=== PATIENT | male | born 1960 | race Caucasian/White ===

== ENCOUNTER → 2017-07-08 | Outpatient (CLI) | payer MEDICARE, OTHER ==
--- NOTE | 2017-07-08 14:50 | CT ---
EXAMINATION TYPE: CT chest wo con DATE OF EXAM: 07/08/2017 COMPARISON: NONE HISTORY: Shortness of breath CT DLP: 562.30 mGycm. Automated Exposure Control for Dose Reduction was Utilized. TECHNIQUE: CT scan of the thorax is performed without IV contrast. FINDINGS: LUNGS: There is a subpleural 5 mm nodule within the right lung apex on series 4 image 11. This appear s solid in nature. Minimal paraseptal emphysematous changes are seen at the lung apices. Linear lingu lar platelike atelectasis is identified. No additional pulmonary nodules or masses. No focal consolid ation, pleural effusion or pneumothorax. Tracheal bronchial tree is patent. MEDIASTINUM: Lack of IV contrast is noted to limit evaluation for mediastinal and especially hilar ad enopathy. Mild three-vessel coronary artery calcifications are noted. No cardiomegaly. There are no d efinitive greater than 1 cm hilar or mediastinal lymph nodes. No pericardial effusion is seen. Asce nding thoracic aorta is within normal limits of size measuring 3.3 cm. OTHER: The liver appears diffusely hypoattenuated, most commonly related to hepatic steatosis with ar eas of probable focal fatty sparing around the gallbladder fossa and within segment IVb of the liver. 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 Benign splenic parenchymal granulomas are noted throughout. Moderate bilateral retroareolar gynecomastia is seen. Mild multilevel degenerative changes of the thoracic sp ine are noted. IMPRESSION: 1. No focal consolidation, pleural effusion or pneumothorax to correspond to the patient's shortness of breath. 2. 5 mm solid right apical pulmonary nodule for which follow-up CT in 6-12 months is recommended to e valuate for progression/resolution. 3. Mild pulmonary emphysematous changes. 4. Findings most compatible with hepatic steatosis and areas of focal fatty sparing. 5. Incidentally identified and partially visualized portion kidney. 6. Bilateral moderate retroareolar gynecomastia.
== END | disposition home or self-care (01) ==
LOC: RADCTMAIN 13:30
PROVIDERS: ATTEND Internal Medicine Endocrinology, Diabetes & Metabolism
DX: J43.9 Emphysema, unspecified (principal); R91.1 Solitary pulmonary nodule
CPT/HCPCS: 71250

== ENCOUNTER → 2019-01-22 | Outpatient (CLI) | payer MEDICARE ==
[2019-01-22 06:46] LABS: African American GFR (CKD) >90 (>60 ml/min/1.73 sqM); Blood Urea Nitrogen 17 mg/dL (9-20); Non-African American GFR(CKD) >90 (>60 ml/min/1.73 sqM)
--- NOTE | 2019-01-22 08:21 | CT ---
EXAMINATION TYPE: CT chest w con DATE OF EXAM: 01/22/2019 COMPARISON: July 08, 2017 HISTORY: Dyspnea CT DLP: 470.3 mGycm Automated exposure control for dose reduction was used. CONTRAST: CT scan of the chest is performed with IV Contrast, patient injected with 100 mL of Isovue 300. FINDINGS: LUNGS: Previously noted right apical subpleural nodule is not reproduced. There are couple scattered subpleural 2 mm nodule seen which are too small to appropriately characterize. No concerning nodules or masses are seen. Scattered emphysematous change and hyperinflation compatible with COPD. Scattered linear atelectasis noted. MEDIASTINUM: There are no greater than 1 cm hilar or mediastinal lymph nodes. No pericardial effusi on is seen. Thoracic aorta is of normal caliber. The heart is not enlarged. UPPER ABDOMEN: Steatosis. Splenic granulomas. OTHER: No additional significant abnormality is seen. IMPRESSION: 1. A couple scattered subpleural nodules seen right upper lobe. Consider follow-up in one year. 2. COPD emphysematous change mild in degree.
== END | disposition home or self-care (01) ==
LOC: RADCTMAIN 05:52
PROVIDERS: ATTEND Family Medicine
DX: J43.9 Emphysema, unspecified (principal); R91.1 Solitary pulmonary nodule; R06.00 Dyspnea, unspecified
CPT/HCPCS: 82565; 84520; 71260; 36415; Q9967

== ENCOUNTER → 2019-08-12 | Outpatient (CLI) | payer MEDICARE ==
--- NOTE | 2019-08-12 15:36 | US ---
EXAMINATION TYPE: US thyroid st tissue head/neck DATE OF EXAM: 08/12/2019 COMPARISON: NONE CLINICAL HISTORY: R59.0 ENLARGED LYMPHNODES. Left neck palpable area TECHNIQUE/FINDINGS: Grayscale and color ultrasound was performed of the site of the palpable abnormal ity. Left neck inferior to ear: 3.7 x 1.9 x 1.8cm superficial complex vascular area seen at patient's area of concern Right neck inferior to ear: no abnormality seen at this time IMPRESSION: There is a 3.7 cm hypoechoic mass at the palpable abnormality of the left neck. This cou ld relate to an enlarged abnormal lymph node. CT neck with contrast could be performed prior to fine- needle aspiration for better anatomic delineation.
== END | disposition home or self-care (01) ==
LOC: RADUSWWP 14:49
PROVIDERS: ATTEND Family Medicine
DX: R22.1 Localized swelling, mass and lump, neck (principal)
CPT/HCPCS: 76536

== ENCOUNTER → 2019-10-11 | Outpatient (CLI) | payer MEDICARE ==
--- NOTE | 2019-10-11 11:00 | CT ---
EXAMINATION TYPE: CT soft tissue neck w con DATE OF EXAM: 10/11/2019 COMPARISON: None HISTORY: Nodule CONTRAST: CT scan of the neck is performed with IV Contrast , patient injected with 100 mL of Isovue 300. Contrast enhanced CT of the neck was performed from the skull base through the lung apices. AIRWAY: The supraglottic, glottic, and subglottic portions of the airway appear patent and free of mass. SALIVARY GLANDS: The submandibular glands are free of mass or inflammatory process. There is nonspec ific mass arising from the lower pole of the left parotid gland of uncertain etiology measuring 3.2 x 2.2 x 2.5 cm. Consider tissue diagnosis. THYROID GLAND: No nodules or masses seen. LYMPH NODES: No adenopathy seen greater than 1cm. LUNG APICES: No nodule or mass is seen. OTHER: Vascular structures are patent. No significant degenerative change of the cervical spine. N o abscess seen. IMPRESSION: 1. There is nonspecific mass arising from the lower pole of the left parotid gland of uncertain etiol ogy measuring 3.2 x 2.2 x 2.5 cm. Consider tissue diagnosis.
== END | disposition home or self-care (01) ==
LOC: RADCTMAIN 09:41
PROVIDERS: ATTEND Family Medicine
DX: K11.8 Other diseases of salivary glands (principal); R91.1 Solitary pulmonary nodule
CPT/HCPCS: 70491; Q9967

== ENCOUNTER → 2019-10-19 | Outpatient (CLI) | payer MEDICARE | END | disposition home or self-care (01) | LOC: LABWHC1 11:47 | PROVIDERS: ATTEND Family Medicine | DX: Z11.59 Encounter for screening for other viral diseases (principal) | CPT/HCPCS: 87635 ==

== ENCOUNTER 2019-10-21 10:53 | Day surgery (SDC) | payer MEDICARE ==
[2019-10-21 11:22] VITALS: RESP 18; TEMP 98.1
[2019-10-21 12:32] VITALS: BP 128/78; PULSE 76
--- NOTE | 2019-10-21 13:55 | US ---
EXAMINATION TYPE: US FNA first lesion DATE OF EXAM: 10/21/2019 COMPARISON: CT 10/11/2019 HISTORY: Parotid mass. Maximal barrier technique was utilized. After informed consent, skin overlying the left neck mass wa s localized with ultrasound and the overlying skin prepped and draped. Ultrasound was utilized using sterile technique. Lidocaine was used for local anesthesia. Single pass with a 21-gauge needle was ma de into the lesion and aspirated specimen was submitted to cytology, cloudy fluid obtained, partially 5 cc. Following the procedure hemostasis achieved. No immediate complication. The patient dischar ged in stable condition. IMPRESSION: STATUS POST ULTRASOUND GUIDED FINE NEEDLE ASPIRATION OF LEFT NECK MASS, PATHOLOGY IS PEND ING. THIS PROCEDURE WAS PERFORMED BY THE UNDERSIGNED.
== END 2019-10-21 12:35 | disposition home or self-care (01) ==
LOC: RADPROMAIN 10:53
PROVIDERS: ATTEND Family Medicine
DX: K11.8 Other diseases of salivary glands (principal)
CPT/HCPCS: 10005; 88173; 88305

== ENCOUNTER → 2020-12-01 | Outpatient (CLI) | payer MEDICARE | END | disposition home or self-care (01) | DX: I70.213 Atherosclerosis of native arteries of extremities with intermittent claudication, bilateral legs (principal) | CPT/HCPCS: 93923 ==

== ENCOUNTER 2022-03-21 05:50 | Day surgery (SDC) | payer MEDICARE ==
[2022-03-21] MEDS ORDERED: NITROGLYCERIN SL TABS 0.4 MG TAB SUBLINGUAL PRN (05:59)
[2022-03-21] MEDS ORDERED: ALPRAZolam 0.5 MG TAB PO PRN (05:59)
[2022-03-21] MEDS ORDERED: ALPRAZolam 0.25 MG TAB PO PRN ×2 (05:59)
[2022-03-21] MEDS ORDERED: ATORVASTATIN 80 MG TAB PO STA (05:59)
[2022-03-21] MEDS ORDERED: HEPARIN SODIUM,PORCINE 10,000 UNIT in SODIUM CHLORIDE 0.9% 1,000 ML IRRIGATION PRN (05:59)
[2022-03-21] MEDS ORDERED: HEPARIN SODIUM,PORCINE 2,500 UNIT in SODIUM CHLORIDE 0.9% 250 ML IRRIGATION PRN (05:59)
[2022-03-21] MEDS ORDERED: SODIUM CHLORIDE 0.9% 1,000 ML in EMPTY BAG 1 BAG IV ONE (05:59)
[2022-03-21] MEDS ORDERED: ASPIRIN 325 MG TAB PO STA (05:59)
[2022-03-21] MEDS ORDERED: ASPIRIN 325 MG TAB PO PRN (05:59)
[2022-03-21 06:27] LABS: Glucose,Whole Blood 165 mg/dL (70-110)
[2022-03-21 06:34] VITALS: RESP 18; TEMP 98.5
[2022-03-21 06:53] LABS: Basophils # (A) 0.1 k/uL (0-0.2); Basophils % (A) 1 %; Eosinophils % (A) 0 %; HGB 17.4 gm/dL (13.0-17.5); Lymphocytes # (A) 3.4 k/uL (1.0-4.8); Lymphocytes % (A) 36 %; MCH 28.9 pg (25.0-35.0); MCHC 32.9 g/dL (31.0-37.0); Mean Platelet Volume 7.2; Monocytes # (A) 0.7 k/uL (0-1.0); Monocytes % (A) 7 %; Neutrophils # (A) 5.1 k/uL (1.3-7.7); Neutrophils % (A) 54 %; Platelet Count 334 k/uL (150-450); RBC 6.03 m/uL (4.30-5.90); RDW 13.3 % (11.5-15.5); WBC 9.5 k/uL (3.8-10.6)
[2022-03-21 06:54] LABS: MCV 87.8 fL (80.0-100.0)
[2022-03-21] MEDS ORDERED: HEPARIN SODIUM 1,000 UN/ML (10ML VL) ONE (07:19)
[2022-03-21] MEDS ORDERED: MIDAZOLAM 2 MG/2 ML VIAL IV ONE (07:43)
[2022-03-21] MEDS ORDERED: LIDOCAINE 1% INJ 10MG/ML (30 ML VIAL-PF) SQ ONE (07:44)
[2022-03-21] MEDS ORDERED: VERAPAMIL SYRINGE (5 MG/10 ML) INTRAARTER ONE (07:50)
[2022-03-21] MEDS ORDERED: HEPARIN SODIUM 1,000 UN/ML (10ML VL) IV ONE (07:55)
[2022-03-21] MEDS ORDERED: niCARdipine 25 MG/10 ML VIAL ONE (07:58)
[2022-03-21] MEDS ORDERED: niCARdipine Syringe (1,000 mcg/10 mL) INTRAARTER ONE (07:59)
[2022-03-21] MEDS ORDERED: niCARdipine 25 MG/10 ML VIAL INTRAARTER ONE (07:59)
[2022-03-21] MEDS ORDERED: IOPAMIDOL-370 125ML BTL INJ ONE (08:14)
[2022-03-21] MEDS ORDERED: RX INFO: IV CONTRAST WAS GIVEN 1 EACH MISC MISCELLANE PRN (08:26)
[2022-03-21] MEDS ORDERED: SODIUM CHLORIDE 0.9% 1,000 ML IV SCH (08:30)
--- NOTE | 2022-03-21 08:32 | P.PCN ---
Date of Procedure: 03/21/22 Operative Findings: CARDIAC CATHETERIZATION PERFORMING PHYSICIAN: Juan Anne MD, RPVI PROCEDURE PERFORMED: 1. Selective right and left coronary angiogram 2. Left heart catheterization INDICATION: This is a 61-year-old gentleman with diabetes and hypertension and dyslipidemia and recent diagnosis of cardiomyopathy. He was experiencing shortness of breath with exertion. In the light of the cardiomyopathy and also in the light of abnormal stress test showing large inferior ischemia the heart catheterization was advised. COMPLICATION: None APPROACH: Right radial artery LEVEL OF SEDATION: Moderate with a sedation length of 15 minutes PROCEDURE DESCRIPTION: After obtaining an informed consent, the patient was brought to cardiac quality lab technician. Local anesthesia was performed using lidocaine subcutaneously. The right radial artery was cannulated using Seldinger technique, the guidewire passed easily, following that we advanced a 5-New Zealander sheath dilator assembly, the wire and dilator were removed and sheath was flushed. Following that, 2 mg of verapamil along with 5000 unit heparin were given. Selective right and left coronary angiogram using a 6-New Zealander JR4 and JL 3.5 catheters. Following that we did left heart catheterization using 6-New Zealander pigtail catheter. The procedure was completed there was no complication. SELECTIVE CORONARY ANGIOGRAM: The right coronary artery: Large caliber vessel and a dominant vessel. The RCA in the midportion is subtotally occluded up to about 99.9%. Distally the RCA becomes a small caliber vessel and bifurcates into PDA and PLV branches. Left main: Large caliber vessel was mild disease only. Bifurcates into an LCx and LAD The left circumflex: Large caliber vessel. The proximal LCx appeared to have mild disease only. Gives rise into an OM 1 which is a large caliber vessel works as ramus intermedius and has a lesion in the midportion appears to be in the range of 50- 60%. OM 2 is a small to medium caliber vessel was mild to moderate disease proximally. The circumflex continue in the AV groove as a moderate caliber vessel was no disease. The left anterior descending artery: The LAD proximally has mild disease only. The mid LAD appears to be subtotally occluded with a very sluggish flow in antegrade fashion. There is a lesion right after the bifurcation with the first diagonal branch appears to be a focal lesion. Lesion appears to be in the range of 70-80% HEMODYNAMICS: The LVEDP was 16 mmHg was no significant gradient across aortic valve CONCLUSION: 1. Critical lesion involving the mid RCA appears to be a tubular lesion 2. Critical lesion involving the proximal left anterior descending artery 3. Intermediate lesion involving OM one of the LCx POSTPROCEDURE MANAGEMENT: Giving the above anatomy I would take an opinion from cardiothoracic a surgeon
--- NOTE | 2022-03-21 08:35 | P.PCN ---
Date of Procedure: 03/21/22 Operative Findings: AN ABDOMINAL AORTOGRAM AND BILATERAL LOWER EXTREMITIES RUNOFF PERFORMING PHYSICIAN: Juan Anne MD PROCEDURE PERFORMED: 1. An abdominal aortogram 2. Bilateral lower extremities runoff INDICATION: Bilateral lower except his intermittent claudication with the patient unable to walk more than 200 feet before he stopped because of the pain. He underwent an arterial duplex study which showed occluded bilateral SFA COMPLICATION: None LEVEL OF SEDATION: Moderate was sedation length of moderate to sedation length of 15 minutes APPROACH: Right radial artery PROCEDURE DESCRIPTION: For access description please refer to a diagnostic heart catheterization was performed earlier today on the same patient. The procedure was performed from right radial approach We did an abdominal aortogram and bilateral lower extremities runoff using 5- Mexican pigtail catheter using a power injection. The catheter was initially placed at the level of the renal arteries, and it was pulled into above the bifurcation of the aorta into right and left common iliac arteries. The procedure was completed and there was no complications. SELECTIVE PERIPHERAL ANGIOGRAM: The abdominal aorta: Appears to have mild disease only The common iliac arteries: Both appear to have mild disease only The external iliac arteries: Both appear to have mild disease only The internal iliac arteries: Both are occluded The common femoral arteries: Both have mild disease only Superficial femoral arteries: Both are occluded in the proximal portion Popliteal arteries: Appears to be patent Below the knees: Poorly visualized arteries below the knee bilaterally CONCLUSION: Occluded bilaterally SFA POSTPROCEDURE MANAGEMENT: CAGE CLERK of the right and left SFA
[2022-03-21 12:32] VITALS: BP 122/74; PULSE 95
== END 2022-03-21 12:37 | disposition home or self-care (01) ==
LOC: CATHCVL 05:50
PROVIDERS: ATTEND Internal Medicine Interventional Cardiology
DX: I25.10 Atherosclerotic heart disease of native coronary artery without angina pectoris (principal); I70.92 Chronic total occlusion of artery of the extremities; E11.9 Type 2 diabetes mellitus without complications; I10 Essential (primary) hypertension; E78.5 Hyperlipidemia, unspecified; I42.9 Cardiomyopathy, unspecified
CPT/HCPCS: 93458; 75625; 75716; 85025; C1769; J2250; J2001; J1644; Q9967

== ENCOUNTER → 2022-04-16 | Outpatient (CLI) | payer MEDICARE ==
--- NOTE | 2022-04-16 11:23 | CT ---
EXAMINATION TYPE: CT chest wo con DATE OF EXAM: 04/16/2022 COMPARISON: Prior chest CT January 22, 2019 HISTORY: pre-op open heart CT DLP: 407.1 mGycm. Automated Exposure Control for Dose Reduction was Utilized. TECHNIQUE: CT scan of the thorax is performed without IV contrast. FINDINGS: LUNGS: [id number] underlying emphysematous change is redemonstrated. Mild central peribronchial wall thickening again seen. No new or enlarging greater than 5 mm pulmonary nodules or masses. No bautista spicious focal consolidation. There is no pleural effusion or pneumothorax seen. The tracheobronch ial tree is patent. MEDIASTINUM: Lack of IV contrast is noted to limit evaluation for mediastinal and especially hilar ad enopathy. There are no definitive new Greater than 1 cm mediastinal lymph nodes. Small to tiny pericardial effusion is now seen. No cardiom egaly. Three-vessel coronary artery calcification is present. Lipomatous hypertrophy of the intra-art erial septum redemonstrated. OTHER: A few calcifications throughout the spleen are redemonstrated consistent with product of old g ranulomatous disease.. Slightly low dense thickening to left adrenal gland favors benign lipid rich h yperplasia. Mild multilevel spurring in the thoracic spine. Bilateral flame-shaped subareolar gynecom astia is noted. IMPRESSION: Mild to moderate emphysematous change without acute pulmonary process.
--- NOTE | 2022-04-16 11:23 | XR ---
EXAMINATION TYPE: XR chest 2V DATE OF EXAM: 04/16/2022 COMPARISON: NONE TECHNIQUE: PA and lateral views submitted. HISTORY: Preop FINDINGS: The lungs are clear and there is no pneumothorax, pleural effusion, or focal pneumonia. Hyperinflat ion compatible with COPD. Heart size normal. No overt failure. IMPRESSION: 1. No acute process. Correlate for COPD.
--- NOTE | 2022-04-16 12:16 | US ---
EXAMINATION TYPE: US carotid duplex BILAT DATE OF EXAM: 04/16/2022 COMPARISON: NONE CLINICAL HISTORY: R55 SYNCOPE. Syncope, Pre-OP CABG TECHNIQUE: Carotid duplex ultrasound examination. Indirect Doppler criteria was utilized. FINDINGS: EXAM MEASUREMENTS: RIGHT: Peak Systolic Velocity (PSV) cm/sec ----- Right CCA: 79.9 ----- Right ICA: 79.8 ----- Right ECA: 114.7 ICA/CCA ratio: 1.0 RIGHT: End Diastole cm/sec ----- Right CCA: 24.1 ----- Right ICA: 27.0 ----- Right ECA: 20.2 LEFT: Peak Systolic Velocity (PSV) cm/sec ----- Left CCA: 101.7 ----- Left ICA: 96.3 ----- Left ECA: 100.4 ICA/CCA ratio: 0.9 LEFT: End Diastole cm/sec ----- Left CCA: 29.2 ----- Left ICA: 31.4 ----- Left ECA: 18.9 VERTEBRALS (direction of flow): Right Vertebral: Antegrade Left Vertebral: Antegrade Rhythm: Normal CERTIFIED HYPERBARIC TECHNOLOGIST NOTES: Heterogeneous plaque visualized bilaterally, however no significant stenosis vis ualized IMPRESSION: Bilateral heterogeneous plaque with no significant hemodynamic stenosis identified. Criteria for Assigning % of Stenosis / Diameter reduction (Estimation based on the indirect measurements of the internal carotid artery velocities (ICA PSV). 1. Normal (no stenosis)=ICA PSV < 125 cm/s: ratio < 2.0: ICA EDV<40 cm/s. 2. Less than 50% stenosis=ICA PSV < 125 cm/s: ratio < 2.0: ICA EDV<40 cm/s. 3. 50 to 69% stenosis=ICA PSV of 125 to 230 cm/s: ration 2.0 ? 4.0: ICA EDV 40-100 cm/s. 4. Greater than 70% stenosis to near occlusion= ICA PSV > 230 cm/s: ratio > 4.0: ICA EDV > 100 cm/s. 5. Near occlusion= ICA PSV velocities may be low or undetectable: variable ratio and ICA EDV. 6. Total occlusion=unable to detect flow.
--- NOTE | 2022-04-16 18:25 | CA ---
Transthoracic Echo Report Name: Humberto Taveras Age: 61 Gender: M : 1960 Exam Date: 04/16/2022 12:06 Exam Location: [facility] Ht (in): 68 Wt (lb): 202 Ordering Physician: Victor M Walters MD Attending/Referring Phys: Toll Lineman Lisa So RDCS Procedure CPT: Indications: I20.9 Cardiac Hx: Pre CABG Technical Quality: Very technically difficult study Contrast 1: Lumason Total Dose (mL): 4 Contrast 2: N/A Total Dose (mL): MEASUREMENTS (Male / Female) Normal Values 2D ECHO LV Diastolic Diameter PLAX 5.6 cm 4.2 - 5.9 / 3.9 - 5.3 cm LV Systolic Diameter PLAX 5.0 cm IVS Diastolic Thickness 1.1 cm 0.6 - 1.0 / 0.6 - 0.9 cm LVPW Diastolic Thickness 1.5 cm 0.6 - 1.0 / 0.6 - 0.9 cm LV Relative Wall Thickness 0.5 RV Internal Dim ED PLAX 3.8 cm LA Systolic Diameter LX 3.7 cm 3.0 - 4.0 / 2.7 - 3.8 cm LA Volume 55.9 cm??? 18 - 58 / 22 - 52 cm??? M-MODE Aortic Root Diameter MM 3.8 cm LA Systolic Diameter MM 3.9 cm LA Ao Ratio MM 1.0 MV E Point Septal Separation 0.4 cm AV Cusp Separation MM 1.5 cm DOPPLER MV Area PHT 4.4 cm??? Mitral E Point Velocity 40.4 cm/s Mitral A Point Velocity 64.0 cm/s Mitral E to A Ratio 0.6 MV Deceleration Time 170.8 ms MV E' Velocity 4.8 cm/s Mitral E to MV E' Ratio 8.4 TR Peak Velocity 144.8 cm/s TR Peak Gradient 8.4 mmHg Right Ventricular Systolic Press 13.4 mmHg FINDINGS Left Ventricle Severely reduced left ventricular systolic function. Left ventricular ejection fraction is estimated at 25-30 %. The anteroapical, apex and anteroseptal wall are akinetic. Evidence of apical thrombus noted. Right Ventricle Mild right ventricular dilatation. Right ventricular systolic pressure within normal limits. Right Atrium Normal right atrial size. Left Atrium Normal left atrial size. Mitral Valve Structurally normal mitral valve. Mild mitral regurgitation. Aortic Valve Trileaflet aortic valve. Aortic valve sclerosis. Tricuspid Valve Structurally normal tricuspid valve. Mild tricuspid regurgitation. Pulmonic Valve Pulmonic valve not well visualized. Pericardium Normal pericardium. Aorta Normal size aortic root and proximal ascending aorta. CONCLUSIONS 1. Severely impaired left ventricle systolic function with segmental wall motion abnormality and evidence consistent with apical thrombus 2. Mild mitral and tricuspid regurgitation. Previewed by: Dr. Asif White MD (Electronically Signed) Final Date: 16 April 2022 18:24
--- NOTE | 2022-04-17 10:10 | US ---
EXAMINATION TYPE: Pre-Operative Non-Invasive Evaluation of the hand for Potential Radial Artery Harve st, Measurements only DATE OF EXAM: 04/16/2022 12:08 PM CLINICAL HISTORY: I25.10 KNOWN CORONARY ARTERY DISEASE. Pre-OP CABG SIDE PERFORMED: Bilateral TECHNIQUE: Radial artery is measured utilizing real time linear array sonography. Dominant hand: Right Duplex Findings: Radial Artery: Color flow seen Measurements in mm, transverse view: Right Radial: Proximal: 3.3 x 3.2 mm Mid: 2.4 x 2.8 mm Distal: 2.6 x 3.0 mm Left Radial: Proximal: 3.8 x 3.7 mm Mid: 2.8 x 3.0 mm Distal: 2.9 x 2.9 mm IMPRESSION: 1. Bilateral radial artery measurements listed above. 2. Performing surgeon to determine viability as conduit.
--- NOTE | 2022-04-17 10:10 | US ---
EXAMINATION TYPE: US vein mapping BIL DATE OF EXAM: 04/16/2022 11:42 AM COMPARISON: NONE CLINICAL HISTORY: I25.10 KNOWN CORONARY ARTERY DISEASE. Pre-OP CABG SIDE PERFORMED: Bilateral TECHNIQUE: Lower extremity saphenous vein is examined and measured utilizing real time linear array sonography. Patient History: Smoker: Yes Heart Disease: Yes Previous DVT: No Vascular Surgery: NO Discoloration: No Hypertension: Yes Diabetes: No Paralysis: No Varicosities: NO Edema: No DUPLEX FINDINGS: Greater Saphenous: Color flow seen Measurements in mm: Right Greater Saphenous: Groin: 6.0 x 5.8 mm High Thigh: 3.2 x 3.5 mm Mid Thigh: 3.4 x 3.7 mm Above Knee: 2.8 x 2.9 mm Knee: 2.6 x 2.6 mm Below Knee: 2.6 x 2.3 mm Mid Calf: 2.5 x 2.6 mm At Ankle: 2.3 x 2.8 mm Left Greater Saphenous: Groin: 8.0 x 8.1 mm High Thigh: 5.0 x 5.3 mm Mid Thigh: 3.8 x 4.5 mm Above Knee: 3.7 x 4.5 mm Knee: 3.1 x 4.0 mm Below Knee: 3.1 x 3.4 mm Mid Calf: 3.2 x 3.8 mm At Ankle: 2.6 x 2.2 mm IMPRESSION: 1. Bilateral GSV measurements listed above. 2. Performing surgeon to determine viability as conduit.
== END | disposition home or self-care (01) ==
LOC: LABWHC1 10:53
PROVIDERS: ATTEND Thoracic Surgery (Cardiothoracic Vascular Surgery)
DX: I25.10 Atherosclerotic heart disease of native coronary artery without angina pectoris (principal); R06.02 Shortness of breath; R55 Syncope and collapse
CPT/HCPCS: 71046; 93930; 93970; 93880; 71250; C8929; Q9950; 93306

== ENCOUNTER 2022-05-01 05:53 | Day surgery (SDC) | payer MEDICARE ==
[2022-04-04 16:14] VITALS: BMI 30.4
[~2022-05-01 05:53] MED LIST: ASPIRIN 325 MG TAB PO PRN; SODIUM CHLORIDE 0.9% 1,000 ML in EMPTY BAG 1 BAG IV ONE
[2022-05-01 06:17] LABS: Glucose,Whole Blood 142 mg/dL (70-110)
[2022-05-01 06:24] LABS: Basophils # (A) 0.1 k/uL (0-0.2); Basophils % (A) 0 %; Eosinophils # (A) 0.1 k/uL (0-0.7); Eosinophils % (A) 1 %; HCT 50.5 % (39.0-53.0); Lymphocytes # (A) 1.7 k/uL (1.0-4.8); Lymphocytes % (A) 15 %; MCH 29.5 pg (25.0-35.0); MCHC 33.7 g/dL (31.0-37.0); MCV 87.5 fL (80.0-100.0); Mean Platelet Volume 7.1; Monocytes # (A) 0.6 k/uL (0-1.0); Monocytes % (A) 5 %; Neutrophils # (A) 8.9 k/uL (1.3-7.7); Neutrophils % (A) 78 %; Platelet Count 331 k/uL (150-450); RBC 5.77 m/uL (4.30-5.90); RDW 12.9 % (11.5-15.5); WBC 11.3 k/uL (3.8-10.6)
[2022-05-01] MEDS ORDERED: ALPRAZolam 0.5 MG TAB ONE (06:26)
[2022-05-01 06:34] LABS: African American GFR (CKD) >90 (>60 ml/min/1.73 sqM); Anion Gap 11 mmol/L; Blood Urea Nitrogen 12 mg/dL (9-20); Calcium 9.9 mg/dL (8.4-10.2); Carbon Dioxide 27 mmol/L (22-30); Chloride 100 mmol/L (98-107); Glucose 159 mg/dL (74-99); Non-African American GFR(CKD) 90 (>60 ml/min/1.73 sqM); Potassium 4.6 mmol/L (3.5-5.1); Sodium 138 mmol/L (137-145)
[2022-05-01] MEDS ORDERED: fentaNYL (PF) 50 MCG/ML 2 ML AMP ONE ×2 (07:47→09:25)
[2022-05-01] MEDS ORDERED: MIDAZOLAM 2 MG/2 ML VIAL IV ONE (07:49)
[2022-05-01] MEDS ORDERED: fentaNYL (PF) 50 MCG/ML 2 ML AMP IV ONE ×3 (07:50→09:27)
[2022-05-01] MEDS ORDERED: LIDOCAINE 1% INJ 10MG/ML (30 ML VIAL-PF) SQ ONE (07:55)
[2022-05-01] MEDS ORDERED: HYDROmorphone 0.5 MG/0.5 ML SYRINGE IVP ONE (07:59)
[2022-05-01] MEDS ORDERED: HEPARIN SODIUM 1,000 UN/ML (10ML VL) ONE (08:02)
[2022-05-01 08:03] LABS: Partial Thromboplastin Time 23.2 sec (22.0-30.0); Prothrombin Time 10.4 sec (9.0-12.0)
[2022-05-01] MEDS: HEPARIN SODIUM 1,000 UN/ML (10ML VL) IV ONE ×2 (08:05→09:52)
[2022-05-01] MEDS ORDERED: SODIUM CHLORIDE 0.9% 500 ML 500 ML with niCARdipine 6.25 MG, NITROGLYCERIN-D5W PMX 0.05... IV ONE ×4 (08:33)
[2022-05-01 09:36] LABS: ALT 18 U/L (4-49); AST 21 U/L (17-59); Albumin 4.3 g/dL (3.5-5.0); Alkaline Phosphatase 89 U/L (38-126); Total Bilirubin 0.7 mg/dL (0.2-1.3); Total Protein 7.1 g/dL (6.3-8.2)
[2022-05-01] MEDS ORDERED: niCARdipine 25 MG/10 ML VIAL ONE (09:55)
[2022-05-01] MEDS ORDERED: NITROGLYCERIN 1000MCG/10ML SYRINGE INTRAARTER ONE (09:57)
[2022-05-01] MEDS: niCARdipine Syringe (1,000 mcg/10 mL) INTRAARTER ONE ×2 (09:57→10:06)
[2022-05-01] MEDS ORDERED: IOPAMIDOL-250 100ML BTL INTRAARTER ONE (10:08)
[2022-05-01] MEDS ORDERED: predniSONE 5 MG TAB PO PRN (10:14)
[2022-05-01] MEDS ORDERED: CLOPIDOGREL 75 MG TAB ONE (10:15)
[2022-05-01] MEDS ORDERED: NALOXONE 0.4 MG/ML 1 ML VIAL IVP PRN (10:20)
[2022-05-01] MEDS ORDERED: SODIUM CHLORIDE 0.9% 1,000 ML in EMPTY BAG 1 BAG IV SCH (10:30)
--- NOTE | 2022-05-01 10:32 | P.PCN ---
Date of Procedure: 05/01/22 Operative Findings: PERCUTANEOUS PERIPHERAL INTERVENTION Performing physician Juan Anne M.D. Procedure performed #1 Successful stenting of the proximal and mid left SFA #2 An atherectomy of the left SFA #3 Intravascular ultrasound of the left SFA #4 Successful balloon angioplasty of the left popliteal #5 Left lower extremities angiogram #6 Right lower extremity angiogram Indication This is a 61-year-old gentleman was experiencing bilateral lower extremities discomfort concerning for intermittent claudication which has been interfering with his daily activity where he can't walk more than 200 feet before he stopped because of the pain. He underwent initially an arterial duplex study and subsequently an angiogram and that revealed occluded bilateral SFA. He also was experiencing shortness of breath with exertion. He underwent further investigation including an echo and a stress test and both came in to be abnormal. Subsequently heart catheterization was performed and showed severe triple-vessel CAD. He was seen by cardiothoracic surgeon and he underwent cardiac MRI which showed viable anterior wall. He is a scheduled to undergo off-pump OBREGON to LAD but the surgeon would like to open his SFA before. For that reason for the pain in the legs concerning for intermittent claudication he was brought today for intervention. Approach Right common femoral artery and left posterior tibial artery Complications None Level of sedation Moderate with a sedation time of 144 minutes Procedure description After obtaining informed consent the patient was brought to the cardiac laboratory cureman. The right common femoral artery was cannulated using micropuncture technique under ultrasound guidance, the micro-puncture wire passed easily then I placed a 6-New Zealander sheath of the right common femoral artery. The sheath was 70 cm sheath. Subsequently I did selective the left profunda using 035 stiff Glidewire with a backup support of 5-New Zealander rim catheter. After that I advanced the sheath over the wire and the catheter to the left common femoral artery under fluoroscopy guidance. Left lower 70 angiogram at that point was performed and showed occluded left SFA and severe disease involving the left popliteal with 3 vessels run off below the knee bilaterally. At that point and declination was initiated using heparin with continuous ACT monitoring. Subsequently I did attempt crossing the chronic total occlusion of the left SFA in antegrade technique but that was unsuccessful. After that I decided to cross the left chronic total occlusion of the SFA in retrograde technique. I accessed the left posterior tibial artery and I placed a 6-New Zealander sheath. At that point continuous infusion of heparin and her abnormal and nitroglycerin was initiated. Again continuous ACT monitoring was performed. After that I did a cross the chronic total occlusion of the left SFA in retrograde technique coming from the pedal axis. I did inject contrast in the left common femoral artery to prove that I was in the true lumen. Subsequently intravascular ultrasound was performed and showed that the proximal and mid left SFA was some intimal in the distal left SFA and popliteal was true lumen. I did atherectomy of the only distal portion of the left SFA. After that I did balloon angioplasty of the left SFA and left popliteal. The following angiogram showed adequate angiographic results in the distal left SFA but in adequate angiographic results in the proximal and mid left SFA. I decided to stent the proximal and mid left SFA. I deployed 2 stents. Both where 7.0 x 1 40 mm Zilver PTX a drug-coated stent. Both stents were positioned under fluoroscopy guidance and deployed under fluoroscopy guidance with the stents were postdilated using 6 mm balloon. For the left SFA distally and left popliteal I did balloon angioplasty using a drug-coated balloon and that was 6.0 x 80 mm balloon. Final angiogram showed good angiographic results and completion angiogram showed three-vessel run off below the knee on the left side. At that point I did exchange my long sheath into short sheath using 035 stiff Glidewire before I did selective right common femoral artery angiogram. The procedure was completed without any complication Postprocedure management #1 dual antiplatelet therapy #2 aggressive cholesterol control #3 risk factors modification #4 follow-up with the patient
[2022-05-01] MEDS ORDERED: CLOPIDOGREL 75 MG TAB PO ONE (10:48)
[2022-05-01] MEDS ORDERED: NICOTINE 14MG/24HR PATCH TRANSDERM STA (11:08)
--- NOTE | 2022-05-01 13:55 | IR ---
EXAMINATION TYPE: IR stent intravas non coronary DATE OF EXAM: 05/01/2022 CLINICAL HISTORY: Peripheral arterial disease. Bilateral leg pain. TECHNIQUE: Fluoroscopy. COMPARISON: None. FINDINGS: Fluoroscopic guidance was provided during lower extremity angiogram with stent insertion p rocedure performed by Dr. Anne. A total of 46 minutes 24 seconds of fluoroscopic time was utilized d uring the procedure and 311 spot images was acquired. Please refer to procedure note for further deta ils. IMPRESSION: As Above.
[2022-05-01] MEDS: ALBUTEROL NEBULIZED 2.5 MG/3 ML INHALATION SCH (15:22)
[2022-05-02] MEDS: ALBUTEROL NEBULIZED 2.5 MG/3 ML INHALATION SCH ×2 (00:04→07:53)
[2022-05-02] MEDS ORDERED: SYMBICORT 160-4.5 MCG INHALER INHALATION SCH (08:00)
[2022-05-02] MEDS ORDERED: IPRATROPIUM 0.5 MG/2.5 ML NEBU INHALATION SCH (08:00)
--- NOTE | 2022-05-02 08:47 | P.DS ---
Providers Attending physician: Juan Anne Primary care physician: [facility] Course: The patient is a pleasant 61-year-old gentleman who underwent yesterday successful STAFFING AND SCHEDULING COORDINATOR of the left SFA. He was seen this morning. The right groin is soft and nontender and with no bruises. The patient is going to discharge home. I'll follow-up with the patient into weeks in the office. Plan - Discharge Summary Discharge Rx Participant: No New Discharge Prescriptions: New Apixaban [Eliquis] 2.5 mg PO BID #180 tab Continue Montelukast [Singulair] 10 mg PO DAILY Albuterol Nebulized [Ventolin Nebulized] 2.5 mg INHALATION Q8H predniSONE 5 mg PO DIRECTED PRN PRN Reason: COPD flare Fluticasone/Umeclidin/Vilanter [Trelegy Ellipta 200-62.5-25] 1 puff INHALATION DAILY Atorvastatin Calcium [Lipitor] 80 mg PO DAILY sitaGLIPtin PHOS/metFORMIN HCL [Janumet 50-1,000 mg Tablet] 1 each PO DAILY lisinopriL [Zestril] 5 mg PO DAILY Metoprolol Succinate (ER) [Toprol XL] 25 mg PO DAILY Aspirin 81 mg PO DAILY Discharge Medication List Albuterol Nebulized [Ventolin Nebulized] 2.5 mg INHALATION Q8H 03/20/22 [History] Aspirin 81 mg PO DAILY 03/20/22 [History] Atorvastatin Calcium [Lipitor] 80 mg PO DAILY 03/20/22 [History] Fluticasone/Umeclidin/Vilanter [Trelegy Ellipta 200-62.5-25] 1 puff INHALATION DAILY 03/20/22 [History] Metoprolol Succinate (ER) [Toprol XL] 25 mg PO DAILY 03/20/22 [History] Montelukast [Singulair] 10 mg PO DAILY 03/20/22 [History] lisinopriL [Zestril] 5 mg PO DAILY 03/20/22 [History] predniSONE 5 mg PO DIRECTED PRN 03/20/22 [History] sitaGLIPtin PHOS/metFORMIN HCL [Janumet 50-1,000 mg Tablet] 1 each PO DAILY 03/20/22 [History] Apixaban [Eliquis] 2.5 mg PO BID #180 tab 05/02/22 [Rx] Follow up Appointment(s)/Referral(s): Juan Anne MD [STAFF PHYSICIAN] - 1 Week (APPOINTMENT MADE ON May @ 2:45PM ) Victor M Walters MD [STAFF PHYSICIAN] - 05/10/22 (Open heart surgery with Dr. Walters scheduled for 05/10/22. OR will call the day before to let you know what time to be here. Plese take your last dose of Eliquis/Xarelto on 05/07/22. NO Eliquis/Xarelto 05/08/22) Patient Instructions/Handouts: Peripheral Artery Disease (ED), Moderate Sedation (DC), Peripheral Vascular Angioplasty (DC) Activity/Diet/Wound Care/Special Instructions: *NO LIFTING, PUSHING, OR PULLING ANYTHING OVER 5 POUNDS FOR 5 DAYS *NO DRIVING FOR 3 DAYS *YOU CAN REMOVE YOUR DRESSING AND SHOWER TOMORROW BUT DO NOT SUBMERSE YOUR PUNCTURE SITE IN WATER FOR A FEW DAYS TO PREVENT INFECTION - SO NO TUB BATHS, POOLS, HOT TUBS, DISHES....ETC *ANY SIGNS OF BLEEDING (HARDNESS, SWELLING, OR EXCESSIVE BRUISING) HOLD DIRECT PRESSURE ON YOUR PUNCTURE SITE AND COME TO THE NEAREST EMERGENCY ROOM TO GET YOUR PUNCTURE SITE LOOKED AT - DO NOT DRIVE YOURSELF! EITHER CALL EMS OR HAVE SOMEONE DRIVE YOU!
[2022-05-02 08:57] VITALS: BP 97/58; PULSE 99; RESP 18; TEMP 98.2
[2022-05-02] MEDS ORDERED: MONTELUKAST 10 MG TAB PO SCH (09:00)
[2022-05-02] MEDS ORDERED: lisinopriL 5 MG TAB PO SCH (09:00)
[2022-05-02] MEDS ORDERED: ASPIRIN 81 MG PO SCH (09:00)
[2022-05-02] MEDS ORDERED: ATORVASTATIN 80 MG TAB PO SCH (09:00)
[2022-05-02] MEDS ORDERED: METOPROLOL SUCCINATE (ER) 25 MG TAB.ER.24H PO SCH (09:00)
[2022-05-02] MEDS ORDERED: LINAGLIPTIN 5 MG TABLET PO SCH (09:00)
[2022-05-02] MEDS ORDERED: NON FORMULARY DRUG (Sitagliptin Phos/Metformin Hcl [Janumet 50-1,000 Mg Tablet] 1 EACH Tab PO SCH (09:00)
[2022-05-02] MEDS ORDERED: NON FORMULARY DRUG (Fluticasone/Umeclidin/Vilanter [Trelegy Ellipta 200-62.5-25] 1 EACH Bl INHALATION SCH (09:00)
--- NOTE | 2022-05-02 09:24 | P.PN ---
Progress Note - Text Progress Note Date: 05/02/22 5 meter walk test completed without difficulty: #1 3.48 sec #2 4.10 sec #3 3.54 sec
[2022-05-03] MEDS ORDERED: metFORMIN 500 MG TAB PO SCH (21:00)
== END 2022-05-02 10:50 | disposition home or self-care (01) ==
LOC: CATHCVL 05:53 → 6NMEDSUR 10:49 → CATHCVL 05-02 10:50
PROVIDERS: ATTEND Internal Medicine Interventional Cardiology
DX: I70.213 Atherosclerosis of native arteries of extremities with intermittent claudication, bilateral legs (principal); I25.10 Atherosclerotic heart disease of native coronary artery without angina pectoris; I10 Essential (primary) hypertension; E78.5 Hyperlipidemia, unspecified; F17.210 Nicotine dependence, cigarettes, uncomplicated; Z79.899 Other long term (current) drug therapy; Z79.82 Long term (current) use of aspirin; E11.9 Type 2 diabetes mellitus without complications; Z79.84 Long term (current) use of oral hypoglycemic drugs
CPT/HCPCS: 94640 ×2; 37227; 37252; 80053; 85025; 85610; 85730; C1894 ×3; C1769 ×7; C1714; C1725 ×2; C1887; C1753; C1874; C1760; C2623; S4990; J2250; J2001; J3010; J1644; J1170; Q9966

== ENCOUNTER → 2022-06-19 | Outpatient (CLI) | payer MEDICARE ==
[2022-06-19 10:52] LABS: INR 0.9 (<1.2)
[2022-06-19 10:53] LABS: Partial Thromboplastin Time 22.7 sec (22.0-30.0)
--- NOTE | 2022-06-19 11:27 | XR ---
EXAMINATION TYPE: XR chest 2V DATE OF EXAM: 06/19/2022 COMPARISON: NONE TECHNIQUE: PA and lateral views submitted. HISTORY: Presurgical FINDINGS: The lungs are clear and there is no pneumothorax, pleural effusion, or focal pneumonia. Heart size normal and no overt failure. Osseous structures demonstrate hypertrophic and degenerative changes of the spine. Hyperinflation suggests COPD or asthma. Atherosclerotic change aorta. Vague nodular densit y right lower lobe along the right hemidiaphragm measuring 1.4 cm. IMPRESSION: 1. No acute process. Correlate for COPD. 2. There is a vague nodular density overlying the right lower lobe near the right hemidiaphragm. This could represent a nipple shadow rather than pulmonary nodule. Recommend repeat frontal view with nip ple markers.
[2022-06-19 16:40] LABS: HCT 50.2 % (39.6-50.0); HGB 15.9 g/dL (13.0-17.0); MCH 28.4 pg (27.0-32.0); MCHC 31.7 g/dL (32.0-37.0); MCV 89.6 fL (80.0-97.0); Mean Platelet Volume 9.5 fL (9.5-12.2); NRBC Per 100 WBC 0 /100 WBCS (0.0-0.0); Platelet Count 378 X 10*3/uL (140-440); RDW 14.1 % (11.5-14.5)
[2022-06-20 02:58] LABS: African American GFR (CKD) 95.1 (60.0-200.0); Albumin 4.2 g/dL (3.8-4.9); Albumin/Globulin Ratio 1.56 (1.60-3.17); Anion Gap 11.2 mmol/L (10.00-18.00); BUN/Creat Ratio 12.3 Ratio (12.00-20.00); Blood Urea Nitrogen 12.3 mg/dL (9.0-27.0); Calcium 10.1 mg/dL (8.7-10.3); Carbon Dioxide 27.8 mmol/L (20.0-27.5); Globulin 2.7 g/dL (1.6-3.3); Magnesium 1.7 mg/dL (1.5-2.4); Potassium 4.5 mmol/L (3.5-5.5); Total Bilirubin 0.3 mg/dL (0.30-1.20); Total Protein 6.9 g/dL (6.2-8.2)
[2022-06-21 00:26] LABS: Hepatitis A Antibody IgM Nonreactive (Nonreactive); Hepatitis B Core IgM Nonreactive (Nonreactive); Hepatitis B Surface Antigen Nonreactive (Nonreactive); Hepatitis C IgG Antibody Nonreactive (Nonreactive)
== END | disposition home or self-care (01) ==
LOC: LABWHC1 09:44
PROVIDERS: ATTEND Thoracic Surgery (Cardiothoracic Vascular Surgery)
DX: I25.10 Atherosclerotic heart disease of native coronary artery without angina pectoris (principal); J98.4 Other disorders of lung
CPT/HCPCS: 36415; 71046; 80053; 80074; 83735; 85027; 85610; 85730; 87070

== ENCOUNTER 2022-06-24 05:42 | Inpatient (IN) | payer MEDICARE ==
[~2022-06-24 05:42] MED LIST changes: +ALBUMIN HUMAN 25% 50 ML IV ONE; +ALBUMIN HUMAN 5% 500 ML IVPB ONE; +ASPIRIN 325 MG TAB PO ONE; -ASPIRIN 325 MG TAB PO PRN; +ATORVASTATIN 10 MG TAB PO ONE; +CALCIUM CHLORIDE 100 MG/ML 10 ML SYRINGE IV ONE; +CHLORHEXIDINE GLUCONATE 15 ML CUP MUCOUS MEM ONE; +CLEVIDIPINE BUTYRATE 25 MG in EMPTY BAG 1 BAG IV ONE; +DILTIAZEM 125 MG in SODIUM CHLORIDE 0.9% 100 ML IV ONE; +ELECTROLYTE-A SOLUTION 1,000 ML with POTASSIUM CHLORIDE 100 MEQ, MAGNESIUM SULFATE 16 M... IV ONE; +ELECTROLYTE-A SOLUTION 1,000 ML with POTASSIUM CHLORIDE 40 MEQ, MAGNESIUM SULFATE 16 ME... IV ONE; +HEPARIN SODIUM 1,000 UN/ML (10ML VL) IV ONE; +HEPARIN SODIUM,PORCINE 5,000 UNIT in SODIUM CHLORIDE 0.9% 500 ML 500 ML IV ONE; +INSULIN REGULAR 100 UNIT in SODIUM CHLORIDE 0.9% 100 ML IV ONE; +LACTATED RINGERS 1,000 ML IV ONE; +MAGNESIUM SULFATE 16.24 MEQ in EMPTY SYRINGE 1 SYR IV ONE; +MANNITOL 25% 12.5 GM/50 ML VIAL IV ONE; +METOPROLOL TARTRATE 12.5 MG TAB PO ONE; +MUPIROCIN 2% OINT 22 GM TUBE NASAL ONE; +NITROGLYCERIN SL TABS 0.4 MG TAB SUBLINGUAL ONE; +NITROGLYCERIN-D5W PMX 25 MG/250 ML BTL IV ONE; +NITROGLYCERIN-D5W PMX 50 MG in DEXTROSE/WATER 1 250ML.BAG IV ONE; +NOREPINEPHRINE 4 MG in SODIUM CHLORIDE 0.9% 250 ML IV ONE; +PAPAVERINE 360 MG in SODIUM CHLORIDE 0.9% 90 ML IV ONE; +PHENYLEPHRINE 10 MG/ML VIAL IV ONE; +PHENYLEPHRINE 40 MG in SODIUM CHLORIDE 0.9% 250 ML IV ONE; +PROTAMINE SULFATE 10 MG/ML 25 ML VIAL IV ONE; +PROTAMINE SULFATE 250 MG in EMPTY BAG 1 BAG IV ONE; +SODIUM BICARB 8.4% 50 ML SYR (1 MEQ/ML) IV ONE; +SODIUM CHLORIDE 0.9% 1,000 ML IV ONE; -SODIUM CHLORIDE 0.9% 1,000 ML in EMPTY BAG 1 BAG IV ONE; +TRANEXAMIC ACID 2,000 MG in SODIUM CHLORIDE 0.9% 80 ML IV ONE; +ceFAZolin 1,000 MG in SODIUM CHLORIDE 0.9% IRRIGATIO 1,000 ML IRRIGATION ONE; +propofoL 1,000 MG/100 ML VIAL IV ONE
[2022-06-24 06:30] LABS: Glucose,Whole Blood 155 mg/dL (70-110)
[2022-06-24] MEDS ORDERED: LACTATED RINGERS 1,000 ML IV ONE (06:40)
[2022-06-24] MEDS ORDERED: ONDANSETRON 4 MG/2 ML VIAL ONE (06:44)
[2022-06-24] MEDS ORDERED: DEXAMETHASONE SOD PHOSPHATE 4 MG/ML 1 ML VIAL IVP ONE (06:51)
[2022-06-24] MEDS ORDERED: VECURONIUM 10 MG VIAL IV ONE (07:50)
[2022-06-24] MEDS ORDERED: ALBUMIN HUMAN 5% (25gm) 500 ML VIAL IVPB ONE (07:50)
[2022-06-24] MEDS ORDERED: ePHEDrine 50 MG/ML 1 ML VIAL ONE (07:50)
[2022-06-24] MEDS ORDERED: NITROGLYCERIN-D5W PMX 50 MG/250 ML BOTTLE IV ONE (07:50)
[2022-06-24] MEDS ORDERED: PROTAMINE SULFATE 10 MG/ML 5 ML VIAL IV ONE (07:50)
[2022-06-24] MEDS ORDERED: ETOMIDATE 2 MG/ML 10 ML VIAL ONE (07:50)
[2022-06-24] MEDS ORDERED: MIDAZOLAM HCL 10 MG/10 ML VIAL ONE (07:50)
[2022-06-24] MEDS ORDERED: EPINEPHrine 10 ML SYRINGE (0.1 MG/ML) ONE (07:50)
[2022-06-24] MEDS ORDERED: HEPARIN SODIUM,PORCINE 10,000 UNIT/ML 1 ML VIAL ONE (07:50)
[2022-06-24] MEDS ORDERED: LIDOCAINE 2% INJ 20 MG/ML (2 ML VIAL) ONE (07:50)
[2022-06-24] MEDS ORDERED: SODIUM CHLORIDE 0.9% IRRIG 1,000 ML BTL IRRIGATION ONE (07:50)
[2022-06-24] MEDS ORDERED: SUCCINYLCHOLINE CHLORIDE 200 MG/10 ML VIAL IV ONE (07:50)
[2022-06-24] MEDS ORDERED: fentaNYL (PF) 50 MCG/ML 50 ML VIAL ONE (07:50)
[2022-06-24] MEDS ORDERED: ceFAZolin 1,000 MG VIAL ONE (07:50)
[2022-06-24] MEDS ORDERED: PHENYLEPHRINE-0.9% NACL SYG 1,000 MCG/10 ML SYRINGE ONE (07:50)
[2022-06-24] MEDS ORDERED: PROPOFOL 10 MG/ML 20 ML VIAL IV ONE (07:50)
[2022-06-24] MEDS ORDERED: ROCURONIUM 10 MG/ML (5 ML VIAL) IV ONE (07:50)
[2022-06-24] MEDS ORDERED: INSULIN REGULAR 100 UNIT/ML VIAL (IV) ONE (07:50)
[2022-06-24] MEDS ORDERED: SODIUM CHLORIDE 0.9% 100 ML BAG ONE (07:50)
[2022-06-24] MEDS ORDERED: LIDOCAINE 1% (10MG/ML) FOR IV START INTRADERMA PRN (07:58)
[2022-06-24] MEDS ORDERED: LACTATED RINGERS 1,000 ML IV SCH (07:58)
[2022-06-24] MEDS ORDERED: HYDROmorphone 0.5 MG/0.5 ML SYRINGE IVP PRN (07:58)
[2022-06-24] MEDS ORDERED: ONDANSETRON 4 MG/2 ML VIAL IVP ONE (07:58)
[2022-06-24] MEDS ORDERED: DEXAMETHASONE SOD PHOSPHATE 4 MG/ML 1 ML VIAL IV ONE (07:58)
[2022-06-24 08:32] LABS: ABG Base Excess 2.2 mmol/L; ABG Glucose Whole Blood 186 mg/dL (75-99); ABG HCO3 29 mmol/L (21-25); ABG Hematocrit 44 % (34.0-46.0); ABG Ionized Calcium 5.1 mg/dL (4.5-5.3); ABG Lactic Acid Whole Blood 1.1 mmol/L (0.5-1.6); ABG Oxygen Saturation 99.7 % (94-97); ABG PCO2 52 mmHg (35-45); ABG PH 7.35 (7.35-7.45); ABG PO2 352 mmHg (83-108); ABG Potassium Whole Blood 4.6 mmol/L (3.4-4.5); ABG Sodium Whole Blood 139 mmol/L (135-146); ABG TCO2 31 mmol/L (19-24)
[2022-06-24 09:43] LABS: ABG Base Excess 0.5 mmol/L; ABG Glucose Whole Blood 159 mg/dL (75-99); ABG HCO3 28 mmol/L (21-25); ABG Hematocrit 43 % (34.0-46.0); ABG Ionized Calcium 5.2 mg/dL (4.5-5.3); ABG Lactic Acid Whole Blood 1.7 mmol/L (0.5-1.6); ABG Oxygen Saturation 99.6 % (94-97); ABG PCO2 58 mmHg (35-45); ABG PO2 348 mmHg (83-108); ABG Potassium Whole Blood 4.4 mmol/L (3.4-4.5); ABG Sodium Whole Blood 140 mmol/L (135-146); ABG TCO2 30 mmol/L (19-24)
[2022-06-24] MEDS ORDERED: SODIUM CHLORIDE 0.9% 500 ML 500 ML with HEPARIN SODIUM,PORCINE 5,000 UNIT IV ONE ×2 (10:10)
[2022-06-24] MEDS ORDERED: PAPAVERINE 360 MG in SODIUM CHLORIDE 0.9% 90 ML IV ONE (10:10)
[2022-06-24] MEDS ORDERED: ceFAZolin 1,000 MG in SODIUM CHLORIDE 0.9% 1,000 ML IRRIGATION ONE (10:11)
[2022-06-24 10:14] LABS: ABG Base Excess 1.3 mmol/L; ABG Glucose Whole Blood 150 mg/dL (75-99); ABG HCO3 26 mmol/L (21-25); ABG Hematocrit 44 % (34.0-46.0); ABG Ionized Calcium 5.1 mg/dL (4.5-5.3); ABG Lactic Acid Whole Blood 1.7 mmol/L (0.5-1.6); ABG Oxygen Saturation 99.7 % (94-97); ABG PCO2 42 mmHg (35-45); ABG PO2 266 mmHg (83-108); ABG Potassium Whole Blood 4.2 mmol/L (3.4-4.5); ABG Sodium Whole Blood 138 mmol/L (135-146); ABG TCO2 28 mmol/L (19-24)
[2022-06-24 11:09] LABS: ABG Base Excess 1.1 mmol/L; ABG Glucose Whole Blood 138 mg/dL (75-99); ABG HCO3 25 mmol/L (21-25); ABG Hematocrit 41 % (34.0-46.0); ABG Ionized Calcium 4.8 mg/dL (4.5-5.3); ABG Oxygen Saturation 99.7 % (94-97); ABG PCO2 38 mmHg (35-45); ABG PH 7.43 (7.35-7.45); ABG PO2 266 mmHg (83-108); ABG Potassium Whole Blood 4.2 mmol/L (3.4-4.5); ABG Sodium Whole Blood 138 mmol/L (135-146); ABG TCO2 27 mmol/L (19-24)
--- NOTE | 2022-06-24 11:51 | P.ANPRN ---
Procedure Note - Anesthesia - Invasive Line Right Central Line Date of Procedure: 06/24/22 Time of Procedure: 07:30 Location of Patient: PreOp Preparation: Sterile Prep Arterial Line Location: Radial Central Line Location: Internal Jugular [place] Mo Line Location: Internal Jugular Ultrasound Used: Yes Purpose - Visualization and Identification of Vasculature: Yes Image Stored and Saved: Yes Narrative: Central line placement per sterile protocol utilized. PA line placed, secured @ 48cm - TENISHA Intraop Pre Bypass TENISHA Intraop - Anesthesia Indication: Assessment heart function pre-bypass Date of Procedure: 06/24/22 Pre-operative Diagnosis: CAD Post-operative Diagnosis: CAD Left Ventricle: Pre bypass EF 30%, Hypokinetic douglas, Thrombus on LV apex discussed with surgeon prior to incision Ejection Fraction: Other (30%) Regional Wall Motion Abnormalities: Other (global hypokinesis) Left Ventricle Hypertrophy: No R. Ventricle Function: Hypokinesis Mild Anatomy: Trileaflet Aortic Stenosis: None Aortic Regurgitation: None Mitral Stenosis: None Mitral Regurgitation: Trace Tricuspid Stenosis: None Tricuspid Regurgitation: Trace Pulmonic Stenosis: None Pulmonic Regurgitation: Trace R. Atrial Dilation: No R. Atrial PFO: No L. Atrial Dilation: No Aortic Dissection: No Aortic Calcification: Mobile (Mobile atheromas in aortic arch, discussed with surgeon prior to incision) Plural Effusion: None - TENISHA Intraop Post Bypass TENISHA Intraop Post Bypass Left Ventricle: improved anterior wall function. Thrombus still present in apex Ejection Fraction: Other (40%) Regional Wall Motion Abnormalities: Other R. Ventricle Function: Hypokinesis Mild Aortic Valve: Unchanged Mitral Valve: mild mitral regurg, discussed with surgeon Tricuspid: Unchanged Pulmonic: Unchanged Aortic Dissection: No
--- NOTE | 2022-06-24 12:01 | P.OP ---
Date of Procedure: 06/24/22 Preoperative Diagnosis: CAD Postoperative Diagnosis: Same Procedure(s) Performed: 1. Off pump coronary artery bypass grafting x 2. Left internal thoracic artery to left anterior descending artery. Left radial artery from aorta to ramus intermedius. 2. Left atrial appendage ligation with #35mm AtriClip 3. Endoscopic left radial artery harvest 4. Epi-aortic and trans-esophageal echo 5. Graft flow measurements using the Medi-Stim flow meter. 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 Work-up revealed bilaterally occluded SFA and cardiac angio revealed 3v CAD with low EF of 30- 35%. He underwent left SFA angioplasty and cardiac MRI which revealed viability in the anterior wall. Pre-op echo also revealed LV thrombus. All risks, benefits and alternatives to surgical revascularization were discussed with the patient including his STS risk. He was in agreement to proceed. Operative Findings: EF improved after 2 vessel bypass to 40-45% Description of Procedure: The patient underwent central line, swan dana catheter, and arterial line placement by the anesthesia team. The patient was brought back to the operating room and placed on the table supine. General endotracheal anesthesia was induced and the patient was prepped and draped in the usual sterile fashion from the chin to the ankles. A time-out was performed and antibiotics were given. A midline incision was made on the chest. This was carried down to bone and a median sternotomy was performed. Hemostasis on the bone was achieved electrocautery. The left pleura was entered and the left internal thoracic artery was harvested in a skeletonized fashion. Simultaneously another assistants harvested the left radial artery endoscopically. The patient was systemically heparinized and the LUIS was transected and placed in a papaverine jacuzzi. A left side chest tube was placed. The pericardium was opened in a T-fashion and a pericardial cradle was created. Stay sutures were placed. The right pleura was opened widely. A 35mm AtriClip was placed on the left atrial appendage effectively ligating it. The LAD was brought into the field and the octopus stabilizer was used to stabilize the midportion of the vessel. A arteriotomy was made and a 1.5mm flow through was inserted. I then performed an end to side anastomosis with between the LUIS and the LAD using a 7-0 prolene. The flow through was removed prior to tieing down the anastomosis. The LAD was diseased but a decent target measuring 1.5mm. Next the ramus was brought into the field and the octopus sabilizer was placed on the vessel. The ramus was a heavily calcified vessel but a decent target proximally. An end to side anastomosis was created between the radial artery and the ramus intermedius using a running 7-0 prolene. The shunt was removed prior to tieing down the anastomosis. Lastly, the radial artery was fastened to the ascending aorta using another heartstring device and running 5-0 prolene. Epi-aortic ultrasound was performed prior to aortotomy to confirm no soft atheroma in the ascending aorta. Graft flows were checked using the medi-stim flow meter system and they were excellent in the OB[place]ON-LAD. Protamine was given and hemostasis was secured. A 19F brooke and 32F chest tube was placed in the right pleura and mediastinum respectively. The sternum was closed with cables. The fascia was closed with ethibond. The subcutaneous tissues and skin of the sternum, arm and leg were closed with vicryl in layers. All counts were correct and the patient was transported to the CVICU.
[2022-06-24] MEDS: INSULIN REGULAR 100 UNIT in SODIUM CHLORIDE 0.9% 100 ML IV SCH (12:18)
[2022-06-24] MEDS ORDERED: Magnesium Replacement Protocol 1 EACH MISC MISCELLANE PRN (12:27)
[2022-06-24] MEDS ORDERED: BENZOCAINE/MENTHOL LOZENG 1 EACH LOZENGE MUCOUS MEM PRN (12:27)
[2022-06-24] MEDS ORDERED: ONDANSETRON 4 MG/2 ML VIAL IVP PRN (12:27)
[2022-06-24] MEDS ORDERED: NITROGLYCERIN-D5W PMX 50 MG in DEXTROSE/WATER 1 250ML.BAG IV SCH (12:27)
[2022-06-24] MEDS ORDERED: hydrALAZINE HCL 20 MG/ML 1 ML VIAL IVP PRN (12:27)
[2022-06-24] MEDS ORDERED: Potassium Replacement Protocol 1 EACH MISC MISCELLANE PRN (12:27)
[2022-06-24] MEDS ORDERED: DEXTROSE 50% SYRINGE 50 ML IVP PRN ×2 (12:27)
[2022-06-24] MEDS ORDERED: CLEVIDIPINE BUTYRATE 25 MG in EMPTY BAG 1 BAG IV SCH (12:27)
[2022-06-24] MEDS ORDERED: METOCLOPRAMIDE 5 MG/ML 2 ML VIAL IVP PRN (12:27)
[2022-06-24] MEDS ORDERED: DEXMEDETOMIDINE/0.9% NACL(PMX) 400 MCG in EMPTY BAG 1 BAG IV SCH (12:27)
[2022-06-24] MEDS ORDERED: DEXTROSE 5% IN WATER 100 ML with AMIODARONE 150 MG IV PRN (12:27)
[2022-06-24] MEDS ORDERED: IPRATROPIUM-ALBUTEROL 3 ML NEB INHALATION PRN (12:27)
[2022-06-24 12:44] LABS: Glucose,Whole Blood 162 mg/dL (70-110)
[2022-06-24] MEDS: ALBUMIN HUMAN 5% 250 ML in EMPTY BAG 1 BAG IVPB PRN ×2 (12:46→17:14)
--- NOTE | 2022-06-24 12:49 | P.CNPUL ---
History of Present Illness Consult date: 06/24/22 Chief complaint: Thoracotomy and bypass surgery History of present illness: This is a 61-year-old male patient underwent an off pump coronary artery bypass surgery 2 with OB[place]ON to LAD and left radial to ramus intermedius. The patient also had a left atrial appendage ligation. Patient is currently postop day #0. The patient is currently in the intensive care unit, sedated on propofol running at 20 mg/kg/m. He is on a mechanical ventilator on assist control mode at the rate of 12, tidal volume of 450, FiO2 of 100% with a PEEP of 8. The patient has a mediastinal chest tube, left lower chest tube and a tiny right pleural chest tube also. Output ithe chest tubes have been minimal since arrival from the operating room. The patient is hemodynamically stable currently on nitroglycerin drip. Cardiac rhythm is sinus. Cardiac output has been 5.1 and index is 4.4. Pulmonary artery pressures of 27/9 and his CVP is at 9. Blood gas showed a pH of 7.4 with a pCO2 of 38 and pO2 of 260. This was on FiO2 of 100%. Chest x-ray pending The patient is currently on insulin drip running at 4 units an hour. Note that the patient is known to have coronary artery disease with three-vessel involvement with CHF and impaired ejection fraction of 30-35%. He also is known to have an LV thrombus for which she was receiving anticoagulation outpatient basis. Is known to have COPD with an FEV1 of 35% of predicted. He is known PAD, hypertension and hyperlipidemia and diabetes mellitus as well. Is a chronic smoker. Review of Systems ROS unobtainable: due to endotracheal tube Past Medical History Past Medical History: Coronary Artery Disease (CAD), COPD, Diabetes Mellitus, Hyperlipidemia, Hypertension, Rheumatoid Arthritis (RA), Vascular Disorder Additional Past Medical History / Comment(s): NIDDM, SOB w/exertion, right leg pain w/walking History of Any Multi-Drug Resistant Organisms: None Reported Past Surgical History: Heart Catheterization Additional Past Surgical History / Comment(s): abd aortogram with runoff & stenting left SFA & left PTBA Past Anesthesia/Blood Transfusion Reactions: No Reported Reaction Additional Past Anesthesia/Blood Transfusion Reaction / Comment(s): NO ANESTHESIA HX. Smoking Status: Current every day smoker - Past Family History Father Family Medical History: CVA/TIA Medications and Allergies Home Medications Medication Instructions Recorded Confirmed Type Albuterol Nebulized [Ventolin 2.5 mg INHALATION Q8H PRN 03/20/22 06/19/22 His tory Nebulized] Aspirin 81 mg PO DAILY 03/20/22 06/19/22 History Atorvastatin Calcium [Lipitor] 80 mg PO DAILY 03/20/22 06/19/22 History Metoprolol Succinate (ER) [Toprol 25 mg PO DAILY 03/20/22 06/19/22 History XL] Montelukast [Singulair] 10 mg PO DAILY 03/20/22 06/19/22 History lisinopriL [Zestril] 5 mg PO DAILY 03/20/22 06/19/22 History predniSONE 5 mg PO DIRECTED PRN 03/20/22 06/19/22 History sitaGLIPtin PHOS/metFORMIN HCL 1 each PO DAILY 03/20/22 06/19/22 History [Janumet 50-1,000 mg Tablet] Apixaban [Eliquis] 2.5 mg PO BID #180 tab 05/02/22 06/19/22 Rx Enoxaparin [Lovenox] 80 mg SQ Q12H #4 each 05/02/22 06/19/22 Rx Allergies Allergy/AdvReac Type Severity Reaction Status Date / Time No Known Allergies Allergy Verified 06/24/22 06:12 Physical Exam Vitals: Vital Signs Temp Pulse Resp BP BP Pulse Ox FiO2 06/24/22 12:43 100 06/24/22 06:28 97.2 F L 92 15 138/83 137/84 96 Intake and Output 06/23/22 06/24/22 06/24/22 22:59 06:59 14:59 Intake Total 4 Output Total 250 Balance -246 Intake: IV 4 Output: Urine 50 Estimated Blood Loss 200 Other: Weight 91.8 kg Gen. appearance, comfortable, not in acute distress Head exam was generally normal. There was no scleral icterus or corneal arcus. Mucous membranes were moist. Neck was supple and without jugular venous distension, thyromegaly, or carotid bruits. Carotids were easily palpable bilaterally. There was no adenopathy. The patient has a orogastric tube in place and the patient has a right IJ [place]-Mo catheter in place. Lungs were clear to auscultation and percussion, and with normal diaphragmatic excursion. No wheezes or rales were noted. The patient has a right-sided chest tube, left-sided chest tube and mediastinal chest tube. positive evidence of any air leak. Output is minimal at this point in time. Cardiac exam revealed the PMI to be normally situated and sized. The rhythm was regular and no extrasystoles were noted during several minutes of auscultation. The first and second heart sounds were normal and physiologic splitting of the second heart sound was noted. There were no murmurs, rubs, clicks, or gallops. Abdominal exam revealed normal bowel sounds. The abdomen was soft, non-tender, and without masses, organomegaly, or appreciable enlargement of the abdominal aorta. Examination of the extremities revealed easily palpable radial, femoral and pedal pulses. There was no cyanosis, clubbing or edema. Examination of the skin revealed no evidence of significant rashes, suspicious appearing nevi or other concerning lesions. Neurologically, the patient is sedated with Results - Laboratory Findings ABG ABG pH 7.43 (7.35-7.45) 06/24/22 11:10 ABG pCO2 38 mmHg (35-45) 06/24/22 11:10 ABG pO2 266 mmHg (83-108) H 06/24/22 11:10 ABG O2 Saturation 99.7 % (94-97) H 06/24/22 11:10 Abnormal lab findings: Abnormal Labs 06/19/22 06/24/22 06/24/22 10:03 06:27 08:33 ABG pH ABG pCO2 52 H ABG pO2 352 H ABG HCO3 29 H ABG Total CO2 31 H ABG O2 Saturation 99.7 H ABG Potassium 4.6 H ABG Glucose 186 H ABG Lactic Acid POC Glucose (mg/dL) 155 H Arterial Blood Potassium 4.6 H Arterial Blood Glucose 186 H Crossmatch See Detail 06/24/22 06/24/22 06/24/22 09:43 10:15 11:10 ABG pH 7.30 L ABG pCO2 58 H ABG pO2 348 H 266 H 266 H ABG HCO3 28 H 26 H ABG Total CO2 30 H 28 H 27 H ABG O2 Saturation 99.6 H 99.7 H 99.7 H ABG Potassium ABG Glucose 159 H 150 H 138 H ABG Lactic Acid 1.7 H 1.7 H 2.0 H POC Glucose (mg/dL) Arterial Blood Potassium Arterial Blood Glucose 159 H 150 H 138 H Crossmatch - Diagnostic Findings Chest x-ray: image reviewed Assessment and Plan Plan: Symptomatic multivessel coronary artery disease, post 2 vessel bypass surgery including OB[place]ON to LAD and radial to ramus intermedius. The patient is currently postop day #0. Hemodynamically stable. Adequate cardiac output and index 2 [address] in place. Chest x-ray still pending for now. No pressors. The patient is on nitroglycerin drip Cardiomyopathy with an ejection fraction of around 30-35%, preoperatively History of cardiac thrombus material anticoagulants on outpatient basis Peripheral vascular disease COPD with an FEV1 of 35% of predicted Hypertension Hyperlipidemia Diabetes mellitus currently on insulin drip at 4 units an hour History of rheumatoid arthritis Plan Continue Support and dropped FiO2 down to 50% Gradually wean down the PEEP to maintain a saturation above 90% Monitor the output from the chest tubes Awaiting chest x-ray postop Keep sedation for now Continue bronchodilators Cardiac rhythm is sinus Monitor hemodynamic parameters Suspect extubation within the next 2-6 hours.
[2022-06-24 12:58] LABS: ABG HCO3 28 mmol/L (21-25); ABG Oxygen Saturation 99.7 % (94-97); ABG PCO2 59 mmHg (35-45); ABG PH 7.28 (7.35-7.45); ABG PO2 335 mmHg (83-108); ABG TCO2 30 mmol/L (19-24)
[2022-06-24 13:00] LABS: Basophils % (A) 0 %; Eosinophils % (A) 0 %; HCT 40.4 % (39.0-53.0); Lymphocytes # (A) 1.5 k/uL (1.0-4.8); Lymphocytes % (A) 9 %; MCH 28.5 pg (25.0-35.0); MCV 86.4 fL (80.0-100.0); Mean Platelet Volume 6.9; Monocytes # (A) 0.5 k/uL (0-1.0); Monocytes % (A) 3 %; Neutrophils # (A) 14.3 k/uL (1.3-7.7); Neutrophils % (A) 87 %; Platelet Count 256 k/uL (150-450); RBC 4.67 m/uL (4.30-5.90); WBC 16.5 k/uL (3.8-10.6)
[2022-06-24] MEDS ORDERED: AMIODARONE 360 MG in DEXTROSE 5% IN WATER 200 ML IV ONE ×2 (13:00)
[2022-06-24] MEDS: IPRATROPIUM-ALBUTEROL 3 ML NEB INHALATION SCH ×3 (13:02→20:14)
[2022-06-24] MEDS: LACTATED RINGERS 1,000 ML IV SCH (13:04)
[2022-06-24 13:07] LABS: Partial Thromboplastin Time 22.6 sec (22.0-30.0); Prothrombin Time 10.6 sec (9.0-12.0)
[2022-06-24 13:11] LABS: HGB 13.3 gm/dL (13.0-17.5)
[2022-06-24 13:18] LABS: Ionized Calcium 5.5 mg/dL (4.5-5.3)
[2022-06-24 13:26] LABS: ALT 18 U/L (4-49); AST 18 U/L (17-59); African American GFR (CKD) >90 (>60 ml/min/1.73 sqM); Albumin 3.4 g/dL (3.5-5.0); Alkaline Phosphatase 56 U/L (38-126); Anion Gap 4 mmol/L; Blood Urea Nitrogen 11 mg/dL (9-20); Calcium 8.6 mg/dL (8.4-10.2); Carbon Dioxide 27 mmol/L (22-30); Chloride 105 mmol/L (98-107); Glucose 129 mg/dL (74-99); Magnesium 2.1 mg/dL (1.6-2.3); Non-African American GFR(CKD) >90 (>60 ml/min/1.73 sqM); Potassium 4.2 mmol/L (3.5-5.1); Sodium 136 mmol/L (137-145); Total Bilirubin 0.5 mg/dL (0.2-1.3); Total Protein 5.7 g/dL (6.3-8.2)
--- NOTE | 2022-06-24 13:30 | XR ---
EXAMINATION TYPE: XR chest 1V portable DATE OF EXAM: 06/24/2022 COMPARISON: 06/19/2022 HISTORY: Postop cardiac surgery TECHNIQUE: Single frontal view of the chest is obtained. FINDINGS: Compared to previous, there is been interval median sternotomy with median sternotomy wire s, mediastinal clips, Atriclip, mediastinal and bilateral pleural chest tubes. Endotracheal tube is w ell-positioned above the konrad. There is a right internal jugular [place]-Mo catheter with tip at the junction of right ventricle and pulmonary outflow tract. The heart is not enlarged. There is expecte d widening of the mediastinum. There is no pulmonary vascular congestion. There are patchy airspace o pacities in the left midlung and left base. There is no pneumothorax. IMPRESSION: Expected postsurgical changes as above. No pneumothorax. No pulmonary vascular congestio n.
[2022-06-24] MEDS: ACETAMINOPHEN IV (For NPO) 1,000 MG in EMPTY BAG 1 BAG IVPB SCH ×2 (13:49→18:22)
[2022-06-24 14:06] LABS: Glucose,Whole Blood 100 mg/dL (70-110)
--- NOTE | 2022-06-24 14:25 | P.CRDCN ---
History of Present Illness Consult date: 06/24/22 History of present illness: History of Present Illness: The patient is a 61-year-old male who underwent CABG today. He has a known history of CAD, followed by Dr. Anne, history of PAD status post percutaneous revascularization and a history of cardiomyopathy. He underwent off-pump OBREGON to the LAD and left radial to the ramus intermedius with closure of the left atrial appendage. He is intubated and sedated. Hemodynamically he is in sinus mechanism. He has a known history of severe cardiomyopathy with viability of the anterior by cardiac MRI. He has a history of diabetes, hypertension, hyperlipidemia and a history of chronic tobacco use. Medications: Janumet 810804 daily, lisinopril 5 mg daily, Lipitor 80 mg daily, aspirin once a day, Toprol 25 mg daily, Ventolin and Eliquis was initiated because of apical thrombus Review of system: Could not be obtained Physical Examination: 61-year-old male, intubated and sedated ,Blood pressure 137/80, Heart rate 80 Head: Normocephalic. Eyes: Sclerae nonicteric. Neck: Good carotid upstroke, no bruit, no jugular venous distention. Lungs: Clear to auscultation anteriorly. Heart: Regular rate and rhythm, S1-S2, no S3, plus rub. No murmur. Abdomen: Soft , positive bowel sounds no organomegaly. Extremities: No edema, intact distal pulses, Bony wrap in place. Labs: Hemoglobin 13.3, white blood cell 16.5. BUN 11, creatinine 0.78 Impression: 1. Status post CABG with arterial conduit 2. Severe ischemic cardiomyopathy 3. PAD 4. History of hypertension 5. History of diabetes 6. History of hyperlipidemia Plan: 1. Routine postoperative care, hopefully wean and extubate today 2. Once extubated to resume beta miller and BONY inhibitor 3. If renal functions are stable add spironolactone 4. Depending on his progress further recommendations will be made 5. Thank you for this consult we will follow with you. Past Medical History Past Medical History: Coronary Artery Disease (CAD), COPD, Diabetes Mellitus, Hyperlipidemia, Hypertension, Rheumatoid Arthritis (RA), Vascular Disorder Additional Past Medical History / Comment(s): NIDDM, SOB w/exertion, right leg pain w/walking History of Any Multi-Drug Resistant Organisms: None Reported Past Surgical History: Heart Catheterization Additional Past Surgical History / Comment(s): abd aortogram with runoff & stenting left SFA & left PTBA Past Anesthesia/Blood Transfusion Reactions: No Reported Reaction Additional Past Anesthesia/Blood Transfusion Reaction / Comment(s): NO ANESTHESIA HX. Smoking Status: Current every day smoker - Past Family History Father Family Medical History: CVA/TIA Medications and Allergies Home Medications Medication Instructions Recorded Confirmed Type Albuterol Nebulized [Ventolin 2.5 mg INHALATION Q8H PRN 03/20/22 06/19/22 History Nebulized] Aspirin 81 mg PO DAILY 03/20/22 06/19/22 History Atorvastatin Calcium [Lipitor] 80 mg PO DAILY 03/20/22 06/19/22 History Metoprolol Succinate (ER) [Toprol 25 mg PO DAILY 03/20/22 06/19/22 History XL] Montelukast [Singulair] 10 mg PO DAILY 03/20/22 06/19/22 History lisinopriL [Zestril] 5 mg PO DAILY 03/20/22 06/19/22 History predniSONE 5 mg PO DIRECTED PRN 03/20/22 06/19/22 History sitaGLIPtin PHOS/metFORMIN HCL 1 each PO DAILY 03/20/22 06/19/22 History [Janumet 50-1,000 mg Tablet] Apixaban [Eliquis] 2.5 mg PO BID #180 tab 05/02/22 06/19/22 Rx Enoxaparin [Lovenox] 80 mg SQ Q12H #4 each 05/02/22 06/19/22 Rx Allergies Allergy/AdvReac Type Severity Reaction Status Date / Time No Known Allergies Allergy Verified 06/24/22 06:12 Physical Exam Vitals: Vital Signs Temp Pulse Pulse Resp BP BP Pulse Ox 06/24/22 13:12 80 12 06/24/22 13:02 76 12 06/24/22 12:59 06/24/22 12:45 06/24/22 12:43 06/24/22 12:25 06/24/22 06:28 97.2 F L 92 15 138/83 137/84 96 FiO2 06/24/22 13:12 06/24/22 13:02 06/24/22 12:59 50 06/24/22 12:45 70 06/24/22 12:43 100 06/24/22 12:25 100 06/24/22 06:28 Intake and Output 06/23/22 06/24/22 06/24/22 22:59 06:59 14:59 Intake Total 13.975 Output Total 250 Balance -236.025 Intake: IV 4 Intake, IV Titration 9.975 Amount Insulin Regular 100 unit 9.975 In Sodium Chloride 0.9% 100 ml @ Per Protocol IV .Q0M [facility] Rx#:[id number] Output: Urine 50 Estimated Blood Loss 200 Other: Weight 91.8 kg Results 06/24/22 12:38 06/24/22 12:38 Cardiac Enzymes 06/24/22 Range/Units 12:38 AST 18 (17-59) U/L Coagulation 06/24/22 Range/Units 12:38 PT 10.6 (9.0-12.0) sec APTT 22.6 (22.0-30.0) sec CBC 06/24/22 Range/Units 12:38 WBC 16.5 H (3.8-10.6) k/uL RBC 4.67 (4.30-5.90) m/uL Hgb 13.3 D (13.0-17.5) gm/dL Hct 40.4 (39.0-53.0) % Plt Count 256 (150-450) k/uL Comprehensive Metabolic Panel 06/24/22 Range/Units 12:38 Sodium 136 L (137-145) mmol/L Potassium 4.2 (3.5-5.1) mmol/L Chloride 105 (98-107) mmol/L Carbon Dioxide 27 (22-30) mmol/L BUN 11 (9-20) mg/dL Creatinine 0.78 (0.66-1.25) mg/dL Glucose 129 H (74-99) mg/dL Calcium 8.6 (8.4-10.2) mg/dL AST 18 (17-59) U/L ALT 18 (4-49) U/L Alkaline Phosphatase 56 (38-126) U/L Total Protein 5.7 L (6.3-8.2) g/dL Albumin 3.4 L (3.5-5.0) g/dL Current Medications Generic Name Dose Route Start Last Admin Trade Name Freq PRN Reason Stop Dose Admin Hydrocodone Bitart/Acetaminophen 2 each 06/25/22 01:00 Hydrocodone/Apap 5-325mg 1 Each Tab PO Q4HR PRN Severe Pain (Scale 7 to 10) Hydrocodone Bitart/Acetaminophen 1 each 06/25/22 01:00 Hydrocodone/Apap 5-325mg 1 Each Tab PO Q4HR PRN Moderate Pain (Scale 4 to 6) Albuterol/Ipratropium 3 ml 06/24/22 12:27 Ipratropium-Albuterol 3 Ml Neb INHALATION RT-Q2H PRN Shortness Of Breath Or Wheezing Albuterol/Ipratropium 3 ml 06/24/22 12:27 06/24/22 13:02 Ipratropium-Albuterol 3 Ml Neb INHALATION 06/24/22 18:27 3 ml RT-Q4H [facility] Administration Albuterol/Ipratropium 3 ml 06/24/22 20:00 Ipratropium-Albuterol 3 Ml Neb INHALATION RT-QID [facility] Aspirin 325 mg 06/25/22 09:00 Aspirin 325 Mg Tab PO DAILY [facility] Atorvastatin Calcium 80 mg 06/25/22 09:00 Atorvastatin 80 Mg Tab PO DAILY [facility] Benzocaine/Menthol 1 each 06/24/22 12:27 Benzocaine/Menthol Lozeng 1 Each Lozenge MUCOUS MEM Q2H PRN Sore Throat Bisacodyl 10 mg 06/25/22 09:00 Bisacodyl 10 Mg Supp RECTAL DAILY PRN Constipation Clopidogrel Bisulfate 75 mg 06/25/22 09:00 Clopidogrel 75 Mg Tab PO DAILY [facility] Dextrose/Water 25 ml 06/24/22 12:27 Dextrose 50% Syringe 50 Ml IVP PER PROTOCOL PRN Hypoglycemia Protocol Dextrose/Water 50 ml 06/24/22 12:27 Dextrose 50% Syringe 50 Ml IVP PER PROTOCOL PRN Hypoglycemia Protocol Heparin Sodium (Porcine) 5,000 unit 06/24/22 16:00 Heparin Sodium,Porcine/Pf 5,000 Unit/0.5 Ml Syringe SQ Q8HR [facility] Hydralazine HCl 10 mg 06/24/22 12:27 Hydralazine Hcl 20 Mg/Ml 1 Ml Vial IVP Q1H PRN Blood Pressure - High Clevidipine 25 mg/ IV Solution 50 mls @ 2 mls/hr 06/24/22 12:27 IV .Q24H [facility] Protocol 1 MG/HR Amiodarone HCl 360 mg/ 200 mls @ 33.333 mls/hr 06/24/22 13:00 06/24/22 13:26 Dextrose/Water IV 06/24/22 18:59 1 mg/min .Q6H [facility] 33.333 mls/hr Administration Protocol 1 MG/MIN Amiodarone HCl 450 mg/ 250 mls @ 16.667 mls/hr 06/24/22 19:00 Dextrose/Water IV 06/25/22 12:59 .Q15H [facility] Protocol 0.5 MG/MIN Amiodarone HCl 150 mg/ 103 mls @ 618 mls/hr 06/24/22 12:27 Dextrose/Water IV .Q10M PRN A.FIB/FLUTTER Albumin Human 250 ml/ IV 250 mls @ 250 mls/hr 06/24/22 12:27 06/24/22 12:46 Solution IVPB 06/26/22 12:28 250 mls/hr Q1HR PRN Administration For Volume Protocol Dexmedetomidine HCl 400 mcg/ 100 mls @ 0 mls/hr 06/24/22 12:27 IV Solution IV 06/25/22 12:27 .Q0M [facility] Protocol Titrate Acetaminophen 1,000 mg/ IV 100 mls @ 400 mls/hr 06/24/22 13:00 06/24/22 13:49 Solution IVPB 06/24/22 19:14 400 mls/hr Q6H [facility] Administration Cefazolin Sodium 2 gm/ Sodium 50 mls @ 100 mls/hr 06/24/22 16:00 Chloride IVPB 06/25/22 08:29 Q8HR [facility] Protocol Insulin Human Regular 100 unit 101 mls @ 0 mls/hr 06/24/22 12:27 06/24/22 14:18 / Sodium Chloride IV 0 ml/hr .Q0M [facility] 0 mls/hr Titration Protocol Per Protocol Nitroglycerin/Dextrose 50 mg/ 250 mls @ 1.5 mls/hr 06/24/22 12:27 06/24/22 13:02 IV Solution IV 5 mcg/min .Q24H [facility] 1.5 mls/hr Administration 5 MCG/MIN Lactated Ringer's 1,000 mls @ 50 mls/hr 06/24/22 12:27 06/24/22 13:04 Lactated Ringers IV 50 mls/hr .Q20H [facility] Administration Propofol 1,000 mg/ IV Solution 100 mls @ 0 mls/hr 06/24/22 12:27 06/24/22 13:03 IV 20 mcg/kg/min .Q0M [facility] 11.016 mls/hr Administration Protocol Titrate Ketorolac Tromethamine 15 mg 06/24/22 18:00 Ketorolac 15 Mg/Ml 1 Ml Vial IVP 06/29/22 18:01 Q6HR [facility] Magnesium Hydroxide 2,400 mg 06/25/22 09:00 Magnesium Hydroxide 2,400 Mg/10 Ml Cup PO BID PRN Constipation Metoclopramide HCl 10 mg 06/24/22 12:27 Metoclopramide 5 Mg/Ml 2 Ml Vial IVP Q4H PRN Nausea And Vomiting Metoprolol Tartrate 12.5 mg 06/25/22 09:00 Metoprolol Tartrate 12.5 Mg Tab PO BID [facility] Miscellaneous Information 1 each 06/24/22 12:27 Potassium Replacement Protocol 1 Each Misc MISCELLANE DAILY PRN Per Protocol Protocol Miscellaneous Information 1 each 06/24/22 12:27 Magnesium Replacement Protocol 1 Each Misc MISCELLANE DAILY PRN Per Protocol Protocol Montelukast Sodium 10 mg 06/25/22 09:00 Montelukast 10 Mg Tab PO DAILY [facility] Ondansetron HCl 4 mg 06/24/22 12:27 Ondansetron 4 Mg/2 Ml Vial IVP Q6HR PRN Nausea And Vomiting Oxycodone HCl 10 mg 06/24/22 12:27 Oxycodone Hcl 5 Mg Tab PO 06/25/22 00:59 Q4H PRN Severe Pain (Scale 7 to 10) Oxycodone HCl 5 mg 06/24/22 12:27 Oxycodone Hcl 5 Mg Tab PO 06/25/22 00:59 Q4H PRN Moderate Pain (Scale 4 to 6) Pantoprazole Sodium 40 mg 06/25/22 09:00 Pantoprazole 40 Mg/10 Ml Vial IVP DAILY [facility] Senna/Docusate Sodium 2 each 06/25/22 21:00 Sennosides-Docusate Sodium 1 Each Tab PO HS [facility] Sodium Chloride 10 ml 06/24/22 21:00 Sodium Chloride 0.9% Flush 10 Ml Syringe IV BID [facility] Intake and Output 01/06/24/22 06/24/22 22:59 06:59 14:59 Intake Total 13.975 Output Total 250 Balance -236.025 Intake: IV 4 Intake, IV Titration 9.975 Amount Insulin Regular 100 unit 9.975 In Sodium Chloride 0.9% 100 ml @ Per Protocol IV .Q0M [facility] Rx#:[id number] Output: Urine 50 Estimated Blood Loss 200 Other: Weight 91.8 kg 06/24/22 12:38 06/24/22 12:38
[2022-06-24 15:08] LABS: Glucose,Whole Blood 123 mg/dL (70-110)
[2022-06-24 15:22] LABS: Basophils # (A) 0.1 k/uL (0-0.2); Basophils % (A) 0 %; Eosinophils % (A) 0 %; HCT 41.7 % (39.0-53.0); HGB 13.5 gm/dL (13.0-17.5); Lymphocytes # (A) 1.5 k/uL (1.0-4.8); Lymphocytes % (A) 7 %; MCH 28.1 pg (25.0-35.0); MCHC 32.3 g/dL (31.0-37.0); Mean Platelet Volume 6.8; Monocytes # (A) 1.3 k/uL (0-1.0); Monocytes % (A) 6 %; Neutrophils # (A) 16.8 k/uL (1.3-7.7); Neutrophils % (A) 85 %; Platelet Count 278 k/uL (150-450); RBC 4.79 m/uL (4.30-5.90); RDW 13.7 % (11.5-15.5); WBC 19.8 k/uL (3.8-10.6)
[2022-06-24 15:52] LABS: ABG Base Excess -0.2 mmol/L; ABG HCO3 27 mmol/L (21-25); ABG Oxygen Saturation 94.9 % (94-97); ABG PCO2 62 mmHg (35-45); ABG PH 7.25 (7.35-7.45); ABG PO2 90 mmHg (83-108); ABG TCO2 29 mmol/L (19-24)
[2022-06-24] MEDS: KETOROLAC 15 MG/ML 1 ML VIAL IVP SCH (16:03)
[2022-06-24 16:12] LABS: Glucose,Whole Blood 163 mg/dL (70-110)
[2022-06-24] MEDS: HEPARIN SODIUM,PORCINE/PF 5,000 UNIT/0.5 ML SYRINGE SQ SCH ×2 (16:17→23:58)
[2022-06-24 17:23] LABS: Glucose,Whole Blood 140 mg/dL (70-110)
[2022-06-24 17:51] LABS: Glucose,Whole Blood 147 mg/dL (70-110)
[2022-06-24 17:59] LABS: Basophils % (A) 0 %; Eosinophils # (A) 0.1 k/uL (0-0.7); Eosinophils % (A) 1 %; HCT 37.9 % (39.0-53.0); HGB 12.5 gm/dL (13.0-17.5); Lymphocytes # (A) 0.8 k/uL (1.0-4.8); Lymphocytes % (A) 5 %; MCH 28.4 pg (25.0-35.0); MCV 86.1 fL (80.0-100.0); Mean Platelet Volume 6.7; Monocytes # (A) 0.9 k/uL (0-1.0); Monocytes % (A) 5 %; Neutrophils # (A) 15.2 k/uL (1.3-7.7); Neutrophils % (A) 89 %; Platelet Count 252 k/uL (150-450); RDW 13.7 % (11.5-15.5); WBC 17.1 k/uL (3.8-10.6)
[2022-06-24 18:55] LABS: Glucose,Whole Blood 117 mg/dL (70-110)
[2022-06-24] MEDS: AMIODARONE 450 MG in DEXTROSE 5% IN WATER 250 ML IV SCH ×2 (19:26)
[2022-06-24 20:08] LABS: Glucose,Whole Blood 97 mg/dL (70-110)
[2022-06-24 20:55] LABS: Glucose,Whole Blood 111 mg/dL (70-110)
[2022-06-24 21:55] LABS: Glucose,Whole Blood 127 mg/dL (70-110)
[2022-06-24 23:02] LABS: Glucose,Whole Blood 130 mg/dL (70-110)
[2022-06-24 23:54] LABS: Glucose,Whole Blood 121 mg/dL (70-110)
[2022-06-24] MEDS: HYDROcodone/APAP 5-325MG 1 EACH TAB PO PRN (23:55)
[2022-06-25] MEDS: KETOROLAC 15 MG/ML 1 ML VIAL IVP SCH ×4 (00:01→17:43)
[2022-06-25 01:57] LABS: Glucose,Whole Blood 103 mg/dL (70-110)
[2022-06-25 02:56] LABS: Glucose,Whole Blood 122 mg/dL (70-110)
[2022-06-25 04:06] LABS: Glucose,Whole Blood 121 mg/dL (70-110)
[2022-06-25] MEDS: HYDROcodone/APAP 5-325MG 1 EACH TAB PO PRN ×5 (04:15→20:23)
[2022-06-25 04:28] LABS: Basophils % (A) 0 %; Eosinophils % (A) 0 %; HCT 40.8 % (39.0-53.0); HGB 13.2 gm/dL (13.0-17.5); Lymphocytes # (A) 2.2 k/uL (1.0-4.8); Lymphocytes % (A) 15 %; MCHC 32.3 g/dL (31.0-37.0); MCV 86.7 fL (80.0-100.0); Mean Platelet Volume 6.8; Monocytes # (A) 0.8 k/uL (0-1.0); Monocytes % (A) 6 %; Neutrophils # (A) 11.2 k/uL (1.3-7.7); Neutrophils % (A) 78 %; Platelet Count 240 k/uL (150-450); RDW 14.1 % (11.5-15.5); WBC 14.5 k/uL (3.8-10.6)
[2022-06-25 04:39] LABS: Ionized Calcium 5.2 mg/dL (4.5-5.3)
[2022-06-25 04:49] LABS: ALT 16 U/L (4-49); AST 27 U/L (17-59); African American GFR (CKD) >90 (>60 ml/min/1.73 sqM); Albumin 3.4 g/dL (3.5-5.0); Alkaline Phosphatase 53 U/L (38-126); Anion Gap 4 mmol/L; Blood Urea Nitrogen 9 mg/dL (9-20); Calcium 8.9 mg/dL (8.4-10.2); Carbon Dioxide 28 mmol/L (22-30); Chloride 103 mmol/L (98-107); Glucose 119 mg/dL (74-99); Magnesium 1.9 mg/dL (1.6-2.3); Non-African American GFR(CKD) >90 (>60 ml/min/1.73 sqM); Potassium 4.1 mmol/L (3.5-5.1); Sodium 135 mmol/L (137-145); Total Bilirubin 0.7 mg/dL (0.2-1.3); Total Protein 5.7 g/dL (6.3-8.2)
[2022-06-25 05:09] LABS: Glucose,Whole Blood 123 mg/dL (70-110)
[2022-06-25] MEDS: ALBUMIN HUMAN 5% 250 ML in EMPTY BAG 1 BAG IVPB PRN ×2 (05:50→07:01)
[2022-06-25 06:06] LABS: Glucose,Whole Blood 119 mg/dL (70-110)
[2022-06-25] MEDS: AMIODARONE 450 MG in DEXTROSE 5% IN WATER 250 ML IV SCH ×2 (06:06)
[2022-06-25] MEDS: MAGNESIUM SULFATE-D5W PMX 1 GM in DEXTROSE/WATER 1 100ML.BAG IVPB SCH ×2 (06:20→10:14)
[2022-06-25 06:53] LABS: Glucose,Whole Blood 115 mg/dL (70-110)
[2022-06-25] MEDS ORDERED: ACETAMINOPHEN TAB 325 MG TAB PO PRN (06:54)
--- NOTE | 2022-06-25 07:10 | P.PN ---
Subjective Progress Note Date: 06/25/22 PROGRESS NOTE The patient is a 61-year-old male who underwent CABG today. He has a known history of CAD, followed by Dr. Anne, history of PAD status post percutaneous revascularization and a history of cardiomyopathy. He underwent off-pump OBREGON to the LAD and left radial to the ramus intermedius with closure of the left atrial appendage. He is intubated and sedated. Hemodynamically he is in sinus mechanism. He has a known history of severe cardiomyopathy with viability of the anterior wall by cardiac MRI. He has a history of diabetes, hypertension, hyperlipidemia and a history of chronic tobacco use. May 25: The patient is extubated sitting up in the chair, complaining of soreness in the chest, and sinus mechanism. His urine output is stable. He had no atrial fibrillation or significant arrhythmia. He continues to be on IV amiodarone. He is on no vasopressors. He is using his incentive spirometry. He denies any dizziness or palpitations. Medications: IV amiodarone, aspirin, Lipitor 80 mg daily, Plavix 75 mg daily, insulin, metoprolol 12-1/2 mg twice a day PHYSICAL EXAMINATION: Blood pressure 108/70 heart rate 90 LUNGS: Decreased breath sounds at the base HEART: Regular rate and rhythm, S1, S2. No S3. systolic ejection murmur, rub ABDOMEN: Soft, nontender, no organomegaly EXTREMETIES: No edema LAB: Potassium 4.1, BUN 9, creatinine 0.67 IMPRESSION: 1. Status post CABG, extubated, stable 2. Severe ischemic cardiomyopathy 3. History of PAD 4. History of hypertension 5. History of diabetes 6. History of hyperlipidemia PLAN: 1. Continue present therapy 2. Incentive spirometry 3. Follow blood pressure and if stable resume FANTASMA inhibitor 4. Adjust beta blockers as tolerated Objective - Vital Signs Vital signs: Vital Signs Temp 98.6 F 06/25/22 04:00 Pulse 96 06/25/22 06:00 Resp 16 06/25/22 06:00 BP 131/75 06/25/22 06:00 Pulse Ox 93 L 06/25/22 06:00 FiO2 40 06/24/22 16:42 Intake & Output 06/24/22 06/25/22 06/25/22 18:59 06:59 18:59 Intake Total 145.445 5100.981 Output Total 1226 1980 Balance -684.870 -961.019 Weight 92.4 kg Intake: IV 497.5 826.0 Cardiac Output 0.9 NS 68 50 Lactated Ringers 1,000 ml 350 600 @ 20 mls/hr IV .Q24H [facility] Rx#:[id number] Nitroglycerin-D5w Pmx 50 10.5 18.0 mg In Dextrose/Water 1 250ml.bag @ 5 MCG/MIN 1.5 mls/hr IV .Q24H [facility] Rx#: [id number] Pressure bags 65 108 ceFAZolin 2 gm In Sodium 50 Chloride 0.9% 50 ml @ 100 mls/hr IVPB Q8HR [facility] Rx# :[id number] Intake, IV Titration 43.630 192.981 Amount Amiodarone 450 mg In 177.781 Dextrose 5% in Water 250 ml @ 0.5 MG/MIN 16.667 mls/hr IV .Q15H [facility] Rx#: [id number] Insulin Regular 100 unit 25.225 15.20 In Sodium Chloride 0.9% 100 ml @ Per Protocol IV .Q0M [facility] Rx#:[id number] propofoL 1,000 mg In 18.405 Empty Bag 1 bag @ Titrate IV .Q0M [facility] Rx#: [id number] Output: Chest Tube Drainage 236 690 Chest Tube Bilateral 95 110 Lateral Chest Chest Tube Mediastinal 141 580 Drainage 30 Left Wrist 30 Urine 790 1260 Estimated Blood Loss 200 Other: Voiding Method Indwelling Catheter Indwelling Catheter ABP, PAP, CO, CI - Last Documented Arterial Blood Pressure 109/49 Pulmonary Artery Pressure 21/6 Cardiac Output 4.7 Cardiac Index 2.4 - Labs CBC & Chem 7: 06/25/22 04:08 06/25/22 04:08 Labs: Abnormal Lab Results - Last 24 Hours (Table) 06/19/22 06/24/22 06/24/22 Range/Units 10:03 08:33 09:43 WBC (3.8-10.6) k/uL Hgb (13.0-17.5) gm/dL Hct (39.0-53.0) % Neutrophils # (1.3-7.7) k/uL Lymphocytes # (1.0-4.8) k/uL Monocytes # (0-1.0) k/uL ABG pH 7.30 L (7.35-7.45) ABG pCO2 52 H 58 H (35-45) mmHg ABG pO2 352 H 348 H (83-108) mmHg ABG HCO3 29 H 28 H (21-25) mmol/L ABG Total CO2 31 H 30 H (19-24) mmol/L ABG O2 Saturation 99.7 H 99.6 H (94-97) % ABG Potassium 4.6 H (3.4-4.5) mmol/L ABG Glucose 186 H 159 H (75-99) mg/dL ABG Lactic Acid 1.7 H (0.5-1.6) mmol/L Sodium (137-145) mmol/L Glucose (74-99) mg/dL POC Glucose (mg/dL) (70-110) mg/dL Ionized Calcium Clarence (4.5-5.3) mg/dL Total Protein (6.3-8.2) g/dL Albumin (3.5-5.0) g/dL Arterial Blood Potassium 4.6 H (3.4-4.5) mmol/L Arterial Blood Glucose 186 H 159 H (75-99) mg/dL Crossmatch See Detail 06/24/22 06/24/22 06/24/22 Range/Units 10:15 11:10 12:38 WBC 16.5 H (3.8-10.6) k/uL Hgb (13.0-17.5) gm/dL Hct (39.0-53.0) % Neutrophils # 14.3 H (1.3-7.7) k/uL Lymphocytes # (1.0-4.8) k/uL Monocytes # (0-1.0) k/uL ABG pH (7.35-7.45) ABG pCO2 (35-45) mmHg ABG pO2 266 H 266 H (83-108) mmHg ABG HCO3 26 H (21-25) mmol/L ABG Total CO2 28 H 27 H (19-24) mmol/L ABG O2 Saturation 99.7 H 99.7 H (94-97) % ABG Potassium (3.4-4.5) mmol/L ABG Glucose 150 H 138 H (75-99) mg/dL ABG Lactic Acid 1.7 H 2.0 H (0.5-1.6) mmol/L Sodium (137-145) mmol/L Glucose (74-99) mg/dL POC Glucose (mg/dL) (70-110) mg/dL Ionized Calcium Clarence (4.5-5.3) mg/dL Total Protein (6.3-8.2) g/dL Albumin (3.5-5.0) g/dL Arterial Blood Potassium (3.4-4.5) mmol/L Arterial Blood Glucose 150 H 138 H (75-99) mg/dL Crossmatch 06/24/22 06/24/22 06/24/22 Range/Units 12:38 12:43 12:55 WBC (3.8-10.6) k/uL Hgb (13.0-17.5) gm/dL Hct (39.0-53.0) % Neutrophils # (1.3-7.7) k/uL Lymphocytes # (1.0-4.8) k/uL Monocytes # (0-1.0) k/uL ABG pH 7.28 L (7.35-7.45) ABG pCO2 59 H (35-45) mmHg ABG pO2 335 H (83-108) mmHg ABG HCO3 28 H (21-25) mmol/L ABG Total CO2 30 H (19-24) mmol/L ABG O2 Saturation 99.7 H (94-97) % ABG Potassium (3.4-4.5) mmol/L ABG Glucose (75-99) mg/dL ABG Lactic Acid (0.5-1.6) mmol/L Sodium 136 L (137-145) mmol/L Glucose 129 H (74-99) mg/dL POC Glucose (mg/dL) 162 H (70-110) mg/dL Ionized Calcium Clarence 5.5 H (4.5-5.3) mg/dL Total Protein 5.7 L (6.3-8.2) g/dL Albumin 3.4 L (3.5-5.0) g/dL Arterial Blood Potassium (3.4-4.5) mmol/L Arterial Blood Glucose (75-99) mg/dL Crossmatch 06/24/22 06/24/22 06/24/22 Range/Units 15:06 15:10 15:49 WBC 19.8 H (3.8-10.6) k/uL Hgb (13.0-17.5) gm/dL Hct (39.0-53.0) % Neutrophils # 16.8 H (1.3-7.7) k/uL Lymphocytes # (1.0-4.8) k/uL Monocytes # 1.3 H (0-1.0) k/uL ABG pH 7.25 L (7.35-7.45) ABG pCO2 62 H (35-45) mmHg ABG pO2 (83-108) mmHg ABG HCO3 27 H (21-25) mmol/L ABG Total CO2 29 H (19-24) mmol/L ABG O2 Saturation (94-97) % ABG Potassium (3.4-4.5) mmol/L ABG Glucose (75-99) mg/dL ABG Lactic Acid (0.5-1.6) mmol/L Sodium (137-145) mmol/L Glucose (74-99) mg/dL POC Glucose (mg/dL) 123 H (70-110) mg/dL Ionized Calcium Clarence (4.5-5.3) mg/dL Total Protein (6.3-8.2) g/dL Albumin (3.5-5.0) g/dL Arterial Blood Potassium (3.4-4.5) mmol/L Arterial Blood Glucose (75-99) mg/dL Crossmatch 06/24/22 06/24/22 06/24/22 Range/Units 16:11 17:21 17:50 WBC (3.8-10.6) k/uL Hgb (13.0-17.5) gm/dL Hct (39.0-53.0) % Neutrophils # (1.3-7.7) k/uL Lymphocytes # (1.0-4.8) k/uL Monocytes # (0-1.0) k/uL ABG pH (7.35-7.45) ABG pCO2 (35-45) mmHg ABG pO2 (83-108) mmHg ABG HCO3 (21-25) mmol/L ABG Total CO2 (19-24) mmol/L ABG O2 Saturation (94-97) % ABG Potassium (3.4-4.5) mmol/L ABG Glucose (75-99) mg/dL ABG Lactic Acid (0.5-1.6) mmol/L Sodium (137-145) mmol/L Glucose (74-99) mg/dL POC Glucose (mg/dL) 163 H 140 H 147 H (70-110) mg/dL Ionized Calcium Clarence (4.5-5.3) mg/dL Total Protein (6.3-8.2) g/dL Albumin (3.5-5.0) g/dL Arterial Blood Potassium (3.4-4.5) mmol/L Arterial Blood Glucose (75-99) mg/dL Crossmatch 06/24/22 06/24/22 06/24/22 Range/Units 17:50 18:53 20:53 WBC 17.1 H (3.8-10.6) k/uL Hgb 12.5 L (13.0-17.5) gm/dL Hct 37.9 L (39.0-53.0) % Neutrophils # 15.2 H (1.3-7.7) k/uL Lymphocytes # 0.8 L (1.0-4.8) k/uL Monocytes # (0-1.0) k/uL ABG pH (7.35-7.45) ABG pCO2 (35-45) mmHg ABG pO2 (83-108) mmHg ABG HCO3 (21-25) mmol/L ABG Total CO2 (19-24) mmol/L ABG O2 Saturation (94-97) % ABG Potassium (3.4-4.5) mmol/L ABG Glucose (75-99) mg/dL ABG Lactic Acid (0.5-1.6) mmol/L Sodium (137-145) mmol/L Glucose (74-99) mg/dL POC Glucose (mg/dL) 117 H 111 H (70-110) mg/dL Ionized Calcium Clarence (4.5-5.3) mg/dL Total Protein (6.3-8.2) g/dL Albumin (3.5-5.0) g/dL Arterial Blood Potassium (3.4-4.5) mmol/L Arterial Blood Glucose (75-99) mg/dL Crossmatch 06/24/22 06/24/22 06/24/22 Range/Units 21:54 23:00 23:53 WBC (3.8-10.6) k/uL Hgb (13.0-17.5) gm/dL Hct (39.0-53.0) % Neutrophils # (1.3-7.7) k/uL Lymphocytes # (1.0-4.8) k/uL Monocytes # (0-1.0) k/uL ABG pH (7.35-7.45) ABG pCO2 (35-45) mmHg ABG pO2 (83-108) mmHg ABG HCO3 (21-25) mmol/L ABG Total CO2 (19-24) mmol/L ABG O2 Saturation (94-97) % ABG Potassium (3.4-4.5) mmol/L ABG Glucose (75-99) mg/dL ABG Lactic Acid (0.5-1.6) mmol/L Sodium (137-145) mmol/L Glucose (74-99) mg/dL POC Glucose (mg/dL) 127 H 130 H 121 H (70-110) mg/dL Ionized Calcium Clarence (4.5-5.3) mg/dL Total Protein (6.3-8.2) g/dL Albumin (3.5-5.0) g/dL Arterial Blood Potassium (3.4-4.5) mmol/L Arterial Blood Glucose (75-99) mg/dL Crossmatch 06/25/22 06/25/22 06/25/22 Range/Units 02:54 04:05 04:08 WBC 14.5 H (3.8-10.6) k/uL Hgb (13.0-17.5) gm/dL Hct (39.0-53.0) % Neutrophils # 11.2 H (1.3-7.7) k/uL Lymphocytes # (1.0-4.8) k/uL Monocytes # (0-1.0) k/uL ABG pH (7.35-7.45) ABG pCO2 (35-45) mmHg ABG pO2 (83-108) mmHg ABG HCO3 (21-25) mmol/L ABG Total CO2 (19-24) mmol/L ABG O2 Saturation (94-97) % ABG Potassium (3.4-4.5) mmol/L ABG Glucose (75-99) mg/dL ABG Lactic Acid (0.5-1.6) mmol/L Sodium (137-145) mmol/L Glucose (74-99) mg/dL POC Glucose (mg/dL) 122 H 121 H (70-110) mg/dL Ionized Calcium Clarence (4.5-5.3) mg/dL Total Protein (6.3-8.2) g/dL Albumin (3.5-5.0) g/dL Arterial Blood Potassium (3.4-4.5) mmol/L Arterial Blood Glucose (75-99) mg/dL Crossmatch 06/25/22 06/25/22 06/25/22 Range/Units 04:08 05:07 06:04 WBC (3.8-10.6) k/uL Hgb (13.0-17.5) gm/dL Hct (39.0-53.0) % Neutrophils # (1.3-7.7) k/uL Lymphocytes # (1.0-4.8) k/uL Monocytes # (0-1.0) k/uL ABG pH (7.35-7.45) ABG pCO2 (35-45) mmHg ABG pO2 (83-108) mmHg ABG HCO3 (21-25) mmol/L ABG Total CO2 (19-24) mmol/L ABG O2 Saturation (94-97) % ABG Potassium (3.4-4.5) mmol/L ABG Glucose (75-99) mg/dL ABG Lactic Acid (0.5-1.6) mmol/L Sodium 135 L (137-145) mmol/L Glucose 119 H (74-99) mg/dL POC Glucose (mg/dL) 123 H 119 H (70-110) mg/dL Ionized Calcium Clarence (4.5-5.3) mg/dL Total Protein 5.7 L (6.3-8.2) g/dL Albumin 3.4 L (3.5-5.0) g/dL Arterial Blood Potassium (3.4-4.5) mmol/L Arterial Blood Glucose (75-99) mg/dL Crossmatch 06/25/22 Range/Units 06:52 WBC (3.8-10.6) k/uL Hgb (13.0-17.5) gm/dL Hct (39.0-53.0) % Neutrophils # (1.3-7.7) k/uL Lymphocytes # (1.0-4.8) k/uL Monocytes # (0-1.0) k/uL ABG pH (7.35-7.45) ABG pCO2 (35-45) mmHg ABG pO2 (83-108) mmHg ABG HCO3 (21-25) mmol/L ABG Total CO2 (19-24) mmol/L ABG O2 Saturation (94-97) % ABG Potassium (3.4-4.5) mmol/L ABG Glucose (75-99) mg/dL ABG Lactic Acid (0.5-1.6) mmol/L Sodium (137-145) mmol/L Glucose (74-99) mg/dL POC Glucose (mg/dL) 115 H (70-110) mg/dL Ionized Calcium Clarence (4.5-5.3) mg/dL Total Protein (6.3-8.2) g/dL Albumin (3.5-5.0) g/dL Arterial Blood Potassium (3.4-4.5) mmol/L Arterial Blood Glucose (75-99) mg/dL Crossmatch
[2022-06-25] MEDS: IPRATROPIUM-ALBUTEROL 3 ML NEB INHALATION SCH ×4 (07:20→20:13)
--- NOTE | 2022-06-25 08:06 | P.PN ---
Subjective Progress Note Date: 06/25/22 On 06/25/2022, the patient is postop day #1. The patient underwent two-vessel bypass surgery with OBREGON to LAD and radial artery to ramus intermedius. The patient was weaned off the mechanical ventilator and the patient was extubated initially to a BiPAP at a pressure of 10/5 cm of water and FiO2 of 40%. Subsequently, he was transitioned to nasal cannula which is running at 2 L/m and the pulse ox is currently 94%. Chest x-ray shows increased interstitial markings bilaterally, small effusion/atelectasis in the left lung base. [place] catheter is in a good location. There is no evidence of air leak. The patient has a right pleural left pleural chest tube and CHEST tubes is in order of 210 mL over the past 18 hours and the mediastinal chest tube is still present and operas in the order of 750 mL. Noted there is positive air leak within the mediastinal chest tube. Nevertheless, there is no evidence of any pneumomediastinum. There is no evidence of any pneumothorax. Hemodynamically, the patient is in normal sinus rhythm. He is on amiodarone drip at 0.5 mg/m. He was taken off the nitroglycerin drip. His cardiac output is at 4.7 with an index of 2.4. P artery pressures are 30/11. Urine output is in order of 50-100 mL an hour. WBC count is at 14.7 with a hemoglobin of 16.2. Renal function stable with a creatinine of 0.67 and a BUN of 9. Sodium is at 135. LFTs are normal. Blood sugars at 115 and the patient is currently on 2 units of insulin for blood sugar control. No other significant events otherwise for now. No focal neurological deficit. Pain is under adequate control. He is using the incentive spirometer falling approximately 750. Objective - Vital Signs Vital signs: Vital Signs Temp 98.6 F 06/25/22 04:00 Pulse 89 06/25/22 07:32 Resp 17 06/25/22 07:00 BP 108/77 06/25/22 07:00 Pulse Ox 95 06/25/22 07:23 FiO2 40 06/24/22 16:42 Intake & Output 06/24/22 06/25/22 06/25/22 18:59 06:59 18:59 Intake Total 992.704 0185.981 Output Total 1226 1980 Balance -684.870 -961.019 Weight 92.4 kg Intake: IV 497.5 826.0 Cardiac Output 0.9 NS 68 50 Lactated Ringers 1,000 ml 350 600 @ 20 mls/hr IV .Q24H [facility] Rx#:[id number] Nitroglycerin-D5w Pmx 50 10.5 18.0 mg In Dextrose/Water 1 250ml.bag @ 5 MCG/MIN 1.5 mls/hr IV .Q24H [facility] Rx#: [id number] Pressure bags 65 108 ceFAZolin 2 gm In Sodium 50 Chloride 0.9% 50 ml @ 100 mls/hr IVPB Q8HR [facility] Rx# :[id number] Intake, IV Titration 43.630 192.981 Amount Amiodarone 450 mg In 177.781 Dextrose 5% in Water 250 ml @ 0.5 MG/MIN 16.667 mls/hr IV .Q15H [facility] Rx#: [id number] Insulin Regular 100 unit 25.225 15.20 In Sodium Chloride 0.9% 100 ml @ Per Protocol IV .Q0M [facility] Rx#:[id number] propofoL 1,000 mg In 18.405 Empty Bag 1 bag @ Titrate IV .Q0M [facility] Rx#: [id number] Output: Chest Tube Drainage 236 690 Chest Tube Bilateral 95 110 Lateral Chest Chest Tube Mediastinal 141 580 Drainage 30 Left Wrist 30 Urine 790 1260 Estimated Blood Loss 200 Other: Voiding Method Indwelling Catheter Indwelling Catheter ABP, PAP, CO, CI - Last Documented Arterial Blood Pressure 109/49 Pulmonary Artery Pressure 29/12 Cardiac Output 4.7 Cardiac Index 2.4 - Exam Gen. appearance, comfortable, not in acute distress extubated currently on 2 L of O2 nasal cannula Head exam was generally normal. There was no scleral icterus or corneal arcus. Mucous membranes were moist. Neck was supple and without jugular venous distension, thyromegaly, or carotid bruits. Carotids were easily palpable bilaterally. There was no adenopathy. The patient has a orogastric tube in place and the patient has a right IJ [place] catheter in place. Lungs were clear to auscultation and percussion, and with normal diaphragmatic excursion. No wheezes or rales were noted. The patient has a right-sided chest tube, left-sided chest tube and mediastinal chest tube. positive evidence of any air leak. Output is minimal at this point in time. Cardiac exam revealed the PMI to be normally situated and sized. The rhythm was regular and no extrasystoles were noted during several minutes of auscultation. The first and second heart sounds were normal and physiologic splitting of the second heart sound was noted. There were no murmurs, rubs, clicks, or gallops. Abdominal exam revealed normal bowel sounds. The abdomen was soft, non-tender, and without masses, organomegaly, or appreciable enlargement of the abdominal aorta. Examination of the extremities revealed easily palpable radial, femoral and pedal pulses. There was no cyanosis, clubbing or edema. Examination of the skin revealed no evidence of significant rashes, suspicious appearing nevi or other concerning lesions. Neurologically, Neurologically, the patient is awake and alert and the patient does not have any focal neurological deficit. Cranial nerves are essentially intact. - Labs CBC & Chem 7: 06/25/22 04:08 06/25/22 04:08 Labs: Abnormal Lab Results - Last 24 Hours (Table) 06/19/22 06/24/22 06/24/22 Range/Units 10:03 08:33 09:43 WBC (3.8-10.6) k/uL Hgb (13.0-17.5) gm/dL Hct (39.0-53.0) % Neutrophils # (1.3-7.7) k/uL Lymphocytes # (1.0-4.8) k/uL Monocytes # (0-1.0) k/uL ABG pH 7.30 L (7.35-7.45) ABG pCO2 52 H 58 H (35-45) mmHg ABG pO2 352 H 348 H (83-108) mmHg ABG HCO3 29 H 28 H (21-25) mmol/L ABG Total CO2 31 H 30 H (19-24) mmol/L ABG O2 Saturation 99.7 H 99.6 H (94-97) % ABG Potassium 4.6 H (3.4-4.5) mmol/L ABG Glucose 186 H 159 H (75-99) mg/dL ABG Lactic Acid 1.7 H (0.5-1.6) mmol/L Sodium (137-145) mmol/L Glucose (74-99) mg/dL POC Glucose (mg/dL) (70-110) mg/dL Ionized Calcium Clarence (4.5-5.3) mg/dL Total Protein (6.3-8.2) g/dL Albumin (3.5-5.0) g/dL Arterial Blood Potassium 4.6 H (3.4-4.5) mmol/L Arterial Blood Glucose 186 H 159 H (75-99) mg/dL Crossmatch See Detail 06/24/22 06/24/22 06/24/22 Range/Units 10:15 11:10 12:38 WBC 16.5 H (3.8-10.6) k/uL Hgb (13.0-17.5) gm/dL Hct (39.0-53.0) % Neutrophils # 14.3 H (1.3-7.7) k/uL Lymphocytes # (1.0-4.8) k/uL Monocytes # (0-1.0) k/uL ABG pH (7.35-7.45) ABG pCO2 (35-45) mmHg ABG pO2 266 H 266 H (83-108) mmHg ABG HCO3 26 H (21-25) mmol/L ABG Total CO2 28 H 27 H (19-24) mmol/L ABG O2 Saturation 99.7 H 99.7 H (94-97) % ABG Potassium (3.4-4.5) mmol/L ABG Glucose 150 H 138 H (75-99) mg/dL ABG Lactic Acid 1.7 H 2.0 H (0.5-1.6) mmol/L Sodium (137-145) mmol/L Glucose (74-99) mg/dL POC Glucose (mg/dL) (70-110) mg/dL Ionized Calcium [place] (4.5-5.3) mg/dL Total Protein (6.3-8.2) g/dL Albumin (3.5-5.0) g/dL Arterial Blood Potassium (3.4-4.5) mmol/L Arterial Blood Glucose 150 H 138 H (75-99) mg/dL Crossmatch 06/24/22 06/24/22 06/24/22 Range/Units 12:38 12:43 12:55 WBC (3.8-10.6) k/uL Hgb (13.0-17.5) gm/dL Hct (39.0-53.0) % Neutrophils # (1.3-7.7) k/uL Lymphocytes # (1.0-4.8) k/uL Monocytes # (0-1.0) k/uL ABG pH 7.28 L (7.35-7.45) ABG pCO2 59 H (35-45) mmHg ABG pO2 335 H (83-108) mmHg ABG HCO3 28 H (21-25) mmol/L ABG Total CO2 30 H (19-24) mmol/L ABG O2 Saturation 99.7 H (94-97) % ABG Potassium (3.4-4.5) mmol/L ABG Glucose (75-99) mg/dL ABG Lactic Acid (0.5-1.6) mmol/L Sodium 136 L (137-145) mmol/L Glucose 129 H (74-99) mg/dL POC Glucose (mg/dL) 162 H (70-110) mg/dL Ionized Calcium [place]rence 5.5 H (4.5-5.3) mg/dL Total Protein 5.7 L (6.3-8.2) g/dL Albumin 3.4 L (3.5-5.0) g/dL Arterial Blood Potassium (3.4-4.5) mmol/L Arterial Blood Glucose (75-99) mg/dL Crossmatch 06/24/22 06/24/22 06/24/22 Range/Units 15:06 15:10 15:49 WBC 19.8 H (3.8-10.6) k/uL Hgb (13.0-17.5) gm/dL Hct (39.0-53.0) % Neutrophils # 16.8 H (1.3-7.7) k/uL Lymphocytes # (1.0-4.8) k/uL Monocytes # 1.3 H (0-1.0) k/uL ABG pH 7.25 L (7.35-7.45) ABG pCO2 62 H (35-45) mmHg ABG pO2 (83-108) mmHg ABG HCO3 27 H (21-25) mmol/L ABG Total CO2 29 H (19-24) mmol/L ABG O2 Saturation (94-97) % ABG Potassium (3.4-4.5) mmol/L ABG Glucose (75-99) mg/dL ABG Lactic Acid (0.5-1.6) mmol/L Sodium (137-145) mmol/L Glucose (74-99) mg/dL POC Glucose (mg/dL) 123 H (70-110) mg/dL Ionized Calcium [place] (4.5-5.3) mg/dL Total Protein (6.3-8.2) g/dL Albumin (3.5-5.0) g/dL Arterial Blood Potassium (3.4-4.5) mmol/L Arterial Blood Glucose (75-99) mg/dL Crossmatch 06/24/22 06/24/22 06/24/22 Range/Units 16:11 17:21 17:50 WBC (3.8-10.6) k/uL Hgb (13.0-17.5) gm/dL Hct (39.0-53.0) % Neutrophils # (1.3-7.7) k/uL Lymphocytes # (1.0-4.8) k/uL Monocytes # (0-1.0) k/uL ABG pH (7.35-7.45) ABG pCO2 (35-45) mmHg ABG pO2 (83-108) mmHg ABG HCO3 (21-25) mmol/L ABG Total CO2 (19-24) mmol/L ABG O2 Saturation (94-97) % ABG Potassium (3.4-4.5) mmol/L ABG Glucose (75-99) mg/dL ABG Lactic Acid (0.5-1.6) mmol/L Sodium (137-145) mmol/L Glucose (74-99) mg/dL POC Glucose (mg/dL) 163 H 140 H 147 H (70-110) mg/dL Ionized Calcium [place] (4.5-5.3) mg/dL Total Protein (6.3-8.2) g/dL Albumin (3.5-5.0) g/dL Arterial Blood Potassium (3.4-4.5) mmol/L Arterial Blood Glucose (75-99) mg/dL Crossmatch 06/24/22 06/24/22 06/24/22 Range/Units 17:50 18:53 20:53 WBC 17.1 H (3.8-10.6) k/uL Hgb 12.5 L (13.0-17.5) gm/dL Hct 37.9 L (39.0-53.0) % Neutrophils # 15.2 H (1.3-7.7) k/uL Lymphocytes # 0.8 L (1.0-4.8) k/uL Monocytes # (0-1.0) k/uL ABG pH (7.35-7.45) ABG pCO2 (35-45) mmHg ABG pO2 (83-108) mmHg ABG HCO3 (21-25) mmol/L ABG Total CO2 (19-24) mmol/L ABG O2 Saturation (94-97) % ABG Potassium (3.4-4.5) mmol/L ABG Glucose (75-99) mg/dL ABG Lactic Acid (0.5-1.6) mmol/L Sodium (137-145) mmol/L Glucose (74-99) mg/dL POC Glucose (mg/dL) 117 H 111 H (70-110) mg/dL Ionized Calcium [place] (4.5-5.3) mg/dL Total Protein (6.3-8.2) g/dL Albumin (3.5-5.0) g/dL Arterial Blood Potassium (3.4-4.5) mmol/L Arterial Blood Glucose (75-99) mg/dL Crossmatch 06/24/22 06/24/22 06/24/22 Range/Units 21:54 23:00 23:53 WBC (3.8-10.6) k/uL Hgb (13.0-17.5) gm/dL Hct (39.0-53.0) % Neutrophils # (1.3-7.7) k/uL Lymphocytes # (1.0-4.8) k/uL Monocytes # (0-1.0) k/uL ABG pH (7.35-7.45) ABG pCO2 (35-45) mmHg ABG pO2 (83-108) mmHg ABG HCO3 (21-25) mmol/L ABG Total CO2 (19-24) mmol/L ABG O2 Saturation (94-97) % ABG Potassium (3.4-4.5) mmol/L ABG Glucose (75-99) mg/dL ABG Lactic Acid (0.5-1.6) mmol/L Sodium (137-145) mmol/L Glucose (74-99) mg/dL POC Glucose (mg/dL) 127 H 130 H 121 H (70-110) mg/dL Ionized Calcium [place] (4.5-5.3) mg/dL Total Protein (6.3-8.2) g/dL Albumin (3.5-5.0) g/dL Arterial Blood Potassium (3.4-4.5) mmol/L Arterial Blood Glucose (75-99) mg/dL Crossmatch 06/25/22 06/25/22 06/25/22 Range/Units 02:54 04:05 04:08 WBC 14.5 H (3.8-10.6) k/uL Hgb (13.0-17.5) gm/dL Hct (39.0-53.0) % Neutrophils # 11.2 H (1.3-7.7) k/uL Lymphocytes # (1.0-4.8) k/uL Monocytes # (0-1.0) k/uL ABG pH (7.35-7.45) ABG pCO2 (35-45) mmHg ABG pO2 (83-108) mmHg ABG HCO3 (21-25) mmol/L ABG Total CO2 (19-24) mmol/L ABG O2 Saturation (94-97) % ABG Potassium (3.4-4.5) mmol/L ABG Glucose (75-99) mg/dL ABG Lactic Acid (0.5-1.6) mmol/L Sodium (137-145) mmol/L Glucose (74-99) mg/dL POC Glucose (mg/dL) 122 H 121 H (70-110) mg/dL Ionized Calcium [place] (4.5-5.3) mg/dL Total Protein (6.3-8.2) g/dL Albumin (3.5-5.0) g/dL Arterial Blood Potassium (3.4-4.5) mmol/L Arterial Blood Glucose (75-99) mg/dL Crossmatch 06/25/22 06/25/22 06/25/22 Range/Units 04:08 05:07 06:04 WBC (3.8-10.6) k/uL Hgb (13.0-17.5) gm/dL Hct (39.0-53.0) % Neutrophils # (1.3-7.7) k/uL Lymphocytes # (1.0-4.8) k/uL Monocytes # (0-1.0) k/uL ABG pH (7.35-7.45) ABG pCO2 (35-45) mmHg ABG pO2 (83-108) mmHg ABG HCO3 (21-25) mmol/L ABG Total CO2 (19-24) mmol/L ABG O2 Saturation (94-97) % ABG Potassium (3.4-4.5) mmol/L ABG Glucose (75-99) mg/dL ABG Lactic Acid (0.5-1.6) mmol/L Sodium 135 L (137-145) mmol/L Glucose 119 H (74-99) mg/dL POC Glucose (mg/dL) 123 H 119 H (70-110) mg/dL Ionized Calcium [place] (4.5-5.3) mg/dL Total Protein 5.7 L (6.3-8.2) g/dL Albumin 3.4 L (3.5-5.0) g/dL Arterial Blood Potassium (3.4-4.5) mmol/L Arterial Blood Glucose (75-99) mg/dL Crossmatch 06/25/22 Range/Units 06:52 WBC (3.8-10.6) k/uL Hgb (13.0-17.5) gm/dL Hct (39.0-53.0) % Neutrophils # (1.3-7.7) k/uL Lymphocytes # (1.0-4.8) k/uL Monocytes # (0-1.0) k/uL ABG pH (7.35-7.45) ABG pCO2 (35-45) mmHg ABG pO2 (83-108) mmHg ABG HCO3 (21-25) mmol/L ABG Total CO2 (19-24) mmol/L ABG O2 Saturation (94-97) % ABG Potassium (3.4-4.5) mmol/L ABG Glucose (75-99) mg/dL ABG Lactic Acid (0.5-1.6) mmol/L Sodium (137-145) mmol/L Glucose (74-99) mg/dL POC Glucose (mg/dL) 115 H (70-110) mg/dL Ionized Calcium [place] (4.5-5.3) mg/dL Total Protein (6.3-8.2) g/dL Albumin (3.5-5.0) g/dL Arterial Blood Potassium (3.4-4.5) mmol/L Arterial Blood Glucose (75-99) mg/dL Crossmatch Assessment and Plan Plan: Symptomatic multivessel coronary artery disease, post 2 vessel bypass surgery including [place] to LAD and radial to ramus intermedius. The patient is currently postop day #1. Hemodynamically stable. Adequate cardiac output and index a month and the patient is hemodynamically stable. Today he is on a chair and he did have some soft of blood pressure. He was given IV albumin 12.5 mg 2. Otherwise he is hemodynamically stable and the patient is not requiring any pressors. The patient remains on amiodarone drip Postthoracotomy, extubated to BiPAP initially and currently on 2 L of oxygen by nasal cannula. Chest tubes are still in place and is positive air leak within the mediastinal chest tube and there is some atelectatic changes in the left Lung base. Cardiomyopathy with an ejection fraction of around 30-35%, preoperatively History of cardiac thrombus material anticoagulants on outpatient basis Peripheral vascular disease COPD with an FEV1 of 35% of predicted Hypertension Hyperlipidemia Diabetes mellitus currently on insulin drip at 2 units an hour History of rheumatoid arthritis Plan Patient is extubated successful and the patient is currently hemodynamic stable on 2 L of oxygen by nasal cannula. Start the patient on aspirin and metoprolol Continue Amiodarone and switch her to oral Anticoagulants per cardiology Extubated to nasal cannula Monitor the output from the chest tubes Continue bronchodilators Cardiac rhythm is sinus Monitor hemodynamic parameters Continue insulin drip at 2 units an hour Advance diet and will continue to follow.
--- NOTE | 2022-06-25 08:07 | P.PN ---
Subjective Progress Note Date: 06/25/22 Principal diagnosis: Coronary artery disease. Previous medical history of hypertension, hyperlipidemia, chronic systolic heart failure/ischemic cardiomyopathy, type 2 diabetes, rheumatoid arthritis, current tobacco dependence, severe COPD, marijuana use, peripheral arterial disease, recent Covid infection in May 2022 POD #1 off-pump coronary artery bypass grafting 2, left internal thoracic artery to the left anterior descending artery, left radial artery from the aorta to the ramus intermedius, left atrial appendage ligation with a 35 mm AtriClip, endoscopic left radial artery harvest, epi-aortic ultrasound and intraoperative transesophageal echocardiogram, graft flow measurements using the Postifystim system The patient was seen and examined this morning sitting up in a recliner on the intensive care unit in no acute distress. He was successfully extubated yes terday at 16:28. States pain is controlled with current medication regimen, denies shortness of breath. Currently in sinus rhythm, hemodynamically stable. Right internal jugular Magna/Cordis, right radial arterial line, mediastinal/right/left pleural chest tubes all remaining present. Currently on IV amiodarone for A. fib prophylaxis, IV nitro IV vessel spasm prophylaxis. No other new concerns. Objective - Vital Signs Vital signs: Vital Signs Temp 98.6 F 06/25/22 04:00 Pulse 89 06/25/22 07:32 Resp 17 06/25/22 07:00 BP 108/77 06/25/22 07:00 Pulse Ox 95 06/25/22 07:23 FiO2 40 06/24/22 16:42 Intake & Output 06/24/22 06/25/22 06/25/22 18:59 06:59 18:59 Intake Total 538.596 1776.981 Output Total 1226 1980 Balance -684.870 -961.019 Weight 92.4 kg Intake: IV 497.5 826.0 Cardiac Output 0.9 NS 68 50 Lactated Ringers 1,000 ml 350 600 @ 20 mls/hr IV .Q24H [facility] Rx#:[id number] Nitroglycerin-D5w Pmx 50 10.5 18.0 mg In Dextrose/Water 1 250ml.bag @ 5 MCG/MIN 1.5 mls/hr IV .Q24H [facility] Rx#: [id number] Pressure bags 65 108 ceFAZolin 2 gm In Sodium 50 Chloride 0.9% 50 ml @ 100 mls/hr IVPB Q8HR [facility] Rx# :[id number] Intake, IV Titration 43.630 192.981 Amount Amiodarone 450 mg In 177.781 Dextrose 5% in Water 250 ml @ 0.5 MG/MIN 16.667 mls/hr IV .Q15H [facility] Rx#: [id number] Insulin Regular 100 unit 25.225 15.20 In Sodium Chloride 0.9% 100 ml @ Per Protocol IV .Q0M [facility] Rx#:[id number] propofoL 1,000 mg In 18.405 Empty Bag 1 bag @ Titrate IV .Q0M [facility] Rx#: [id number] Output: Chest Tube Drainage 236 690 Chest Tube Bilateral 95 110 Lateral Chest Chest Tube Mediastinal 141 580 Drainage 30 Left Wrist 30 Urine 790 1260 Estimated Blood Loss 200 Other: Voiding Method Indwelling Catheter Indwelling Catheter ABP, PAP, CO, CI - Last Documented Arterial Blood Pressure 109/49 Pulmonary Artery Pressure 29/12 Cardiac Output 4.7 Cardiac Index 2.4 - Exam CONSTITUTIONAL: Appears comfortable, cooperative, no acute distress RESPIRATORY: Lungs sounds diminished bilaterally. Respirations even, nonlabored. Currently on 2 L nasal cannula with oxygen saturation 93%. Able to achieve 750 mL on incentive spirometry. Strong cough. CARDIOVASCULAR: S1, S2 present. Regular rate and rhythm, sinus rhythm on telemetry. Sternum stable. Palpable peripheral pulses bilaterally. No edema present. No calf pain or tenderness noted. Heart hugger in place with patient demonstrating appropriate use. Antiembolism stockings, SCDs present. GASTROINTESTINAL: Abdomen soft, nontender, nondistended. Hypoactive bowel sounds present 4 quadrants. Tolerating clear liquid diet. Denies flatus GENITOURINARY: Evans present draining clear, yellow urine. Output overnight 45-175 mL per hour INTEGUMENTARY: Skin is warm and dry with evidence of good perfusion. Anterior chest incision well approximated and covered with dry intact dressing. Left radial site well approximated without redness, minimal ANGEL drainage. NEUROLOGIC: Cranial nerves II through XII intact MUSKULOSKELETAL: Able to move all extremities, strength equal bilaterally, gait normal PSYCHIATRIC: Alert and oriented to person place and time, appropriate affect, intact judgment and insight INVASIVE LINES AND TUBES: Mediastinal/left/right pleural chest tubes present and connected to wall suction, air leak present in mediastinal tube. Mediastinal tube with 440 mL serosanguineous drainage overnight, 750 mL since surgery. Left/right pleural chest tubes with 55 mL serosanguineous drainage overnight, 190 mL since surgery. Right internal jugular Magna/Cordis, right radial arterial line present. Last CO/CI 4.7/2.4, PA 21/6, CVP 2. - Allied health notes Allied health notes reviewed: nursing - Labs CBC & Chem 7: 06/25/22 04:08 06/25/22 04:08 Labs: Abnormal Lab Results - Last 24 Hours (Table) 06/19/22 06/24/22 06/24/22 Range/Units 10:03 08:33 09:43 WBC (3.8-10.6) k/uL Hgb (13.0-17.5) gm/dL Hct (39.0-53.0) % Neutrophils # (1.3-7.7) k/uL Lymphocytes # (1.0-4.8) k/uL Monocytes # (0-1.0) k/uL ABG pH 7.30 L (7.35-7.45) ABG pCO2 52 H 58 H (35-45) mmHg ABG pO2 352 H 348 H (83-108) mmHg ABG HCO3 29 H 28 H (21-25) mmol/L ABG Total CO2 31 H 30 H (19-24) mmol/L ABG O2 Saturation 99.7 H 99.6 H (94-97) % ABG Potassium 4.6 H (3.4-4.5) mmol/L ABG Glucose 186 H 159 H (75-99) mg/dL ABG Lactic Acid 1.7 H (0.5-1.6) mmol/L Sodium (137-145) mmol/L Glucose (74-99) mg/dL POC Glucose (mg/dL) (70-110) mg/dL Ionized Calcium Clarence (4.5-5.3) mg/dL Total Protein (6.3-8.2) g/dL Albumin (3.5-5.0) g/dL Arterial Blood Potassium 4.6 H (3.4-4.5) mmol/L Arterial Blood Glucose 186 H 159 H (75-99) mg/dL Crossmatch See Detail 06/24/22 06/24/22 06/24/22 Range/Units 10:15 11:10 12:38 WBC 16.5 H (3.8-10.6) k/uL Hgb (13.0-17.5) gm/dL Hct (39.0-53.0) % Neutrophils # 14.3 H (1.3-7.7) k/uL Lymphocytes # (1.0-4.8) k/uL Monocytes # (0-1.0) k/uL ABG pH (7.35-7.45) ABG pCO2 (35-45) mmHg ABG pO2 266 H 266 H (83-108) mmHg ABG HCO3 26 H (21-25) mmol/L ABG Total CO2 28 H 27 H (19-24) mmol/L ABG O2 Saturation 99.7 H 99.7 H (94-97) % ABG Potassium (3.4-4.5) mmol/L ABG Glucose 150 H 138 H (75-99) mg/dL ABG Lactic Acid 1.7 H 2.0 H (0.5-1.6) mmol/L Sodium (137-145) mmol/L Glucose (74-99) mg/dL POC Glucose (mg/dL) (70-110) mg/dL Ionized Calcium Clarence (4.5-5.3) mg/dL Total Protein (6.3-8.2) g/dL Albumin (3.5-5.0) g/dL Arterial Blood Potassium (3.4-4.5) mmol/L Arterial Blood Glucose 150 H 138 H (75-99) mg/dL Crossmatch 06/24/22 06/24/22 06/24/22 Range/Units 12:38 12:43 12:55 WBC (3.8-10.6) k/uL Hgb (13.0-17.5) gm/dL Hct (39.0-53.0) % Neutrophils # (1.3-7.7) k/uL Lymphocytes # (1.0-4.8) k/uL Monocytes # (0-1.0) k/uL ABG pH 7.28 L (7.35-7.45) ABG pCO2 59 H (35-45) mmHg ABG pO2 335 H (83-108) mmHg ABG HCO3 28 H (21-25) mmol/L ABG Total CO2 30 H (19-24) mmol/L ABG O2 Saturation 99.7 H (94-97) % ABG Potassium (3.4-4.5) mmol/L ABG Glucose (75-99) mg/dL ABG Lactic Acid (0.5-1.6) mmol/L Sodium 136 L (137-145) mmol/L Glucose 129 H (74-99) mg/dL POC Glucose (mg/dL) 162 H (70-110) mg/dL Ionized Calcium Clarence 5.5 H (4.5-5.3) mg/dL Total Protein 5.7 L (6.3-8.2) g/dL Albumin 3.4 L (3.5-5.0) g/dL Arterial Blood Potassium (3.4-4.5) mmol/L Arterial Blood Glucose (75-99) mg/dL Crossmatch 06/24/22 06/24/22 06/24/22 Range/Units 15:06 15:10 15:49 WBC 19.8 H (3.8-10.6) k/uL Hgb (13.0-17.5) gm/dL Hct (39.0-53.0) % Neutrophils # 16.8 H (1.3-7.7) k/uL Lymphocytes # (1.0-4.8) k/uL Monocytes # 1.3 H (0-1.0) k/uL ABG pH 7.25 L (7.35-7.45) ABG pCO2 62 H (35-45) mmHg ABG pO2 (83-108) mmHg ABG HCO3 27 H (21-25) mmol/L ABG Total CO2 29 H (19-24) mmol/L ABG O2 Saturation (94-97) % ABG Potassium (3.4-4.5) mmol/L ABG Glucose (75-99) mg/dL ABG Lactic Acid (0.5-1.6) mmol/L Sodium (137-145) mmol/L Glucose (74-99) mg/dL POC Glucose (mg/dL) 123 H (70-110) mg/dL Ionized Calcium Clarence (4.5-5.3) mg/dL Total Protein (6.3-8.2) g/dL Albumin (3.5-5.0) g/dL Arterial Blood Potassium (3.4-4.5) mmol/L Arterial Blood Glucose (75-99) mg/dL Crossmatch 06/24/22 06/24/22 06/24/22 Range/Units 16:11 17:21 17:50 WBC (3.8-10.6) k/uL Hgb (13.0-17.5) gm/dL Hct (39.0-53.0) % Neutrophils # (1.3-7.7) k/uL Lymphocytes # (1.0-4.8) k/uL Monocytes # (0-1.0) k/uL ABG pH (7.35-7.45) ABG pCO2 (35-45) mmHg ABG pO2 (83-108) mmHg ABG HCO3 (21-25) mmol/L ABG Total CO2 (19-24) mmol/L ABG O2 Saturation (94-97) % ABG Potassium (3.4-4.5) mmol/L ABG Glucose (75-99) mg/dL ABG Lactic Acid (0.5-1.6) mmol/L Sodium (137-145) mmol/L Glucose (74-99) mg/dL POC Glucose (mg/dL) 163 H 140 H 147 H (70-110) mg/dL Ionized Calcium Clarence (4.5-5.3) mg/dL Total Protein (6.3-8.2) g/dL Albumin (3.5-5.0) g/dL Arterial Blood Potassium (3.4-4.5) mmol/L Arterial Blood Glucose (75-99) mg/dL Crossmatch 06/24/22 06/24/22 06/24/22 Range/Units 17:50 18:53 20:53 WBC 17.1 H (3.8-10.6) k/uL Hgb 12.5 L (13.0-17.5) gm/dL Hct 37.9 L (39.0-53.0) % Neutrophils # 15.2 H (1.3-7.7) k/uL Lymphocytes # 0.8 L (1.0-4.8) k/uL Monocytes # (0-1.0) k/uL ABG pH (7.35-7.45) ABG pCO2 (35-45) mmHg ABG pO2 (83-108) mmHg ABG HCO3 (21-25) mmol/L ABG Total CO2 (19-24) mmol/L ABG O2 Saturation (94-97) % ABG Potassium (3.4-4.5) mmol/L ABG Glucose (75-99) mg/dL ABG Lactic Acid (0.5-1.6) mmol/L Sodium (137-145) mmol/L Glucose (74-99) mg/dL POC Glucose (mg/dL) 117 H 111 H (70-110) mg/dL Ionized Calcium Clarence (4.5-5.3) mg/dL Total Protein (6.3-8.2) g/dL Albumin (3.5-5.0) g/dL Arterial Blood Potassium (3.4-4.5) mmol/L Arterial Blood Glucose (75-99) mg/dL Crossmatch 06/24/22 06/24/22 06/24/22 Range/Units 21:54 23:00 23:53 WBC (3.8-10.6) k/uL Hgb (13.0-17.5) gm/dL Hct (39.0-53.0) % Neutrophils # (1.3-7.7) k/uL Lymphocytes # (1.0-4.8) k/uL Monocytes # (0-1.0) k/uL ABG pH (7.35-7.45) ABG pCO2 (35-45) mmHg ABG pO2 (83-108) mmHg ABG HCO3 (21-25) mmol/L ABG Total CO2 (19-24) mmol/L ABG O2 Saturation (94-97) % ABG Potassium (3.4-4.5) mmol/L ABG Glucose (75-99) mg/dL ABG Lactic Acid (0.5-1.6) mmol/L Sodium (137-145) mmol/L Glucose (74-99) mg/dL POC Glucose (mg/dL) 127 H 130 H 121 H (70-110) mg/dL Ionized Calcium Clarence (4.5-5.3) mg/dL Total Protein (6.3-8.2) g/dL Albumin (3.5-5.0) g/dL Arterial Blood Potassium (3.4-4.5) mmol/L Arterial Blood Glucose (75-99) mg/dL Crossmatch 01/06/25/22 06/25/22 Range/Units 02:54 04:05 04:08 WBC 14.5 H (3.8-10.6) k/uL Hgb (13.0-17.5) gm/dL Hct (39.0-53.0) % Neutrophils # 11.2 H (1.3-7.7) k/uL Lymphocytes # (1.0-4.8) k/uL Monocytes # (0-1.0) k/uL ABG pH (7.35-7.45) ABG pCO2 (35-45) mmHg ABG pO2 (83-108) mmHg ABG HCO3 (21-25) mmol/L ABG Total CO2 (19-24) mmol/L ABG O2 Saturation (94-97) % ABG Potassium (3.4-4.5) mmol/L ABG Glucose (75-99) mg/dL ABG Lactic Acid (0.5-1.6) mmol/L Sodium (137-145) mmol/L Glucose (74-99) mg/dL POC Glucose (mg/dL) 122 H 121 H (70-110) mg/dL Ionized Calcium Clarence (4.5-5.3) mg/dL Total Protein (6.3-8.2) g/dL Albumin (3.5-5.0) g/dL Arterial Blood Potassium (3.4-4.5) mmol/L Arterial Blood Glucose (75-99) mg/dL Crossmatch 06/25/22 06/25/22 06/25/22 Range/Units 04:08 05:07 06:04 WBC (3.8-10.6) k/uL Hgb (13.0-17.5) gm/dL Hct (39.0-53.0) % Neutrophils # (1.3-7.7) k/uL Lymphocytes # (1.0-4.8) k/uL Monocytes # (0-1.0) k/uL ABG pH (7.35-7.45) ABG pCO2 (35-45) mmHg ABG pO2 (83-108) mmHg ABG HCO3 (21-25) mmol/L ABG Total CO2 (19-24) mmol/L ABG O2 Saturation (94-97) % ABG Potassium (3.4-4.5) mmol/L ABG Glucose (75-99) mg/dL ABG Lactic Acid (0.5-1.6) mmol/L Sodium 135 L (137-145) mmol/L Glucose 119 H (74-99) mg/dL POC Glucose (mg/dL) 123 H 119 H (70-110) mg/dL Ionized Calcium Clarence (4.5-5.3) mg/dL Total Protein 5.7 L (6.3-8.2) g/dL Albumin 3.4 L (3.5-5.0) g/dL Arterial Blood Potassium (3.4-4.5) mmol/L Arterial Blood Glucose (75-99) mg/dL Crossmatch 06/25/22 Range/Units 06:52 WBC (3.8-10.6) k/uL Hgb (13.0-17.5) gm/dL Hct (39.0-53.0) % Neutrophils # (1.3-7.7) k/uL Lymphocytes # (1.0-4.8) k/uL Monocytes # (0-1.0) k/uL ABG pH (7.35-7.45) ABG pCO2 (35-45) mmHg ABG pO2 (83-108) mmHg ABG HCO3 (21-25) mmol/L ABG Total CO2 (19-24) mmol/L ABG O2 Saturation (94-97) % ABG Potassium (3.4-4.5) mmol/L ABG Glucose (75-99) mg/dL ABG Lactic Acid (0.5-1.6) mmol/L Sodium (137-145) mmol/L Glucose (74-99) mg/dL POC Glucose (mg/dL) 115 H (70-110) mg/dL Ionized Calcium Clarence (4.5-5.3) mg/dL Total Protein (6.3-8.2) g/dL Albumin (3.5-5.0) g/dL Arterial Blood Potassium (3.4-4.5) mmol/L Arterial Blood Glucose (75-99) mg/dL Crossmatch - Imaging and Cardiology Chest x-ray: image reviewed Assessment and Plan Assessment: 1. Coronary artery disease, status post 2 vessel off pump CABG 2. History of hypertension 3. Hyperlipidemia, treated, cholesterol 194, LDL 113, triglycerides 159 4. Chronic systolic heart failure/ischemic cardiomyopathy, EF 25-30%, improved postoperative 40-45% 5. Chronic LV thrombus, on [facility] outpatient for anticoagulation 6. Type 2 diabetes, preoperative hemoglobin A1c 7.8% 7. Rheumatoid arthritis, recent flareup 8. Current tobacco dependence 9. Severe COPD, preoperative FEV1 35% of predicted 10. Marijuana use 11. Peripheral arterial disease, status post stenting of the proximal and mid left SFA, atherectomy of the left SFA, IVUS of the left SFA, balloon angioplasty of the left popliteal completed by Dr. Anne 05/01/2022 12. Recent Covid infection in May 2022, vaccinated not boosted Plan: 1. Continue aspirin, statin, Plavix, beta miller therapy. Will increase beta miller therapy as tolerated. Will add Bony when blood pressure tolerates 2. Continue amiodarone for A. fib prophylaxis, will transition to oral 3. Wean O2 as tolerated. Encourage incentive spirometry use 10 times every h our while awake. Bronchodilators per pulmonology 4. Increase activity, ambulate as tolerated. PT/OT/cardiac rehab consulted 5. GI/DVT prophylaxis 6. Pain control per current medication regimen 7. Insulin management per internal medicine. Patient is diabetic with elevated hemoglobin A1c, needs tight blood sugar control to promote healing and prevent infection 8. Will discontinue right pleural chest tube. Continue mediastinal/left pleural chest tubes for another 24 hours 9. Discontinue Magna. Connect Cordis to continuous CVP monitoring 10. Continue Evans catheter for another 24 hours for strict accurate intake and output 11. Smoking cessation counseling and education provided, patient is urged to quit smoking completely 12. More recommendations to follow based on patient's progress
[2022-06-25] MEDS: AMIODARONE 200 MG TAB PO SCH ×2 (08:23→20:23)
[2022-06-25] MEDS: HEPARIN SODIUM,PORCINE/PF 5,000 UNIT/0.5 ML SYRINGE SQ SCH ×2 (08:23→17:03)
[2022-06-25] MEDS: ATORVASTATIN 80 MG TAB PO SCH (08:24)
[2022-06-25] MEDS: ASPIRIN 325 MG TAB PO SCH (08:24)
[2022-06-25] MEDS: CLOPIDOGREL 75 MG TAB PO SCH (08:24)
[2022-06-25] MEDS: MONTELUKAST 10 MG TAB PO SCH (08:24)
[2022-06-25 08:35] LABS: Glucose,Whole Blood 167 mg/dL (70-110)
--- NOTE | 2022-06-25 08:59 | XR ---
EXAMINATION TYPE: XR chest 1V portable DATE OF EXAM: 06/25/2022 COMPARISON: 06/24/2022 HISTORY: Postop cardiac surgery TECHNIQUE: Single frontal view of the chest is obtained. FINDINGS: Again seen are median sternotomy postsurgical changes including median sternotomy wires, m ediastinal clips and AtriClip. Perry-Mo catheter is likely at the origin of the pulmonary outflow tr act. Endotracheal tube has been removed. There remains a right sided chest tube and mediastinal drain , unchanged. The left sided chest tube has slightly been withdrawn but is still in adequate position. The lungs are underinflated. There are increased patchy opacities compared to previous day which may relate to atelectatic changes. There is no pneumothorax. IMPRESSION: 1. Interval extubation. Otherwise, no significant interval change from previous day. Slight increase in patchy opacities may relate to atelectatic changes and underinflated lungs. 2. Left-sided chest tube has been slightly withdrawn, but is still in adequate position.
[2022-06-25] MEDS ORDERED: METOPROLOL TARTRATE 12.5 MG TAB PO SCH (09:00)
[2022-06-25] MEDS ORDERED: bisacodyL 10 MG SUPP RECTAL PRN (09:00)
[2022-06-25] MEDS ORDERED: MAGNESIUM HYDROXIDE 2,400 MG/10 ML CUP PO PRN (09:00)
[2022-06-25] MEDS ORDERED: PANTOPRAZOLE 40 MG/10 ML VIAL IVP SCH (09:00)
[2022-06-25 10:19] LABS: Glucose,Whole Blood 94 mg/dL (70-110)
[2022-06-25 10:35] VITALS: BMI 30.9
[2022-06-25 11:44] LABS: Glucose,Whole Blood 130 mg/dL (70-110)
[2022-06-25 14:11] LABS: Glucose,Whole Blood 168 mg/dL (70-110)
[2022-06-25] MEDS: LACTATED RINGERS 1,000 ML IV SCH (14:16)
[2022-06-25] MEDS ORDERED: amLODIPine 2.5 MG TAB PO SCH (15:15)
[2022-06-25 16:33] LABS: Glucose,Whole Blood 152 mg/dL (70-110)
--- NOTE | 2022-06-25 17:59 | P.CONS ---
History of Present Illness - Reason for Consult Consult date: 06/25/22 - History of Present Illness Humberto Taveras, is a 61-year-old male patient of Dr. Engel who was admitted to [facility] by Dr. Victor M Walters, and underwent two-vessel coronary artery bypass graft surgery on 06/24/2022, patient was admitted to intensive care unit post surgery, consultation was requested for medical management while hospitalized. Past medical history is significant for history of hypertension, history of hyperlipidemia, history of diabetes mellitus, history of chronic obstructive pulmonary disease, history of peripheral arterial disease , history of rheumatoid arthritis history of congestive heart failure and history of coronary artery disease. On review of systems patient is alert and oriented 3 in no apparent distress he is sitting up in a chair he is complaining of chest wall pain at the surgical site and stating he cannot get comfortable otherwise he denies any complaints t here is no fever or chills no headache or dizziness no shortness of breath no cough no nausea or vomiting no abdominal pain no diarrhea no blood in the stools no burning with urination no frequency or urgency no hematuria. There is no weakness or numbness in any of the extremities there is no change in vision speech or gait Past Medical History Past Medical History: Coronary Artery Disease (CAD), COPD, Diabetes Mellitus, Hyperlipidemia, Hypertension, Rheumatoid Arthritis (RA), Vascular Disorder Additional Past Medical History / Comment(s): NIDDM, SOB w/exertion, right leg pain w/walking History of Any Multi-Drug Resistant Organisms: None Reported Past Surgical History: Heart Catheterization Additional Past Surgical History / Comment(s): abd aortogram with runoff & stenting left SFA & left PTBA Past Anesthesia/Blood Transfusion Reactions: No Reported Reaction Additional Past Anesthesia/Blood Transfusion Reaction / Comm: NO ANESTHESIA HX. Smoking Status: Current every day smoker - Past Family History Father Family Medical History: CVA/TIA Medications and Allergies Home Medications Medication Instructions Recorded Confirmed Type Albuterol Nebulized [Ventolin 2.5 mg INHALATION Q8H PRN 03/20/22 06/19/22 History Nebulized] Aspirin 81 mg PO DAILY 03/20/22 06/19/22 History Atorvastatin Calcium [Lipitor] 80 mg PO DAILY 03/20/22 06/19/22 History Metoprolol Succinate (ER) [Toprol 25 mg PO DAILY 03/20/22 06/19/22 History XL] Montelukast [Singulair] 10 mg PO DAILY 03/20/22 06/19/22 History lisinopriL [Zestril] 5 mg PO DAILY 03/20/22 06/19/22 History predniSONE 5 mg PO DIRECTED PRN 03/20/22 06/19/22 History sitaGLIPtin PHOS/metFORMIN HCL 1 each PO DAILY 03/20/22 06/19/22 History [Janumet 50-1,000 mg Tablet] Apixaban [Eliquis] 2.5 mg PO BID #180 tab 05/02/22 06/19/22 Rx Enoxaparin [Lovenox] 80 mg SQ Q12H #4 each 05/02/22 06/19/22 Rx Allergies Allergy/AdvReac Type Severity Reaction Status Date / Time No Known Allergies Allergy Verified 06/24/22 06:12 Physical Exam Vitals: Vital Signs Temp Pulse Resp BP Pulse Ox FiO2 06/25/22 07:32 89 06/25/22 07:23 95 06/25/22 07:21 89 06/25/22 07:00 91 17 108/77 95 06/25/22 06:00 96 16 131/75 93 L 06/25/22 05:00 90 24 116/69 93 L 06/25/22 04:00 98.6 F 93 17 108/66 94 L 06/25/22 03:00 91 14 102/68 94 L 06/25/22 02:00 93 17 100/67 94 L 06/25/22 01:00 93 16 103/63 94 L 06/25/22 00:00 98.1 F 99 20 106/68 93 L 06/24/22 23:00 83 19 92 L 06/24/22 22:00 92 20 93 L 06/24/22 21:00 82 11 L 91/57 97 06/24/22 20:25 90 06/24/22 20:17 93 L 06/24/22 20:16 89 06/24/22 20:00 97.5 F L 85 14 91/57 96 06/24/22 19:00 101 H 12 93 L 06/24/22 18:00 86 13 98 06/24/22 17:00 100 25 H 97 06/24/22 16:42 40 06/24/22 16:00 97.9 F 105 H 26 H 98 50 06/24/22 15:48 100 50 06/24/22 15:24 100 24 06/24/22 15:14 101 H 24 06/24/22 15:01 50 06/24/22 15:00 87 24 91/57 94 L 06/24/22 14:45 85 32 H 91/57 98 06/24/22 14:30 77 22 98 06/24/22 14:15 79 22 97 06/24/22 14:00 82 12 96 50 06/24/22 13:45 80 12 97 06/24/22 13:30 78 12 96 06/24/22 13:15 75 12 97 06/24/22 13:12 80 12 06/24/22 13:02 76 12 06/24/22 13:00 77 12 98 06/24/22 12:59 50 06/24/22 12:45 74 16 91/57 97 50 06/24/22 12:43 100 06/24/22 12:25 100 Intake and Output 06/24/22 06/25/22 06/25/22 22:59 06:59 14:59 Intake Total 602.900 783.831 11.2 Output Total 1183 1566 Balance -580.100 -782.169 11.2 Intake: IV 584.0 594.5 Cardiac Output 0.9 NS 100 Lactated Ringers 1,000 ml 400 450 @ 20 mls/hr IV .Q24H [facility] Rx#:[id number] Nitroglycerin-D5w Pmx 50 12.0 13.5 mg In Dextrose/Water 1 250ml.bag @ 5 MCG/MIN 1.5 mls/hr IV .Q24H [facility] Rx#: [id number] Pressure bags 72 81 ceFAZolin 2 gm In Sodium 50 Chloride 0.9% 50 ml @ 100 mls/hr IVPB Q8HR [facility] Rx# :[id number] Intake, IV Titration 18.900 189.331 11.2 Amount Amiodarone 450 mg In 177.781 Dextrose 5% in Water 250 ml @ 0.5 MG/MIN 16.667 mls/hr IV .Q15H [facility] Rx#: [id number] Insulin Regular 100 unit 18.900 11.55 11.2 In Sodium Chloride 0.9% 100 ml @ Per Protocol IV .Q0M [facility] Rx#:[id number] Output: Chest Tube Drainage 323 556 Chest Tube Bilateral 117 86 Lateral Chest Chest Tube Mediastinal 206 470 Drainage 20 10 Left Wrist 20 10 Urine 840 1000 Other: Voiding Method Indwelling Catheter Indwelling Catheter Weight 92.4 kg ABP, PAP, CO, CI - Last 8 Hours Pulmonary Artery Pressure 29/12 Pulmonary Artery Pressure 21/6 Pulmonary Artery Pressure 34/12 Pulmonary Artery Pressure 38/13 Pulmonary Artery Pressure 34/13 Pulmonary Artery Pressure 28/11 Cardiac Output 4.7 Cardiac Output 8.4 Cardiac Output 7.2 Cardiac Index 2.4 Cardiac Index 4.3 Cardiac Index 3.7 In general patient is alert and oriented x 3 in no distress HEENT head normocephalic and atraumatic Neck is supple no JVD no goiter no lymphadenopathy no carotid bruit Chest examination reveals a scattered coarse crackles bilaterally patient has chest tubes in Cardiac exam reveals regular heart sounds S1 and S2 no gallops no murmurs Abdomen is soft nontender no organomegaly with normal bowel sounds Extremity exam reveals no edema no cyanosis or clubbing Neurological examination reveals no gross focal deficits Results CBC & Chem 7: 06/25/22 04:08 06/25/22 04:08 Labs: Abnormal Lab Results - Last 24 Hours (Table) 06/19/22 06/24/22 06/24/22 Range/Units 10:03 08:33 09:43 WBC (3.8-10.6) k/uL Hgb (13.0-17.5) gm/dL Hct (39.0-53.0) % Neutrophils # (1.3-7.7) k/uL Lymphocytes # (1.0-4.8) k/uL Monocytes # (0-1.0) k/uL ABG pH 7.30 L (7.35-7.45) ABG pCO2 52 H 58 H (35-45) mmHg ABG pO2 352 H 348 H (83-108) mmHg ABG HCO3 29 H 28 H (21-25) mmol/L ABG Total CO2 31 H 30 H (19-24) mmol/L ABG O2 Saturation 99.7 H 99.6 H (94-97) % ABG Potassium 4.6 H (3.4-4.5) mmol/L ABG Glucose 186 H 159 H (75-99) mg/dL ABG Lactic Acid 1.7 H (0.5-1.6) mmol/L Sodium (137-145) mmol/L Glucose (74-99) mg/dL POC Glucose (mg/dL) (70-110) mg/dL Ionized Calcium Clarence (4.5-5.3) mg/dL Total Protein (6.3-8.2) g/dL Albumin (3.5-5.0) g/dL Arterial Blood Potassium 4.6 H (3.4-4.5) mmol/L Arterial Blood Glucose 186 H 159 H (75-99) mg/dL Crossmatch See Detail 06/24/22 06/24/22 06/24/22 Range/Units 10:15 11:10 12:38 WBC 16.5 H (3.8-10.6) k/uL Hgb (13.0-17.5) gm/dL Hct (39.0-53.0) % Neutrophils # 14.3 H (1.3-7.7) k/uL Lymphocytes # (1.0-4.8) k/uL Monocytes # (0-1.0) k/uL ABG pH (7.35-7.45) ABG pCO2 (35-45) mmHg ABG pO2 266 H 266 H (83-108) mmHg ABG HCO3 26 H (21-25) mmol/L ABG Total CO2 28 H 27 H (19-24) mmol/L ABG O2 Saturation 99.7 H 99.7 H (94-97) % ABG Potassium (3.4-4.5) mmol/L ABG Glucose 150 H 138 H (75-99) mg/dL ABG Lactic Acid 1.7 H 2.0 H (0.5-1.6) mmol/L Sodium (137-145) mmol/L Glucose (74-99) mg/dL POC Glucose (mg/dL) (70-110) mg/dL Ionized Calcium Clarence (4.5-5.3) mg/dL Total Protein (6.3-8.2) g/dL Albumin (3.5-5.0) g/dL Arterial Blood Potassium (3.4-4.5) mmol/L Arterial Blood Glucose 150 H 138 H (75-99) mg/dL Crossmatch 01/23/23 01/23/23 01/23/23 Range/Units 12:38 12:43 12:55 WBC (3.8-10.6) k/uL Hgb (13.0-17.5) gm/dL Hct (39.0-53.0) % Neutrophils # (1.3-7.7) k/uL Lymphocytes # (1.0-4.8) k/uL Monocytes # (0-1.0) k/uL ABG pH 7.28 L (7.35-7.45) ABG pCO2 59 H (35-45) mmHg ABG pO2 335 H (83-108) mmHg ABG HCO3 28 H (21-25) mmol/L ABG Total CO2 30 H (19-24) mmol/L ABG O2 Saturation 99.7 H (94-97) % ABG Potassium (3.4-4.5) mmol/L ABG Glucose (75-99) mg/dL ABG Lactic Acid (0.5-1.6) mmol/L Sodium 136 L (137-145) mmol/L Glucose 129 H (74-99) mg/dL POC Glucose (mg/dL) 162 H (70-110) mg/dL Ionized Calcium Clarence 5.5 H (4.5-5.3) mg/dL Total Protein 5.7 L (6.3-8.2) g/dL Albumin 3.4 L (3.5-5.0) g/dL Arterial Blood Potassium (3.4-4.5) mmol/L Arterial Blood Glucose (75-99) mg/dL Crossmatch 06/24/22 06/24/22 06/24/22 Range/Units 15:06 15:10 15:49 WBC 19.8 H (3.8-10.6) k/uL Hgb (13.0-17.5) gm/dL Hct (39.0-53.0) % Neutrophils # 16.8 H (1.3-7.7) k/uL Lymphocytes # (1.0-4.8) k/uL Monocytes # 1.3 H (0-1.0) k/uL ABG pH 7.25 L (7.35-7.45) ABG pCO2 62 H (35-45) mmHg ABG pO2 (83-108) mmHg ABG HCO3 27 H (21-25) mmol/L ABG Total CO2 29 H (19-24) mmol/L ABG O2 Saturation (94-97) % ABG Potassium (3.4-4.5) mmol/L ABG Glucose (75-99) mg/dL ABG Lactic Acid (0.5-1.6) mmol/L Sodium (137-145) mmol/L Glucose (74-99) mg/dL POC Glucose (mg/dL) 123 H (70-110) mg/dL Ionized Calcium Clarence (4.5-5.3) mg/dL Total Protein (6.3-8.2) g/dL Albumin (3.5-5.0) g/dL Arterial Blood Potassium (3.4-4.5) mmol/L Arterial Blood Glucose (75-99) mg/dL Crossmatch 06/24/22 06/24/22 06/24/22 Range/Units 16:11 17:21 17:50 WBC (3.8-10.6) k/uL Hgb (13.0-17.5) gm/dL Hct (39.0-53.0) % Neutrophils # (1.3-7.7) k/uL Lymphocytes # (1.0-4.8) k/uL Monocytes # (0-1.0) k/uL ABG pH (7.35-7.45) ABG pCO2 (35-45) mmHg ABG pO2 (83-108) mmHg ABG HCO3 (21-25) mmol/L ABG Total CO2 (19-24) mmol/L ABG O2 Saturation (94-97) % ABG Potassium (3.4-4.5) mmol/L ABG Glucose (75-99) mg/dL ABG Lactic Acid (0.5-1.6) mmol/L Sodium (137-145) mmol/L Glucose (74-99) mg/dL POC Glucose (mg/dL) 163 H 140 H 147 H (70-110) mg/dL Ionized Calcium Clarence (4.5-5.3) mg/dL Total Protein (6.3-8.2) g/dL Albumin (3.5-5.0) g/dL Arterial Blood Potassium (3.4-4.5) mmol/L Arterial Blood Glucose (75-99) mg/dL Crossmatch 06/24/22 06/24/22 06/24/22 Range/Units 17:50 18:53 20:53 WBC 17.1 H (3.8-10.6) k/uL Hgb 12.5 L (13.0-17.5) gm/dL Hct 37.9 L (39.0-53.0) % Neutrophils # 15.2 H (1.3-7.7) k/uL Lymphocytes # 0.8 L (1.0-4.8) k/uL Monocytes # (0-1.0) k/uL ABG pH (7.35-7.45) ABG pCO2 (35-45) mmHg ABG pO2 (83-108) mmHg ABG HCO3 (21-25) mmol/L ABG Total CO2 (19-24) mmol/L ABG O2 Saturation (94-97) % ABG Potassium (3.4-4.5) mmol/L ABG Glucose (75-99) mg/dL ABG Lactic Acid (0.5-1.6) mmol/L Sodium (137-145) mmol/L Glucose (74-99) mg/dL POC Glucose (mg/dL) 117 H 111 H (70-110) mg/dL Ionized Calcium Clarence (4.5-5.3) mg/dL Total Protein (6.3-8.2) g/dL Albumin (3.5-5.0) g/dL Arterial Blood Potassium (3.4-4.5) mmol/L Arterial Blood Glucose (75-99) mg/dL Crossmatch 06/24/22 06/24/22 06/24/22 Range/Units 21:54 23:00 23:53 WBC (3.8-10.6) k/uL Hgb (13.0-17.5) gm/dL Hct (39.0-53.0) % Neutrophils # (1.3-7.7) k/uL Lymphocytes # (1.0-4.8) k/uL Monocytes # (0-1.0) k/uL ABG pH (7.35-7.45) ABG pCO2 (35-45) mmHg ABG pO2 (83-108) mmHg ABG HCO3 (21-25) mmol/L ABG Total CO2 (19-24) mmol/L ABG O2 Saturation (94-97) % ABG Potassium (3.4-4.5) mmol/L ABG Glucose (75-99) mg/dL ABG Lactic Acid (0.5-1.6) mmol/L Sodium (137-145) mmol/L Glucose (74-99) mg/dL POC Glucose (mg/dL) 127 H 130 H 121 H (70-110) mg/dL Ionized Calcium Clarence (4.5-5.3) mg/dL Total Protein (6.3-8.2) g/dL Albumin (3.5-5.0) g/dL Arterial Blood Potassium (3.4-4.5) mmol/L Arterial Blood Glucose (75-99) mg/dL Crossmatch 06/25/22 06/25/22 06/25/22 Range/Units 02:54 04:05 04:08 WBC 14.5 H (3.8-10.6) k/uL Hgb (13.0-17.5) gm/dL Hct (39.0-53.0) % Neutrophils # 11.2 H (1.3-7.7) k/uL Lymphocytes # (1.0-4.8) k/uL Monocytes # (0-1.0) k/uL ABG pH (7.35-7.45) ABG pCO2 (35-45) mmHg ABG pO2 (83-108) mmHg ABG HCO3 (21-25) mmol/L ABG Total CO2 (19-24) mmol/L ABG O2 Saturation (94-97) % ABG Potassium (3.4-4.5) mmol/L ABG Glucose (75-99) mg/dL ABG Lactic Acid (0.5-1.6) mmol/L Sodium (137-145) mmol/L Glucose (74-99) mg/dL POC Glucose (mg/dL) 122 H 121 H (70-110) mg/dL Ionized Calcium Clarence (4.5-5.3) mg/dL Total Protein (6.3-8.2) g/dL Albumin (3.5-5.0) g/dL Arterial Blood Potassium (3.4-4.5) mmol/L Arterial Blood Glucose (75-99) mg/dL Crossmatch 06/25/22 06/25/22 06/25/22 Range/Units 04:08 05:07 06:04 WBC (3.8-10.6) k/uL Hgb (13.0-17.5) gm/dL Hct (39.0-53.0) % Neutrophils # (1.3-7.7) k/uL Lymphocytes # (1.0-4.8) k/uL Monocytes # (0-1.0) k/uL ABG pH (7.35-7.45) ABG pCO2 (35-45) mmHg ABG pO2 (83-108) mmHg ABG HCO3 (21-25) mmol/L ABG Total CO2 (19-24) mmol/L ABG O2 Saturation (94-97) % ABG Potassium (3.4-4.5) mmol/L ABG Glucose (75-99) mg/dL ABG Lactic Acid (0.5-1.6) mmol/L Sodium 135 L (137-145) mmol/L Glucose 119 H (74-99) mg/dL POC Glucose (mg/dL) 123 H 119 H (70-110) mg/dL Ionized Calcium Clarence (4.5-5.3) mg/dL Total Protein 5.7 L (6.3-8.2) g/dL Albumin 3.4 L (3.5-5.0) g/dL Arterial Blood Potassium (3.4-4.5) mmol/L Arterial Blood Glucose (75-99) mg/dL Crossmatch 06/25/22 06/25/22 Range/Units 06:52 08:34 WBC (3.8-10.6) k/uL Hgb (13.0-17.5) gm/dL Hct (39.0-53.0) % Neutrophils # (1.3-7.7) k/uL Lymphocytes # (1.0-4.8) k/uL Monocytes # (0-1.0) k/uL ABG pH (7.35-7.45) ABG pCO2 (35-45) mmHg ABG pO2 (83-108) mmHg ABG HCO3 (21-25) mmol/L ABG Total CO2 (19-24) mmol/L ABG O2 Saturation (94-97) % ABG Potassium (3.4-4.5) mmol/L ABG Glucose (75-99) mg/dL ABG Lactic Acid (0.5-1.6) mmol/L Sodium (137-145) mmol/L Glucose (74-99) mg/dL POC Glucose (mg/dL) 115 H 167 H (70-110) mg/dL Ionized Calcium Clarence (4.5-5.3) mg/dL Total Protein (6.3-8.2) g/dL Albumin (3.5-5.0) g/dL Arterial Blood Potassium (3.4-4.5) mmol/L Arterial Blood Glucose (75-99) mg/dL Crossmatch Assessment and Plan Plan: Coronary artery disease status post 2 vessel coronary artery bypass graft surgery Underlying history of congestive heart failure with cardiomyopathy with decreased ejection fraction to 3035 percent History of hypertension History of hyperlipidemia History of peripheral arterial disease History of COPD History of diabetes mellitus currently maintained on insulin drip History of rheumatoid arthritis History of cardiac thrombus maintained on Eliquis as outpatient prior to admission. At this time patient was seen and examined Medications and labs reviewed Will continue to follow closely
[2022-06-25 18:03] LABS: Glucose,Whole Blood 112 mg/dL (70-110)
[2022-06-25 20:13] LABS: Glucose,Whole Blood 174 mg/dL (70-110)
[2022-06-25] MEDS: SENNOSIDES-DOCUSATE SODIUM 1 EACH TAB PO SCH (20:23)
[2022-06-25] MEDS: INSULIN REGULAR 100 UNIT in SODIUM CHLORIDE 0.9% 100 ML IV SCH (20:24)
[2022-06-25 22:01] LABS: Glucose,Whole Blood 159 mg/dL (70-110)
[2022-06-25] MEDS: METOPROLOL TARTRATE 25 MG TAB PO SCH (22:04)
[2022-06-26] MEDS: KETOROLAC 15 MG/ML 1 ML VIAL IVP SCH ×5 (00:07→23:06)
[2022-06-26] MEDS: HYDROcodone/APAP 5-325MG 1 EACH TAB PO PRN ×5 (00:07→21:42)
[2022-06-26] MEDS: HEPARIN SODIUM,PORCINE/PF 5,000 UNIT/0.5 ML SYRINGE SQ SCH ×4 (00:07→23:06)
[2022-06-26 00:16] LABS: Glucose,Whole Blood 133 mg/dL (70-110)
[2022-06-26 02:04] LABS: Glucose,Whole Blood 132 mg/dL (70-110)
[2022-06-26 04:27] LABS: Glucose,Whole Blood 147 mg/dL (70-110)
[2022-06-26 05:54] LABS: Basophils # (A) 0.1 k/uL (0-0.2); Basophils % (A) 0 %; Eosinophils % (A) 0 %; HCT 39.4 % (39.0-53.0); HGB 12.6 gm/dL (13.0-17.5); Lymphocytes # (A) 1.4 k/uL (1.0-4.8); Lymphocytes % (A) 10 %; MCHC 32.1 g/dL (31.0-37.0); MCV 87.2 fL (80.0-100.0); Mean Platelet Volume 6.8; Monocytes # (A) 0.9 k/uL (0-1.0); Monocytes % (A) 7 %; Neutrophils # (A) 11.1 k/uL (1.3-7.7); Neutrophils % (A) 81 %; Platelet Count 213 k/uL (150-450); RBC 4.51 m/uL (4.30-5.90); RDW 13.9 % (11.5-15.5); WBC 13.7 k/uL (3.8-10.6)
[2022-06-26 06:07] LABS: Glucose,Whole Blood 132 mg/dL (70-110)
[2022-06-26 06:12] LABS: ALT 15 U/L (4-49); AST 30 U/L (17-59); African American GFR (CKD) >90 (>60 ml/min/1.73 sqM); Albumin 3.2 g/dL (3.5-5.0); Alkaline Phosphatase 55 U/L (38-126); Anion Gap 2 mmol/L; Blood Urea Nitrogen 9 mg/dL (9-20); Calcium 8.8 mg/dL (8.4-10.2); Carbon Dioxide 31 mmol/L (22-30); Chloride 101 mmol/L (98-107); Glucose 119 mg/dL (74-99); Magnesium 1.9 mg/dL (1.6-2.3); Non-African American GFR(CKD) >90 (>60 ml/min/1.73 sqM); Potassium 4.4 mmol/L (3.5-5.1); Sodium 134 mmol/L (137-145); Total Bilirubin 0.7 mg/dL (0.2-1.3); Total Protein 5.5 g/dL (6.3-8.2)
[2022-06-26] MEDS: PANTOPRAZOLE 40 MG TABLET PO SCH (06:19)
--- NOTE | 2022-06-26 06:22 | XR ---
EXAMINATION TYPE: XR chest 1V portable DATE OF EXAM: 06/26/2022 CLINICAL HISTORY: Difficulty breathing progress study. Post open cardiac surgery. TECHNIQUE: Single AP portable semiupright view of the chest is obtained. COMPARISON: Chest x-ray from one day earlier and older studies. FINDINGS: Interval removal of right internal jugular Munday-Mo catheter. Persistent left-sided chest tube and mediastinal drainage catheter. Overlying Sternal wires and mediastinal clips along with lef t atrial appendage clip are all redemonstrated. Left greater than right bibasilar opacities remain present. Mild cardiomegaly again seen. No pneumoth orax is evident. Osseous structures are intact. IMPRESSION: Cardiomegaly with left greater than right bibasilar acute atelectasis and/or infiltrate a nd possible small left pleural effusion are redemonstrated. No pneumothorax seen with left-sided ches t tube in place. No significant change from one day earlier.
[2022-06-26 06:23] LABS: Ionized Calcium 5.2 mg/dL (4.5-5.3)
[2022-06-26] MEDS: METOPROLOL TARTRATE 25 MG TAB PO SCH ×4 (06:32→21:42)
[2022-06-26] MEDS: MAGNESIUM SULFATE-D5W PMX 1 GM in DEXTROSE/WATER 1 100ML.BAG IVPB SCH ×2 (06:32→08:42)
--- NOTE | 2022-06-26 07:33 | P.PN ---
Subjective Progress Note Date: 06/26/22 Principal diagnosis: Coronary artery disease. Previous medical history of hypertension, hyperlipidemia, chronic systolic heart failure/ischemic cardiomyopathy, type 2 diabetes, rheumatoid arthritis, current tobacco dependence, severe COPD, marijuana use, peripheral arterial disease, recent Covid infection in May 2022 POD #2 off-pump coronary artery bypass grafting 2, left internal thoracic artery to the left anterior descending artery, left radial artery from the aorta to the ramus intermedius, left atrial appendage ligation with a 35 mm AtriClip, endoscopic left radial artery harvest, epi-aortic ultrasound and intraoperative transesophageal echocardiogram, graft flow measurements using the LeadiDstim system The patient was seen and examined this morning sitting up in a recliner on the intensive care unit in no acute distress. States pain is controlled with cu rrent medication regimen, does complain of shortness of breath this morning. Currently in sinus tach, hemodynamically stable. Right internal jugular Cordis, mediastinal/left pleural chest tubes all remain present. Has been able to ambulate in room without assistance but does feel more short of breath this morning. Remains on 2 LPM NC with oxygen saturation in the low to mid 90s, only able to achieve 750 mL on incentive spirometry. Does endorse productive cough with yellowish white sputum. No other new concerns. Objective - Vital Signs Vital signs: Vital Signs Temp 98.1 F 06/26/22 00:00 Pulse 101 H 06/26/22 07:00 Resp 24 06/26/22 07:00 BP 144/77 06/26/22 07:00 Pulse Ox 94 L 06/26/22 07:00 FiO2 40 06/24/22 16:42 Intake & Output 06/25/22 06/26/22 06/26/22 18:59 06:59 18:59 Intake Total 1174.483 389.166 30 Output Total 875 1500 40 Balance 299.483 -1110.834 -10 Weight 92.4 kg 93.2 kg Intake: IV 384 360 30 Cardiac Output 0.9 NS 20 Lactated Ringers 1,000 ml 290 360 30 @ 20 mls/hr IV .Q24H [facility] Rx#:[id number] Pressure bags 24 ceFAZolin 2 gm In Sodium 50 Chloride 0.9% 50 ml @ 100 mls/hr IVPB Q8HR [facility] Rx# :[id number] Intake, IV Titration 40.483 29.166 Amount Insulin Regular 100 unit 40.483 29.166 In Sodium Chloride 0.9% 100 ml @ Per Protocol IV .Q0M [facility] Rx#:[id number] Oral 750 Output: Chest Tube Drainage 370 330 Chest Tube Bilateral 20 Lateral Chest Chest Tube Mediastinal 210 130 Pleural Catheter Left 140 200 Urine 505 1170 40 Other: Voiding Method Indwelling Catheter Indwelling Catheter ABP, PAP, CO, CI - Last Documented Arterial Blood Pressure 109/49 Pulmonary Artery Pressure 37/15 Cardiac Output 8 Cardiac Index 4.1 - Exam CONSTITUTIONAL: Appears comfortable, cooperative, no acute distress RESPIRATORY: Lungs sounds diminished bilaterally. Respirations even, nonlabored. Currently on 2 L nasal cannula with oxygen saturation 93%. Able to achieve 750 mL on incentive spirometry. Strong productive cough. CARDIOVASCULAR: S1, S2 present. Tachy but regular rate and rhythm, sinus tach on telemetry. Sternum stable. Palpable peripheral pulses bilaterally. Trace bilateral lower extremity edema present. No calf pain or tenderness noted. Heart hugger in place with patient demonstrating appropriate use. Antiembolism stockings, SCDs present. GASTROINTESTINAL: Abdomen soft, nontender, nondistended. Active bowel sounds present 4 quadrants. Tolerating clear liquid diet. Positive flatus GENITOURINARY: Evans present draining clear, yellow urine. Output overnight 50-150 mL per hour, 1675 mL in the last 24 hours INTEGUMENTARY: Skin is warm and dry with evidence of good perfusion. Anterior chest incision well approximated and covered with dry intact dressing. Left radial site well approximated without redness or drainage. NEUROLOGIC: Cranial nerves II through XII intact MUSKULOSKELETAL: Able to move all extremities, strength equal bilaterally, gait normal PSYCHIATRIC: Alert and oriented to person place and time, appropriate affect, intact judgment and insight INVASIVE LINES AND TUBES: Mediastinal/left pleural chest tubes present and connected to wall suction, air leak present in mediastinal tube. Mediastinal tube with 60 mL serosanguineous drainage overnight, 350 mL in the last 24 hours. Left pleural chest tubes with 140 mL serosanguineous drainage overnight, 300 mL in the last 24 hours. Right internal jugular Cordis present. Last CVP 12. - Allied health notes Allied health notes reviewed: nursing - Labs CBC & Chem 7: 06/26/22 05:01 06/26/22 05:01 Labs: Abnormal Lab Results - Last 24 Hours (Table) 06/25/22 06/25/22 06/25/22 Range/Units 08:34 11:43 14:10 WBC (3.8-10.6) k/uL Hgb (13.0-17.5) gm/dL Neutrophils # (1.3-7.7) k/uL Sodium (137-145) mmol/L Carbon Dioxide (22-30) mmol/L Glucose (74-99) mg/dL POC Glucose (mg/dL) 167 H 130 H 168 H (70-110) mg/dL Total Protein (6.3-8.2) g/dL Albumin (3.5-5.0) g/dL 06/25/22 06/25/22 06/25/22 Range/Units 16:32 18:02 20:11 WBC (3.8-10.6) k/uL Hgb (13.0-17.5) gm/dL Neutrophils # (1.3-7.7) k/uL Sodium (137-145) mmol/L Carbon Dioxide (22-30) mmol/L Glucose (74-99) mg/dL POC Glucose (mg/dL) 152 H 112 H 174 H (70-110) mg/dL Total Protein (6.3-8.2) g/dL Albumin (3.5-5.0) g/dL 06/25/22 06/26/22 06/26/22 Range/Units 22:00 00:14 02:00 WBC (3.8-10.6) k/uL Hgb (13.0-17.5) gm/dL Neutrophils # (1.3-7.7) k/uL Sodium (137-145) mmol/L Carbon Dioxide (22-30) mmol/L Glucose (74-99) mg/dL POC Glucose (mg/dL) 159 H 133 H 132 H (70-110) mg/dL Total Protein (6.3-8.2) g/dL Albumin (3.5-5.0) g/dL 06/26/22 06/26/22 06/26/22 Range/Units 04:26 05:01 05:01 WBC 13.7 H (3.8-10.6) k/uL Hgb 12.6 L (13.0-17.5) gm/dL Neutrophils # 11.1 H (1.3-7.7) k/uL Sodium 134 L (137-145) mmol/L Carbon Dioxide 31 H (22-30) mmol/L Glucose 119 H (74-99) mg/dL POC Glucose (mg/dL) 147 H (70-110) mg/dL Total Protein 5.5 L (6.3-8.2) g/dL Albumin 3.2 L (3.5-5.0) g/dL 06/26/22 Range/Units 06:06 WBC (3.8-10.6) k/uL Hgb (13.0-17.5) gm/dL Neutrophils # (1.3-7.7) k/uL Sodium (137-145) mmol/L Carbon Dioxide (22-30) mmol/L Glucose (74-99) mg/dL POC Glucose (mg/dL) 132 H (70-110) mg/dL Total Protein (6.3-8.2) g/dL Albumin (3.5-5.0) g/dL - Imaging and Cardiology Chest x-ray: report reviewed, image reviewed Assessment and Plan Assessment: 1. Coronary artery disease, status post 2 vessel off pump CABG 2. History of hypertension 3. Hyperlipidemia, treated, cholesterol 194, LDL 113, triglycerides 159 4. Chronic systolic heart failure/ischemic cardiomyopathy, EF 25-30%, improved postoperative 40-45% 5. Chronic LV thrombus, on [facility] outpatient for anticoagulation 6. Type 2 diabetes, preoperative hemoglobin A1c 7.8% 7. Rheumatoid arthritis, recent flareup 8. Current tobacco dependence 9. Severe COPD, preoperative FEV1 35% of predicted 10. Marijuana use 11. Peripheral arterial disease, status post stenting of the proximal and mid left SFA, atherectomy of the left SFA, IVUS of the left SFA, balloon angioplasty of the left popliteal completed by Dr. Anne 05/01/2022 12. Recent Covid infection in May 2022, vaccinated not boosted Plan: 1. Continue aspirin, statin, Plavix, beta miller therapy. Will increase beta miller therapy as tolerated, increased to 25 mg TID today. Will add Bony when blood pressure tolerates 2. Continue amiodarone for A. fib prophylaxis 3. Low dose calcium channel miller added yesterday for radial artery 4. Wean O2 as tolerated. Encourage incentive spirometry use 10 times every hour while awake. Bronchodilators per pulmonology 5. Will monitor daily labs and x-rays. Electrolyte replacement per protocol. Will send sputum culture 6. Increase activity, ambulate as tolerated. PT/OT/cardiac rehab following 7. GI/DVT prophylaxis 8. Pain control per current medication regimen 9. Insulin management per internal medicine. Patient is diabetic with elevated hemoglobin A1c, needs tight blood sugar control to promote healing and prevent infection 10. Continue mediastinal/left pleural chest tubes for another 24 hours 11. Discontinue Evans catheter. May bladder scan and straight cath for >300 mL residual 12. Strict accurate intake and output 13. Smoking cessation counseling and education provided, patient is urged to quit smoking completely 14. More recommendations to follow based on patient's progress
--- NOTE | 2022-06-26 07:52 | P.PN ---
Subjective Progress Note Date: 06/26/22 PROGRESS NOTE The patient is a 61-year-old male who underwent CABG today. He has a known history of CAD, followed by Dr. Anne, history of PAD status post percutaneous revascularization and a history of cardiomyopathy. He underwent off-pump OBREGON to the LAD and left radial to the ramus intermedius with closure of the left atrial appendage. He is intubated and sedated. Hemodynamically he is in sinus mechanism. He has a known history of severe cardiomyopathy with viability of the anterior wall by cardiac MRI. He has a history of diabetes, hypertension, hyperlipidemia and a history of chronic tobacco use. June 25: The patient is extubated sitting up in the chair, complaining of soreness in the chest, and sinus mechanism. His urine output is stable. He had no atrial fibrillation or significant arrhythmia. He continues to be on IV amiodarone. He is on no vasopressors. He is using his incentive spirometry. He denies any dizziness or palpitations. June 26: The patient is doing well this morning, he has some dyspnea was cough in the morning but otherwise has no dizziness or palpitations. He is in sinus mechanism. He has some soreness in the chest. He did walk yesterday. He co ntinues to use the incentive spirometry. His urinary output is good. He has a cough was productive of yellow sputum at times. Medications: Amiodarone 400 mg twice a day, aspirin, Lipitor 80 mg daily, Plavix 75 mg daily, insulin, metoprolol 25 mg 3 times a day, Norvasc 2.5 mg daily, Singulair 10 mg daily PHYSICAL EXAMINATION: Blood pressure 144/70 heart rate 90 LUNGS: Decreased breath sounds at the base HEART: Regular rate and rhythm, S1, S2. No S3. systolic ejection murmur, rub ABDOMEN: Soft, nontender, no organomegaly EXTREMETIES: No edema LAB: Potassium 4.4, BUN 9, creatinine 0.76 IMPRESSION: 1. Status post CABG, extubated, stable 2. Severe ischemic cardiomyopathy 3. History of PAD 4. History of hypertension 5. History of diabetes 6. History of hyperlipidemia PLAN: 1. Continue present therapy 2. Incentive spirometry 3. Add FANTASMA inhibitor 4. Increase physical activity 5. Depending on her progress further recommendations will be made. Objective - Vital Signs Vital signs: Vital Signs Temp 98.1 F 06/26/22 00:00 Pulse 101 H 06/26/22 07:00 Resp 24 06/26/22 07:00 BP 144/77 06/26/22 07:00 Pulse Ox 94 L 06/26/22 07:00 FiO2 40 06/24/22 16:42 Intake & Output 06/25/22 06/26/22 06/26/22 18:59 06:59 18:59 Intake Total 1174.483 389.166 30 Output Total 875 1500 40 Balance 299.483 -1110.834 -10 Weight 92.4 kg 93.2 kg Intake: IV 384 360 30 Cardiac Output 0.9 NS 20 Lactated Ringers 1,000 ml 290 360 30 @ 20 mls/hr IV .Q24H [facility] Rx#:[id number] Pressure bags 24 ceFAZolin 2 gm In Sodium 50 Chloride 0.9% 50 ml @ 100 mls/hr IVPB Q8HR [facility] Rx# :[id number] Intake, IV Titration 40.483 29.166 Amount Insulin Regular 100 unit 40.483 29.166 In Sodium Chloride 0.9% 100 ml @ Per Protocol IV .Q0M [facility] Rx#:[id number] Oral 750 Output: Chest Tube Drainage 370 330 Chest Tube Bilateral 20 Lateral Chest Chest Tube Mediastinal 210 130 Pleural Catheter Left 140 200 Urine 505 1170 40 Other: Voiding Method Indwelling Catheter Indwelling Catheter ABP, PAP, CO, CI - Last Documented Arterial Blood Pressure 109/49 Pulmonary Artery Pressure 37/15 Cardiac Output 8 Cardiac Index 4.1 - Labs CBC & Chem 7: 06/26/22 05:01 06/26/22 05:01 Labs: Abnormal Lab Results - Last 24 Hours (Table) 06/25/22 06/25/22 06/25/22 Range/Units 08:34 11:43 14:10 WBC (3.8-10.6) k/uL Hgb (13.0-17.5) gm/dL Neutrophils # (1.3-7.7) k/uL Sodium (137-145) mmol/L Carbon Dioxide (22-30) mmol/L Glucose (74-99) mg/dL POC Glucose (mg/dL) 167 H 130 H 168 H (70-110) mg/dL Total Protein (6.3-8.2) g/dL Albumin (3.5-5.0) g/dL 06/25/22 06/25/22 06/25/22 Range/Units 16:32 18:02 20:11 WBC (3.8-10.6) k/uL Hgb (13.0-17.5) gm/dL Neutrophils # (1.3-7.7) k/uL Sodium (137-145) mmol/L Carbon Dioxide (22-30) mmol/L Glucose (74-99) mg/dL POC Glucose (mg/dL) 152 H 112 H 174 H (70-110) mg/dL Total Protein (6.3-8.2) g/dL Albumin (3.5-5.0) g/dL 06/25/22 06/26/22 06/26/22 Range/Units 22:00 00:14 02:00 WBC (3.8-10.6) k/uL Hgb (13.0-17.5) gm/dL Neutrophils # (1.3-7.7) k/uL Sodium (137-145) mmol/L Carbon Dioxide (22-30) mmol/L Glucose (74-99) mg/dL POC Glucose (mg/dL) 159 H 133 H 132 H (70-110) mg/dL Total Protein (6.3-8.2) g/dL Albumin (3.5-5.0) g/dL 06/26/22 06/26/22 06/26/22 Range/Units 04:26 05:01 05:01 WBC 13.7 H (3.8-10.6) k/uL Hgb 12.6 L (13.0-17.5) gm/dL Neutrophils # 11.1 H (1.3-7.7) k/uL Sodium 134 L (137-145) mmol/L Carbon Dioxide 31 H (22-30) mmol/L Glucose 119 H (74-99) mg/dL POC Glucose (mg/dL) 147 H (70-110) mg/dL Total Protein 5.5 L (6.3-8.2) g/dL Albumin 3.2 L (3.5-5.0) g/dL 06/26/22 Range/Units 06:06 WBC (3.8-10.6) k/uL Hgb (13.0-17.5) gm/dL Neutrophils # (1.3-7.7) k/uL Sodium (137-145) mmol/L Carbon Dioxide (22-30) mmol/L Glucose (74-99) mg/dL POC Glucose (mg/dL) 132 H (70-110) mg/dL Total Protein (6.3-8.2) g/dL Albumin (3.5-5.0) g/dL
[2022-06-26] MEDS: IPRATROPIUM-ALBUTEROL 3 ML NEB INHALATION SCH ×4 (08:00→19:25)
[2022-06-26 08:25] LABS: Glucose,Whole Blood 125 mg/dL (70-110)
[2022-06-26] MEDS: AMIODARONE 200 MG TAB PO SCH ×2 (08:40→20:31)
[2022-06-26] MEDS: ATORVASTATIN 80 MG TAB PO SCH (08:41)
[2022-06-26] MEDS: CLOPIDOGREL 75 MG TAB PO SCH (08:41)
[2022-06-26] MEDS: MONTELUKAST 10 MG TAB PO SCH (08:41)
[2022-06-26] MEDS: ASPIRIN 325 MG TAB PO SCH (08:41)
[2022-06-26] MEDS ORDERED: DEXTROSE 50% SYRINGE 50 ML IVP PRN ×2 (08:43)
--- NOTE | 2022-06-26 08:45 | P.PN ---
Subjective Progress Note Date: 06/26/22 On 06/25/2022, the patient is postop day #1. The patient underwent two-vessel bypass surgery with BOREGON to LAD and radial artery to ramus intermedius. The patient was weaned off the mechanical ventilator and the patient was extubated initially to a BiPAP at a pressure of 10/5 cm of water and FiO2 of 40%. Subsequently, he was transitioned to nasal cannula which is running at 2 L/m and the pulse ox is currently 94%. Chest x-ray shows increased interstitial markings bilaterally, small effusion/atelectasis in the left lung base. [place]- Mo catheter is in a good location. There is no evidence of air leak. The patient has a right pleural left pleural chest tube and CHEST tubes is in order of 210 mL over the past 18 hours and the mediastinal chest tube is still present and operas in the order of 750 mL. Noted there is positive air leak within the mediastinal chest tube. Nevertheless, there is no evidence of any pneumomediastinum. There is no evidence of any pneumothorax. Hemodynamically, the patient is in normal sinus rhythm. He is on amiodarone drip at 0.5 mg/m. He was taken off the nitroglycerin drip. His cardiac output is at 4.7 with an index of 2.4. P artery pressures are 30/11. Urine output is in order of 50-100 mL an hour. WBC count is at 14.7 with a hemoglobin of 16.2. Renal function stable with a creatinine of 0.67 and a BUN of 9. Sodium is at 135. LFTs are normal. Blood sugars at 115 and the patient is currently on 2 units of insulin for blood sugar control. No other significant events otherwise for now. No focal neurological deficit. Pain is under adequate control. He is using the incentive spirometer falling approximately 750. On 06/26/2022, the patient is postoperative day #2. The patient remains on oxygen and he is currently on 2 L nasal cannula. He is using the incentive spirometer, falling to thousand. The mediastinal chest tube is in place and is showing air leak and output has been in the order of 340 mL over the past 24 hours. The pleural chest tubes are connected, no evidence of any active air leak and output has been 700 mL over the past 24 hours. Chest x-ray from today shows no evidence of any pneumothorax. Chest tubes are in good location. There is some mild interstitial edema. Hemodynamically, he is stable. His cardiac rhythm is sinus. He is off the amiodarone drip. He has been switched to oral amiodarone 400 mg by mouth twice a day.. He is also on aspirin, Plavix, and he was started also on metoprolol 25 mg by mouth 3 times a day. He is also on lisinopril 0.5 mg twice a day for blood pressure control. Adequate pain control for now. Blood work shows a WBC count 13.7, hemoglobin 12.6 and a platelet count of 213. BUN is at 9 with a creatinine of 0.7 and sodium levels of 134. No nausea. No emesis. No diarrhea. No other significant events overnight. Neurologically intact. Objective - Vital Signs Vital signs: Vital Signs Temp 98.2 F 06/26/22 08:00 Pulse 83 06/26/22 08:11 Resp 23 06/26/22 08:00 BP 103/61 06/26/22 08:00 Pulse Ox 96 06/26/22 08:04 FiO2 40 06/24/22 16:42 Intake & Output 06/25/22 06/26/22 06/26/22 18:59 06:59 18:59 Intake Total 1174.483 389.166 70 Output Total 875 1500 142 Balance 299.483 -1110.834 -72 Weight 92.4 kg 93.2 kg Intake: IV 384 360 70 Cardiac Output 0.9 NS 20 Lactated Ringers 1,000 ml 290 360 70 @ 20 mls/hr IV .Q24H [facility] Rx#:[id number] Pressure bags 24 ceFAZolin 2 gm In Sodium 50 Chloride 0.9% 50 ml @ 100 mls/hr IVPB Q8HR [facility] Rx# :[id number] Intake, IV Titration 40.483 29.166 Amount Insulin Regular 100 unit 40.483 29.166 In Sodium Chloride 0.9% 100 ml @ Per Protocol IV .Q0M [facility] Rx#:[id number] Oral 750 Output: Chest Tube Drainage 370 330 90 Chest Tube Bilateral 20 Lateral Chest Chest Tube Mediastinal 210 130 50 Pleural Catheter Left 140 200 40 Urine 505 1170 52 Other: Voiding Method Indwelling Catheter Indwelling Catheter ABP, PAP, CO, CI - Last Documented Arterial Blood Pressure 109/49 Pulmonary Artery Pressure 37/15 Cardiac Output 8 Cardiac Index 4.1 - Exam Gen. appearance, comfortable, not in acute distress extubated currently on 2 L of O2 nasal cannula Head exam was generally normal. There was no scleral icterus or corneal arcus. Mucous membranes were moist. Neck was supple and without jugular venous distension, thyromegaly, or carotid bruits. Carotids were easily palpable bilaterally. There was no adenopathy. The patient has a orogastric tube in place and the patient has a right IJ [place] catheter in place. Lungs were clear to auscultation and percussion, and with normal diaphragmatic excursion. No wheezes or rales were noted. The patient has a right-sided chest tube, left-sided chest tube and mediastinal chest tube. positive evidence of any air leak. Output is minimal at this point in time. Cardiac exam revealed the PMI to be normally situated and sized. The rhythm was regular and no extrasystoles were noted during several minutes of auscultation. The first and second heart sounds were normal and physiologic splitting of the second heart sound was noted. There were no murmurs, rubs, clicks, or gallops. Abdominal exam revealed normal bowel sounds. The abdomen was soft, non-tender, and without masses, organomegaly, or appreciable enlargement of the abdominal aorta. Examination of the extremities revealed easily palpable radial, femoral and pedal pulses. There was no cyanosis, clubbing or edema. Examination of the skin revealed no evidence of significant rashes, suspicious appearing nevi or other concerning lesions. Neurologically, Neurologically, the patient is awake and alert and the patient does not have any focal neurological deficit. Cranial nerves are essentially intact. - Labs CBC & Chem 7: 06/26/22 05:01 06/26/22 05:01 Labs: Abnormal Lab Results - Last 24 Hours (Table) 06/25/22 06/25/22 06/25/22 Range/Units 11:43 14:10 16:32 WBC (3.8-10.6) k/uL Hgb (13.0-17.5) gm/dL Neutrophils # (1.3-7.7) k/uL Sodium (137-145) mmol/L Carbon Dioxide (22-30) mmol/L Glucose (74-99) mg/dL POC Glucose (mg/dL) 130 H 168 H 152 H (70-110) mg/dL Total Protein (6.3-8.2) g/dL Albumin (3.5-5.0) g/dL 06/25/22 06/25/22 06/25/22 Range/Units 18:02 20:11 22:00 WBC (3.8-10.6) k/uL Hgb (13.0-17.5) gm/dL Neutrophils # (1.3-7.7) k/uL Sodium (137-145) mmol/L Carbon Dioxide (22-30) mmol/L Glucose (74-99) mg/dL POC Glucose (mg/dL) 112 H 174 H 159 H (70-110) mg/dL Total Protein (6.3-8.2) g/dL Albumin (3.5-5.0) g/dL 06/26/22 06/26/22 06/26/22 Range/Units 00:14 02:00 04:26 WBC (3.8-10.6) k/uL Hgb (13.0-17.5) gm/dL Neutrophils # (1.3-7.7) k/uL Sodium (137-145) mmol/L Carbon Dioxide (22-30) mmol/L Glucose (74-99) mg/dL POC Glucose (mg/dL) 133 H 132 H 147 H (70-110) mg/dL Total Protein (6.3-8.2) g/dL Albumin (3.5-5.0) g/dL 06/26/22 06/26/22 06/26/22 Range/Units 05:01 05:01 06:06 WBC 13.7 H (3.8-10.6) k/uL Hgb 12.6 L (13.0-17.5) gm/dL Neutrophils # 11.1 H (1.3-7.7) k/uL Sodium 134 L (137-145) mmol/L Carbon Dioxide 31 H (22-30) mmol/L Glucose 119 H (74-99) mg/dL POC Glucose (mg/dL) 132 H (70-110) mg/dL Total Protein 5.5 L (6.3-8.2) g/dL Albumin 3.2 L (3.5-5.0) g/dL 06/26/22 Range/Units 08:24 WBC (3.8-10.6) k/uL Hgb (13.0-17.5) gm/dL Neutrophils # (1.3-7.7) k/uL Sodium (137-145) mmol/L Carbon Dioxide (22-30) mmol/L Glucose (74-99) mg/dL POC Glucose (mg/dL) 125 H (70-110) mg/dL Total Protein (6.3-8.2) g/dL Albumin (3.5-5.0) g/dL Assessment and Plan Plan: Symptomatic multivessel coronary artery disease, post 2 vessel bypass surgery including OB[place]ON to LAD and radial to ramus intermedius. The patient is currently postop day #2. Hemodynamically stable. Adequate cardiac output and index a month and the patient is hemodynamically stable. Postthoracotomy, extubated to BiPAP initially and currently on 2 L of oxygen by nasal cannula. Chest tubes are still in place and is positive air leak within the mediastinal chest tube and there is some atelectatic changes in the left , up from the chest tube remains considerably high of the chest tube will be kept in place. Cardiomyopathy with an ejection fraction of around 30-35%, preoperatively History of cardiac thrombus material anticoagulants on outpatient basis Peripheral vascular disease COPD with an FEV1 of 35% of predicted Hypertension Hyperlipidemia Diabetes mellitus currently on insulin drip at 2 units an hour History of rheumatoid arthritis Plan Discontinue the insulin drip and switch this patient has slight scale insulin coverage Adjusted dose of Lasix 20 mg IV 1 Patient is extubated successful and the patient is currently hemodynamic stable on 2 L of oxygen by nasal cannula. aspirin and metoprolol Continue po Amiodarone Anticoagulants per cardiology Monitor the output from the chest tubes Continue bronchodilators Cardiac rhythm is sinus Monitor hemodynamic parameters Advance diet and will continue to follow. HEENT the patient in the intensive care unit for another 24 hours
[2022-06-26] MEDS ORDERED: FUROSEMIDE 10 MG/ML 2 ML VIAL IV ONE (09:00)
[2022-06-26] MEDS ORDERED: ALBUMIN HUMAN 25% 50 ML in EMPTY BAG 1 BAG IVPB ONE (09:30)
[2022-06-26] MEDS: LACTATED RINGERS 1,000 ML IV SCH (11:02)
--- NOTE | 2022-06-26 11:12 | P.PN ---
Subjective Progress Note Date: 06/26/22 Humberto Taveras, is a 61-year-old male patient of Dr. Engel who was admitted to [facility] by Dr. Victor M Walters, and underwent two-vessel coronary artery bypass graft surgery on 06/24/2022, patient was admitted to intensive care unit post surgery, consultation was requested for medical man agement while hospitalized. Past medical history is significant for history of hypertension, history of hyperlipidemia, history of diabetes mellitus, history of chronic obstructive pulmonary disease, history of peripheral arterial disease , history of rheumatoid arthritis history of congestive heart failure and history of coronary artery disease. On review of systems patient is alert and oriented 3 in no apparent distress he is sitting up in a chair he is complaining of chest wall pain at the surgical site and stating he cannot get comfortable otherwise he denies any complaints there is no fever or chills no headache or dizziness no shortness of breath no cough no nausea or vomiting no abdominal pain no diarrhea no blood in the stools no burning with urination no frequency or urgency no hematuria. There is no weakness or numbness in any of the extremities there is no change in vision s peech or gait on 06/26/2022 patient is alert and oriented 3 currently sitting up in chair postop day 2. Chest tubes remain in place. Vital signs temp 98.2, heart rate 95, respiratory rate 17, blood pressure 109/66 with a pulse ox of 94% on 2 L. At this time patient denies chest pain or shortness breath. Denies nausea vomiting or diarrhea. Denies any urinary burning or frequency Objective - Vital Signs Vital signs: Vital Signs Temp 98.2 F 06/26/22 08:00 Pulse 95 06/26/22 10:00 Resp 17 06/26/22 10:00 BP 109/66 06/26/22 10:00 Pulse Ox 93 L 06/26/22 10:00 FiO2 40 06/24/22 16:42 Intake & Output 06/25/22 06/26/22 06/26/22 18:59 06:59 18:59 Intake Total 1174.483 389.166 209 Output Total 875 1500 190 Balance 299.483 -1110.834 19 Weight 92.4 kg 93.2 kg Intake: IV 384 360 209 Cardiac Output 0.9 NS 20 Lactated Ringers 1,000 ml 290 360 100 @ 20 mls/hr IV .Q24H [facility] Rx#:[id number] Magnesium Sulfate-D5w Pmx 100 1 gm In Dextrose/Water 1 100ml.bag @ 100 mls/hr IVPB Q1H [facility] Rx#: [id number] Pressure bags 24 9 ceFAZolin 2 gm In Sodium 50 Chloride 0.9% 50 ml @ 100 mls/hr IVPB Q8HR [facility] Rx# :[id number] Intake, IV Titration 40.483 29.166 Amount Insulin Regular 100 unit 40.483 29.166 In Sodium Chloride 0.9% 100 ml @ Per Protocol IV .Q0M [facility] Rx#:[id number] Oral 750 Output: Chest Tube Drainage 370 330 100 Chest Tube Bilateral 20 Lateral Chest Chest Tube Mediastinal 210 130 50 Pleural Catheter Left 140 200 50 Urine 505 1170 90 Other: Voiding Method Indwelling Catheter Indwelling Catheter Indwelling Catheter ABP, PAP, CO, CI - Last Documented Arterial Blood Pressure 109/49 Pulmonary Artery Pressure 37/15 Cardiac Output 8 Cardiac Index 4.1 - Exam In general patient is alert and oriented x 3 in no distress HEENT head normocephalic and atraumatic Neck is supple no JVD no goiter no lymphadenopathy no carotid bruit Chest examination reveals a scattered coarse crackles bilaterally patient has chest tubes in Cardiac exam reveals regular heart sounds S1 and S2 no gallops no murmurs Abdomen is soft nontender no organomegaly with normal bowel sounds Extremity exam reveals no edema no cyanosis or clubbing Neurological examination reveals no gross focal deficits - Labs CBC & Chem 7: 06/26/22 05:01 06/26/22 05:01 Labs: Abnormal Lab Results - Last 24 Hours (Table) 06/25/22 06/25/22 06/25/22 Range/Units 11:43 14:10 16:32 WBC (3.8-10.6) k/uL Hgb (13.0-17.5) gm/dL Neutrophils # (1.3-7.7) k/uL Sodium (137-145) mmol/L Carbon Dioxide (22-30) mmol/L Glucose (74-99) mg/dL POC Glucose (mg/dL) 130 H 168 H 152 H (70-110) mg/dL Total Protein (6.3-8.2) g/dL Albumin (3.5-5.0) g/dL 01/06/25/22 06/25/22 Range/Units 18:02 20:11 22:00 WBC (3.8-10.6) k/uL Hgb (13.0-17.5) gm/dL Neutrophils # (1.3-7.7) k/uL Sodium (137-145) mmol/L Carbon Dioxide (22-30) mmol/L Glucose (74-99) mg/dL POC Glucose (mg/dL) 112 H 174 H 159 H (70-110) mg/dL Total Protein (6.3-8.2) g/dL Albumin (3.5-5.0) g/dL 06/26/22 06/26/22 06/26/22 Range/Units 00:14 02:00 04:26 WBC (3.8-10.6) k/uL Hgb (13.0-17.5) gm/dL Neutrophils # (1.3-7.7) k/uL Sodium (137-145) mmol/L Carbon Dioxide (22-30) mmol/L Glucose (74-99) mg/dL POC Glucose (mg/dL) 133 H 132 H 147 H (70-110) mg/dL Total Protein (6.3-8.2) g/dL Albumin (3.5-5.0) g/dL 06/26/22 06/26/22 06/26/22 Range/Units 05:01 05:01 06:06 WBC 13.7 H (3.8-10.6) k/uL Hgb 12.6 L (13.0-17.5) gm/dL Neutrophils # 11.1 H (1.3-7.7) k/uL Sodium 134 L (137-145) mmol/L Carbon Dioxide 31 H (22-30) mmol/L Glucose 119 H (74-99) mg/dL POC Glucose (mg/dL) 132 H (70-110) mg/dL Total Protein 5.5 L (6.3-8.2) g/dL Albumin 3.2 L (3.5-5.0) g/dL 06/26/22 Range/Units 08:24 WBC (3.8-10.6) k/uL Hgb (13.0-17.5) gm/dL Neutrophils # (1.3-7.7) k/uL Sodium (137-145) mmol/L Carbon Dioxide (22-30) mmol/L Glucose (74-99) mg/dL POC Glucose (mg/dL) 125 H (70-110) mg/dL Total Protein (6.3-8.2) g/dL Albumin (3.5-5.0) g/dL Assessment and Plan Plan: Coronary artery disease status post 2 vessel coronary artery bypass graft surgery Underlying history of congestive heart failure with cardiomyopathy with decreased ejection fraction to 3035 percent History of hypertension History of hyperlipidemia History of peripheral arterial disease History of COPD History of diabetes mellitus currently maintained on insulin drip History of rheumatoid arthritis History of cardiac thrombus maintained on Eliquis as outpatient prior to adm ission. At this time patient was seen and examined Medications and labs reviewed Will continue to follow closely
[2022-06-26 11:27] LABS: Glucose,Whole Blood 140 mg/dL (70-110)
[2022-06-26] MEDS: INSULIN ASPART (NovoLOG) 100 UNIT/ML VIAL SQ SCH ×3 (11:57→20:31)
[2022-06-26] MEDS: amLODIPine 2.5 MG TAB PO SCH (13:36)
[2022-06-26 16:35] LABS: Glucose,Whole Blood 142 mg/dL (70-110)
[2022-06-26 19:51] LABS: Glucose,Whole Blood 186 mg/dL (70-110)
[2022-06-26] MEDS: SENNOSIDES-DOCUSATE SODIUM 1 EACH TAB PO SCH (20:31)
[2022-06-27] MEDS: HYDROcodone/APAP 5-325MG 1 EACH TAB PO PRN ×3 (04:47→21:07)
[2022-06-27 05:20] LABS: Basophils % (A) 0 %; Eosinophils % (A) 0 %; HCT 37.3 % (39.0-53.0); HGB 12.3 gm/dL (13.0-17.5); Lymphocytes # (A) 2.3 k/uL (1.0-4.8); Lymphocytes % (A) 23 %; MCH 28.5 pg (25.0-35.0); MCHC 32.9 g/dL (31.0-37.0); MCV 86.6 fL (80.0-100.0); Mean Platelet Volume 6.9; Monocytes # (A) 0.7 k/uL (0-1.0); Monocytes % (A) 6 %; Neutrophils % (A) 68 %; Platelet Count 209 k/uL (150-450); RDW 13.6 % (11.5-15.5); WBC 10.3 k/uL (3.8-10.6)
[2022-06-27 05:38] LABS: ALT 15 U/L (4-49); AST 30 U/L (17-59); African American GFR (CKD) >90 (>60 ml/min/1.73 sqM); Albumin 3.1 g/dL (3.5-5.0); Alkaline Phosphatase 49 U/L (38-126); Anion Gap 2 mmol/L; Blood Urea Nitrogen 13 mg/dL (9-20); Calcium 8.6 mg/dL (8.4-10.2); Carbon Dioxide 34 mmol/L (22-30); Chloride 99 mmol/L (98-107); Glucose 141 mg/dL (74-99); Non-African American GFR(CKD) >90 (>60 ml/min/1.73 sqM); Potassium 4.2 mmol/L (3.5-5.1); Sodium 135 mmol/L (137-145); Total Bilirubin 0.8 mg/dL (0.2-1.3); Total Protein 5.3 g/dL (6.3-8.2)
[2022-06-27] MEDS: KETOROLAC 15 MG/ML 1 ML VIAL IVP SCH ×3 (06:23→16:49)
[2022-06-27] MEDS: PANTOPRAZOLE 40 MG TABLET PO SCH (06:23)
[2022-06-27 06:29] LABS: Glucose,Whole Blood 165 mg/dL (70-110)
[2022-06-27] MEDS: INSULIN ASPART (NovoLOG) 100 UNIT/ML VIAL SQ SCH ×4 (06:30→21:34)
--- NOTE | 2022-06-27 07:01 | P.PN ---
Subjective Progress Note Date: 06/27/22 PROGRESS NOTE The patient is a 61-year-old male who underwent CABG today. He has a known history of CAD, followed by Dr. Anne, history of PAD status post percutaneous revascularization and a history of cardiomyopathy. He underwent off-pump OBREGON to the LAD and left radial to the ramus intermedius with closure of the left atrial appendage. He is intubated and sedated. Hemodynamically he is in sinus mechanism. He has a known history of severe cardiomyopathy with viability of the anterior wall by cardiac MRI. He has a history of diabetes, hypertension, hyperlipidemia and a history of chronic tobacco use. June 25: The patient is extubated sitting up in the chair, complaining of soreness in the chest, and sinus mechanism. His urine output is stable. He had no atrial fibrillation or significant arrhythmia. He continues to be on IV amiodarone. He is on no vasopressors. He is using his incentive spirometry. He denies any dizziness or palpitations. June 26: The patient is doing well this morning, he has some dyspnea was cough in the morning but otherwise has no dizziness or palpitations. He is in sinus mechanism. He has some soreness in the chest. He did walk yesterday. He co ntinues to use the incentive spirometry. His urinary output is good. He has a cough was productive of yellow sputum at times. June 27: The patient is sitting up in the chair, feels better, continues to have some dyspnea but improving. He continues to be in sinus mechanism. He denies any chest discomfort, dizziness or palpitations. He is in sinus mechanism with no episodes of atrial fibrillation. He denies any nausea. He is using his incentive spirometry and has been walking. He continues to have the chest tube. His urinary output has been good. Medications: Amiodarone 400 mg twice a day, aspirin, Lipitor 80 mg daily, Plavix 75 mg daily, insulin, metoprolol 25 mg 3 times a day, Norvasc 2.5 mg daily, Singulair 10 mg daily, lisinopril 2.5 mg twice a day PHYSICAL EXAMINATION: Blood pressure 107/50 heart rate 90 LUNGS: Clear to auscultation HEART: Regular rate and rhythm, S1, S2. No S3. systolic ejection murmur, rub ABDOMEN: Soft, nontender, no organomegaly EXTREMETIES: No edema LAB: Potassium 4.2, BUN 13, creatinine 0.76, hemoglobin 12.3 IMPRESSION: 1. Status post CABG, extubated, stable 2. Severe ischemic cardiomyopathy, no evidence of heart failure. 3. History of PAD 4. History of hypertension 5. History of diabetes 6. History of hyperlipidemia PLAN: 1. Continue present therapy 2. Incentive spirometry 3. Increase physical activity 4. Remove chest tube when stable 5. If blood pressure and heart rate are stable change metoprolol to 50 mg twice a day and subsequently adjust the dose of lisinopril. Objective - Vital Signs Vital signs: Vital Signs Temp 98.1 F 06/27/22 00:00 Pulse 91 06/27/22 06:00 Resp 18 06/27/22 06:00 BP 107/52 06/27/22 06:00 Pulse Ox 96 06/27/22 06:00 FiO2 40 06/24/22 16:42 Intake & Output 06/26/22 06/26/22 06/27/22 06:59 18:59 06:59 Intake Total 389.166 633 279 Output Total 1500 1230 955 Balance -1110.834 -597 -676 Weight 93.2 kg 92.5 kg Intake: IV 360 393 279 Lactated Ringers 1,000 ml 360 260 240 @ 20 mls/hr IV .Q24H [facility] Rx#:[id number] Magnesium Sulfate-D5w Pmx 100 1 gm In Dextrose/Water 1 100ml.bag @ 100 mls/hr IVPB Q1H [facility] Rx#: [id number] Pressure bags 33 39 Intake, IV Titration 29.166 Amount Insulin Regular 100 unit 29.166 In Sodium Chloride 0.9% 100 ml @ Per Protocol IV .Q0M [facility] Rx#:[id number] Oral 240 Output: Chest Tube Drainage 330 220 130 Chest Tube Mediastinal 130 120 50 Pleural Catheter Left 200 100 80 Urine 1170 1010 825 Other: Voiding Method Indwelling Catheter Urinal Urinal # Voids 1 1 ABP, PAP, CO, CI - Last Documented Arterial Blood Pressure 109/49 Pulmonary Artery Pressure 37/15 Cardiac Output 8 Cardiac Index 4.1 - Labs CBC & Chem 7: 06/27/22 04:45 06/27/22 04:45 Labs: Abnormal Lab Results - Last 24 Hours (Table) 06/26/22 06/26/22 06/26/22 Range/Units 08:24 11:25 16:33 Hgb (13.0-17.5) gm/dL Hct (39.0-53.0) % Sodium (137-145) mmol/L Carbon Dioxide (22-30) mmol/L Glucose (74-99) mg/dL POC Glucose (mg/dL) 125 H 140 H 142 H (70-110) mg/dL Total Protein (6.3-8.2) g/dL Albumin (3.5-5.0) g/dL 06/26/22 06/27/22 06/27/22 Range/Units 19:49 04:45 04:45 Hgb 12.3 L (13.0-17.5) gm/dL Hct 37.3 L (39.0-53.0) % Sodium 135 L (137-145) mmol/L Carbon Dioxide 34 H (22-30) mmol/L Glucose 141 H (74-99) mg/dL POC Glucose (mg/dL) 186 H (70-110) mg/dL Total Protein 5.3 L (6.3-8.2) g/dL Albumin 3.1 L (3.5-5.0) g/dL 06/27/22 Range/Units 06:27 Hgb (13.0-17.5) gm/dL Hct (39.0-53.0) % Sodium (137-145) mmol/L Carbon Dioxide (22-30) mmol/L Glucose (74-99) mg/dL POC Glucose (mg/dL) 165 H (70-110) mg/dL Total Protein (6.3-8.2) g/dL Albumin (3.5-5.0) g/dL Microbiology - Last 24 Hours (Table) 06/26/22 11:45 Sputum Culture - Preliminary Sputum
[2022-06-27] MEDS: IPRATROPIUM-ALBUTEROL 3 ML NEB INHALATION SCH ×4 (07:42→20:03)
--- NOTE | 2022-06-27 08:51 | P.PN ---
Subjective Progress Note Date: 06/27/22 On 06/25/2022, the patient is postop day #1. The patient underwent two-vessel bypass surgery with OBREGON to LAD and radial artery to ramus intermedius. The patient was weaned off the mechanical ventilator and the patient was extubated initially to a BiPAP at a pressure of 10/5 cm of water and FiO2 of 40%. Subsequently, he was transitioned to nasal cannula which is running at 2 L/m and the pulse ox is currently 94%. Chest x-ray shows increased interstitial markings bilaterally, small effusion/atelectasis in the left lung base. Hymera- Mo catheter is in a good location. There is no evidence of air leak. The patient has a right pleural left pleural chest tube and CHEST tubes is in order of 210 mL over the past 18 hours and the mediastinal chest tube is still present and operas in the order of 750 mL. Noted there is positive air leak within the mediastinal chest tube. Nevertheless, there is no evidence of any pneumomediastinum. There is no evidence of any pneumothorax. Hemodynamically, the patient is in normal sinus rhythm. He is on amiodarone drip at 0.5 mg/m. He was taken off the nitroglycerin drip. His cardiac output is at 4.7 with an index of 2.4. P artery pressures are 30/11. Urine output is in order of 50-100 mL an hour. WBC count is at 14.7 with a hemoglobin of 16.2. Renal function stable with a creatinine of 0.67 and a BUN of 9. Sodium is at 135. LFTs are normal. Blood sugars at 115 and the patient is currently on 2 units of insulin for blood sugar control. No other significant events otherwise for now. No focal neurological deficit. Pain is under adequate control. He is using the incentive spirometer falling approximately 750. On 06/26/2022, the patient is postoperative day #2. The patient remains on oxygen and he is currently on 2 L nasal cannula. He is using the incentive spirometer, falling to thousand. The mediastinal chest tube is in place and is showing air leak and output has been in the order of 340 mL over the past 24 hours. The pleural chest tubes are connected, no evidence of any active air leak and output has been 700 mL over the past 24 hours. Chest x-ray from today shows no evidence of any pneumothorax. Chest tubes are in good location. There is some mild interstitial edema. Hemodynamically, he is stable. His cardiac rhythm is sinus. He is off the amiodarone drip. He has been switched to oral amiodarone 400 mg by mouth twice a day.. He is also on aspirin, Plavix, and he was started also on metoprolol 25 mg by mouth 3 times a day. He is also on lisinopril 0.5 mg twice a day for blood pressure control. Adequate pain control for now. Blood work shows a WBC count 13.7, hemoglobin 12.6 and a platelet count of 213. BUN is at 9 with a creatinine of 0.7 and sodium levels of 134. No nausea. No emesis. No diarrhea. No other significant events overnight. Neurologically intact. 06/27/2022, the patient is postop day #3. Is currently on room air oxygen. His falling approximately 1500 on the incentive spirometer. He does have the pleural chest tubes and mediastinal chest tube. Ultrasound of the chest tube has been 80 mL over the past 24 hours and output from the mediastinal chest tube is in the order of 50 mL over the past 24 hours. There is air leak only in the mediastinal chest tube. Meanwhile, the chest x-ray from today shows some atelectatic changes and small effusion in the lung bases. Chest tubes are still in good location. No evidence of any pneumothorax. He was given a dose of Lasix yesterday. He is hemodynamically stable. His cardiac rhythm is sinus. His labs from today show a WBC count of 10.3 hemoglobin is 12.3 sodium is at 135, BUN is at 30 with a creatinine of 0.7. He is on aspirin. He is on Plavix. He is on metoprolol started at a dose of 25 mg 3 times a day. He is also on lisinopril 2.5 mg by mouth twice a day. He is on high-dose statins and he is taking Lipitor 80 mg by mouth daily. He is sitting up on a chair. Didn't limited amount of ambulation. No other complaints otherwise for now. We'll discuss with the surgical team the possibility of removing the pleural chest tubes. Objective - Vital Signs Vital signs: Vital Signs Temp 98.1 F 06/27/22 00:00 Pulse 94 06/27/22 07:52 Resp 18 06/27/22 07:00 BP 106/82 06/27/22 07:00 Pulse Ox 91 L 06/27/22 07:00 FiO2 40 06/24/22 16:42 Intake & Output 06/26/22 06/27/22 06/27/22 18:59 06:59 18:59 Intake Total 633 279 26 Output Total 1230 955 Balance -597 -676 26 Weight 92.5 kg Intake: IV 393 279 26 Lactated Ringers 1,000 ml 260 240 20 @ 20 mls/hr IV .Q24H [facility] Rx#:[id number] Magnesium Sulfate-D5w Pmx 100 1 gm In Dextrose/Water 1 100ml.bag @ 100 mls/hr IVPB Q1H [facility] Rx#: [id number] Pressure bags 33 39 6 Oral 240 Output: Chest Tube Drainage 220 130 Chest Tube Mediastinal 120 50 Pleural Catheter Left 100 80 Urine 1010 825 Other: Voiding Method Urinal Urinal # Voids 1 1 ABP, PAP, CO, CI - Last Documented Arterial Blood Pressure 109/49 Pulmonary Artery Pressure 37/15 Cardiac Output 8 Cardiac Index 4.1 - Exam Gen. appearance, comfortable, not in acute distress extubated currently on RA Head exam was generally normal. There was no scleral icterus or corneal arcus. Mucous membranes were moist. Neck was supple and without jugular venous distension, thyromegaly, or carotid bruits. Carotids were easily palpable bilaterally. There was no adenopathy. The patient has a orogastric tube in place and the patient has a right IJ Hymera-Mo catheter in place. Lungs were clear to auscultation and percussion, and with normal diaphragmatic excursion. No wheezes or rales were noted. The patient has a right-sided chest tube, left-sided chest tube and mediastinal chest tube. positive evidence of any air leak. Output is minimal at this point in time. Cardiac exam revealed the PMI to be normally situated and sized. The rhythm was regular and no extrasystoles were noted during several minutes of auscultation. The first and second heart sounds were normal and physiologic splitting of the second heart sound was noted. There were no murmurs, rubs, clicks, or gallops. Abdominal exam revealed normal bowel sounds. The abdomen was soft, non-tender, and without masses, organomegaly, or appreciable enlargement of the abdominal aorta. Examination of the extremities revealed easily palpable radial, femoral and pedal pulses. There was no cyanosis, clubbing or edema. Examination of the skin revealed no evidence of significant rashes, suspicious appearing nevi or other concerning lesions. Neurologically, Neurologically, the patient is awake and alert and the patient does not have any focal neurological deficit. Cranial nerves are essentially intact. - Labs CBC & Chem 7: 06/27/22 04:45 06/27/22 04:45 Labs: Abnormal Lab Results - Last 24 Hours (Table) 06/26/22 06/26/22 06/26/22 Range/Units 11:25 16:33 19:49 Hgb (13.0-17.5) gm/dL Hct (39.0-53.0) % Sodium (137-145) mmol/L Carbon Dioxide (22-30) mmol/L Glucose (74-99) mg/dL POC Glucose (mg/dL) 140 H 142 H 186 H (70-110) mg/dL Total Protein (6.3-8.2) g/dL Albumin (3.5-5.0) g/dL 06/27/22 06/27/22 06/27/22 Range/Units 04:45 04:45 06:27 Hgb 12.3 L (13.0-17.5) gm/dL Hct 37.3 L (39.0-53.0) % Sodium 135 L (137-145) mmol/L Carbon Dioxide 34 H (22-30) mmol/L Glucose 141 H (74-99) mg/dL POC Glucose (mg/dL) 165 H (70-110) mg/dL Total Protein 5.3 L (6.3-8.2) g/dL Albumin 3.1 L (3.5-5.0) g/dL Microbiology - Last 24 Hours (Table) 06/26/22 11:45 Gram Stain - Preliminary Sputum Sputum Culture - Preliminary Assessment and Plan Plan: Symptomatic multivessel coronary artery disease, post 2 vessel bypass surgery including OBREGON to LAD and radial to ramus intermedius. The patient is currently postop day #3. Hemodynamically stable. Adequate cardiac output and index a month and the patient is hemodynamically stable. Postthoracotomy, extubated , currently on room air oxygen. Chest tube output is improved since yesterday, possible removal of the pleural chest tubes today. There is persistent air leak and the mediastinal chest tube. No evidence of any pneumothorax.. Cardiomyopathy with an ejection fraction of around 30-35%, preoperatively History of cardiac thrombus material anticoagulants on outpatient basis Peripheral vascular disease COPD with an FEV1 of 35% of predicted Hypertension Hyperlipidemia Diabetes mellitus currently on insulin SS History of rheumatoid arthritis Plan Patient is extubated successful and the patient is currently hemodynamic stable on RA aspirin, Plavix and metoprolol Continue po Amiodarone Anticoagulants per cardiology Monitor the output from the chest tubes, possible removal of the pleural chest tube today depending on the output. There is still mediastinal air leak Continue bronchodilators Cardiac rhythm is sinus Monitor hemodynamic parameters Advance diet and will continue to follow. intensive care unit for another 24 hours
[2022-06-27] MEDS: MONTELUKAST 10 MG TAB PO SCH (08:58)
[2022-06-27] MEDS: AMIODARONE 200 MG TAB PO SCH ×2 (08:58→21:07)
[2022-06-27] MEDS: ATORVASTATIN 80 MG TAB PO SCH (08:58)
[2022-06-27] MEDS: ASPIRIN 325 MG TAB PO SCH (08:58)
[2022-06-27] MEDS: CLOPIDOGREL 75 MG TAB PO SCH (08:59)
[2022-06-27] MEDS: METOPROLOL TARTRATE 25 MG TAB PO SCH ×3 (09:01→21:08)
[2022-06-27] MEDS: HEPARIN SODIUM,PORCINE/PF 5,000 UNIT/0.5 ML SYRINGE SQ SCH ×2 (09:04→16:50)
--- NOTE | 2022-06-27 09:06 | P.PN ---
Subjective Progress Note Date: 06/27/22 Principal diagnosis: Coronary artery disease. Past medical history significant for hypertension, hyperlipidemia, chronic systolic heart failure/ischemic cardiomyopathy, type 2 diabetes, rheumatoid arthritis, current tobacco dependence, severe COPD, marijuana use, peripheral arterial disease, recent Covid infection in May 2022 POD #3 off-pump coronary artery bypass grafting 2, left internal thoracic artery to the left anterior descending artery, left radial artery from the aorta to the ramus intermedius, left atrial appendage ligation with a 35 mm AtriClip, endoscopic left radial artery harvest, epi-aortic ultrasound and intraoperative transesophageal echocardiogram, graft flow measurements using the [employer] system. The patient was seen and examined in follow-up today 06/27/2022 at his bedside in the intensive care unit. He reports he just ambulated in the intensive care unit hallway with standby assistance from nursing staff. The patient remains complaining of some shortness of breath with exertion, and denies any pain at this time. He remains hemodynamically stable and is currently on no inotropic pressure support. Oxygen saturations are 96% on room air and he is achieving 1000 mL on his incentive spirometry. Right IJ cordis remains in place to continuous CVP monitoring, current CVP pressure 8 mmHg. Bedside telemetry is showing normal sinus rhythm heart rate 94 BPM. Mediastinal and left pleural chest tubes remain in place to low continuous wall suction -20 cm H2O. Air leak present to the mediastinal chest tube. Chest tubes are draining thin serosanguineous drainage with his mediastinal chest tube draining 50 mL output in the last 8 hours and 150 mL output in 24 hours and his left pleural chest tube draining 80 mL in the last 8 hours and 350 mL output in the last 24 hours. Laboratory results this morning show a WBC count of 10.3, hemoglobin 12.3, hematocrit 37.3, platelets 209, sodium 135, potassium 4.2, BUN 13, creatinine 0. 76, calcium 8.6 and magnesium 2.0. Chest x-ray this morning was reviewed. Objective - Vital Signs Vital signs: Vital Signs Temp 98.1 F 06/27/22 00:00 Pulse 94 06/27/22 07:52 Resp 18 06/27/22 07:00 BP 106/82 06/27/22 07:00 Pulse Ox 91 L 06/27/22 07:00 FiO2 40 06/24/22 16:42 Intake & Output 06/26/22 06/27/22 06/27/22 18:59 06:59 18:59 Intake Total 633 279 26 Output Total 1230 955 Balance -597 -676 26 Weight 92.5 kg Intake: IV 393 279 26 Lactated Ringers 1,000 ml 260 240 20 @ 20 mls/hr IV .Q24H [facility] Rx#:[id number] Magnesium Sulfate-D5w Pmx 100 1 gm In Dextrose/Water 1 100ml.bag @ 100 mls/hr IVPB Q1H [facility] Rx#: [id number] Pressure bags 33 39 6 Oral 240 Output: Chest Tube Drainage 220 130 Chest Tube Mediastinal 120 50 Pleural Catheter Left 100 80 Urine 1010 825 Other: Voiding Method Urinal Urinal # Voids 1 1 ABP, PAP, CO, CI - Last Documented Arterial Blood Pressure 109/49 Pulmonary Artery Pressure 37/15 Cardiac Output 8 Cardiac Index 4.1 - Exam CONSTITUTIONAL: Appears comfortable, cooperative, no acute distress RESPIRATORY: Lungs sounds diminished bilaterally with some expiratory wheezes. Respirations are symmetrical, nonlabored. Currently on room air with oxygen saturation 96%. Able to achieve 1000 mL on incentive spirometry. Strong productive cough. CARDIOVASCULAR: S1, S2 present. Bedside telemetry showing normal sinus rhythm heart rate 94 BPM. Sternum stable. Palpable peripheral pulses bilaterally. Trace bilateral lower extremity edema present. No calf pain or tenderness noted. Heart hugger in place with patient demonstrating appropriate use. Antiembolism stockings, SCDs present. GASTROINTESTINAL: Abdomen soft, nontender, nondistended. Active bowel sounds present 4 quadrants. Tolerating clear liquid diet. Passing flatus GENITOURINARY: Continues to void. 825 mL of urine output in the last 8 hours. INTEGUMENTARY: Skin is warm and dry with no evidence of clubbing or cyanosis. Midline sternal incision well approximated and covered with dry intact dressing. Left radial site well approximated without redness or drainage. NEUROLOGIC: Cranial nerves II through XII intact MUSKULOSKELETAL: Able to move all extremities, strength equal bilaterally, gait normal PSYCHIATRIC: Alert and oriented to person place and time, appropriate affect, intact judgment and insight INVASIVE LINES AND TUBES: Mediastinal/left pleural chest tubes present and connected to wall suction, air leak present in mediastinal tube. Mediastinal tube with 50 mL serosanguineous drainage overnight, 150 mL in the last 24 hours. Left pleural chest tubes with 80 mL serosanguineous drainage overnight, 350 mL in the last 24 hours. Right internal jugular Cordis present. Current CVP 8 mmHg. - Allied health notes Allied health notes reviewed: nursing - Labs CBC & Chem 7: 06/27/22 04:45 06/27/22 04:45 Labs: Abnormal Lab Results - Last 24 Hours (Table) 06/26/22 06/26/22 06/26/22 Range/Units 11:25 16:33 19:49 Hgb (13.0-17.5) gm/dL Hct (39.0-53.0) % Sodium (137-145) mmol/L Carbon Dioxide (22-30) mmol/L Glucose (74-99) mg/dL POC Glucose (mg/dL) 140 H 142 H 186 H (70-110) mg/dL Total Protein (6.3-8.2) g/dL Albumin (3.5-5.0) g/dL 06/27/22 06/27/22 06/27/22 Range/Units 04:45 04:45 06:27 Hgb 12.3 L (13.0-17.5) gm/dL Hct 37.3 L (39.0-53.0) % Sodium 135 L (137-145) mmol/L Carbon Dioxide 34 H (22-30) mmol/L Glucose 141 H (74-99) mg/dL POC Glucose (mg/dL) 165 H (70-110) mg/dL Total Protein 5.3 L (6.3-8.2) g/dL Albumin 3.1 L (3.5-5.0) g/dL Microbiology - Last 24 Hours (Table) 06/26/22 11:45 Gram Stain - Preliminary Sputum Sputum Culture - Preliminary - Imaging and Cardiology Chest x-ray: report reviewed, image reviewed Assessment and Plan Assessment: 1. Coronary artery disease, status post 2 vessel off pump CABG 2. History of hypertension 3. Hyperlipidemia, treated, cholesterol 194, LDL 113, triglycerides 159 4. Chronic systolic heart failure/ischemic cardiomyopathy, EF 25-30%, improved postoperative 40-45% 5. Chronic LV thrombus, on Eliquis outpatient for anticoagulation 6. Type 2 diabetes, preoperative hemoglobin A1c 7.8% 7. Rheumatoid arthritis, recent flareup 8. Current tobacco dependence 9. Severe COPD, preoperative FEV1 35% of predicted 10. Marijuana use 11. Peripheral arterial disease, status post stenting of the proximal and mid left SFA, atherectomy of the left SFA, IVUS of the left SFA, balloon angioplasty of the left popliteal completed by Dr. Anne 05/01/2022 12. Recent Covid infection in May 2022, vaccinated not boosted Plan: 1. Continue aspirin, statin, Plavix, beta miller therapy. Will increase beta miller therapy as tolerated. Lisinopril 2.5 mg by mouth twice a day was added yesterday by cardiology. 2. Continue amiodarone for atrial fibrillation prophylaxis. 3. Amlodipine 2.5 mg by mouth daily for radial artery spasm prophylaxis. 4. Encourage incentive spirometry use 10 times every hour while awake. Bronchodilators per pulmonology. Symbicort 1604.5 g inhaler 2 puffs twice a day initiated. 5. Will monitor daily labs and chest x-rays. Electrolyte replacement per protocol. 6. Increase activity, ambulate as tolerated. PT/OT/cardiac rehab following. 7. GI/DVT prophylaxis 8. Pain control per current medication regimen. 9. Insulin management per internal medicine. Patient is diabetic with elevated hemoglobin A1c of 7.1% preoperatively, needs tight blood sugar control to promote healing and prevent infection. 10. Continue mediastinal/left pleural chest tubes for another 24 hours. 11. May bladder scan and straight cath for >300 mL residual, continue to record strict and accurate intake and output. 12. Sputum Gram stain showing moderate probably more for nuclear leukocyte, rar e epithelial cells, few gram-positive cocci, rare gram positive bacilli, rare gram-negative bacilli. 13. Smoking cessation counseling and education provided, patient is urged to quit smoking completely. 14. Remove right IJ Cordis. 15. More recommendations to follow based on patient's clinical course. Time with Patient: Greater than 30
[2022-06-27] MEDS: SYMBICORT 160-4.5 MCG INHALER INHALATION SCH ×2 (09:48→20:43)
--- NOTE | 2022-06-27 10:23 | XR ---
EXAMINATION TYPE: XR chest 1V portable DATE OF EXAM: 06/27/2022 COMPARISON: 06/26/2022 HISTORY: Postop cardiac surgery TECHNIQUE: Single frontal view of the chest is obtained. FINDINGS: The heart is not enlarged. Increased patchy right basilar airspace opacities with partial obscuration of the right hemidiaphragm. Improved appearance of left basilar airspace opacities. Media stinal drain and left chest tube well-positioned. Tiny biapical pneumothoraces. Again presents are me sussy sternotomy wires and mediastinal clips, and AtriClip. IMPRESSION: Worsened right and improved left basilar airspace opacities likely on the basis of atele ctasis and/or pleural effusion. Tiny biapical pneumothoraces.
[2022-06-27 11:28] LABS: Glucose,Whole Blood 135 mg/dL (70-110)
[2022-06-27] MEDS: amLODIPine 2.5 MG TAB PO SCH (13:21)
[2022-06-27 17:38] LABS: Glucose,Whole Blood 181 mg/dL (70-110)
--- NOTE | 2022-06-27 18:37 | P.PN ---
Subjective Progress Note Date: 06/27/22 Humberto Taveras, is a 61-year-old male patient of Dr. Engel who was admitted to [facility] by Dr. Victor M Walters, and underwent two-vessel coronary artery bypass graft surgery on 06/24/2022, patient was admitted to intensive care unit post surgery, consultation was requested for medical man agement while hospitalized. Past medical history is significant for history of hypertension, history of hyperlipidemia, history of diabetes mellitus, history of chronic obstructive pulmonary disease, history of peripheral arterial disease , history of rheumatoid arthritis history of congestive heart failure and history of coronary artery disease. On review of systems patient is alert and oriented 3 in no apparent distress he is sitting up in a chair he is complaining of chest wall pain at the surgical site and stating he cannot get comfortable otherwise he denies any complaints there is no fever or chills no headache or dizziness no shortness of breath no cough no nausea or vomiting no abdominal pain no diarrhea no blood in the stools no burning with urination no frequency or urgency no hematuria. There is no weakness or numbness in any of the extremities there is no change in vision s peech or gait on 06/26/2022 patient is alert and oriented 3 currently sitting up in chair postop day 2. Chest tubes remain in place. Vital signs temp 98.2, heart rate 95, respiratory rate 17, blood pressure 109/66 with a pulse ox of 94% on 2 L. At this time patient denies chest pain or shortness breath. Denies nausea vomiting or diarrhea. Denies any urinary burning or frequency. On 06/27/2022 patient was seen and examined in the ICU he is alert and oriented 3 in no apparent distress, today is postoperative day #3 there is no fever or chills no headache or dizziness no chest pain no shortness of breath no cough no nausea or vomiting no abdominal pain no diarrhea and no urinary symptoms vital exam reveals a temperature of 98.1 pulse 94 respiration 18 and blood pressure 106/82 pulse ox 91% on room air patient is sitting up in a chair and is able to ambulate a few steps around the bed. Medication and labs were reviewed. Objective - Vital Signs Vital signs: Vital Signs Temp 98.2 F 06/27/22 16:00 Pulse 80 06/27/22 17:00 Resp 18 06/27/22 17:00 BP 115/76 06/27/22 17:00 Pulse Ox 94 L 06/27/22 17:00 FiO2 40 06/24/22 16:42 Intake & Output 06/26/22 06/27/22 06/27/22 18:59 06:59 18:59 Intake Total 633 279 116 Output Total 1230 955 870 Balance -597 -676 -754 Weight 92.5 kg Intake: IV 393 279 116 Lactated Ringers 1,000 ml 260 240 80 @ 20 mls/hr IV .Q24H [facility] Rx#:[id number] Magnesium Sulfate-D5w Pmx 100 1 gm In Dextrose/Water 1 100ml.bag @ 100 mls/hr IVPB Q1H [facility] Rx#: [id number] Pressure bags 33 39 36 Oral 240 Output: Chest Tube Drainage 220 130 220 Chest Tube Mediastinal 120 50 70 Pleural Catheter Left 100 80 150 Urine 1010 825 650 Other: Voiding Method Urinal Urinal Urinal # Voids 1 1 1 # Bowel Movements 1 ABP, PAP, CO, CI - Last Documented Arterial Blood Pressure 109/49 Pulmonary Artery Pressure 37/15 Cardiac Output 8 Cardiac Index 4.1 - Exam In general patient is alert and oriented x 3 in no distress HEENT head normocephalic and atraumatic Neck is supple no JVD no goiter no lymphadenopathy no carotid bruit Chest examination reveals a scattered coarse crackles bilaterally patient has chest tubes in Cardiac exam reveals regular heart sounds S1 and S2 no gallops no murmurs Abdomen is soft nontender no organomegaly with normal bowel sounds Extremity exam reveals no edema no cyanosis or clubbing Neurological examination reveals no gross focal deficits - Labs CBC & Chem 7: 06/27/22 04:45 06/27/22 04:45 Labs: Abnormal Lab Results - Last 24 Hours (Table) 06/26/22 06/27/22 06/27/22 Range/Units 19:49 04:45 04:45 Hgb 12.3 L (13.0-17.5) gm/dL Hct 37.3 L (39.0-53.0) % Sodium 135 L (137-145) mmol/L Carbon Dioxide 34 H (22-30) mmol/L Glucose 141 H (74-99) mg/dL POC Glucose (mg/dL) 186 H (70-110) mg/dL Total Protein 5.3 L (6.3-8.2) g/dL Albumin 3.1 L (3.5-5.0) g/dL 06/27/22 06/27/22 06/27/22 Range/Units 06:27 11:26 17:36 Hgb (13.0-17.5) gm/dL Hct (39.0-53.0) % Sodium (137-145) mmol/L Carbon Dioxide (22-30) mmol/L Glucose (74-99) mg/dL POC Glucose (mg/dL) 165 H 135 H 181 H (70-110) mg/dL Total Protein (6.3-8.2) g/dL Albumin (3.5-5.0) g/dL Microbiology - Last 24 Hours (Table) 06/26/22 11:45 Gram Stain - Preliminary Sputum Sputum Culture - Preliminary Assessment and Plan Plan: Coronary artery disease status post 2 vessel coronary artery bypass graft s [facility] Underlying history of congestive heart failure with cardiomyopathy with decreased ejection fraction to 3035 percent History of hypertension History of hyperlipidemia History of peripheral arterial disease History of COPD History of diabetes mellitus currently maintained on insulin drip History of rheumatoid arthritis History of cardiac thrombus maintained on Eliquis as outpatient prior to admission. At this time patient was seen and examined Medications and labs reviewed Will continue to follow closely
[2022-06-27] MEDS ORDERED: SYMBICORT 160-4.5 MCG INHALER INHALATION SCH (20:00)
[2022-06-27] MEDS: SENNOSIDES-DOCUSATE SODIUM 1 EACH TAB PO SCH (21:06)
[2022-06-27 21:15] LABS: Glucose,Whole Blood 182 mg/dL (70-110)
[2022-06-28] MEDS: KETOROLAC 15 MG/ML 1 ML VIAL IVP SCH ×5 (00:31→23:44)
[2022-06-28] MEDS: HEPARIN SODIUM,PORCINE/PF 5,000 UNIT/0.5 ML SYRINGE SQ SCH ×4 (00:32→23:46)
[2022-06-28 04:46] LABS: ALT 15 U/L (4-49); AST 26 U/L (17-59); African American GFR (CKD) >90 (>60 ml/min/1.73 sqM); Albumin 3.1 g/dL (3.5-5.0); Alkaline Phosphatase 53 U/L (38-126); Anion Gap 4 mmol/L; Blood Urea Nitrogen 14 mg/dL (9-20); Calcium 8.9 mg/dL (8.4-10.2); Carbon Dioxide 32 mmol/L (22-30); Chloride 101 mmol/L (98-107); Glucose 133 mg/dL (74-99); Non-African American GFR(CKD) >90 (>60 ml/min/1.73 sqM); Potassium 4.2 mmol/L (3.5-5.1); Sodium 137 mmol/L (137-145); Total Bilirubin 0.8 mg/dL (0.2-1.3); Total Protein 5.4 g/dL (6.3-8.2)
[2022-06-28 05:00] LABS: Basophils % (A) 0 %; Eosinophils % (A) 0 %; HCT 38.6 % (39.0-53.0); HGB 12.6 gm/dL (13.0-17.5); Lymphocytes # (A) 2.5 k/uL (1.0-4.8); Lymphocytes % (A) 25 %; MCH 28.3 pg (25.0-35.0); MCHC 32.7 g/dL (31.0-37.0); MCV 86.7 fL (80.0-100.0); Monocytes # (A) 0.7 k/uL (0-1.0); Monocytes % (A) 7 %; Neutrophils # (A) 6.3 k/uL (1.3-7.7); Neutrophils % (A) 65 %; Platelet Count 260 k/uL (150-450); RBC 4.46 m/uL (4.30-5.90); RDW 14.2 % (11.5-15.5); WBC 9.8 k/uL (3.8-10.6)
[2022-06-28 06:19] LABS: Glucose,Whole Blood 133 mg/dL (70-110)
[2022-06-28] MEDS: INSULIN ASPART (NovoLOG) 100 UNIT/ML VIAL SQ SCH ×4 (06:27→20:18)
--- NOTE | 2022-06-28 07:07 | P.PN ---
Subjective Progress Note Date: 06/28/22 PROGRESS NOTE The patient is a 61-year-old male who underwent CABG today. He has a known history of CAD, followed by Dr. Anne, history of PAD status post percutaneous revascularization and a history of cardiomyopathy. He underwent off-pump OBREGON to the LAD and left radial to the ramus intermedius with closure of the left atrial appendage. He is intubated and sedated. Hemodynamically he is in sinus mechanism. He has a known history of severe cardiomyopathy with viability of the anterior wall by cardiac MRI. He has a history of diabetes, hypertension, hyperlipidemia and a history of chronic tobacco use. June 25: The patient is extubated sitting up in the chair, complaining of soreness in the chest, and sinus mechanism. His urine output is stable. He had no atrial fibrillation or significant arrhythmia. He continues to be on IV amiodarone. He is on no vasopressors. He is using his incentive spirometry. He denies any dizziness or palpitations. June 26: The patient is doing well this morning, he has some dyspnea was cough in the morning but otherwise has no dizziness or palpitations. He is in sinus mechanism. He has some soreness in the chest. He did walk yesterday. He co ntinues to use the incentive spirometry. His urinary output is good. He has a cough was productive of yellow sputum at times. June 27: The patient is sitting up in the chair, feels better, continues to have some dyspnea but improving. He continues to be in sinus mechanism. He denies any chest discomfort, dizziness or palpitations. He is in sinus mechanism with no episodes of atrial fibrillation. He denies any nausea. He is using his incentive spirometry and has been walking. He continues to have the chest tube. His urinary output has been good. June 28: The patient is feeling relatively well this morning. He ambulated yesterday and had no significant dyspnea. He continues to be in sinus mechanism. One of the chest you has been removed. He has no nausea or vomiting his appetite stable. He denies any fever. He has a cough but nonproductive. Medications: Amiodarone 400 mg twice a day, aspirin, Lipitor 80 mg daily, Plavix 75 mg daily, insulin, metoprolol 25 mg 3 times a day, Norvasc 2.5 mg daily, Singulair 10 mg daily, lisinopril 2.5 mg twice a day PHYSICAL EXAMINATION: Blood pressure 114/69 heart rate 80 LUNGS: Clear to auscultation except few crackles at the base HEART: Regular rate and rhythm, S1, S2. No S3. systolic ejection murmur, no rub ABDOMEN: Soft, nontender, no organomegaly EXTREMETIES: No edema LAB: Potassium 4.2, BUN 14, creatinine 0.84, hemoglobin 12.6 IMPRESSION: 1. Status post CABG, extubated, stable 2. Severe ischemic cardiomyopathy, no evidence of heart failure. 3. History of PAD 4. History of hypertension 5. History of diabetes 6. History of hyperlipidemia PLAN: 1. Continue present therapy 2. Incentive spirometry 3. Increase physical activity 4. Remove remaining chest tube when stable 5. Monitor blood pressure and adjust the dose of beta miller. Objective - Vital Signs Vital signs: Vital Signs Temp 97.4 F L 06/27/22 20:00 Pulse 92 06/28/22 06:00 Resp 12 06/28/22 06:00 BP 114/69 06/28/22 06:00 Pulse Ox 92 L 06/28/22 06:00 FiO2 40 06/24/22 16:42 Intake & Output 06/27/22 06/28/22 06/28/22 18:59 06:59 18:59 Intake Total 110 750 Output Total 1120 1395 Balance -1010 -645 Weight 91.5 kg Intake: IV 110 Lactated Ringers 1,000 ml 80 @ 20 mls/hr IV .Q24H [facility] Rx#:[id number] Pressure bags 30 Tube Feeding 750 Output: Chest Tube Drainage 220 120 Chest Tube Mediastinal 70 120 Pleural Catheter Left 150 Urine 900 1275 Other: Voiding Method Urinal Urinal # Voids 1 # Bowel Movements 1 ABP, PAP, CO, CI - Last Documented Arterial Blood Pressure 109/49 Pulmonary Artery Pressure 37/15 Cardiac Output 8 Cardiac Index 4.1 - Labs CBC & Chem 7: 06/28/22 04:06 06/28/22 04:06 Labs: Abnormal Lab Results - Last 24 Hours (Table) 06/27/22 06/27/22 06/27/22 Range/Units 11:26 17:36 21:13 Hgb (13.0-17.5) gm/dL Hct (39.0-53.0) % Carbon Dioxide (22-30) mmol/L Glucose (74-99) mg/dL POC Glucose (mg/dL) 135 H 181 H 182 H (70-110) mg/dL Total Protein (6.3-8.2) g/dL Albumin (3.5-5.0) g/dL 06/28/22 06/28/22 06/28/22 Range/Units 04:06 04:06 06:18 Hgb 12.6 L (13.0-17.5) gm/dL Hct 38.6 L (39.0-53.0) % Carbon Dioxide 32 H (22-30) mmol/L Glucose 133 H (74-99) mg/dL POC Glucose (mg/dL) 133 H (70-110) mg/dL Total Protein 5.4 L (6.3-8.2) g/dL Albumin 3.1 L (3.5-5.0) g/dL Microbiology - Last 24 Hours (Table) 06/26/22 11:45 Gram Stain - Preliminary Sputum Sputum Culture - Preliminary
[2022-06-28] MEDS: SYMBICORT 160-4.5 MCG INHALER INHALATION SCH ×2 (07:33→19:26)
[2022-06-28] MEDS: IPRATROPIUM-ALBUTEROL 3 ML NEB INHALATION SCH ×4 (07:33→19:26)
[2022-06-28] MEDS: PANTOPRAZOLE 40 MG TABLET PO SCH (07:36)
[2022-06-28] MEDS: AMIODARONE 200 MG TAB PO SCH ×2 (08:19→21:16)
[2022-06-28] MEDS: CLOPIDOGREL 75 MG TAB PO SCH (08:20)
[2022-06-28] MEDS: METOPROLOL TARTRATE 25 MG TAB PO SCH (08:20)
[2022-06-28] MEDS: ASPIRIN 325 MG TAB PO SCH (08:20)
[2022-06-28] MEDS: ATORVASTATIN 80 MG TAB PO SCH (08:20)
[2022-06-28] MEDS: MONTELUKAST 10 MG TAB PO SCH (08:20)
[2022-06-28] MEDS: HYDROcodone/APAP 5-325MG 1 EACH TAB PO PRN ×3 (08:22→21:14)
--- NOTE | 2022-06-28 09:15 | XR ---
EXAMINATION TYPE: XR chest 1V portable DATE OF EXAM: 06/28/2022 COMPARISON: 06/26/2022 HISTORY: Postop cardiac surgery TECHNIQUE: Single frontal view of the chest is obtained. FINDINGS: Cardiomediastinal silhouette is unchanged with median sternotomy postsurgical changes incl uding surgical clips, sternotomy wires, mediastinal drain, and AtriClip. Compared to prior day, there has been removal of a left sided chest tube. There remains underlying basilar atelectasis and/or ple ural effusion. There is improvement in patchy opacities at the right lung base. No pulmonary vascular congestion. Stable small right and tiny left pneumothoraces. Stable left-sided subcutaneous emphysem a. IMPRESSION: 1. Interval removal of a left chest tube. Underlying basilar atelectasis and/or pleural effusion. 2. Stable small right and tiny left pneumothoraces. 3. Interval improvement of right basilar atelectasis.
--- NOTE | 2022-06-28 09:44 | P.PN ---
Subjective Progress Note Date: 06/28/22 Humberto Taveras, is a 61-year-old male patient of Dr. Engel who was admitted to [facility] by Dr. Victor M Walters, and underwent two-vessel coronary artery bypass graft surgery on 06/24/2022, patient was admitted to intensive care unit post surgery, consultation was requested for medical man agement while hospitalized. Past medical history is significant for history of hypertension, history of hyperlipidemia, history of diabetes mellitus, history of chronic obstructive pulmonary disease, history of peripheral arterial disease , history of rheumatoid arthritis history of congestive heart failure and history of coronary artery disease. On review of systems patient is alert and oriented 3 in no apparent distress he is sitting up in a chair he is complaining of chest wall pain at the surgical site and stating he cannot get comfortable otherwise he denies any complaints there is no fever or chills no headache or dizziness no shortness of breath no cough no nausea or vomiting no abdominal pain no diarrhea no blood in the stools no burning with urination no frequency or urgency no hematuria. There is no weakness or numbness in any of the extremities there is no change in vision s peech or gait on 06/26/2022 patient is alert and oriented 3 currently sitting up in chair postop day 2. Chest tubes remain in place. Vital signs temp 98.2, heart rate 95, respiratory rate 17, blood pressure 109/66 with a pulse ox of 94% on 2 L. At this time patient denies chest pain or shortness breath. Denies nausea vomiting or diarrhea. Denies any urinary burning or frequency. On 06/27/2022 patient was seen and examined in the ICU he is alert and oriented 3 in no apparent distress, today is postoperative day #3 there is no fever or chills no headache or dizziness no chest pain no shortness of breath no cough no nausea or vomiting no abdominal pain no diarrhea and no urinary symptoms vital exam reveals a temperature of 98.1 pulse 94 respiration 18 and blood pressure 106/82 pulse ox 91% on room air patient is sitting up in a chair and is able to ambulate a few steps around the bed. Medication and labs were reviewed. 20 12/19/2022 patient's alert and oriented 3. Patient remains in the intensive care. Patient is currently postop day 4. Patient currently using incentive sp irometer. Patient reports he has been up ambulating. Her vital signs temp 97.7, heart rate 89, respiratory rate 23, blood pressure 109/66 with a pulse ox of 91% on room air. This time patient denies chest pain or shortness of breath. Patient denies nausea vomiting or diarrhea. Patient denies any urinary burning or frequency Objective - Vital Signs Vital signs: Vital Signs Temp 97.7 F 06/28/22 08:00 Pulse 89 06/28/22 08:00 Resp 23 06/28/22 08:00 BP 109/66 06/28/22 08:00 Pulse Ox 91 L 06/28/22 08:00 FiO2 40 06/24/22 16:42 Intake & Output 06/27/22 06/28/22 06/28/22 18:59 06:59 18:59 Intake Total 110 750 420 Output Total 1120 1395 230 Balance -1010 -645 190 Weight 91.5 kg Intake: IV 110 Lactated Ringers 1,000 ml 80 @ 20 mls/hr IV .Q24H [facility] Rx#:[id number] Pressure bags 30 Tube Feeding 750 420 Output: Chest Tube Drainage 220 120 30 Chest Tube Mediastinal 70 120 30 Pleural Catheter Left 150 Urine 900 1275 200 Other: Voiding Method Urinal Urinal # Voids 1 # Bowel Movements 1 ABP, PAP, CO, CI - Last Documented Arterial Blood Pressure 109/49 Pulmonary Artery Pressure 37/15 Cardiac Output 8 Cardiac Index 4.1 - Exam In general patient is alert and oriented x 3 in no distress HEENT head normocephalic and atraumatic Neck is supple no JVD no goiter no lymphadenopathy no carotid bruit Chest examination reveals a scattered coarse crackles bilaterally patient has chest tubes in Cardiac exam reveals regular heart sounds S1 and S2 no gallops no murmurs Abdomen is soft nontender no organomegaly with normal bowel sounds Extremity exam reveals no edema no cyanosis or clubbing Neurological examination reveals no gross focal deficits - Labs CBC & Chem 7: 06/28/22 04:06 06/28/22 04:06 Labs: Abnormal Lab Results - Last 24 Hours (Table) 06/27/22 06/27/22 06/27/22 Range/Units 11:26 17:36 21:13 Hgb (13.0-17.5) gm/dL Hct (39.0-53.0) % Carbon Dioxide (22-30) mmol/L Glucose (74-99) mg/dL POC Glucose (mg/dL) 135 H 181 H 182 H (70-110) mg/dL Total Protein (6.3-8.2) g/dL Albumin (3.5-5.0) g/dL 06/28/22 06/28/22 06/28/22 Range/Units 04:06 04:06 06:18 Hgb 12.6 L (13.0-17.5) gm/dL Hct 38.6 L (39.0-53.0) % Carbon Dioxide 32 H (22-30) mmol/L Glucose 133 H (74-99) mg/dL POC Glucose (mg/dL) 133 H (70-110) mg/dL Total Protein 5.4 L (6.3-8.2) g/dL Albumin 3.1 L (3.5-5.0) g/dL Microbiology - Last 24 Hours (Table) 06/26/22 11:45 Gram Stain - Preliminary Sputum Sputum Culture - Preliminary Assessment and Plan Plan: Coronary artery disease status post 2 vessel coronary artery bypass graft surgery Underlying history of congestive heart failure with cardiomyopathy with decreased ejection fraction to 3035 percent History of hypertension History of hyperlipidemia History of peripheral arterial disease History of COPD History of diabetes mellitus currently maintained on insulin drip History of rheumatoid arthritis History of cardiac thrombus maintained on Eliquis as outpatient prior to admission. At this time patient was seen and examined Medications and labs reviewed Will continue to follow closely
[2022-06-28 11:28] LABS: Glucose,Whole Blood 143 mg/dL (70-110)
[2022-06-28] MEDS ORDERED: METOPROLOL TARTRATE 25 MG TAB PO STA (11:39)
--- NOTE | 2022-06-28 12:47 | P.PN ---
Subjective Progress Note Date: 06/28/22 Principal diagnosis: status post CABG and postoperative day #4 On 06/25/2022, the patient is postop day #1. The patient underwent two-vessel bypass surgery with OBREGON to LAD and radial artery to ramus intermedius. The patient was weaned off the mechanical ventilator and the patient was extubated initially to a BiPAP at a pressure of 10/5 cm of water and FiO2 of 40%. Subsequ ently, he was transitioned to nasal cannula which is running at 2 L/m and the pulse ox is currently 94%. Chest x-ray shows increased interstitial markings bilaterally, small effusion/atelectasis in the left lung base. Bedford-Mo catheter is in a good location. There is no evidence of air leak. The patient has a right pleural left pleural chest tube and CHEST tubes is in order of 210 mL over the past 18 hours and the mediastinal chest tube is still present and operas in the order of 750 mL. Noted there is positive air leak within the mediastinal chest tube. Nevertheless, there is no evidence of any pneumomediastinum. There is no evidence of any pneumothorax. Hemodynamically, the patient is in normal sinus rhythm. He is on amiodarone drip at 0.5 mg/m. He was taken off the nitroglycerin drip. His cardiac output is at 4.7 with an index of 2.4. P artery pressures are 30/11. Urine output is in order of 50-100 mL an hour. WBC count is at 14.7 with a hemoglobin of 16.2. Renal function stable with a creatinine of 0.67 and a BUN of 9. Sodium is at 135. LFTs are normal. Blood sugars at 115 and the patient is currently on 2 units of insulin for blood sugar control. No other significant events otherwise for now. No focal neurological deficit. Pain is under adequate control. He is using the incentive spirometer falling approximately 750. On 06/26/2022, the patient is postoperative day #2. The patient remains on oxygen and he is currently on 2 L nasal cannula. He is using the incentive spirometer, falling to thousand. The mediastinal chest tube is in place and is showing air leak and output has been in the order of 340 mL over the past 24 hours. The pleural chest tubes are connected, no evidence of any active air leak and output has been 700 mL over the past 24 hours. Chest x-ray from today shows no evidence of any pneumothorax. Chest tubes are in good location. There is some mild interstitial edema. Hemodynamically, he is stable. His cardiac rhythm is sinus. He is off the amiodarone drip. He has been switched to oral amiodarone 400 mg by mouth twice a day.. He is also on aspirin, Plavix, and he was started also on metoprolol 25 mg by mouth 3 times a day. He is also on lisinopril 0.5 mg twice a day for blood pressure control. Adequate pain control for now. Blood work shows a WBC count 13.7, hemoglobin 12.6 and a platelet count of 213. BUN is at 9 with a creatinine of 0.7 and sodium levels of 134. No nausea. No emesis. No diarrhea. No other significant events overnight. Neurologically intact. 06/27/2022, the patient is postop day #3. Is currently on room air oxygen. His falling approximately 1500 on the incentive spirometer. He does have the pleural chest tubes and mediastinal chest tube. Ultrasound of the chest tube has been 80 mL over the past 24 hours and output from the mediastinal chest tube is in the order of 50 mL over the past 24 hours. There is air leak only in the mediastinal chest tube. Meanwhile, the chest x-ray from today shows some atelectatic changes and small effusion in the lung bases. Chest tubes are still in good location. No evidence of any pneumothorax. He was given a dose of Lasix yesterday. He is hemodynamically stable. His cardiac rhythm is sinus. His labs from today show a WBC count of 10.3 hemoglobin is 12.3 sodium is at 135, BUN is at 30 with a creatinine of 0.7. He is on aspirin. He is on Plavix. He is on metoprolol started at a dose of 25 mg 3 times a day. He is also on lisinopril 2.5 mg by mouth twice a day. He is on high-dose statins and he is taking Lipitor 80 mg by mouth daily. He is sitting up on a chair. Didn't limited amount of ambulation. No other complaints otherwise for now. We'll discuss with the surgical team the possibility of removing the pleural chest tubes. reevaluated today on 06/28/2002, patient is now postoperative day #4. Patient had a two-vessel bypass, OBREGON to LAD and radial artery to ramus intermedius. Patient is doing well, relatively asymptomatic, he is on room air, not receiving any infusions, doing well with incentive spirometry, his chest tube continues to have some air leak, he had 60 mL of output over the last 24 hours. Achieving about 1500 mL with incentive spirometer. CBC is relatively normal basic metab olic profile is normal blood sugar is 133 but chest x-ray showed minimal basilar atelectasis, Objective - Vital Signs Vital signs: Vital Signs Temp 97.6 F 06/28/22 12:00 Pulse 89 06/28/22 12:00 Resp 27 H 06/28/22 12:00 BP 102/61 06/28/22 12:00 Pulse Ox 93 L 06/28/22 12:00 FiO2 40 06/24/22 16:42 Intake & Output 06/27/22 06/28/22 06/28/22 18:59 06:59 18:59 Intake Total 110 750 620 Output Total 1120 1395 450 Balance -1010 -645 170 Weight 91.5 kg Intake: IV 110 Lactated Ringers 1,000 ml 80 @ 20 mls/hr IV .Q24H [facility] Rx#:[id number] Pressure bags 30 Oral 200 Tube Feeding 750 420 Output: Chest Tube Drainage 220 120 50 Chest Tube Mediastinal 70 120 50 Pleural Catheter Left 150 Urine 900 1275 400 Other: Voiding Method Urinal Urinal Urinal # Voids 1 # Bowel Movements 1 ABP, PAP, CO, CI - Last Documented Arterial Blood Pressure 109/49 Pulmonary Artery Pressure 37/15 Cardiac Output 8 Cardiac Index 4.1 - Exam Physical Exam: Revealed 61-year-old white male in no distress. Head: Atraumatic, normocephalic. HEENT:[Neck is supple.] [No neck masses.] [No thyromegaly.] [No JVD.] Chest: [Clear throughout, no crackles, no rhonchi, no wheezes.] Cardiac Exam: [Normal S1 and S2, no S3 gallop, no murmur.] Abdomen: [Soft, nontender, no megaly, no rebound, no guarding, normal bowel sounds.] Extremities: [No clubbing, no edema, no cyanosis.] Neurological Exam: [No focal neurologic deficit.] Alert and oriented 3. Psychiatric: Normal mood affect and normal status examination - Labs CBC & Chem 7: 06/28/22 04:06 06/28/22 04:06 Labs: Abnormal Lab Results - Last 24 Hours (Table) 06/27/22 06/27/22 06/28/22 Range/Units 17:36 21:13 04:06 Hgb 12.6 L (13.0-17.5) gm/dL Hct 38.6 L (39.0-53.0) % Carbon Dioxide (22-30) mmol/L Glucose (74-99) mg/dL POC Glucose (mg/dL) 181 H 182 H (70-110) mg/dL Total Protein (6.3-8.2) g/dL Albumin (3.5-5.0) g/dL 06/28/22 06/28/22 06/28/22 Range/Units 04:06 06:18 11:26 Hgb (13.0-17.5) gm/dL Hct (39.0-53.0) % Carbon Dioxide 32 H (22-30) mmol/L Glucose 133 H (74-99) mg/dL POC Glucose (mg/dL) 133 H 143 H (70-110) mg/dL Total Protein 5.4 L (6.3-8.2) g/dL Albumin 3.1 L (3.5-5.0) g/dL Microbiology - Last 24 Hours (Table) 06/26/22 11:45 Gram Stain - Final Sputum Sputum Culture - Final Assessment and Plan Assessment: impression: Status post two-vessel CABG with OBREGON to LAD and radial to ramus intermedius. Postoperative day #4 history of cardiomyopathy and LV dysfunction and ejection fraction is 30-35%. History of cardiac thrombus. Peripheral vessel occlusive disease severe COPD and FEV1 of 35% benign essential hypertension dyslipidemia type 2 diabetes rheumatoid arthritis recommendation: Continue incentive spirometry and continue aspirin statins and Plavix and beta blockers continue oral amiodarone continue bronchodilators continue to ambulate advanced diet as tolerated and will continue to follow Time with Patient: Less than 30
[2022-06-28] MEDS: amLODIPine 2.5 MG TAB PO SCH (13:02)
--- NOTE | 2022-06-28 13:47 | P.PN ---
Subjective Progress Note Date: 06/28/22 Principal diagnosis: Coronary artery disease. Past medical history significant for hypertension, hyperlipidemia, chronic systolic heart failure/ischemic cardiomyopathy, type 2 diabetes, rheumatoid arthritis, current tobacco dependence, severe COPD, marijuana use, peripheral arterial disease, recent Covid infection in May 2022 POD #4 off-pump coronary artery bypass grafting 2, left internal thoracic artery to the left anterior descending artery, left radial artery from the aorta to the ramus intermedius, left atrial appendage ligation with a 35 mm AtriClip, endoscopic left radial artery harvest, epi-aortic ultrasound and intraoperative transesophageal echocardiogram, graft flow measurements using the Symetisstim system. The patient was seen and examined at his bedside in the intensive care unit. He is sitting up to bedside chair, is awake, alert, oriented 3 and is in no acute apparent distress. Denies any complaints of shortness of breath at this time, states his pain is controlled on his current pain medication regimen. His left pleural chest tube was removed yesterday without incident, and he reports that since the left pleural chest tube was removed this pain is much better controlled. Oxygen saturations are 96% on room air and he is achieving 1000- 1500 mL on his incentive spirometry with encouragement. Bedside telemetry showing normal sinus rhythm heart rate 92 BPM. Mediastinal chest tube remains in place to low continuous wall suction -20 cm H2O. Intermittent air leak is present with expiration. Draining thin serosanguineous drainage with 25 mL output last 8 hours and 250 mL output in the last 24 hours. Laboratory results today show a WBC count of 9.8, hemoglobin 12.6, hematocrit 38.6, platelets 260, sodium 137, potassium 4.2, BUN 14, creatinine 0.84, glucose 133, calcium 8.9, AST 26, and ALT 15. Chest x-ray was reviewed and his reports as underlying left basilar atelectasis and/or pleural effusion, stable small right tiny p neumothorax and interval improvement of the right basilar atelectasis. Objective - Vital Signs Vital signs: Vital Signs Temp 97.6 F 06/28/22 12:00 Pulse 85 06/28/22 13:00 Resp 13 06/28/22 13:00 BP 133/69 06/28/22 13:00 Pulse Ox 94 L 06/28/22 13:00 FiO2 40 06/24/22 16:42 Intake & Output 06/27/22 06/28/22 06/28/22 18:59 06:59 18:59 Intake Total 110 750 620 Output Total 1120 1395 600 Balance -1010 -645 20 Weight 91.5 kg Intake: IV 110 Lactated Ringers 1,000 ml 80 @ 20 mls/hr IV .Q24H [facility] Rx#:[id number] Pressure bags 30 Oral 200 Tube Feeding 750 420 Output: Chest Tube Drainage 220 120 50 Chest Tube Mediastinal 70 120 50 Pleural Catheter Left 150 Urine 900 1275 550 Other: Voiding Method Urinal Urinal Urinal # Voids 1 # Bowel Movements 1 ABP, PAP, CO, CI - Last Documented Arterial Blood Pressure 109/49 Pulmonary Artery Pressure 37/15 Cardiac Output 8 Cardiac Index 4.1 - Exam CONSTITUTIONAL: Appears comfortable, cooperative, no acute distress RESPIRATORY: Lungs sounds diminished bilaterally. No wheezes, rhonchi or crackles. Respirations are symmetrical, nonlabored. Currently on room air with oxygen saturation 96%. Able to achieve 3100-0765 mL on his incentive spirometry. Strong productive cough. 2CARDIOVASCULAR: S1, S2 present. Bedside telemetry showing normal sinus rhythm heart rate 92 BPM. Sternum stable. Palpable peripheral pulses bilaterally. Trace bilateral lower extremity edema present. No calf pain or tenderness noted. Heart hugger in place with patient demonstrating appropriate use. Antiembolism stockings, SCDs present. GASTROINTESTINAL: Abdomen soft, nontender, nondistended. Active bowel sounds present 4 quadrants. Tolerating clear liquid diet. Passing flatus. Bowel movement yesterday 06/27/2022. GENITOURINARY: Continues to void. 655 mL of urine output in the last 8 hours. INTEGUMENTARY: Skin is warm and dry with no evidence of clubbing or cyanosis. Midline sternal incision well approximated and covered with dry intact dressing. Left radial site well approximated without redness or drainage. NEUROLOGIC: Cranial nerves II through XII intact MUSKULOSKELETAL: Able to move all extremities, strength equal bilaterally, gait normal PSYCHIATRIC: Alert and oriented to person place and time, appropriate affect, intact judgment and insight INVASIVE LINES AND TUBES: Mediastinal chest tube present and connected to low continuous wall suction -20 cm H2O, air leak present with exploration and talking. Mediastinal tube with 25 mL serosanguineous drainage overnight, 250 mL in the last 24 hours. - Allied health notes Allied health notes reviewed: nursing - Labs CBC & Chem 7: 01/27/23 04:06 06/28/22 04:06 Labs: Abnormal Lab Results - Last 24 Hours (Table) 06/27/22 06/27/22 06/28/22 Range/Units 17:36 21:13 04:06 Hgb 12.6 L (13.0-17.5) gm/dL Hct 38.6 L (39.0-53.0) % Carbon Dioxide (22-30) mmol/L Glucose (74-99) mg/dL POC Glucose (mg/dL) 181 H 182 H (70-110) mg/dL Total Protein (6.3-8.2) g/dL Albumin (3.5-5.0) g/dL 06/28/22 06/28/22 06/28/22 Range/Units 04:06 06:18 11:26 Hgb (13.0-17.5) gm/dL Hct (39.0-53.0) % Carbon Dioxide 32 H (22-30) mmol/L Glucose 133 H (74-99) mg/dL POC Glucose (mg/dL) 133 H 143 H (70-110) mg/dL Total Protein 5.4 L (6.3-8.2) g/dL Albumin 3.1 L (3.5-5.0) g/dL Microbiology - Last 24 Hours (Table) 06/26/22 11:45 Gram Stain - Final Sputum Sputum Culture - Final - Imaging and Cardiology Chest x-ray: report reviewed, image reviewed Assessment and Plan Assessment: 1. Coronary artery disease, status post 2 vessel off pump CABG 2. History of hypertension 3. Hyperlipidemia, treated, cholesterol 194, LDL 113, triglycerides 159 4. Chronic systolic heart failure/ischemic cardiomyopathy, EF 25-30%, improved postoperative 40-45% 5. Chronic LV thrombus, on Eliquis outpatient for anticoagulation 6. Type 2 diabetes, preoperative hemoglobin A1c 7.8% 7. Rheumatoid arthritis, recent flareup 8. Current tobacco dependence 9. Severe COPD, preoperative FEV1 35% of predicted 10. Marijuana use 11. Peripheral arterial disease, status post stenting of the proximal and mid left SFA, atherectomy of the left SFA, IVUS of the left SFA, balloon angioplasty of the left popliteal completed by Dr. Anne 05/01/2022 12. Recent Covid infection in May 2022, vaccinated not boosted Plan: 1. Continue aspirin, statin, Plavix, beta miller therapy. Will increase metoprolol tartrate 50 mg by mouth twice a day with hold parameters. Continue Lisinopril 2.5 mg by mouth twice a day with hold parameters. 2. Continue amiodarone for atrial fibrillation prophylaxis. 3. Amlodipine 2.5 mg by mouth daily for radial artery spasm prophylaxis. 4. Encourage incentive spirometry use 10 times every hour while awake. Bronchodilators per pulmonology. Symbicort 1604.5 g inhaler 2 puffs twice a day initiated yesterday by pulmonary medicine. 5. Will monitor daily labs and chest x-rays. Electrolyte replacement per protocol. 6. Increase activity, ambulate as tolerated. PT/OT/cardiac rehab following. 7. GI/DVT prophylaxis 8. Pain control per current medication regimen. 9. Insulin management per internal medicine. Patient is diabetic with elevated hemoglobin A1c of 7.1% preoperatively, needs tight blood sugar control to promote healing and prevent infection. 10. Continue mediastinal chest tube for another 24 hours. Continue to monitor for air leak resolution. 11. May bladder scan and straight cath for >300 mL residual, continue to record strict and accurate intake and output. 12. Sputum culture shows many normal respiratory munira. 13. Smoking cessation counseling and education provided, patient is urged to quit smoking completely. 14. More recommendations to follow based on patient's clinical course. Time with Patient: Greater than 30
[2022-06-28 16:09] LABS: Glucose,Whole Blood 150 mg/dL (70-110)
[2022-06-28 20:13] LABS: Glucose,Whole Blood 188 mg/dL (70-110)
[2022-06-28] MEDS: METOPROLOL TARTRATE 50 MG TAB PO SCH (21:15)
[2022-06-28] MEDS: SENNOSIDES-DOCUSATE SODIUM 1 EACH TAB PO SCH (21:16)
[2022-06-29] MEDS: HYDROcodone/APAP 5-325MG 1 EACH TAB PO PRN ×3 (02:40→20:37)
[2022-06-29 06:18] LABS: Glucose,Whole Blood 135 mg/dL (70-110)
[2022-06-29] MEDS: KETOROLAC 15 MG/ML 1 ML VIAL IVP SCH ×3 (06:29→19:10)
[2022-06-29] MEDS: PANTOPRAZOLE 40 MG TABLET PO SCH (06:30)
[2022-06-29] MEDS: INSULIN ASPART (NovoLOG) 100 UNIT/ML VIAL SQ SCH ×4 (06:33→20:27)
[2022-06-29] MEDS ORDERED: FUROSEMIDE 10 MG/ML 2 ML VIAL IV STA (06:47)
[2022-06-29] MEDS ORDERED: POTASSIUM CHLORIDE ER 10 MEQ TAB.ER.PRT PO STA (06:47)
--- NOTE | 2022-06-29 07:16 | XR ---
EXAMINATION TYPE: XR chest 1V portable DATE OF EXAM: 06/29/2022 5:59 AM COMPARISON: Chest radiograph from one day prior. TECHNIQUE: XR chest 1V portable Portable AP radiograph of the chest. CLINICAL INDICATION:Male, 61 years old with history of Postoperative cardiac surgery; FINDINGS: Lungs/Pleura: There is no evidence of focal consolidation, or pneumothorax. Blunting of the left cos tophrenic angle. Pulmonary vascularity: Unremarkable. Heart/mediastinum: Cardiomediastinal silhouette is unremarkable. Left atrial appendage occlusion alayna ce is present. Musculoskeletal: No acute osseous pathology. Midline sternotomy wires are noted. Other findings: Subcutaneous emphysema scattered throughout the visualized thorax. Lines/Tubes: Drainage tubes with tips projecting over the mediastinum. IMPRESSION: Postsurgical changes with significant change from
[2022-06-29 07:18] LABS: HCT 40.5 % (39.0-53.0); MCH 27.7 pg (25.0-35.0); MCHC 32.2 g/dL (31.0-37.0); MCV 86.1 fL (80.0-100.0); Mean Platelet Volume 6.8; Platelet Count 346 k/uL (150-450); RDW 13.9 % (11.5-15.5); WBC 9.8 k/uL (3.8-10.6)
[2022-06-29 07:27] LABS: African American GFR (CKD) >90 (>60 ml/min/1.73 sqM); Anion Gap 4 mmol/L; Blood Urea Nitrogen 13 mg/dL (9-20); Calcium 9.1 mg/dL (8.4-10.2); Carbon Dioxide 33 mmol/L (22-30); Chloride 101 mmol/L (98-107); Glucose 141 mg/dL (74-99); Magnesium 1.9 mg/dL (1.6-2.3); Non-African American GFR(CKD) >90 (>60 ml/min/1.73 sqM); Potassium 4.5 mmol/L (3.5-5.1); Sodium 138 mmol/L (137-145)
[2022-06-29] MEDS: IPRATROPIUM-ALBUTEROL 3 ML NEB INHALATION SCH ×4 (07:32→19:55)
[2022-06-29] MEDS: SYMBICORT 160-4.5 MCG INHALER INHALATION SCH ×2 (07:32→19:56)
--- NOTE | 2022-06-29 09:20 | P.PN ---
Subjective Progress Note Date: 06/29/22 PROGRESS NOTE The patient is a 61-year-old male who underwent CABG today. He has a known history of CAD, followed by Dr. Anne, history of PAD status post percutaneous revascularization and a history of cardiomyopathy. He underwent off-pump OBREGON to the LAD and left radial to the ramus intermedius with closure of the left atrial appendage. He is intubated and sedated. Hemodynamically he is in sinus mechanism. He has a known history of severe cardiomyopathy with viability of the anterior wall by cardiac MRI. He has a history of diabetes, hypertension, hyperlipidemia and a history of chronic tobacco use. June 25: The patient is extubated sitting up in the chair, complaining of soreness in the chest, and sinus mechanism. His urine output is stable. He had no atrial fibrillation or significant arrhythmia. He continues to be on IV amiodarone. He is on no vasopressors. He is using his incentive spirometry. He denies any dizziness or palpitations. June 26: The patient is doing well this morning, he has some dyspnea was cough in the morning but otherwise has no dizziness or palpitations. He is in sinus mechanism. He has some soreness in the chest. He did walk yesterday. He co ntinues to use the incentive spirometry. His urinary output is good. He has a cough was productive of yellow sputum at times. June 27: The patient is sitting up in the chair, feels better, continues to have some dyspnea but improving. He continues to be in sinus mechanism. He denies any chest discomfort, dizziness or palpitations. He is in sinus mechanism with no episodes of atrial fibrillation. He denies any nausea. He is using his incentive spirometry and has been walking. He continues to have the chest tube. His urinary output has been good. June 28: The patient is feeling relatively well this morning. He ambulated yesterday and had no significant dyspnea. He continues to be in sinus mechanism. One of the chest you has been removed. He has no nausea or vomiting his appetite stable. He denies any fever. He has a cough but nonproductive. June 29: The patient is feeling well this morning, feels tired and has no significant dyspnea or chest discomfort. He continues to be in sinus mechanism. He has ambulated yesterday without significant difficulties. He denies any dizziness or palpitations. He denies any nausea or vomiting. He is using his incentive spirometry. Medications: Amiodarone 400 mg twice a day, aspirin, Lipitor 80 mg daily, Plavix 75 mg daily, insulin, metoprolol 50 mg twice a day, Norvasc 2.5 mg daily, Singulair 10 mg daily, lisinopril 2.5 mg twice a day PHYSICAL EXAMINATION: Blood pressure 105/67 heart rate 72 LUNGS: Clear to auscultation HEART: Regular rate and rhythm, S1, S2. No S3. systolic ejection murmur, no rub ABDOMEN: Soft, nontender, no organomegaly EXTREMETIES: No edema LAB: Potassium 4.5, BUN 13, creatinine 0.85, hemoglobin 13 IMPRESSION: 1. Status post CABG, extubated, stable 2. Severe ischemic cardiomyopathy, no evidence of heart failure. 3. History of PAD 4. History of hypertension 5. History of diabetes 6. History of hyperlipidemia PLAN: 1. Continue present therapy 2. Incentive spirometry 3. Increase physical activity 4. Remove remaining chest tube when stable 5. If continues to improve probably discharged home in the next 24-48 hours after removing chest you in follow-up as an outpatient to adjust his cardiomyopathy treatment and reevaluate his systolic function. Objective - Vital Signs Vital signs: Vital Signs Temp 98.1 F 06/29/22 04:00 Pulse 86 06/29/22 07:32 Resp 18 06/29/22 07:32 BP 105/67 06/29/22 04:00 Pulse Ox 93 L 06/29/22 07:29 FiO2 40 06/24/22 16:42 Intake & Output 06/28/22 06/29/22 06/29/22 18:59 06:59 18:59 Intake Total 970 Output Total 770 920 Balance 200 -920 Weight 90.9 kg Intake: Oral 550 Tube Feeding 420 Output: Chest Tube Drainage 70 70 Chest Tube Mediastinal 70 70 Urine 700 850 Other: Voiding Method Urinal Urinal # Voids 1 # Bowel Movements 1 ABP, PAP, CO, CI - Last Documented Arterial Blood Pressure 109/49 Pulmonary Artery Pressure 37/15 Cardiac Output 8 Cardiac Index 4.1 - Labs CBC & Chem 7: 06/29/22 07:00 06/29/22 07:00 Labs: Abnormal Lab Results - Last 24 Hours (Table) 06/28/22 06/28/22 06/28/22 Range/Units 11:26 16:07 20:11 Carbon Dioxide (22-30) mmol/L Glucose (74-99) mg/dL POC Glucose (mg/dL) 143 H 150 H 188 H (70-110) mg/dL 06/29/22 06/29/22 Range/Units 06:17 07:00 Carbon Dioxide 33 H (22-30) mmol/L Glucose 141 H (74-99) mg/dL POC Glucose (mg/dL) 135 H (70-110) mg/dL Microbiology - Last 24 Hours (Table) 06/26/22 11:45 Gram Stain - Final Sputum Sputum Culture - Final
[2022-06-29] MEDS: MONTELUKAST 10 MG TAB PO SCH (10:18)
[2022-06-29] MEDS: ASPIRIN 325 MG TAB PO SCH (10:18)
[2022-06-29] MEDS: AMIODARONE 200 MG TAB PO SCH ×2 (10:18→20:38)
[2022-06-29] MEDS: METOPROLOL TARTRATE 50 MG TAB PO SCH ×2 (10:18→20:38)
[2022-06-29] MEDS: HEPARIN SODIUM,PORCINE/PF 5,000 UNIT/0.5 ML SYRINGE SQ SCH ×3 (10:18→23:26)
[2022-06-29] MEDS: ATORVASTATIN 80 MG TAB PO SCH (10:19)
[2022-06-29] MEDS: CLOPIDOGREL 75 MG TAB PO SCH (10:20)
--- NOTE | 2022-06-29 10:50 | P.PN ---
Subjective Progress Note Date: 06/29/22 Principal diagnosis: status post CABG and postoperative day #5 On 06/25/2022, the patient is postop day #1. The patient underwent two-vessel bypass surgery with OBREGON to LAD and radial artery to ramus intermedius. The patient was weaned off the mechanical ventilator and the patient was extubated initially to a BiPAP at a pressure of 10/5 cm of water and FiO2 of 40%. Subsequ ently, he was transitioned to nasal cannula which is running at 2 L/m and the pulse ox is currently 94%. Chest x-ray shows increased interstitial markings bilaterally, small effusion/atelectasis in the left lung base. Kirkwood-Mo catheter is in a good location. There is no evidence of air leak. The patient has a right pleural left pleural chest tube and CHEST tubes is in order of 210 mL over the past 18 hours and the mediastinal chest tube is still present and operas in the order of 750 mL. Noted there is positive air leak within the mediastinal chest tube. Nevertheless, there is no evidence of any pneumomediastinum. There is no evidence of any pneumothorax. Hemodynamically, the patient is in normal sinus rhythm. He is on amiodarone drip at 0.5 mg/m. He was taken off the nitroglycerin drip. His cardiac output is at 4.7 with an index of 2.4. P artery pressures are 30/11. Urine output is in order of 50-100 mL an hour. WBC count is at 14.7 with a hemoglobin of 16.2. Renal function stable with a creatinine of 0.67 and a BUN of 9. Sodium is at 135. LFTs are normal. Blood sugars at 115 and the patient is currently on 2 units of insulin for blood sugar control. No other significant events otherwise for now. No focal neurological deficit. Pain is under adequate control. He is using the incentive spirometer falling approximately 750. On 06/26/2022, the patient is postoperative day #2. The patient remains on oxygen and he is currently on 2 L nasal cannula. He is using the incentive spirometer, falling to thousand. The mediastinal chest tube is in place and is showing air leak and output has been in the order of 340 mL over the past 24 hours. The pleural chest tubes are connected, no evidence of any active air leak and output has been 700 mL over the past 24 hours. Chest x-ray from today shows no evidence of any pneumothorax. Chest tubes are in good location. There is some mild interstitial edema. Hemodynamically, he is stable. His cardiac rhythm is sinus. He is off the amiodarone drip. He has been switched to oral amiodarone 400 mg by mouth twice a day.. He is also on aspirin, Plavix, and he was started also on metoprolol 25 mg by mouth 3 times a day. He is also on lisinopril 0.5 mg twice a day for blood pressure control. Adequate pain control for now. Blood work shows a WBC count 13.7, hemoglobin 12.6 and a platelet count of 213. BUN is at 9 with a creatinine of 0.7 and sodium levels of 134. No nausea. No emesis. No diarrhea. No other significant events overnight. Neurologically intact. 06/27/2022, the patient is postop day #3. Is currently on room air oxygen. His falling approximately 1500 on the incentive spirometer. He does have the pleural chest tubes and mediastinal chest tube. Ultrasound of the chest tube has been 80 mL over the past 24 hours and output from the mediastinal chest tube is in the order of 50 mL over the past 24 hours. There is air leak only in the mediastinal chest tube. Meanwhile, the chest x-ray from today shows some atelectatic changes and small effusion in the lung bases. Chest tubes are still in good location. No evidence of any pneumothorax. He was given a dose of Lasix yesterday. He is hemodynamically stable. His cardiac rhythm is sinus. His labs from today show a WBC count of 10.3 hemoglobin is 12.3 sodium is at 135, BUN is at 30 with a creatinine of 0.7. He is on aspirin. He is on Plavix. He is on metoprolol started at a dose of 25 mg 3 times a day. He is also on lisinopril 2.5 mg by mouth twice a day. He is on high-dose statins and he is taking Lipitor 80 mg by mouth daily. He is sitting up on a chair. Didn't limited amount of ambulation. No other complaints otherwise for now. We'll discuss with the surgical team the possibility of removing the pleural chest tubes. reevaluated today on 06/28/2022, patient is now postoperative day #4. Patient had a two-vessel bypass, OBREGON to LAD and radial artery to ramus intermedius. Patient is doing well, relatively asymptomatic, he is on room air, not receiving any infusions, doing well with incentive spirometry, his chest tube continues to have some air leak, he had 60 mL of output over the last 24 hours. Achieving about 1500 mL with incentive spirometer. CBC is relatively normal basic metab olic profile is normal blood sugar is 133 but chest x-ray showed minimal basilar atelectasis, Patient was reevaluated today on 06/29/2022 patient is now postoperative day #5. Had two-vessel bypass, OBREGON to LAD and radial artery to ramus intermedius. Patient is doing great, he is on room air, not in any distress, continues to have air leak in the chest tube. Chest x-ray is basically unremarkable except for postoperative changes and atelectasis. CBC is normal basic metabolic profile is normal renal profile is normal Objective - Vital Signs Vital signs: Vital Signs Temp 97.6 F 06/29/22 08:00 Pulse 85 06/29/22 08:00 Resp 20 06/29/22 08:00 BP 120/69 06/29/22 08:00 Pulse Ox 95 06/29/22 08:00 FiO2 40 06/24/22 16:42 Intake & Output 06/28/22 06/29/22 06/29/22 18:59 06:59 18:59 Intake Total 970 Output Total 770 920 Balance 200 -920 Weight 90.9 kg Intake: Oral 550 Tube Feeding 420 Output: Chest Tube Drainage 70 70 Chest Tube Mediastinal 70 70 Urine 700 850 Other: Voiding Method Urinal Urinal Urinal # Voids 1 # Bowel Movements 1 ABP, PAP, CO, CI - Last Documented Arterial Blood Pressure 109/49 Pulmonary Artery Pressure 37/15 Cardiac Output 8 Cardiac Index 4.1 - Exam Physical Exam: Revealed 61-year-old white male in no distress. On room air Head: Atraumatic, normocephalic. HEENT:[Neck is supple.] [No neck masses.] [No thyromegaly.] [No JVD.] Chest: [Clear throughout, no crackles, no rhonchi, no wheezes.] Cardiac Exam: [Normal S1 and S2, no S3 gallop, no murmur.] Abdomen: [Soft, nontender, no megaly, no rebound, no guarding, normal bowel s ounds.] Extremities: [No clubbing, no edema, no cyanosis.] Neurological Exam: [No focal neurologic deficit.] Alert and oriented 3. Psychiatric: Normal mood affect and normal status examination - Labs CBC & Chem 7: 06/29/22 07:00 06/29/22 07:00 Labs: Abnormal Lab Results - Last 24 Hours (Table) 06/28/22 06/28/22 06/28/22 Range/Units 11:26 16:07 20:11 Carbon Dioxide (22-30) mmol/L Glucose (74-99) mg/dL POC Glucose (mg/dL) 143 H 150 H 188 H (70-110) mg/dL 06/29/22 06/29/22 Range/Units 06:17 07:00 Carbon Dioxide 33 H (22-30) mmol/L Glucose 141 H (74-99) mg/dL POC Glucose (mg/dL) 135 H (70-110) mg/dL Microbiology - Last 24 Hours (Table) 06/26/22 11:45 Gram Stain - Final Sputum Sputum Culture - Final Assessment and Plan Assessment: impression: Status post two-vessel CABG with OBREGON to LAD and radial to ramus intermedius. Postoperative day #5 history of cardiomyopathy and LV dysfunction and ejection fraction is 30-35%. History of cardiac thrombus. Peripheral vessel occlusive disease severe COPD and FEV1 of 35% benign essential hypertension dyslipidemia type 2 diabetes rheumatoid arthritis recommendation: Continue incentive spirometry aspirin statins and Plavix and beta blockers continue oral amiodarone continue bronchodilators continue to ambulate continue to follow Time with Patient: Less than 30
--- NOTE | 2022-06-29 10:54 | P.PN ---
Subjective Progress Note Date: 06/29/22 Principal diagnosis: Coronary artery disease. Past medical history significant for hypertension, hyperlipidemia, chronic systolic heart failure/ischemic cardiomyopathy, type 2 diabetes, rheumatoid arthritis, current tobacco dependence, severe COPD, marijuana use, peripheral arterial disease, recent Covid infection in May 2022 POD #5 off-pump coronary artery bypass grafting 2, left internal thoracic artery to the left anterior descending artery, left radial artery from the aorta to the ramus intermedius, left atrial appendage ligation with a 35 mm AtriClip, endoscopic left radial artery harvest, epi-aortic ultrasound and intraoperative transesophageal echocardiogram, graft flow measurements using the [employer] system. The patient was seen and examined at his bedside in the intensive care unit today 06/29/2022. He is sitting up to bedside chair, is awake, alert, oriented 3 and is no acute apparent distress. He remains hemodynamically stable and is currently on no inotropic or pressor support. Oxygen saturation are 95% on room air and he is achieving 1000 mL on his incentive spirometry with encouragement. Bedside telemetry is showing normal sinus rhythm heart rate 89 BPM. He has been afebrile the last 24 hours. He has been ambulating in the intensive care unit hallway with standby assistance from nursing and therapy staff. Mediastinal chest tube remains in place to water seal. Intermittent air leak is present with expiration, improved in the last 24 hours. Draining thin serosanguineous drainage was 70 mL output in the last 8 hours and 150 mL output in the last 24 hours. Laboratory results this morning show a WBC count of 9.8, hemoglobin 13.0, hematocrit 40.5, platelets 346, sodium 138, potassium 4.5, BUN 13, creatinine 0.85, glucose 141, calcium 9.1 and magnesium 1.9. Chest x-ray this morning was reviewed. Objective - Vital Signs Vital signs: Vital Signs Temp 98.1 F 06/29/22 04:00 Pulse 71 06/29/22 04:00 Resp 17 06/29/22 04:00 BP 105/67 06/29/22 04:00 Pulse Ox 95 06/29/22 04:00 FiO2 40 06/24/22 16:42 Intake & Output 06/28/22 06/28/22 06/29/22 06:59 18:59 06:59 Intake Total 750 970 Output Total 1395 770 920 Balance -645 200 -920 Weight 91.5 kg 90.9 kg Intake: Oral 550 Tube Feeding 750 420 Output: Chest Tube Drainage 120 70 70 Chest Tube Mediastinal 120 70 70 Urine 1275 700 850 Other: Voiding Method Urinal Urinal Urinal # Voids 1 # Bowel Movements 1 ABP, PAP, CO, CI - Last Documented Arterial Blood Pressure 109/49 Pulmonary Artery Pressure 37/15 Cardiac Output 8 Cardiac Index 4.1 - Exam CONSTITUTIONAL: Appears comfortable, cooperative, no acute distress. RESPIRATORY: Lungs sounds diminished bilaterally. No wheezes, rhonchi or crackles. Respirations are symmetrical, nonlabored. Currently on room air with oxygen saturation 95%. Able to achieve 0381-4316 mL on his incentive spirometry. Strong productive cough. 2CARDIOVASCULAR: S1, S2 present. Bedside telemetry showing normal sinus rhythm heart rate 89 BPM. Sternum stable. Palpable peripheral pulses bilaterally. Trace bilateral lower extremity edema present. No calf pain or tenderness noted. Heart hugger in place with patient demonstrating appropriate use. Antiembolism stockings, SCDs present. GASTROINTESTINAL: Abdomen soft, nontender, nondistended. Active bowel sounds present 4 quadrants. Tolerating clear liquid diet. Passing flatus. Bowel movement 06/27/2022. GENITOURINARY: Continues to void. 500 mL of urine output in the last 8 hours. INTEGUMENTARY: Skin is warm and dry with no evidence of clubbing or cyanosis. Midline sternal incision well approximated and covered with dry intact dressing. Left radial site well approximated without redness or drainage. NEUROLOGIC: Cranial nerves II through XII intact MUSKULOSKELETAL: Able to move all extremities, strength equal bilaterally, gait normal PSYCHIATRIC: Alert and oriented to person place and time, appropriate affect, intact judgment and insight INVASIVE LINES AND TUBES: Mediastinal chest tube present and to waterseal, air leak present with exploration and talking. Mediastinal tube with 70 mL serosanguineous drainage overnight, 150 mL in the last 24 hours. - Allied health notes Allied health notes reviewed: nursing - Labs CBC & Chem 7: 06/29/22 07:00 06/29/22 07:00 Labs: Abnormal Lab Results - Last 24 Hours (Table) 06/28/22 06/28/22 06/28/22 Range/Units 11:26 16:07 20:11 POC Glucose (mg/dL) 143 H 150 H 188 H (70-110) mg/dL 06/29/22 Range/Units 06:17 POC Glucose (mg/dL) 135 H (70-110) mg/dL Microbiology - Last 24 Hours (Table) 06/26/22 11:45 Gram Stain - Final Sputum Sputum Culture - Final - Imaging and Cardiology Chest x-ray: report reviewed, image reviewed Assessment and Plan Assessment: 1. Coronary artery disease, status post 2 vessel off pump CABG 2. History of hypertension 3. Hyperlipidemia, treated, cholesterol 194, LDL 113, triglycerides 159 4. Chronic systolic heart failure/ischemic cardiomyopathy, EF 25-30%, improved postoperative 40-45% 5. Chronic LV thrombus, on [facility] outpatient for anticoagulation 6. Type 2 diabetes, preoperative hemoglobin A1c 7.8% 7. Rheumatoid arthritis, recent flareup 8. Current tobacco dependence 9. Severe COPD, preoperative FEV1 35% of predicted 10. Marijuana use 11. Peripheral arterial disease, status post stenting of the proximal and mid left SFA, atherectomy of the left SFA, IVUS of the left SFA, balloon angioplasty of the left popliteal completed by Dr. Anne 05/01/2022 12. Recent Covid infection in May 2022, vaccinated not boosted Plan: 1. Continue aspirin, statin, Plavix, beta miller therapy. Will increase metoprolol tartrate as tolerated. Continue Lisinopril 2.5 mg by mouth twice a day for afterload reduction with hold parameters. 2. Continue amiodarone for atrial fibrillation prophylaxis. 3. Amlodipine 2.5 mg by mouth daily for radial artery spasm prophylaxis. 4. Encourage incentive spirometry use 10 times every hour while awake. Bronchodilators per pulmonology. 5. Will monitor daily labs and chest x-rays. Electrolyte replacement per protocol. 6. Increase activity, ambulate as tolerated. PT/OT/cardiac rehab following. 7. GI/DVT prophylaxis 8. Pain control per current medication regimen. 9. Insulin management per internal medicine. Patient is diabetic with elevated hemoglobin A1c of 7.1% preoperatively, needs tight blood sugar control to promote healing and prevent infection. 10. Continue mediastinal chest tube to waterseal for another 24 hours. Continue to monitor for air leak resolution. 11. May bladder scan and straight cath for >300 mL residual, continue to record strict and accurate intake and output. 12. Transfer to third floor cardiac stepdown unit when bed available. 13. Smoking cessation counseling and education provided, patient is urged to quit smoking completely. 14. More recommendations to follow based on patient's clinical course. Time with Patient: Greater than 30
[2022-06-29 11:54] LABS: Glucose,Whole Blood 133 mg/dL (70-110)
[2022-06-29] MEDS: amLODIPine 2.5 MG TAB PO SCH (13:08)
[2022-06-29 16:50] LABS: Glucose,Whole Blood 143 mg/dL (70-110)
[2022-06-29 20:08] LABS: Glucose,Whole Blood 175 mg/dL (70-110)
[2022-06-29] MEDS: SENNOSIDES-DOCUSATE SODIUM 1 EACH TAB PO SCH (20:38)
[2022-06-30] MEDS: HYDROcodone/APAP 5-325MG 1 EACH TAB PO PRN ×4 (00:42→20:43)
[2022-06-30 06:28] LABS: Basophils % (A) 0 %; Eosinophils # (A) 0.1 k/uL (0-0.7); Eosinophils % (A) 1 %; HCT 40.7 % (39.0-53.0); HGB 13.2 gm/dL (13.0-17.5); Lymphocytes # (A) 2.8 k/uL (1.0-4.8); Lymphocytes % (A) 28 %; MCH 27.8 pg (25.0-35.0); MCHC 32.3 g/dL (31.0-37.0); Mean Platelet Volume 7.5; Monocytes # (A) 0.8 k/uL (0-1.0); Monocytes % (A) 8 %; Neutrophils # (A) 5.9 k/uL (1.3-7.7); Neutrophils % (A) 60 %; Platelet Count 364 k/uL (150-450); RBC 4.73 m/uL (4.30-5.90); RDW 13.8 % (11.5-15.5); WBC 9.8 k/uL (3.8-10.6)
[2022-06-30 06:42] LABS: ALT 27 U/L (4-49); AST 34 U/L (17-59); African American GFR (CKD) >90 (>60 ml/min/1.73 sqM); Albumin 3.3 g/dL (3.5-5.0); Alkaline Phosphatase 74 U/L (38-126); Anion Gap 5 mmol/L; Blood Urea Nitrogen 13 mg/dL (9-20); Calcium 9.2 mg/dL (8.4-10.2); Carbon Dioxide 29 mmol/L (22-30); Chloride 103 mmol/L (98-107); Glucose 125 mg/dL (74-99); Non-African American GFR(CKD) >90 (>60 ml/min/1.73 sqM); Potassium 4.5 mmol/L (3.5-5.1); Sodium 137 mmol/L (137-145); Total Bilirubin 0.7 mg/dL (0.2-1.3); Total Protein 5.8 g/dL (6.3-8.2)
[2022-06-30 06:44] LABS: Glucose,Whole Blood 141 mg/dL (70-110)
[2022-06-30] MEDS: PANTOPRAZOLE 40 MG TABLET PO SCH (06:52)
[2022-06-30] MEDS: INSULIN ASPART (NovoLOG) 100 UNIT/ML VIAL SQ SCH ×4 (06:54→20:33)
--- NOTE | 2022-06-30 07:15 | XR ---
EXAMINATION TYPE: XR chest 1V portable DATE OF EXAM: 06/30/2022 6:01 AM COMPARISON: Chest radiograph from one day prior. TECHNIQUE: XR chest 1V portable Portable AP radiograph of the chest. CLINICAL INDICATION:Male, 61 years old with history of Postoperative cardiac surgery; FINDINGS: Lungs/Pleura: There is no evidence of focal consolidation. Blunting of the left costophrenic angle. There is new visceral pleural line in the right lower lung consistent with pneumothorax. Pulmonary vascularity: Unremarkable. Heart/mediastinum: Cardiomediastinal silhouette is unremarkable. Left atrial appendage occlusion alayna ce is present. Musculoskeletal: No acute osseous pathology. Midline sternotomy wires are noted. Other findings: Subcutaneous emphysema scattered throughout the visualized thorax. Lines/Tubes: Drainage tubes with tips projecting over the mediastinum. IMPRESSION: 1. Visceral pleural line in the right lung base more apparent phase exam suggestive of small right p neumothorax. 2. Postsurgical changes in the mediastinum. 3. Similar left pleural effusion there is epicardial fat suggested.
[2022-06-30] MEDS: ATORVASTATIN 80 MG TAB PO SCH (08:16)
[2022-06-30] MEDS: CLOPIDOGREL 75 MG TAB PO SCH (08:16)
[2022-06-30] MEDS: ASPIRIN 325 MG TAB PO SCH (08:16)
[2022-06-30] MEDS: AMIODARONE 200 MG TAB PO SCH ×2 (08:17→20:43)
[2022-06-30] MEDS: MONTELUKAST 10 MG TAB PO SCH (08:17)
[2022-06-30] MEDS: METOPROLOL TARTRATE 50 MG TAB PO SCH ×2 (08:17→20:42)
[2022-06-30] MEDS: HEPARIN SODIUM,PORCINE/PF 5,000 UNIT/0.5 ML SYRINGE SQ SCH ×3 (08:19→23:39)
[2022-06-30] MEDS: SYMBICORT 160-4.5 MCG INHALER INHALATION SCH ×2 (08:21→19:24)
[2022-06-30] MEDS: IPRATROPIUM-ALBUTEROL 3 ML NEB INHALATION SCH ×4 (08:21→19:24)
--- NOTE | 2022-06-30 08:42 | P.PN ---
Subjective Progress Note Date: 06/30/22 PROGRESS NOTE The patient is a 61-year-old male who underwent CABG today. He has a known history of CAD, followed by Dr. Anne, history of PAD status post percutaneous revascularization and a history of cardiomyopathy. He underwent off-pump OBREGON to the LAD and left radial to the ramus intermedius with closure of the left atrial appendage. He is intubated and sedated. Hemodynamically he is in sinus mechanism. He has a known history of severe cardiomyopathy with viability of the anterior wall by cardiac MRI. He has a history of diabetes, hypertension, hyperlipidemia and a history of chronic tobacco use. June 30: The patient complains of incisional chest discomfort and mild dyspnea. He denie s any dizziness or palpitations. He denies any nausea. He continues to be in sinus mechanism. He continues to have a chest you. He has no evidence of atrial fibrillation. His blood pressure has been stable. He has been ambulating without much difficulty. Medications: Amiodarone 400 mg twice a day, aspirin, Lipitor 80 mg daily, Plavix 75 mg daily, insulin, metoprolol 50 mg twice a day, Norvasc 2.5 mg daily, Singulair 10 mg daily, lisinopril 2.5 mg twice a day PHYSICAL EXAMINATION: Blood pressure 136/95 heart rate 85 LUNGS: Clear to auscultation with few crackles at base HEART: Regular rate and rhythm, S1, S2. No S3. systolic ejection murmur, no rub ABDOMEN: Soft, nontender, no organomegaly EXTREMETIES: No edema LAB: Potassium 4.5, BUN 13, creatinine 0.83, hemoglobin 13.2 IMPRESSION: 1. Status post CABG, extubated, stable 2. Severe ischemic cardiomyopathy, no evidence of heart failure. 3. History of PAD 4. History of hypertension 5. History of diabetes 6. History of hyperlipidemia PLAN: 1. Increase FANTASMA inhibitor 2. Incentive spirometry 3. Increase physical activity 4. Remove remaining chest tube when stable 5. Depending on his progress further recommendations will be made Objective - Vital Signs Vital signs: Vital Signs Temp 97.6 F 06/30/22 08:00 Pulse 80 06/30/22 08:33 Resp 18 06/30/22 08:33 BP 136/95 06/30/22 08:00 Pulse Ox 96 06/30/22 08:22 FiO2 40 06/24/22 16:42 Intake & Output 06/29/22 06/30/22 06/30/22 18:59 06:59 18:59 Intake Total 350 250 Output Total 400 1530 Balance -50 -1280 Weight 90.7 kg Intake: Oral 350 250 Output: Chest Tube Drainage 80 Chest Tube Mediastinal 80 Urine 400 1450 Other: Voiding Method Urinal Urinal # Voids 2 # Bowel Movements 1 1 ABP, PAP, CO, CI - Last Documented Arterial Blood Pressure 109/49 Pulmonary Artery Pressure 37/15 Cardiac Output 8 Cardiac Index 4.1 - Labs CBC & Chem 7: 06/30/22 05:49 06/30/22 05:49 Labs: Abnormal Lab Results - Last 24 Hours (Table) 06/29/22 06/29/22 06/29/22 Range/Units 11:53 16:49 20:06 Glucose (74-99) mg/dL POC Glucose (mg/dL) 133 H 143 H 175 H (70-110) mg/dL Total Protein (6.3-8.2) g/dL Albumin (3.5-5.0) g/dL 06/30/22 06/30/22 Range/Units 05:49 06:42 Glucose 125 H (74-99) mg/dL POC Glucose (mg/dL) 141 H (70-110) mg/dL Total Protein 5.8 L (6.3-8.2) g/dL Albumin 3.3 L (3.5-5.0) g/dL
--- NOTE | 2022-06-30 09:36 | P.PN ---
Subjective Progress Note Date: 06/30/22 Principal diagnosis: Coronary artery disease. Past medical history significant for hypertension, hyperlipidemia, chronic systolic heart failure/ischemic cardiomyopathy, type 2 diabetes, rheumatoid arthritis, current tobacco dependence, severe COPD, marijuana use, peripheral arterial disease, recent Covid infection in May 2022 POD #6 off-pump coronary artery bypass grafting 2, left internal thoracic artery to the left anterior descending artery, left radial artery from the aorta to the ramus intermedius, left atrial appendage ligation with a 35 mm AtriClip, endoscopic left radial artery harvest, epi-aortic ultrasound and intraoperative transesophageal echocardiogram, graft flow measurements using the [employer] system. The patient was seen and examined in follow-up today 06/30/2022 at his bedside in the intensive care unit. He is sitting up to the bedside chair, is awake, alert, oriented 3 and is in no acute apparent distress. He remains hemodynamically stable and is currently on no inotropic or pressor support. He denies any complaints of shortness of breath, although is complaining of some pain to his chest tube insertion site, currently rating his pain 7/10 on the pain scale. He reports he has been up ambulating in the intensive care unit hallway with standby assistance from nursing staff and tolerating well. Oxygen saturations are 94% on room air and he is achieving 1500 mL on his incentive spirometry. Mediastinal chest tube remains in place to water seal. Intermittent air leak is present. Draining thin serosanguineous drainage with 1 50 mL of output in the last 24 hours. Chest x-ray this morning shows a small right sided pneumothorax. Bedside telemetry showing normal sinus rhythm heart rate 83 BPM. He has been afebrile the last 24 hours. Objective - Vital Signs Vital signs: Vital Signs Temp 97.6 F 06/30/22 08:00 Pulse 80 06/30/22 08:33 Resp 18 06/30/22 08:33 BP 136/95 06/30/22 08:00 Pulse Ox 96 06/30/22 08:22 FiO2 40 06/24/22 16:42 Intake & Output 06/29/22 06/30/22 06/30/22 18:59 06:59 18:59 Intake Total 350 250 Output Total 400 1530 Balance -50 -1280 Weight 90.7 kg Intake: Oral 350 250 Output: Chest Tube Drainage 80 Chest Tube Mediastinal 80 Urine 400 1450 Other: Voiding Method Urinal Urinal # Voids 2 # Bowel Movements 1 1 ABP, PAP, CO, CI - Last Documented Arterial Blood Pressure 109/49 Pulmonary Artery Pressure 37/15 Cardiac Output 8 Cardiac Index 4.1 - Exam CONSTITUTIONAL: Appears comfortable, cooperative, no acute distress. RESPIRATORY: Lungs sounds diminished bilaterally. No wheezes, rhonchi or crackles. Respirations are symmetrical, nonlabored. Currently on room air with oxygen saturation 94%. Able to achieve 1500 mL on his incentive spirometry. Strong productive cough. 2CARDIOVASCULAR: S1, S2 present. Bedside telemetry showing normal sinus rhythm heart rate 83 BPM. Sternum stable. Palpable peripheral pulses bilaterally. No calf pain or tenderness noted. Heart hugger in place with patient demonstrating appropriate use. Antiembolism stockings, SCDs present. GASTROINTESTINAL: Abdomen soft, nontender, nondistended. Active bowel sounds present 4 quadrants. Tolerating clear liquid diet. Passing flatus. Bowel movement 06/29/2022. GENITOURINARY: Continues to void. 1050 mL of urine output in the last 8 hours. INTEGUMENTARY: Skin is warm and dry with no evidence of clubbing or cyanosis. Midline sternal incision well approximated and covered with dry intact dressing. Left radial site well approximated without redness or drainage. NEUROLOGIC: Cranial nerves II through XII intact MUSKULOSKELETAL: Able to move all extremities, strength equal bilaterally, gait normal PSYCHIATRIC: Alert and oriented to person place and time, appropriate affect, intact judgment and insight INVASIVE LINES AND TUBES: Mediastinal chest tube present and to waterseal, occasional air leak present with expiration. Mediastinal tube with 150 mL thin serosanguineous drainage in the last 24 hours. - Allied health notes Allied health notes reviewed: nursing - Labs CBC & Chem 7: 06/30/22 05:49 06/30/22 05:49 Labs: Abnormal Lab Results - Last 24 Hours (Table) 06/29/22 06/29/22 06/29/22 Range/Units 11:53 16:49 20:06 Glucose (74-99) mg/dL POC Glucose (mg/dL) 133 H 143 H 175 H (70-110) mg/dL Total Protein (6.3-8.2) g/dL Albumin (3.5-5.0) g/dL 06/30/22 06/30/22 Range/Units 05:49 06:42 Glucose 125 H (74-99) mg/dL POC Glucose (mg/dL) 141 H (70-110) mg/dL Total Protein 5.8 L (6.3-8.2) g/dL Albumin 3.3 L (3.5-5.0) g/dL - Imaging and Cardiology Chest x-ray: report reviewed, image reviewed Assessment and Plan Assessment: 1. Coronary artery disease, status post 2 vessel off pump CABG 2. History of hypertension 3. Hyperlipidemia, treated, cholesterol 194, LDL 113, triglycerides 159 4. Chronic systolic heart failure/ischemic cardiomyopathy, EF 25-30%, improved postoperative 40-45% 5. Chronic LV thrombus, on [facility] outpatient for anticoagulation 6. Type 2 diabetes, preoperative hemoglobin A1c 7.8% 7. Rheumatoid arthritis, recent flareup 8. Current tobacco dependence 9. Severe COPD, preoperative FEV1 35% of predicted 10. Marijuana use 11. Peripheral arterial disease, status post stenting of the proximal and mid left SFA, atherectomy of the left SFA, IVUS of the left SFA, balloon angioplasty of the left popliteal completed by Dr. Anne 05/01/2022 12. Recent Covid infection in May 2022, vaccinated not boosted Plan: 1. Continue aspirin, statin, Plavix, beta miller therapy. Will increase metoprolol tartrate as tolerated. Lisinopril was increased to 5 mg by mouth twice a day for afterload reduction with hold parameters. 2. Continue amiodarone for atrial fibrillation prophylaxis. 3. Amlodipine 2.5 mg by mouth daily for radial artery spasm prophylaxis. 4. Encourage incentive spirometry use 10 times every hour while awake. Bronchodilators per pulmonology. 5. Will monitor daily labs and chest x-rays. Electrolyte replacement per protocol. 6. Increase activity, ambulate as tolerated. PT/OT/cardiac rehab following. 7. GI/DVT prophylaxis 8. Pain control per current medication regimen. 9. Insulin management per internal medicine. Patient is diabetic with elevated hemoglobin A1c of 7.1% preoperatively, needs tight blood sugar control to promote healing and prevent infection. 10. Continue mediastinal chest tube to waterseal for another 24 hours. Continue to monitor for air leak resolution. 11. Smoking cessation counseling and education provided, patient is urged to quit smoking completely. 12. Transfer to third floor cardiac stepdown unit when bed available. 13. More recommendations to follow based on patient's clinical course. Time with Patient: Greater than 30
--- NOTE | 2022-06-30 10:27 | P.PN ---
Subjective Progress Note Date: 06/30/22 Principal diagnosis: status post CABG and postoperative day #6 On 06/25/2022, the patient is postop day #1. The patient underwent two-vessel bypass surgery with OBREGON to LAD and radial artery to ramus intermedius. The patient was weaned off the mechanical ventilator and the patient was extubated initially to a BiPAP at a pressure of 10/5 cm of water and FiO2 of 40%. Subsequ ently, he was transitioned to nasal cannula which is running at 2 L/m and the pulse ox is currently 94%. Chest x-ray shows increased interstitial markings bilaterally, small effusion/atelectasis in the left lung base. [place] catheter is in a good location. There is no evidence of air leak. The patient has a right pleural left pleural chest tube and CHEST tubes is in order of 210 mL over the past 18 hours and the mediastinal chest tube is still present and operas in the order of 750 mL. Noted there is positive air leak within the mediastinal chest tube. Nevertheless, there is no evidence of any pneumomediastinum. There is no evidence of any pneumothorax. Hemodynamically, the patient is in normal sinus rhythm. He is on amiodarone drip at 0.5 mg/m. He was taken off the nitroglycerin drip. His cardiac output is at 4.7 with an index of 2.4. P artery pressures are 30/11. Urine output is in order of 50-100 mL an hour. WBC count is at 14.7 with a hemoglobin of 16.2. Renal function stable with a creatinine of 0.67 and a BUN of 9. Sodium is at 135. LFTs are normal. Blood sugars at 115 and the patient is currently on 2 units of insulin for blood sugar control. No other significant events otherwise for now. No focal neurological deficit. Pain is under adequate control. He is using the incentive spirometer falling approximately 750. On 06/26/2022, the patient is postoperative day #2. The patient remains on oxygen and he is currently on 2 L nasal cannula. He is using the incentive spirometer, falling to thousand. The mediastinal chest tube is in place and is showing air leak and output has been in the order of 340 mL over the past 24 hours. The pleural chest tubes are connected, no evidence of any active air leak and output has been 700 mL over the past 24 hours. Chest x-ray from today shows no evidence of any pneumothorax. Chest tubes are in good location. There is some mild interstitial edema. Hemodynamically, he is stable. His cardiac rhythm is sinus. He is off the amiodarone drip. He has been switched to oral amiodarone 400 mg by mouth twice a day.. He is also on aspirin, Plavix, and he was started also on metoprolol 25 mg by mouth 3 times a day. He is also on lisinopril 0.5 mg twice a day for blood pressure control. Adequate pain control for now. Blood work shows a WBC count 13.7, hemoglobin 12.6 and a platelet count of 213. BUN is at 9 with a creatinine of 0.7 and sodium levels of 134. No nausea. No emesis. No diarrhea. No other significant events overnight. Neurologically intact. 06/27/2022, the patient is postop day #3. Is currently on room air oxygen. His falling approximately 1500 on the incentive spirometer. He does have the pleural chest tubes and mediastinal chest tube. Ultrasound of the chest tube has been 80 mL over the past 24 hours and output from the mediastinal chest tube is in the order of 50 mL over the past 24 hours. There is air leak only in the mediastinal chest tube. Meanwhile, the chest x-ray from today shows some atelectatic changes and small effusion in the lung bases. Chest tubes are still in good location. No evidence of any pneumothorax. He was given a dose of Lasix yesterday. He is hemodynamically stable. His cardiac rhythm is sinus. His labs from today show a WBC count of 10.3 hemoglobin is 12.3 sodium is at 135, BUN is at 30 with a creatinine of 0.7. He is on aspirin. He is on Plavix. He is on metoprolol started at a dose of 25 mg 3 times a day. He is also on lisinopril 2.5 mg by mouth twice a day. He is on high-dose statins and he is taking Lipitor 80 mg by mouth daily. He is sitting up on a chair. Didn't limited amount of ambulation. No other complaints otherwise for now. We'll discuss with the surgical team the possibility of removing the pleural chest tubes. reevaluated today on 06/28/2022, patient is now postoperative day #4. Patient had a two-vessel bypass, OBREGON to LAD and radial artery to ramus intermedius. Patient is doing well, relatively asymptomatic, he is on room air, not receiving any infusions, doing well with incentive spirometry, his chest tube continues to have some air leak, he had 60 mL of output over the last 24 hours. Achieving about 1500 mL with incentive spirometer. CBC is relatively normal basic metab olic profile is normal blood sugar is 133 but chest x-ray showed minimal basilar atelectasis, Patient was reevaluated today on 06/29/2022 patient is now postoperative day #5. Had two-vessel bypass, OBREGON to LAD and radial artery to ramus intermedius. Patient is doing great, he is on room air, not in any distress, continues to have air leak in the chest tube. Chest x-ray is basically unremarkable except for postoperative changes and atelectasis. CBC is normal basic metabolic profile is normal renal profile is normal patient was reevaluated today on 06/30, agent is now postoperative day #6. He is off pump coronary artery bypass grafting 2, OBREGON to LAD and left radial artery from the aorta to the ramus intermedius. Overall the patient is continues to do well, however he continues to have a right-sided pneumothorax, and his chest tube was placed back on suctioning. Continues to have air leak in the mediastinal chest tube, intermittent leak is present. He had serosanguineous drainage 1 50 mL in the last 24 hours. And the chest x-ray showed a small right-sided pneumothorax.hemodynamically patient is doing well, he is actually on room air, afebrile, vital signs are stable.labs today including CBC and basic metabolic profile are normal Objective - Vital Signs Vital signs: Vital Signs Temp 97.6 F 06/30/22 08:00 Pulse 80 06/30/22 08:33 Resp 18 06/30/22 08:33 BP 136/95 06/30/22 08:00 Pulse Ox 96 06/30/22 08:22 FiO2 40 06/24/22 16:42 Intake & Output 06/29/22 06/30/22 06/30/22 18:59 06:59 18:59 Intake Total 350 250 Output Total 400 1530 Balance -50 -1280 Weight 90.7 kg Intake: Oral 350 250 Output: Chest Tube Drainage 80 Chest Tube Mediastinal 80 Urine 400 1450 Other: Voiding Method Urinal Urinal # Voids 2 # Bowel Movements 1 1 ABP, PAP, CO, CI - Last Documented Arterial Blood Pressure 109/49 Pulmonary Artery Pressure 37/15 Cardiac Output 8 Cardiac Index 4.1 - Exam Physical Exam: Revealed 61-year-old white male in no distress. On room air Head: Atraumatic, normocephalic. HEENT:[Neck is supple.] [No neck masses.] [No thyromegaly.] [No JVD.] Chest: [Clear throughout, no crackles, no rhonchi, no wheezes.]mediastinal chest tube is noted, with intermittent air leak. Cardiac Exam: [Normal S1 and S2, no S3 gallop, no murmur.] Abdomen: [Soft, nontender, no megaly, no rebound, no guarding, normal bowel sounds.] Extremities: [No clubbing, no edema, no cyanosis.] Neurological Exam: [No focal neurologic deficit.] Alert and oriented 3. Psychiatric: Normal mood affect and normal status examination - Labs CBC & Chem 7: 06/30/22 05:49 06/30/22 05:49 Labs: Abnormal Lab Results - Last 24 Hours (Table) 06/29/22 06/29/22 06/29/22 Range/Units 11:53 16:49 20:06 Glucose (74-99) mg/dL POC Glucose (mg/dL) 133 H 143 H 175 H (70-110) mg/dL Total Protein (6.3-8.2) g/dL Albumin (3.5-5.0) g/dL 06/30/22 06/30/22 Range/Units 05:49 06:42 Glucose 125 H (74-99) mg/dL POC Glucose (mg/dL) 141 H (70-110) mg/dL Total Protein 5.8 L (6.3-8.2) g/dL Albumin 3.3 L (3.5-5.0) g/dL Assessment and Plan Assessment: impression: Status post two-vessel CABG with OBREGON to LAD and radial to ramus intermedius. Postoperative day #6 history of cardiomyopathy and LV dysfunction and ejection fraction is 30-35%. History of cardiac thrombus. Peripheral vessel occlusive disease severe COPD and FEV1 of 35% benign essential hypertension dyslipidemia type 2 diabetes rheumatoid arthritis small right-sided pneumothorax, expected. recommendation: Continue incentive spirometry aspirin statins and Plavix and beta blockers continue bronchodilators continue to ambulate not quite ready for discharge planning until the mediastinal chest tube has been removed. continue to follow Time with Patient: Less than 30
--- NOTE | 2022-06-30 10:56 | P.PN ---
Subjective Progress Note Date: 06/30/22 Humberto Taveras, is a 61-year-old male patient of Dr. Engel who was admitted to [facility] by Dr. Victor M Walters, and underwent two-vessel coronary artery bypass graft surgery on 06/24/2022, patient was admitted to intensive care unit post surgery, consultation was requested for medical man agement while hospitalized. Past medical history is significant for history of hypertension, history of hyperlipidemia, history of diabetes mellitus, history of chronic obstructive pulmonary disease, history of peripheral arterial disease , history of rheumatoid arthritis history of congestive heart failure and history of coronary artery disease. On review of systems patient is alert and oriented 3 in no apparent distress he is sitting up in a chair he is complaining of chest wall pain at the surgical site and stating he cannot get comfortable otherwise he denies any complaints there is no fever or chills no headache or dizziness no shortness of breath no cough no nausea or vomiting no abdominal pain no diarrhea no blood in the stools no burning with urination no frequency or urgency no hematuria. There is no weakness or numbness in any of the extremities there is no change in vision s peech or gait on 06/26/2022 patient is alert and oriented 3 currently sitting up in chair postop day 2. Chest tubes remain in place. Vital signs temp 98.2, heart rate 95, respiratory rate 17, blood pressure 109/66 with a pulse ox of 94% on 2 L. At this time patient denies chest pain or shortness breath. Denies nausea vomiting or diarrhea. Denies any urinary burning or frequency. On 06/27/2022 patient was seen and examined in the ICU he is alert and oriented 3 in no apparent distress, today is postoperative day #3 there is no fever or chills no headache or dizziness no chest pain no shortness of breath no cough no nausea or vomiting no abdominal pain no diarrhea and no urinary symptoms vital exam reveals a temperature of 98.1 pulse 94 respiration 18 and blood pressure 106/82 pulse ox 91% on room air patient is sitting up in a chair and is able to ambulate a few steps around the bed. Medication and labs were reviewed. On 06/28/2022 patient's alert and oriented 3. Patient remains in the intensive care. Patient is currently postop day 4. Patient currently using incentive spi rometer. Patient reports he has been up ambulating. Her vital signs temp 97.7, heart rate 89, respiratory rate 23, blood pressure 109/66 with a pulse ox of 91% on room air. This time patient denies chest pain or shortness of breath. Patient denies nausea vomiting or diarrhea. Patient denies any urinary burning or frequency On 06/29/2022 patient was seen and examined in the ICU he is alert and oriented 3 in no apparent distress, today is postoperative day #5 there is no fever or chills no headache or dizziness no chest pain no shortness of breath no cough no nausea or vomiting no abdominal pain no diarrhea and no urinary symptoms. Vital examination reveals a temperature of 97.6 pulse 85 respiration 20 blood pressure 120/69 pulse ox 95% on room air white blood count is 9.8 hemoglobin 13.0 platelet count 346 BUN 13 creatinine 0.85 On 06/30/2022 patient is alert and oriented 3. Patient remains in the intensive care unit awaiting bed availability and selective care. Patient is postop day 6. Patient is still complaining of mild discomfort around surgical site. Patient has been up ambulating incentive spirometer. Patient reports he's had 3 bowel movements. Patient is urinating adequately. This time patient denies shortness of breath. Patient denies nausea vomiting or diarrhea. Patient denies any urinary burning or frequency Objective - Vital Signs Vital signs: Vital Signs Temp 97.6 F 06/30/22 08:00 Pulse 80 06/30/22 08:33 Resp 18 06/30/22 08:33 BP 136/95 06/30/22 08:00 Pulse Ox 96 06/30/22 08:22 FiO2 40 06/24/22 16:42 Intake & Output 06/29/22 06/30/22 06/30/22 18:59 06:59 18:59 Intake Total 350 250 Output Total 400 1530 Balance -50 -1280 Weight 90.7 kg Intake: Oral 350 250 Output: Chest Tube Drainage 80 Chest Tube Mediastinal 80 Urine 400 1450 Other: Voiding Method Urinal Urinal # Voids 2 # Bowel Movements 1 1 ABP, PAP, CO, CI - Last Documented Arterial Blood Pressure 109/49 Pulmonary Artery Pressure 37/15 Cardiac Output 8 Cardiac Index 4.1 - Exam In general patient is alert and oriented x 3 in no distress HEENT head normocephalic and atraumatic Neck is supple no JVD no goiter no lymphadenopathy no carotid bruit Chest examination reveals a scattered coarse crackles bilaterally patient has chest tubes in Cardiac exam reveals regular heart sounds S1 and S2 no gallops no murmurs Abdomen is soft nontender no organomegaly with normal bowel sounds Extremity exam reveals no edema no cyanosis or clubbing Neurological examination reveals no gross focal deficits - Labs CBC & Chem 7: 06/30/22 05:49 06/30/22 05:49 Labs: Abnormal Lab Results - Last 24 Hours (Table) 06/29/22 06/29/22 06/29/22 Range/Units 11:53 16:49 20:06 Glucose (74-99) mg/dL POC Glucose (mg/dL) 133 H 143 H 175 H (70-110) mg/dL Total Protein (6.3-8.2) g/dL Albumin (3.5-5.0) g/dL 06/30/22 06/30/22 Range/Units 05:49 06:42 Glucose 125 H (74-99) mg/dL POC Glucose (mg/dL) 141 H (70-110) mg/dL Total Protein 5.8 L (6.3-8.2) g/dL Albumin 3.3 L (3.5-5.0) g/dL Assessment and Plan Plan: Coronary artery disease status post 2 vessel coronary artery bypass graft surgery Underlying history of congestive heart failure with cardiomyopathy with decreased ejection fraction to 3035 percent History of hypertension History of hyperlipidemia History of peripheral arterial disease History of COPD History of diabetes mellitus currently maintained on insulin drip History of rheumatoid arthritis History of cardiac thrombus maintained on Eliquis as outpatient prior to admission. At this time patient was seen and examined Medications and labs reviewed Will continue to follow closely
[2022-06-30 11:14] LABS: Glucose,Whole Blood 134 mg/dL (70-110)
[2022-06-30] MEDS: KETOROLAC 15 MG/ML 1 ML VIAL IVP SCH ×3 (12:15→23:39)
[2022-06-30] MEDS: amLODIPine 2.5 MG TAB PO SCH (12:43)
[2022-06-30 16:09] LABS: Glucose,Whole Blood 137 mg/dL (70-110)
[2022-06-30 20:31] LABS: Glucose,Whole Blood 146 mg/dL (70-110)
[2022-06-30] MEDS: SENNOSIDES-DOCUSATE SODIUM 1 EACH TAB PO SCH (20:42)
[2022-06-30] MEDS: lisinopriL 5 MG TAB PO SCH (20:43)
[2022-07-01] MEDS: HYDROcodone/APAP 5-325MG 1 EACH TAB PO PRN ×2 (03:17→20:54)
[2022-07-01 06:10] LABS: Glucose,Whole Blood 132 mg/dL (70-110)
[2022-07-01] MEDS: INSULIN ASPART (NovoLOG) 100 UNIT/ML VIAL SQ SCH ×4 (06:35→20:55)
[2022-07-01] MEDS: PANTOPRAZOLE 40 MG TABLET PO SCH (06:38)
[2022-07-01] MEDS: KETOROLAC 15 MG/ML 1 ML VIAL IVP SCH ×3 (06:38→17:00)
[2022-07-01 07:23] LABS: Basophils % (A) 0 %; Eosinophils # (A) 0.1 k/uL (0-0.7); Eosinophils % (A) 1 %; HCT 40.8 % (39.0-53.0); HGB 13.1 gm/dL (13.0-17.5); Lymphocytes # (A) 2.1 k/uL (1.0-4.8); Lymphocytes % (A) 21 %; MCH 27.7 pg (25.0-35.0); MCHC 32.2 g/dL (31.0-37.0); MCV 86.1 fL (80.0-100.0); Monocytes # (A) 0.7 k/uL (0-1.0); Monocytes % (A) 6 %; Neutrophils # (A) 7.3 k/uL (1.3-7.7); Neutrophils % (A) 70 %; Platelet Count 395 k/uL (150-450); RBC 4.74 m/uL (4.30-5.90); RDW 13.8 % (11.5-15.5); WBC 10.4 k/uL (3.8-10.6)
[2022-07-01 07:42] LABS: ALT 37 U/L (4-49); AST 39 U/L (17-59); African American GFR (CKD) >90 (>60 ml/min/1.73 sqM); Albumin 3.5 g/dL (3.5-5.0); Alkaline Phosphatase 76 U/L (38-126); Anion Gap 4 mmol/L; Blood Urea Nitrogen 12 mg/dL (9-20); Calcium 9.3 mg/dL (8.4-10.2); Carbon Dioxide 32 mmol/L (22-30); Chloride 100 mmol/L (98-107); Glucose 128 mg/dL (74-99); Non-African American GFR(CKD) >90 (>60 ml/min/1.73 sqM); Potassium 4.6 mmol/L (3.5-5.1); Sodium 136 mmol/L (137-145); Total Bilirubin 0.6 mg/dL (0.2-1.3); Total Protein 6.1 g/dL (6.3-8.2)
[2022-07-01] MEDS: HEPARIN SODIUM,PORCINE/PF 5,000 UNIT/0.5 ML SYRINGE SQ SCH ×2 (07:50→16:09)
[2022-07-01] MEDS: CLOPIDOGREL 75 MG TAB PO SCH (07:53)
[2022-07-01] MEDS: ATORVASTATIN 80 MG TAB PO SCH (07:53)
[2022-07-01] MEDS: METOPROLOL TARTRATE 50 MG TAB PO SCH ×2 (07:53→20:55)
[2022-07-01] MEDS: lisinopriL 5 MG TAB PO SCH ×2 (07:53→20:55)
[2022-07-01] MEDS: AMIODARONE 200 MG TAB PO SCH ×2 (07:54→20:55)
[2022-07-01] MEDS: MONTELUKAST 10 MG TAB PO SCH (07:54)
[2022-07-01] MEDS: ASPIRIN 325 MG TAB PO SCH (07:54)
--- NOTE | 2022-07-01 07:57 | P.PN ---
Subjective PROGRESS NOTE The patient is a 61-year-old male who underwent CABG today. He has a known history of CAD, followed by Dr. Anne, history of PAD status post percutaneous revascularization and a history of cardiomyopathy. He underwent off-pump OBREGON t o the LAD and left radial to the ramus intermedius with closure of the left atrial appendage. He is intubated and sedated. Hemodynamically he is in sinus mechanism. He has a known history of severe cardiomyopathy with viability of the anterior wall by cardiac MRI. He has a history of diabetes, hypertension, hyperlipidemia and a history of chronic tobacco use. June 30: The patient complains of incisional chest discomfort and mild dyspnea. He denies any dizziness or palpitations. He denies any nausea. He continues to be in sinus mechanism. He continues to have a chest you. He has no evidence of atrial fibrillation. His blood pressure has been stable. He has been ambulating without much difficulty. 07/01 Patient seen and examined. He denies any chest pain or pressure. Denies any shortness breath. Air leak his slowly improve per nursing. Denies any lightheadedness or dizziness. PHYSICAL EXAMINATION: Vitals reviewed LUNGS: Clear to auscultation with few crackles at base HEART: Regular rate and rhythm, S1, S2. No S3. systolic ejection murmur, no rub ABDOMEN: Soft, nontender, no organomegaly EXTREMETIES: No edema IMPRESSION: 1. Status post CABG, extubated, stable 2. Severe ischemic cardiomyopathy, no evidence of heart failure. 3. History of PAD 4. History of hypertension 5. History of diabetes 6. History of hyperlipidemia PLAN: Continue to monitor air leak and remove chest tube when able. Appears to be improving slowly. Continue with supportive care. Objective - Vital Signs Vital signs: Vital Signs Temp 97.9 F 07/01/22 04:00 Pulse 73 07/01/22 04:00 Resp 13 07/01/22 04:00 BP 134/69 07/01/22 04:00 Pulse Ox 97 07/01/22 04:00 FiO2 40 06/24/22 16:42 Intake & Output 06/30/22 07/01/22 07/01/22 18:59 06:59 18:59 Intake Total 250 Output Total 350 750 Balance -350 -500 Weight 90.3 kg Intake: Oral 250 Output: Chest Tube Drainage 30 50 Chest Tube Mediastinal 30 50 Urine 320 700 Other: Voiding Method Urinal Urinal # Voids 1 1 # Bowel Movements 1 ABP, PAP, CO, CI - Last Documented Arterial Blood Pressure 109/49 Pulmonary Artery Pressure 37/15 Cardiac Output 8 Cardiac Index 4.1 - Labs CBC & Chem 7: 07/01/22 06:33 07/01/22 06:33 Labs: Abnormal Lab Results - Last 24 Hours (Table) 06/30/22 06/30/22 06/30/22 Range/Units 11:12 16:07 20:29 Sodium (137-145) mmol/L Carbon Dioxide (22-30) mmol/L Glucose (74-99) mg/dL POC Glucose (mg/dL) 134 H 137 H 146 H (70-110) mg/dL Total Protein (6.3-8.2) g/dL 07/01/22 07/01/22 Range/Units 06:08 06:33 Sodium 136 L (137-145) mmol/L Carbon Dioxide 32 H (22-30) mmol/L Glucose 128 H (74-99) mg/dL POC Glucose (mg/dL) 132 H (70-110) mg/dL Total Protein 6.1 L (6.3-8.2) g/dL
[2022-07-01] MEDS: IPRATROPIUM-ALBUTEROL 3 ML NEB INHALATION SCH ×4 (08:08→19:28)
[2022-07-01] MEDS: SYMBICORT 160-4.5 MCG INHALER INHALATION SCH ×2 (08:08→19:28)
--- NOTE | 2022-07-01 09:05 | XR ---
EXAMINATION TYPE: XR chest 1V portable DATE OF EXAM: 07/01/2022 COMPARISON: 06/30/2022 HISTORY: Postop TECHNIQUE: Single frontal view of the chest is obtained. FINDINGS: There is a small left apical pneumothorax measuring approximately 5%. Subcutaneous emphyse ma noted. There is a right-sided pneumothorax which is stable measuring approximately percent. Medias tinal drain noted. Postsurgical changes with cardiomegaly, bilateral consolidation pleural effusion. Atherosclerotic change aorta. Underlying COPD. IMPRESSION: 1. Bilateral pneumothoraces stable from prior exam 2. bilateral infiltrate and pleural effusion stable.
--- NOTE | 2022-07-01 09:57 | P.PN ---
Subjective Progress Note Date: 07/01/22 Principal diagnosis: Coronary artery disease. Past medical history significant for hypertension, hyperlipidemia, chronic systolic heart failure/ischemic cardiomyopathy, type 2 diabetes, rheumatoid arthritis, current tobacco dependence, severe COPD, marijuana use, peripheral arterial disease, recent Covid infection in May 2022 POD #7 off-pump coronary artery bypass grafting 2, left internal thoracic artery to the left anterior descending artery, left radial artery from the aorta to the ramus intermedius, left atrial appendage ligation with a 35 mm AtriClip, endoscopic left radial artery harvest, epi-aortic ultrasound and intraoperative transesophageal echocardiogram, [facility] flow [facility]. Patient was seen and examined in follow-up today 07/01/2022 at bedside in the intensive care unit. He remains waiting for a bed on the cardiac stepdown unit. Currently sitting up to the bedside chair, is awake, alert, oriented 3 and is in no acute apparent distress. Denies any complaints of shortness of breath at this time, although continues to complain of some surgical type pain to his chest tube insertion site. Currently rating his pain 6-7 out of 10 on the pain scale. Denies any complaints of nausea or vomiting. He remains hemodynamically stable and is currently on no uncovertebral pressure support. Oxygen saturation are 93% on room air and he is achieving around 1500 mL on his incentive spirometry with encouragement. Bedside telemetry showing normal sinus rhythm heart rate 80 BPM, no reports of atrial fibrillation. He remains on amiodarone 400 mg by mouth twice a day and metoprolol tartrate 50 mg by mouth twice a day. Mediastinal chest tube remains in place to water seal. No air leak is present. Draining thin serosanguineous drainage with 110 mL of output in the last 24 hours. Chest x-ray report this morning shows bilateral small apical pneumothoraces which are stable. Laboratory results were reviewed. The patient continues to ambulate in the intensive care unit hallway with standby assistance from nursing and therapy staff and is tolerating well. Objective - Vital Signs Vital signs: Vital Signs Temp 98.0 F 07/01/22 08:00 Pulse 80 07/01/22 08:18 Resp 26 H 07/01/22 08:00 BP 113/73 07/01/22 08:00 Pulse Ox 93 L 07/01/22 08:00 FiO2 40 06/24/22 16:42 Intake & Output 06/30/22 07/01/22 07/01/22 18:59 06:59 18:59 Intake Total 250 Output Total 350 750 Balance -350 -500 Weight 90.3 kg Intake: Oral 250 Output: Chest Tube Drainage 30 50 Chest Tube Mediastinal 30 50 Urine 320 700 Other: Voiding Method Urinal Urinal # Voids 1 1 # Bowel Movements 1 ABP, PAP, CO, CI - Last Documented Arterial Blood Pressure 109/49 Pulmonary Artery Pressure 37/15 Cardiac Output 8 Cardiac Index 4.1 - Exam CONSTITUTIONAL: Appears comfortable, cooperative, no acute distress. RESPIRATORY: Lungs sounds diminished bilaterally, few scattered expiratory wheezes. No rhonchi or crackles. Respirations are symmetrical, nonlabored. Currently on room air with oxygen saturation 93%. Able to achieve 1500 mL on his incentive spirometry. Strong cough. 2CARDIOVASCULAR: S1, S2 present. Bedside telemetry showing normal sinus rhythm heart rate 80 BPM. Sternum stable. Palpable peripheral pulses bilaterally. No calf pain or tenderness noted. Heart hugger in place with patient d emonstrating appropriate use. Antiembolism stockings, SCDs present. GASTROINTESTINAL: Abdomen soft, nontender, nondistended. Active bowel sounds present 4 quadrants. Tolerating clear liquid diet. Passing flatus. Bowel movement 06/30/2022. GENITOURINARY: Continues to void. 700 mL of urine output in the last 8 hours. INTEGUMENTARY: Skin is warm and dry with no evidence of clubbing or cyanosis. Midline sternal incision well approximated and covered with dry intact dressing. Left radial site well approximated without redness or drainage. NEUROLOGIC: Cranial nerves II through XII intact. MUSKULOSKELETAL: Able to move all extremities, strength equal bilaterally, gait normal. PSYCHIATRIC: Alert and oriented to person place and time, appropriate affect, intact judgment and insight. INVASIVE LINES AND TUBES: Mediastinal chest tube present and to waterseal, no air leak present. Mediastinal tube with 110 mL thin serosanguineous drainage in the last 24 hours. - Allied health notes Allied health notes reviewed: nursing - Labs CBC & Chem 7: 07/01/22 06:33 07/01/22 06:33 Labs: Abnormal Lab Results - Last 24 Hours (Table) 06/30/22 06/30/22 06/30/22 Range/Units 11:12 16:07 20:29 Sodium (137-145) mmol/L Carbon Dioxide (22-30) mmol/L Glucose (74-99) mg/dL POC Glucose (mg/dL) 134 H 137 H 146 H (70-110) mg/dL Total Protein (6.3-8.2) g/dL 07/01/22 07/01/22 Range/Units 06:08 06:33 Sodium 136 L (137-145) mmol/L Carbon Dioxide 32 H (22-30) mmol/L Glucose 128 H (74-99) mg/dL POC Glucose (mg/dL) 132 H (70-110) mg/dL Total Protein 6.1 L (6.3-8.2) g/dL - Imaging and Cardiology Chest x-ray: report reviewed, image reviewed Assessment and Plan Assessment: 1. Coronary artery disease, status post 2 vessel off pump CABG 2. History of hypertension 3. Hyperlipidemia, treated, cholesterol 194, LDL 113, triglycerides 159 4. Chronic systolic heart failure/ischemic cardiomyopathy, EF 25-30%, improved postoperative 40-45% 5. Chronic LV thrombus, on [facility] outpatient for anticoagulation 6. Type 2 diabetes, preoperative hemoglobin A1c 7.8% 7. Rheumatoid arthritis, recent flareup 8. Current tobacco dependence 9. Severe COPD, preoperative FEV1 35% of predicted 10. Marijuana use 11. Peripheral arterial disease, status post stenting of the proximal and mid left SFA, atherectomy of the left SFA, IVUS of the left SFA, balloon angioplasty of the left popliteal completed by Dr. Anne 05/01/2022 12. Recent Covid infection in May 2022, vaccinated not boosted Plan: 1. Continue aspirin, statin, Plavix, and beta miller. Will increase metoprolol tartrate as tolerated. Continue Lisinopril 5 mg by mouth twice a day for afterload reduction with hold parameters. 2. Continue amiodarone for atrial fibrillation prophylaxis. Amiodarone will be decreased to 400 mg by mouth daily on 07/03/2022. 3. Amlodipine 2.5 mg by mouth daily for radial artery spasm prophylaxis. 4. Encourage incentive spirometry use 10 times every hour while awake. Bronchodilators per pulmonology. 5. Will monitor daily labs and chest x-rays. Electrolyte replacement per protocol. 6. Increase activity, ambulate as tolerated. PT/OT/cardiac rehab following. 7. GI/DVT prophylaxis 8. Pain control per current medication regimen. 9. Insulin management per internal medicine. Patient is diabetic with elevated hemoglobin A1c of 7.1% preoperatively, needs tight blood sugar control to promote healing and prevent infection. 10. Continue mediastinal chest tube , we will clamp the mediastinal chest tube for 4 hours today, after the 4 hours we will obtain a chest x-ray to evaluate for pneumothorax. 11. Smoking cessation counseling and education provided, patient is urged to quit smoking completely. 12. Transfer to third floor cardiac stepdown unit when bed available. 13. Ultrasound left chest with markings. 14. More recommendations to follow based on patient's clinical course. Time with Patient: Greater than 30
--- NOTE | 2022-07-01 10:15 | P.PN ---
Subjective Progress Note Date: 07/01/22 Principal diagnosis: status post CABG and postoperative day #7 On 06/25/2022, the patient is postop day #1. The patient underwent two-vessel bypass surgery with OBREGON to LAD and radial artery to ramus intermedius. The patient was weaned off the mechanical ventilator and the patient was extubated initially to a BiPAP at a pressure of 10/5 cm of water and FiO2 of 40%. Subsequ ently, he was transitioned to nasal cannula which is running at 2 L/m and the pulse ox is currently 94%. Chest x-ray shows increased interstitial markings bilaterally, small effusion/atelectasis in the left lung base. [place] catheter is in a good location. There is no evidence of air leak. The patient has a right pleural left pleural chest tube and CHEST tubes is in order of 210 mL over the past 18 hours and the mediastinal chest tube is still present and operas in the order of 750 mL. Noted there is positive air leak within the mediastinal chest tube. Nevertheless, there is no evidence of any pneumomediastinum. There is no evidence of any pneumothorax. Hemodynamically, the patient is in normal sinus rhythm. He is on amiodarone drip at 0.5 mg/m. He was taken off the nitroglycerin drip. His cardiac output is at 4.7 with an index of 2.4. P artery pressures are 30/11. Urine output is in order of 50-100 mL an hour. WBC count is at 14.7 with a hemoglobin of 16.2. Renal function stable with a creatinine of 0.67 and a BUN of 9. Sodium is at 135. LFTs are normal. Blood sugars at 115 and the patient is currently on 2 units of insulin for blood sugar control. No other significant events otherwise for now. No focal neurological deficit. Pain is under adequate control. He is using the incentive spirometer falling approximately 750. On 06/26/2022, the patient is postoperative day #2. The patient remains on oxygen and he is currently on 2 L nasal cannula. He is using the incentive spirometer, falling to thousand. The mediastinal chest tube is in place and is showing air leak and output has been in the order of 340 mL over the past 24 hours. The pleural chest tubes are connected, no evidence of any active air leak and output has been 700 mL over the past 24 hours. Chest x-ray from today shows no evidence of any pneumothorax. Chest tubes are in good location. There is some mild interstitial edema. Hemodynamically, he is stable. His cardiac rhythm is sinus. He is off the amiodarone drip. He has been switched to oral amiodarone 400 mg by mouth twice a day.. He is also on aspirin, Plavix, and he was started also on metoprolol 25 mg by mouth 3 times a day. He is also on lisinopril 0.5 mg twice a day for blood pressure control. Adequate pain control for now. Blood work shows a WBC count 13.7, hemoglobin 12.6 and a platelet count of 213. BUN is at 9 with a creatinine of 0.7 and sodium levels of 134. No nausea. No emesis. No diarrhea. No other significant events overnight. Neurologically intact. 06/27/2022, the patient is postop day #3. Is currently on room air oxygen. His falling approximately 1500 on the incentive spirometer. He does have the pleural chest tubes and mediastinal chest tube. Ultrasound of the chest tube has been 80 mL over the past 24 hours and output from the mediastinal chest tube is in the order of 50 mL over the past 24 hours. There is air leak only in the mediastinal chest tube. Meanwhile, the chest x-ray from today shows some atelectatic changes and small effusion in the lung bases. Chest tubes are still in good location. No evidence of any pneumothorax. He was given a dose of Lasix yesterday. He is hemodynamically stable. His cardiac rhythm is sinus. His labs from today show a WBC count of 10.3 hemoglobin is 12.3 sodium is at 135, BUN is at 30 with a creatinine of 0.7. He is on aspirin. He is on Plavix. He is on metoprolol started at a dose of 25 mg 3 times a day. He is also on lisinopril 2.5 mg by mouth twice a day. He is on high-dose statins and he is taking Lipitor 80 mg by mouth daily. He is sitting up on a chair. Didn't limited amount of ambulation. No other complaints otherwise for now. We'll discuss with the surgical team the possibility of removing the pleural chest tubes. reevaluated today on 06/28/2022, patient is now postoperative day #4. Patient had a two-vessel bypass, OBREGON to LAD and radial artery to ramus intermedius. Patient is doing well, relatively asymptomatic, he is on room air, not receiving any infusions, doing well with incentive spirometry, his chest tube continues to have some air leak, he had 60 mL of output over the last 24 hours. Achieving about 1500 mL with incentive spirometer. CBC is relatively normal basic metab olic profile is normal blood sugar is 133 but chest x-ray showed minimal basilar atelectasis, Patient was reevaluated today on 06/29/2022 patient is now postoperative day #5. Had two-vessel bypass, OBREGON to LAD and radial artery to ramus intermedius. Patient is doing great, he is on room air, not in any distress, continues to have air leak in the chest tube. Chest x-ray is basically unremarkable except for postoperative changes and atelectasis. CBC is normal basic metabolic profile is normal renal profile is normal patient was reevaluated today on 06/30, agent is now postoperative day #6. He is off pump coronary artery bypass grafting 2, OBREGON to LAD and left radial artery from the aorta to the ramus intermedius. Overall the patient is continues to do well, however he continues to have a right-sided pneumothorax, and his chest tube was placed back on suctioning. Continues to have air leak in the mediastinal chest tube, intermittent leak is present. He had serosanguineous drainage 1 50 mL in the last 24 hours. And the chest x-ray showed a small right-sided pneumothorax.hemodynamically patient is doing well, he is actually on room air, afebrile, vital signs are stable.labs today including CBC and basic metabolic profile are normal Reevaluated today on 07/01/22, patient remains in the ICU, continues to have a bit of any air leak from his mediastinal chest tube, it remains in place, and it is to water seal. No evidence of pneumothorax noted today. Chest x-ray showed a small left pleural effusion and mild atelectasis, did not even see the pneumothorax on the chest x-ray today. Clinically the patient is doing well, remains relatively asymptomatic. Labs from today are unremarkable including normal CBC and normal basic metabolic profile Objective - Vital Signs Vital signs: Vital Signs Temp 98.0 F 07/01/22 08:00 Pulse 80 07/01/22 08:18 Resp 26 H 07/01/22 08:00 BP 113/73 07/01/22 08:00 Pulse Ox 93 L 07/01/22 08:00 FiO2 40 06/24/22 16:42 Intake & Output 06/30/22 07/01/22 07/01/22 18:59 06:59 18:59 Intake Total 250 Output Total 350 750 Balance -350 -500 Weight 90.3 kg Intake: Oral 250 Output: Chest Tube Drainage 30 50 Chest Tube Mediastinal 30 50 Urine 320 700 Other: Voiding Method Urinal Urinal Urinal # Voids 1 1 # Bowel Movements 1 ABP, PAP, CO, CI - Last Documented Arterial Blood Pressure 109/49 Pulmonary Artery Pressure 37/15 Cardiac Output 8 Cardiac Index 4.1 - Exam Physical Exam: Revealed 61-year-old white male in no distress. On room air Head: Atraumatic, normocephalic. HEENT:[Neck is supple.] [No neck masses.] [No thyromegaly.] [No JVD.] Chest: [Clear throughout, no crackles, no rhonchi, no wheezes.]mediastinal chest tube is noted, with intermittent air leak. Cardiac Exam: [Normal S1 and S2, no S3 gallop, no murmur.] Abdomen: [Soft, nontender, no megaly, no rebound, no guarding, normal bowel sounds.] Extremities: [No clubbing, no edema, no cyanosis.] Neurological Exam: [No focal neurologic deficit.] Alert and oriented 3. Psychiatric: Normal mood affect and normal status examination - Labs CBC & Chem 7: 07/01/22 06:33 07/01/22 06:33 Labs: Abnormal Lab Results - Last 24 Hours (Table) 06/30/22 06/30/22 06/30/22 Range/Units 11:12 16:07 20:29 Sodium (137-145) mmol/L Carbon Dioxide (22-30) mmol/L Glucose (74-99) mg/dL POC Glucose (mg/dL) 134 H 137 H 146 H (70-110) mg/dL Total Protein (6.3-8.2) g/dL 07/01/22 07/01/22 Range/Units 06:08 06:33 Sodium 136 L (137-145) mmol/L Carbon Dioxide 32 H (22-30) mmol/L Glucose 128 H (74-99) mg/dL POC Glucose (mg/dL) 132 H (70-110) mg/dL Total Protein 6.1 L (6.3-8.2) g/dL Assessment and Plan Assessment: impression: Status post two-vessel CABG with OBREGON to LAD and radial to ramus intermedius. Postoperative day #7 history of cardiomyopathy and LV dysfunction and ejection fraction is 30-35%. History of cardiac thrombus. Peripheral vessel occlusive disease severe COPD and FEV1 of 35% benign essential hypertension dyslipidemia type 2 diabetes rheumatoid arthritis small right-sided pneumothorax, expected. recommendation: Continue incentive spirometry aspirin statins and Plavix and beta blockers May benefit from gentle diuresis. continue bronchodilators continue to ambulate We'll continue to follow Time with Patient: Less than 30
[2022-07-01 11:20] LABS: Glucose,Whole Blood 161 mg/dL (70-110)
[2022-07-01] MEDS: amLODIPine 2.5 MG TAB PO SCH (12:24)
--- NOTE | 2022-07-01 13:21 | XR ---
EXAMINATION TYPE: XR chest 1V portable DATE OF EXAM: 07/01/2022 COMPARISON: 07/01/2022 HISTORY: Postop TECHNIQUE: Single frontal view of the chest is obtained. FINDINGS: There is a small left apical pneumothorax measuring approximately 5%. Subcutaneous emphyse ma noted. There is a right-sided pneumothorax which is stable measuring approximately percent. Medias tinal drain noted. Postsurgical changes with cardiomegaly, bilateral consolidation pleural effusion. Atherosclerotic change aorta. Underlying COPD. IMPRESSION: 1. Bilateral pneumothoraces stable from prior exam 2. Bilateral infiltrate and pleural effusion stable.
--- NOTE | 2022-07-01 14:46 | US ---
EXAMINATION TYPE: US chest DATE OF EXAM: 07/01/2022 COMPARISON: XR CLINICAL HISTORY: pleural effusion. Pleural effusion. TECHNIQUE: Targeted ultrasound of the posterior lower bilateral hemithoraces EXAM MEASUREMENTS: Right Pleural Effusion pocket size: 1.5 cm. Not marked due to fluid pocket size. Right skin surface to fluid distance: 3.0 cm Left Pleural Effusion pocket size: 2.2 cm. Not marked due to fluid pocket size. Left skin surface to fluid distance: 3.3 cm Right side NOT marked for possible thoracentesis outside the dept. Left side NOT marked for possible thoracentesis outside the dept. Pulmonologists are able to review the images in the patient?s EMR. IMPRESSIONS: Small bilateral pleural effusion
[2022-07-01] MEDS ORDERED: FUROSEMIDE 10 MG/ML 2 ML VIAL IV STA (15:58)
[2022-07-01 16:13] LABS: Glucose,Whole Blood 158 mg/dL (70-110)
[2022-07-01 20:43] LABS: Glucose,Whole Blood 157 mg/dL (70-110)
[2022-07-01] MEDS: SENNOSIDES-DOCUSATE SODIUM 1 EACH TAB PO SCH (20:55)
[2022-07-02] MEDS: HEPARIN SODIUM,PORCINE/PF 5,000 UNIT/0.5 ML SYRINGE SQ SCH ×3 (00:02→16:37)
[2022-07-02] MEDS: KETOROLAC 15 MG/ML 1 ML VIAL IVP SCH ×2 (00:02→06:08)
[2022-07-02 04:53] LABS: HCT 38.7 % (39.0-53.0); HGB 12.5 gm/dL (13.0-17.5); MCH 27.7 pg (25.0-35.0); MCHC 32.4 g/dL (31.0-37.0); MCV 85.6 fL (80.0-100.0); Mean Platelet Volume 6.6; Platelet Count 372 k/uL (150-450); RBC 4.52 m/uL (4.30-5.90); WBC 10.7 k/uL (3.8-10.6)
[2022-07-02 05:05] LABS: African American GFR (CKD) >90 (>60 ml/min/1.73 sqM); Anion Gap 4 mmol/L; Blood Urea Nitrogen 15 mg/dL (9-20); Calcium 9.1 mg/dL (8.4-10.2); Carbon Dioxide 32 mmol/L (22-30); Chloride 102 mmol/L (98-107); Glucose 131 mg/dL (74-99); Non-African American GFR(CKD) >90 (>60 ml/min/1.73 sqM); Potassium 4.5 mmol/L (3.5-5.1); Sodium 138 mmol/L (137-145)
[2022-07-02 06:16] LABS: Glucose,Whole Blood 125 mg/dL (70-110)
[2022-07-02] MEDS: PANTOPRAZOLE 40 MG TABLET PO SCH (06:44)
[2022-07-02] MEDS: INSULIN ASPART (NovoLOG) 100 UNIT/ML VIAL SQ SCH ×4 (06:44→20:16)
--- NOTE | 2022-07-02 07:33 | P.PN ---
Subjective PROGRESS NOTE The patient is a 61-year-old male who underwent CABG today. He has a known history of CAD, followed by Dr. Anne, history of PAD status post percutaneous revascularization and a history of cardiomyopathy. He underwent off-pump OBREGON t o the LAD and left radial to the ramus intermedius with closure of the left atrial appendage. He is intubated and sedated. Hemodynamically he is in sinus mechanism. He has a known history of severe cardiomyopathy with viability of the anterior wall by cardiac MRI. He has a history of diabetes, hypertension, hyperlipidemia and a history of chronic tobacco use. June 30: The patient complains of incisional chest discomfort and mild dyspnea. He denies any dizziness or palpitations. He denies any nausea. He continues to be in sinus mechanism. He continues to have a chest you. He has no evidence of atrial fibrillation. His blood pressure has been stable. He has been ambulating without much difficulty. 07/01 Patient seen and examined. He denies any chest pain or pressure. Denies any shortness breath. Air leak his slowly improve per nursing. Denies any lightheadedness or dizziness. 07/02 Patient seen and examined. Patient had chest tube removed and does have bilateral small pneumothoraxes. He states he feels very well and denies any chest pain or shortness breath. PHYSICAL EXAMINATION: Vitals reviewed LUNGS: Clear to auscultation with few crackles at base HEART: Regular rate and rhythm, S1, S2. No S3. systolic ejection murmur, no rub ABDOMEN: Soft, nontender, no organomegaly EXTREMETIES: No edema IMPRESSION: 1. Status post CABG, extubated, stable 2. Severe ischemic cardiomyopathy, no evidence of heart failure. 3. History of PAD 4. History of hypertension 5. History of diabetes 6. History of hyperlipidemia PLAN: Chest tube was removed and small pneumothoraxes. Defer further treatment of pneumothorax to cardiothoracic surgery. From a cardiology standpoint appears stable for discharge. Objective - Vital Signs Vital signs: Vital Signs Temp 98.2 F 07/02/22 04:00 Pulse 70 07/02/22 04:00 Resp 21 07/02/22 04:00 BP 120/76 07/02/22 04:00 Pulse Ox 95 07/02/22 04:00 FiO2 40 06/24/22 16:42 Intake & Output 07/01/22 07/02/22 07/02/22 18:59 06:59 18:59 Intake Total 250 Output Total 2950 800 Balance -2950 -550 Weight 89.4 kg Intake: Oral 250 Output: Urine 2950 800 Other: Voiding Method Urinal Urinal # Voids 1 2 # Bowel Movements 11 ABP, PAP, CO, CI - Last Documented Arterial Blood Pressure 109/49 Pulmonary Artery Pressure 37/15 Cardiac Output 8 Cardiac Index 4.1 - Labs CBC & Chem 7: 07/02/22 04:24 07/02/22 04:24 Labs: Abnormal Lab Results - Last 24 Hours (Table) 07/01/22 07/01/22 07/01/22 Range/Units 06:33 11:19 16:12 WBC (3.8-10.6) k/uL Hgb (13.0-17.5) gm/dL Hct (39.0-53.0) % Sodium 136 L (137-145) mmol/L Carbon Dioxide 32 H (22-30) mmol/L Glucose 128 H (74-99) mg/dL POC Glucose (mg/dL) 161 H 158 H (70-110) mg/dL Total Protein 6.1 L (6.3-8.2) g/dL 07/01/22 07/02/22 07/02/22 Range/Units 20:42 04:24 04:24 WBC 10.7 H (3.8-10.6) k/uL Hgb 12.5 L (13.0-17.5) gm/dL Hct 38.7 L (39.0-53.0) % Sodium (137-145) mmol/L Carbon Dioxide 32 H (22-30) mmol/L Glucose 131 H (74-99) mg/dL POC Glucose (mg/dL) 157 H (70-110) mg/dL Total Protein (6.3-8.2) g/dL 07/02/22 Range/Units 06:14 WBC (3.8-10.6) k/uL Hgb (13.0-17.5) gm/dL Hct (39.0-53.0) % Sodium (137-145) mmol/L Carbon Dioxide (22-30) mmol/L Glucose (74-99) mg/dL POC Glucose (mg/dL) 125 H (70-110) mg/dL Total Protein (6.3-8.2) g/dL
[2022-07-02] MEDS: IPRATROPIUM-ALBUTEROL 3 ML NEB INHALATION SCH ×4 (08:06→18:59)
[2022-07-02] MEDS: SYMBICORT 160-4.5 MCG INHALER INHALATION SCH ×2 (08:06→18:59)
[2022-07-02] MEDS: ATORVASTATIN 80 MG TAB PO SCH (08:37)
[2022-07-02] MEDS: CLOPIDOGREL 75 MG TAB PO SCH (08:37)
[2022-07-02] MEDS: AMIODARONE 200 MG TAB PO SCH (08:37)
[2022-07-02] MEDS: METOPROLOL TARTRATE 50 MG TAB PO SCH ×2 (08:37→20:16)
[2022-07-02] MEDS: MONTELUKAST 10 MG TAB PO SCH (08:37)
[2022-07-02] MEDS: ASPIRIN 325 MG TAB PO SCH (08:37)
[2022-07-02] MEDS: lisinopriL 5 MG TAB PO SCH ×2 (08:37→20:16)
--- NOTE | 2022-07-02 09:12 | XR ---
EXAMINATION TYPE: XR chest 1V portable DATE OF EXAM: 07/02/2022 COMPARISON: 07/01/2022 HISTORY: Postop TECHNIQUE: Single frontal view of the chest is obtained. FINDINGS: There is a small left apical pneumothorax measuring approximately 5%. Subcutaneous emphyse ma noted. There is a right-sided pneumothorax which is stable measuring approximately percent. Medias tinal drain been removed. Postsurgical changes with cardiomegaly, bilateral consolidation pleural eff usion. Atherosclerotic change aorta. Underlying COPD. IMPRESSION: 1. Stable bilateral pneumothoraces. 2. Bilateral infiltrate or atelectasis with small effusions 3. Correlate for COPD.
[2022-07-02 11:12] LABS: Glucose,Whole Blood 129 mg/dL (70-110)
--- NOTE | 2022-07-02 11:25 | P.PN ---
Subjective Progress Note Date: 07/02/22 Principal diagnosis: status post CABG and postoperative day #8 On 06/25/2022, the patient is postop day #1. The patient underwent two-vessel bypass surgery with OBREGON to LAD and radial artery to ramus intermedius. The patient was weaned off the mechanical ventilator and the patient was extubated initially to a BiPAP at a pressure of 10/5 cm of water and FiO2 of 40%. Subsequ ently, he was transitioned to nasal cannula which is running at 2 L/m and the pulse ox is currently 94%. Chest x-ray shows increased interstitial markings bilaterally, small effusion/atelectasis in the left lung base. Burna-Mo catheter is in a good location. There is no evidence of air leak. The patient has a right pleural left pleural chest tube and CHEST tubes is in order of 210 mL over the past 18 hours and the mediastinal chest tube is still present and operas in the order of 750 mL. Noted there is positive air leak within the mediastinal chest tube. Nevertheless, there is no evidence of any pneumomediastinum. There is no evidence of any pneumothorax. Hemodynamically, the patient is in normal sinus rhythm. He is on amiodarone drip at 0.5 mg/m. He was taken off the nitroglycerin drip. His cardiac output is at 4.7 with an index of 2.4. P artery pressures are 30/11. Urine output is in order of 50-100 mL an hour. WBC count is at 14.7 with a hemoglobin of 16.2. Renal function stable with a creatinine of 0.67 and a BUN of 9. Sodium is at 135. LFTs are normal. Blood sugars at 115 and the patient is currently on 2 units of insulin for blood sugar control. No other significant events otherwise for now. No focal neurological deficit. Pain is under adequate control. He is using the incentive spirometer falling approximately 750. On 06/26/2022, the patient is postoperative day #2. The patient remains on oxygen and he is currently on 2 L nasal cannula. He is using the incentive spirometer, falling to thousand. The mediastinal chest tube is in place and is showing air leak and output has been in the order of 340 mL over the past 24 hours. The pleural chest tubes are connected, no evidence of any active air leak and output has been 700 mL over the past 24 hours. Chest x-ray from today shows no evidence of any pneumothorax. Chest tubes are in good location. There is some mild interstitial edema. Hemodynamically, he is stable. His cardiac rhythm is sinus. He is off the amiodarone drip. He has been switched to oral amiodarone 400 mg by mouth twice a day.. He is also on aspirin, Plavix, and he was started also on metoprolol 25 mg by mouth 3 times a day. He is also on lisinopril 0.5 mg twice a day for blood pressure control. Adequate pain control for now. Blood work shows a WBC count 13.7, hemoglobin 12.6 and a platelet count of 213. BUN is at 9 with a creatinine of 0.7 and sodium levels of 134. No nausea. No emesis. No diarrhea. No other significant events overnight. Neurologically intact. 06/27/2022, the patient is postop day #3. Is currently on room air oxygen. His falling approximately 1500 on the incentive spirometer. He does have the pleural chest tubes and mediastinal chest tube. Ultrasound of the chest tube has been 80 mL over the past 24 hours and output from the mediastinal chest tube is in the order of 50 mL over the past 24 hours. There is air leak only in the mediastinal chest tube. Meanwhile, the chest x-ray from today shows some atelectatic changes and small effusion in the lung bases. Chest tubes are still in good location. No evidence of any pneumothorax. He was given a dose of Lasix yesterday. He is hemodynamically stable. His cardiac rhythm is sinus. His labs from today show a WBC count of 10.3 hemoglobin is 12.3 sodium is at 135, BUN is at 30 with a creatinine of 0.7. He is on aspirin. He is on Plavix. He is on metoprolol started at a dose of 25 mg 3 times a day. He is also on lisinopril 2.5 mg by mouth twice a day. He is on high-dose statins and he is taking Lipitor 80 mg by mouth daily. He is sitting up on a chair. Didn't limited amount of ambulation. No other complaints otherwise for now. We'll discuss with the surgical team the possibility of removing the pleural chest tubes. reevaluated today on 06/28/2022, patient is now postoperative day #4. Patient had a two-vessel bypass, OBREGON to LAD and radial artery to ramus intermedius. Patient is doing well, relatively asymptomatic, he is on room air, not receiving any infusions, doing well with incentive spirometry, his chest tube continues to have some air leak, he had 60 mL of output over the last 24 hours. Achieving about 1500 mL with incentive spirometer. CBC is relatively normal basic metab olic profile is normal blood sugar is 133 but chest x-ray showed minimal basilar atelectasis, Patient was reevaluated today on 06/29/2022 patient is now postoperative day #5. Had two-vessel bypass, OBREGON to LAD and radial artery to ramus intermedius. Patient is doing great, he is on room air, not in any distress, continues to have air leak in the chest tube. Chest x-ray is basically unremarkable except for postoperative changes and atelectasis. CBC is normal basic metabolic profile is normal renal profile is normal patient was reevaluated today on 06/30, agent is now postoperative day #6. He is off pump coronary artery bypass grafting 2, OBREGON to LAD and left radial artery from the aorta to the ramus intermedius. Overall the patient is continues to do well, however he continues to have a right-sided pneumothorax, and his chest tube was placed back on suctioning. Continues to have air leak in the mediastinal chest tube, intermittent leak is present. He had serosanguineous drainage 1 50 mL in the last 24 hours. And the chest x-ray showed a small right-sided pneumothorax.hemodynamically patient is doing well, he is actually on room air, afebrile, vital signs are stable.labs today including CBC and basic metabolic profile are normal Reevaluated today on 07/01/22, patient remains in the ICU, continues to have a bit of any air leak from his mediastinal chest tube, it remains in place, and it is to water seal. No evidence of pneumothorax noted today. Chest x-ray showed a small left pleural effusion and mild atelectasis, did not even see the pneumothorax on the chest x-ray today. Clinically the patient is doing well, remains relatively asymptomatic. Labs from today are unremarkable including normal CBC and normal basic metabolic profile Reevaluated today on 07/02/22, patient is sitting at a bedside chair, in no distress, his mediastinal chest tube has been removed, small pneumothorax is noted on the right side, negligible pneumothorax. Medically the patient is feeling great, asymptomatic, and I believe the plan is to discharge the patient home in the next 24 hours. Labs today are basically unremarkable including CBC and basic metabolic profile Objective - Vital Signs Vital signs: Vital Signs Temp 98.1 F 07/02/22 08:00 Pulse 76 07/02/22 08:17 Resp 14 07/02/22 08:00 BP 119/74 07/02/22 08:00 Pulse Ox 95 07/02/22 08:06 FiO2 40 06/24/22 16:42 Intake & Output 07/01/22 07/02/22 07/02/22 18:59 06:59 18:59 Intake Total 250 Output Total 2950 800 Balance -2950 -550 Weight 89.4 kg Intake: Oral 250 Output: Urine 2950 800 Other: Voiding Method Urinal Urinal Urinal # Voids 1 2 # Bowel Movements 11 ABP, PAP, CO, CI - Last Documented Arterial Blood Pressure 109/49 Pulmonary Artery Pressure 37/15 Cardiac Output 8 Cardiac Index 4.1 - Exam Physical Exam: Revealed 61-year-old white male in no distress. On room air Head: Atraumatic, normocephalic. HEENT:[Neck is supple.] [No neck masses.] [No thyromegaly.] [No JVD.] Chest: [Clear throughout, no crackles, no rhonchi, no wheezes. Cardiac Exam: [Normal S1 and S2, no S3 gallop, no murmur.] Abdomen: [Soft, nontender, no megaly, no rebound, no guarding, normal bowel sounds.] Extremities: [No clubbing, no edema, no cyanosis.] Neurological Exam: [No focal neurologic deficit.] Alert and oriented 3. Psychiatric: Normal mood affect and normal status examination - Labs CBC & Chem 7: 07/02/22 04:24 07/02/22 04:24 Labs: Abnormal Lab Results - Last 24 Hours (Table) 07/01/22 07/01/22 07/02/22 Range/Units 16:12 20:42 04:24 WBC 10.7 H (3.8-10.6) k/uL Hgb 12.5 L (13.0-17.5) gm/dL Hct 38.7 L (39.0-53.0) % Carbon Dioxide (22-30) mmol/L Glucose (74-99) mg/dL POC Glucose (mg/dL) 158 H 157 H (70-110) mg/dL 07/02/22 07/02/22 07/02/22 Range/Units 04:24 06:14 11:10 WBC (3.8-10.6) k/uL Hgb (13.0-17.5) gm/dL Hct (39.0-53.0) % Carbon Dioxide 32 H (22-30) mmol/L Glucose 131 H (74-99) mg/dL POC Glucose (mg/dL) 125 H 129 H (70-110) mg/dL Assessment and Plan Assessment: impression: Status post two-vessel CABG with OBREGON to LAD and radial to ramus intermedius. Postoperative day #8 history of cardiomyopathy and LV dysfunction and ejection fraction is 30-35%. History of cardiac thrombus. Peripheral vessel occlusive disease severe COPD and FEV1 of 35% benign essential hypertension dyslipidemia type 2 diabetes rheumatoid arthritis small right-sided pneumothorax, expected. recommendation: Continue incentive spirometry aspirin statins and Plavix and beta blockers Possible discharge planning home in the next 24 hours. continue bronchodilators continue to ambulate We'll continue to follow Time with Patient: Less than 30
[2022-07-02] MEDS: amLODIPine 2.5 MG TAB PO SCH (11:40)
--- NOTE | 2022-07-02 11:46 | P.PN ---
Subjective Progress Note Date: 07/02/22 Principal diagnosis: Coronary artery disease. Past medical history significant for hypertension, hyperlipidemia, chronic systolic heart failure/ischemic cardiomyopathy, type 2 diabetes, rheumatoid arthritis, current tobacco dependence, severe COPD, marijuana use, peripheral arterial disease, recent Covid infection in May 2022 POD #8 off-pump coronary artery bypass grafting 2, left internal thoracic artery to the left anterior descending artery, left radial artery from the aorta to the ramus intermedius, left atrial appendage ligation with a 35 mm AtriClip, endoscopic left radial artery harvest, epi-aortic ultrasound and intraoperative transesophageal echocardiogram, graft flow measurements using the [employer] system. The patient was seen and examined in follow-up today 07/02/2022 at his bedside in the intensive care unit. The patient does have transfer orders in place but is waiting a bed on cardiac stepdown unit. He is sitting up to the bedside chair, is awake, alert, oriented 3 and is in no acute distress. Denies any complaints of pain or shortness of breath at this time and reports this is the best he is felt in a while. Remains hemodynamically stable and is currently on no inotropic or pressor support. Oxygen saturations are 95% on room air and he is achieving 1250 mL on his incentive spirometry with encouragement. He reports he has been up ambulating in the intensive care unit hallway with standby assistance from nursing and therapy staff and tolerating well. His mediastinal chest tube was removed without incident yesterday. Chest x-ray was reviewed with the report showing stable bilateral pneumothoraces. Objective - Vital Signs Vital signs: Vital Signs Temp 98.2 F 07/02/22 04:00 Pulse 76 07/02/22 08:17 Resp 21 07/02/22 04:00 BP 120/76 07/02/22 04:00 Pulse Ox 95 07/02/22 08:06 FiO2 40 06/24/22 16:42 Intake & Output 07/01/22 07/02/22 07/02/22 18:59 06:59 18:59 Intake Total 250 Output Total 2950 800 Balance -2950 -550 Weight 89.4 kg Intake: Oral 250 Output: Urine 2950 800 Other: Voiding Method Urinal Urinal # Voids 1 2 # Bowel Movements 11 ABP, PAP, CO, CI - Last Documented Arterial Blood Pressure 109/49 Pulmonary Artery Pressure 37/15 Cardiac Output 8 Cardiac Index 4.1 - Exam CONSTITUTIONAL: Appears comfortable, cooperative, no acute distress. RESPIRATORY: Lungs sounds diminished bilaterally. No wheezes, rhonchi or crackles. Respirations are symmetrical, nonlabored. Currently on room air with oxygen saturation 95%. Able to achieve 1250 mL on his incentive spirometry. Strong cough. 2CARDIOVASCULAR: S1, S2 present. Bedside telemetry showing normal sinus rhythm heart rate 78 BPM. Sternum stable. Palpable peripheral pulses bilaterally. No calf pain or tenderness noted. Heart hugger in place with patient demonstrating appropriate use. Antiembolism stockings, SCDs present. GASTROINTESTINAL: Abdomen soft, nontender, nondistended. Active bowel sounds present 4 quadrants. Tolerating clear liquid diet. Passing flatus. Bowel movement today 07/02/2022. GENITOURINARY: Continues to void. 400 mL of urine output in the last 8 hours. INTEGUMENTARY: Skin is warm and dry with no evidence of clubbing or cyanosis. Midline sternal incision well approximated and covered with dry intact dressing. Left radial site well approximated without redness or drainage. NEUROLOGIC: Cranial nerves II through XII intact. No focal deficits. MUSKULOSKELETAL: Able to move all extremities, strength equal bilaterally, gait normal. PSYCHIATRIC: Alert and oriented to person place and time, appropriate affect, intact judgment and insight. - Allied health notes Allied health notes reviewed: nursing - Labs CBC & Chem 7: 07/02/22 04:24 07/02/22 04:24 Labs: Abnormal Lab Results - Last 24 Hours (Table) 07/01/22 07/01/22 07/01/22 Range/Units 11:19 16:12 20:42 WBC (3.8-10.6) k/uL Hgb (13.0-17.5) gm/dL Hct (39.0-53.0) % Carbon Dioxide (22-30) mmol/L Glucose (74-99) mg/dL POC Glucose (mg/dL) 161 H 158 H 157 H (70-110) mg/dL 07/02/22 07/02/22 07/02/22 Range/Units 04:24 04:24 06:14 WBC 10.7 H (3.8-10.6) k/uL Hgb 12.5 L (13.0-17.5) gm/dL Hct 38.7 L (39.0-53.0) % Carbon Dioxide 32 H (22-30) mmol/L Glucose 131 H (74-99) mg/dL POC Glucose (mg/dL) 125 H (70-110) mg/dL - Imaging and Cardiology Chest x-ray: report reviewed, image reviewed Assessment and Plan Assessment: 1. Coronary artery disease, status post 2 vessel off pump CABG 2. History of hypertension 3. Hyperlipidemia, treated, cholesterol 194, LDL 113, triglycerides 159 4. Chronic systolic heart failure/ischemic cardiomyopathy, EF 25-30%, improved postoperative 40-45% 5. Chronic LV thrombus, on [facility] outpatient for anticoagulation 6. Type 2 diabetes, preoperative hemoglobin A1c 7.8% 7. Rheumatoid arthritis, recent flareup 8. Current tobacco dependence 9. Severe COPD, preoperative FEV1 35% of predicted 10. Marijuana use 11. Peripheral arterial disease, status post stenting of the proximal and mid left SFA, atherectomy of the left SFA, IVUS of the left SFA, balloon angioplasty of the left popliteal completed by Dr. Anne 05/01/2022 12. Recent Covid infection in May 2022, vaccinated not boosted Plan: 1. Continue aspirin, statin, Plavix, and beta miller. Will increase metoprolol tartrate as tolerated. Continue Lisinopril 5 mg by mouth twice a day for afterload reduction with hold parameters. 2. Continue amiodarone for atrial fibrillation prophylaxis. Amiodarone will be decreased to 400 mg by mouth daily on 07/03/2022. 3. Amlodipine 2.5 mg by mouth daily for radial artery spasm prophylaxis. 4. Encourage incentive spirometry use 10 times every hour while awake. Bronchodilators per pulmonology. 5. Will monitor daily labs and chest x-rays. Electrolyte replacement per protocol. 6. Increase activity, ambulate as tolerated. PT/OT/cardiac rehab following. 7. GI/DVT prophylaxis 8. Pain control per current medication regimen. 9. Insulin management per internal medicine. Patient is diabetic with elevated hemoglobin A1c of 7.1% preoperatively, needs tight blood sugar control to promote healing and prevent infection. 10. Smoking cessation counseling and education provided, patient is urged to quit smoking completely. 11. Discharge planning is in place, anticipate discharge home with home health care in the next 24 hours. 12. Transfer to third floor cardiac stepdown unit when bed available. 13. More recommendations to follow based on patient's clinical course. Time with Patient: Greater than 30
[2022-07-02 16:36] LABS: Glucose,Whole Blood 174 mg/dL (70-110)
--- NOTE | 2022-07-02 19:39 | P.PN ---
Subjective Progress Note Date: 07/01/22 Humberto Taveras, is a 61-year-old male patient of Dr. Engel who was admitted to [facility] by Dr. Victor M Walters, and underwent two-vessel coronary artery bypass graft surgery on 06/24/2022, patient was admitted to intensive care unit post surgery, consultation was requested for medical man agement while hospitalized. Past medical history is significant for history of hypertension, history of hyperlipidemia, history of diabetes mellitus, history of chronic obstructive pulmonary disease, history of peripheral arterial disease , history of rheumatoid arthritis history of congestive heart failure and history of coronary artery disease. On review of systems patient is alert and oriented 3 in no apparent distress he is sitting up in a chair he is complaining of chest wall pain at the surgical site and stating he cannot get comfortable otherwise he denies any complaints there is no fever or chills no headache or dizziness no shortness of breath no cough no nausea or vomiting no abdominal pain no diarrhea no blood in the stools no burning with urination no frequency or urgency no hematuria. There is no weakness or numbness in any of the extremities there is no change in vision s peech or gait on 06/26/2022 patient is alert and oriented 3 currently sitting up in chair postop day 2. Chest tubes remain in place. Vital signs temp 98.2, heart rate 95, respiratory rate 17, blood pressure 109/66 with a pulse ox of 94% on 2 L. At this time patient denies chest pain or shortness breath. Denies nausea vomiting or diarrhea. Denies any urinary burning or frequency. On 06/27/2022 patient was seen and examined in the ICU he is alert and oriented 3 in no apparent distress, today is postoperative day #3 there is no fever or chills no headache or dizziness no chest pain no shortness of breath no cough no nausea or vomiting no abdominal pain no diarrhea and no urinary symptoms vital exam reveals a temperature of 98.1 pulse 94 respiration 18 and blood pressure 106/82 pulse ox 91% on room air patient is sitting up in a chair and is able to ambulate a few steps around the bed. Medication and labs were reviewed. On 06/28/2022 patient's alert and oriented 3. Patient remains in the intensive care. Patient is currently postop day 4. Patient currently using incentive spi rometer. Patient reports he has been up ambulating. Her vital signs temp 97.7, heart rate 89, respiratory rate 23, blood pressure 109/66 with a pulse ox of 91% on room air. This time patient denies chest pain or shortness of breath. Patient denies nausea vomiting or diarrhea. Patient denies any urinary burning or frequency On 06/29/2022 patient was seen and examined in the ICU he is alert and oriented 3 in no apparent distress, today is postoperative day #5 there is no fever or chills no headache or dizziness no chest pain no shortness of breath no cough no nausea or vomiting no abdominal pain no diarrhea and no urinary symptoms. Vital examination reveals a temperature of 97.6 pulse 85 respiration 20 blood pressure 120/69 pulse ox 95% on room air white blood count is 9.8 hemoglobin 13.0 platelet count 346 BUN 13 creatinine 0.85 On 06/30/2022 patient is alert and oriented 3. Patient remains in the intensive care unit awaiting bed availability and selective care. Patient is postop day 6. Patient is still complaining of mild discomfort around surgical site. Patient has been up ambulating incentive spirometer. Patient reports he's had 3 bowel movements. Patient is urinating adequately. This time patient denies shortness of breath. Patient denies nausea vomiting or diarrhea. Patient denies any urinary burning or frequency On 07/01/2022 patient was seen and examined in the ICU he is alert and oriented 3 in no apparent distress, today is postoperative day #7 there is no fever or chills no headache or dizziness no chest pain no shortness of breath no cough no nausea or vomiting no abdominal pain no diarrhea and no urinary symptoms. Vital examination reveals a temperature of 97.6 pulse 80 respiration 20 blood pressure 120/70 pulse ox 95% on room air white blood count is 9.8 hemoglobin 13.0 platelet count 346 BUN 13 creatinine 0.85 Objective - Vital Signs Vital signs: Vital Signs Temp 97.7 F 07/01/22 16:00 Pulse 79 07/01/22 16:00 Resp 23 07/01/22 16:00 BP 104/64 07/01/22 16:00 Pulse Ox 995 H 07/01/22 16:00 FiO2 40 06/24/22 16:42 Intake & Output 06/30/22 07/01/22 07/01/22 18:59 06:59 18:59 Intake Total 250 Output Total 321 577 6232 Balance -350 -500 -2550 Weight 90.3 kg Intake: Oral 250 Output: Chest Tube Drainage 30 50 Chest Tube Mediastinal 30 50 Urine 107 248 6339 Other: Voiding Method Urinal Urinal Urinal # Voids 1 1 1 # Bowel Movements 1 11 ABP, PAP, CO, CI - Last Documented Arterial Blood Pressure 109/49 Pulmonary Artery Pressure 37/15 Cardiac Output 8 Cardiac Index 4.1 - Exam In general patient is alert and oriented x 3 in no distress HEENT head normocephalic and atraumatic Neck is supple no JVD no goiter no lymphadenopathy no carotid bruit Chest examination reveals a scattered coarse crackles bilaterally patient has chest tubes in Cardiac exam reveals regular heart sounds S1 and S2 no gallops no murmurs Abdomen is soft nontender no organomegaly with normal bowel sounds Extremity exam reveals no edema no cyanosis or clubbing Neurological examination reveals no gross focal deficits - Labs CBC & Chem 7: 07/02/22 04:24 07/02/22 04:24 Labs: Abnormal Lab Results - Last 24 Hours (Table) 06/30/22 07/01/22 07/01/22 Range/Units 20:29 06:08 06:33 Sodium 136 L (137-145) mmol/L Carbon Dioxide 32 H (22-30) mmol/L Glucose 128 H (74-99) mg/dL POC Glucose (mg/dL) 146 H 132 H (70-110) mg/dL Total Protein 6.1 L (6.3-8.2) g/dL 07/01/22 07/01/22 Range/Units 11:19 16:12 Sodium (137-145) mmol/L Carbon Dioxide (22-30) mmol/L Glucose (74-99) mg/dL POC Glucose (mg/dL) 161 H 158 H (70-110) mg/dL Total Protein (6.3-8.2) g/dL Assessment and Plan Plan: Coronary artery disease status post 2 vessel coronary artery bypass graft surgery Underlying history of congestive heart failure with cardiomyopathy with decreased ejection fraction to 3035 percent History of hypertension History of hyperlipidemia History of peripheral arterial disease History of COPD History of diabetes mellitus currently maintained on insulin drip History of rheumatoid arthritis History of cardiac thrombus maintained on Eliquis as outpatient prior to admission. At this time patient was seen and examined Medications and labs reviewed Will continue to follow closely
--- NOTE | 2022-07-02 19:41 | P.PN ---
Subjective Progress Note Date: 07/02/22 Humberto Taveras, is a 61-year-old male patient of Dr. Engel who was admitted to [facility] by Dr. Victor M Walters, and underwent two-vessel coronary artery bypass graft surgery on 06/24/2022, patient was admitted to intensive care unit post surgery, consultation was requested for medical man agement while hospitalized. Past medical history is significant for history of hypertension, history of hyperlipidemia, history of diabetes mellitus, history of chronic obstructive pulmonary disease, history of peripheral arterial disease , history of rheumatoid arthritis history of congestive heart failure and history of coronary artery disease. On review of systems patient is alert and oriented 3 in no apparent distress he is sitting up in a chair he is complaining of chest wall pain at the surgical site and stating he cannot get comfortable otherwise he denies any complaints there is no fever or chills no headache or dizziness no shortness of breath no cough no nausea or vomiting no abdominal pain no diarrhea no blood in the stools no burning with urination no frequency or urgency no hematuria. There is no weakness or numbness in any of the extremities there is no change in vision s peech or gait on 06/26/2022 patient is alert and oriented 3 currently sitting up in chair postop day 2. Chest tubes remain in place. Vital signs temp 98.2, heart rate 95, respiratory rate 17, blood pressure 109/66 with a pulse ox of 94% on 2 L. At this time patient denies chest pain or shortness breath. Denies nausea vomiting or diarrhea. Denies any urinary burning or frequency. On 06/27/2022 patient was seen and examined in the ICU he is alert and oriented 3 in no apparent distress, today is postoperative day #3 there is no fever or chills no headache or dizziness no chest pain no shortness of breath no cough no nausea or vomiting no abdominal pain no diarrhea and no urinary symptoms vital exam reveals a temperature of 98.1 pulse 94 respiration 18 and blood pressure 106/82 pulse ox 91% on room air patient is sitting up in a chair and is able to ambulate a few steps around the bed. Medication and labs were reviewed. On 06/28/2022 patient's alert and oriented 3. Patient remains in the intensive care. Patient is currently postop day 4. Patient currently using incentive spi rometer. Patient reports he has been up ambulating. Her vital signs temp 97.7, heart rate 89, respiratory rate 23, blood pressure 109/66 with a pulse ox of 91% on room air. This time patient denies chest pain or shortness of breath. Patient denies nausea vomiting or diarrhea. Patient denies any urinary burning or frequency On 06/29/2022 patient was seen and examined in the ICU he is alert and oriented 3 in no apparent distress, today is postoperative day #5 there is no fever or chills no headache or dizziness no chest pain no shortness of breath no cough no nausea or vomiting no abdominal pain no diarrhea and no urinary symptoms. Vital examination reveals a temperature of 97.6 pulse 85 respiration 20 blood pressure 120/69 pulse ox 95% on room air white blood count is 9.8 hemoglobin 13.0 platelet count 346 BUN 13 creatinine 0.85 On 06/30/2022 patient is alert and oriented 3. Patient remains in the intensive care unit awaiting bed availability and selective care. Patient is postop day 6. Patient is still complaining of mild discomfort around surgical site. Patient has been up ambulating incentive spirometer. Patient reports he's had 3 bowel movements. Patient is urinating adequately. This time patient denies shortness of breath. Patient denies nausea vomiting or diarrhea. Patient denies any urinary burning or frequency On 07/01/2022 patient was seen and examined in the ICU he is alert and oriented 3 in no apparent distress, today is postoperative day #7 there is no fever or chills no headache or dizziness no chest pain no shortness of breath no cough no nausea or vomiting no abdominal pain no diarrhea and no urinary symptoms. Vital examination reveals a temperature of 97.6 pulse 80 respiration 20 blood pressure 120/70 pulse ox 95% on room air white blood count is 9.8 hemoglobin 13.0 platelet count 346 BUN 13 creatinine 0.85 On 07/02/2022 patient was seen and examined in the ICU he is alert and oriented 3 in no apparent distress, he is sitting in a chair he denies any chest pain or shortness of breath there is no fever or chills no headache or dizziness he has occasional cough no shortness of breath x-ray revealed small pneumothorax on the right side pulmonary are following closely Objective - Vital Signs Vital signs: Vital Signs Temp 98.2 F 07/02/22 16:00 Pulse 76 01/31/23 19:13 Resp 20 07/02/22 16:00 BP 112/72 07/02/22 16:00 Pulse Ox 95 07/02/22 16:00 FiO2 40 06/24/22 16:42 Intake & Output 07/02/22 07/02/22 07/03/22 06:59 18:59 06:59 Intake Total 250 Output Total 800 450 Balance -550 -450 Weight 89.4 kg Intake: Oral 250 Output: Urine 800 450 Other: Voiding Method Urinal Toilet # Voids 2 2 ABP, PAP, CO, CI - Last Documented Arterial Blood Pressure 109/49 Pulmonary Artery Pressure 37/15 Cardiac Output 8 Cardiac Index 4.1 - Exam In general patient is alert and oriented x 3 in no distress HEENT head normocephalic and atraumatic Neck is supple no JVD no goiter no lymphadenopathy no carotid bruit Chest examination reveals a scattered coarse crackles bilaterally patient has chest tubes in Cardiac exam reveals regular heart sounds S1 and S2 no gallops no murmurs Abdomen is soft nontender no organomegaly with normal bowel sounds Extremity exam reveals no edema no cyanosis or clubbing Neurological examination reveals no gross focal deficits - Labs CBC & Chem 7: 07/02/22 04:24 07/02/22 04:24 Labs: Abnormal Lab Results - Last 24 Hours (Table) 07/01/22 07/02/22 07/02/22 Range/Units 20:42 04:24 04:24 WBC 10.7 H (3.8-10.6) k/uL Hgb 12.5 L (13.0-17.5) gm/dL Hct 38.7 L (39.0-53.0) % Carbon Dioxide 32 H (22-30) mmol/L Glucose 131 H (74-99) mg/dL POC Glucose (mg/dL) 157 H (70-110) mg/dL 07/02/22 07/02/22 07/02/22 Range/Units 06:14 11:10 16:34 WBC (3.8-10.6) k/uL Hgb (13.0-17.5) gm/dL Hct (39.0-53.0) % Carbon Dioxide (22-30) mmol/L Glucose (74-99) mg/dL POC Glucose (mg/dL) 125 H 129 H 174 H (70-110) mg/dL Assessment and Plan Plan: Coronary artery disease status post 2 vessel coronary artery bypass graft surgery Underlying history of congestive heart failure with cardiomyopathy with decreased ejection fraction to 3035 percent History of hypertension History of hyperlipidemia History of peripheral arterial disease History of COPD History of diabetes mellitus currently maintained on insulin drip History of rheumatoid arthritis History of cardiac thrombus maintained on Eliquis as outpatient prior to admission. At this time patient was seen and examined Medications and labs reviewed Will continue to follow closely
--- NOTE | 2022-07-02 19:42 | P.PN ---
Subjective Progress Note Date: 06/29/22 Humberto Taveras, is a 61-year-old male patient of Dr. Engel who was admitted to [facility] by Dr. Victor M Walters, and underwent two-vessel coronary artery bypass graft surgery on 06/24/2022, patient was admitted to intensive care unit post surgery, consultation was requested for medical man agement while hospitalized. Past medical history is significant for history of hypertension, history of hyperlipidemia, history of diabetes mellitus, history of chronic obstructive pulmonary disease, history of peripheral arterial disease , history of rheumatoid arthritis history of congestive heart failure and history of coronary artery disease. On review of systems patient is alert and oriented 3 in no apparent distress he is sitting up in a chair he is complaining of chest wall pain at the surgical site and stating he cannot get comfortable otherwise he denies any complaints there is no fever or chills no headache or dizziness no shortness of breath no cough no nausea or vomiting no abdominal pain no diarrhea no blood in the stools no burning with urination no frequency or urgency no hematuria. There is no weakness or numbness in any of the extremities there is no change in vision s peech or gait on 06/26/2022 patient is alert and oriented 3 currently sitting up in chair postop day 2. Chest tubes remain in place. Vital signs temp 98.2, heart rate 95, respiratory rate 17, blood pressure 109/66 with a pulse ox of 94% on 2 L. At this time patient denies chest pain or shortness breath. Denies nausea vomiting or diarrhea. Denies any urinary burning or frequency. On 06/27/2022 patient was seen and examined in the ICU he is alert and oriented 3 in no apparent distress, today is postoperative day #3 there is no fever or chills no headache or dizziness no chest pain no shortness of breath no cough no nausea or vomiting no abdominal pain no diarrhea and no urinary symptoms vital exam reveals a temperature of 98.1 pulse 94 respiration 18 and blood pressure 106/82 pulse ox 91% on room air patient is sitting up in a chair and is able to ambulate a few steps around the bed. Medication and labs were reviewed. On 06/28/2022 patient's alert and oriented 3. Patient remains in the intensive care. Patient is currently postop day 4. Patient currently using incentive spi rometer. Patient reports he has been up ambulating. Her vital signs temp 97.7, heart rate 89, respiratory rate 23, blood pressure 109/66 with a pulse ox of 91% on room air. This time patient denies chest pain or shortness of breath. Patient denies nausea vomiting or diarrhea. Patient denies any urinary burning or frequency On 06/29/2022 patient was seen and examined in the ICU he is alert and oriented 3 in no apparent distress, today is postoperative day #5 there is no fever or chills no headache or dizziness no chest pain no shortness of breath no cough no nausea or vomiting no abdominal pain no diarrhea and no urinary symptoms. Vital examination reveals a temperature of 97.6 pulse 85 respiration 20 blood pressure 120/69 pulse ox 95% on room air white blood count is 9.8 hemoglobin 13.0 platelet count 346 BUN 13 creatinine 0.85 Objective - Vital Signs Vital signs: Vital Signs Temp 97.6 F 06/29/22 08:00 Pulse 82 06/29/22 11:25 Resp 16 06/29/22 11:25 BP 120/69 06/29/22 08:00 Pulse Ox 95 06/29/22 08:00 FiO2 40 06/24/22 16:42 Intake & Output 06/28/22 06/29/22 06/29/22 18:59 06:59 18:59 Intake Total 970 Output Total 770 920 Balance 200 -920 Weight 90.9 kg Intake: Oral 550 Tube Feeding 420 Output: Chest Tube Drainage 70 70 Chest Tube Mediastinal 70 70 Urine 700 850 Other: Voiding Method Urinal Urinal Urinal # Voids 1 # Bowel Movements 1 ABP, PAP, CO, CI - Last Documented Arterial Blood Pressure 109/49 Pulmonary Artery Pressure 37/15 Cardiac Output 8 Cardiac Index 4.1 - Exam In general patient is alert and oriented x 3 in no distress HEENT head normocephalic and atraumatic Neck is supple no JVD no goiter no lymphadenopathy no carotid bruit Chest examination reveals a scattered coarse crackles bilaterally patient has chest tubes in Cardiac exam reveals regular heart sounds S1 and S2 no gallops no murmurs Abdomen is soft nontender no organomegaly with normal bowel sounds Extremity exam reveals no edema no cyanosis or clubbing Neurological examination reveals no gross focal deficits - Labs CBC & Chem 7: 06/29/22 07:00 06/29/22 07:00 Labs: Abnormal Lab Results - Last 24 Hours (Table) 06/28/22 06/28/22 06/29/22 Range/Units 16:07 20:11 06:17 Carbon Dioxide (22-30) mmol/L Glucose (74-99) mg/dL POC Glucose (mg/dL) 150 H 188 H 135 H (70-110) mg/dL 06/29/22 06/29/22 Range/Units 07:00 11:53 Carbon Dioxide 33 H (22-30) mmol/L Glucose 141 H (74-99) mg/dL POC Glucose (mg/dL) 133 H (70-110) mg/dL Microbiology - Last 24 Hours (Table) 06/26/22 11:45 Gram Stain - Final Sputum Sputum Culture - Final Assessment and Plan Plan: Coronary artery disease status post 2 vessel coronary artery bypass graft surgery Underlying history of congestive heart failure with cardiomyopathy with decreased ejection fraction to 3035 percent History of hypertension History of hyperlipidemia History of peripheral arterial disease History of COPD History of diabetes mellitus currently maintained on insulin drip History of rheumatoid arthritis History of cardiac thrombus maintained on Eliquis as outpatient prior to admission. At this time patient was seen and examined Medications and labs reviewed Will continue to follow closely
[2022-07-02 20:12] LABS: Glucose,Whole Blood 158 mg/dL (70-110)
[2022-07-02] MEDS: SENNOSIDES-DOCUSATE SODIUM 1 EACH TAB PO SCH (20:16)
[2022-07-03] MEDS: HEPARIN SODIUM,PORCINE/PF 5,000 UNIT/0.5 ML SYRINGE SQ SCH ×2 (00:15→08:31)
[2022-07-03 06:20] LABS: Glucose,Whole Blood 131 mg/dL (70-110)
[2022-07-03] MEDS: PANTOPRAZOLE 40 MG TABLET PO SCH (06:46)
[2022-07-03] MEDS: INSULIN ASPART (NovoLOG) 100 UNIT/ML VIAL SQ SCH (06:49)
[2022-07-03 07:07] LABS: HCT 41.3 % (39.0-53.0); HGB 13.4 gm/dL (13.0-17.5); MCH 27.9 pg (25.0-35.0); MCHC 32.4 g/dL (31.0-37.0); MCV 86.2 fL (80.0-100.0); Mean Platelet Volume 7.3; Platelet Count 459 k/uL (150-450); RDW 14.2 % (11.5-15.5); WBC 10.9 k/uL (3.8-10.6)
[2022-07-03 07:35] LABS: African American GFR (CKD) >90 (>60 ml/min/1.73 sqM); Anion Gap 4 mmol/L; Blood Urea Nitrogen 13 mg/dL (9-20); Calcium 9.6 mg/dL (8.4-10.2); Carbon Dioxide 32 mmol/L (22-30); Chloride 102 mmol/L (98-107); Glucose 134 mg/dL (74-99); Non-African American GFR(CKD) 87 (>60 ml/min/1.73 sqM); Potassium 4.8 mmol/L (3.5-5.1); Sodium 138 mmol/L (137-145)
[2022-07-03] MEDS: IPRATROPIUM-ALBUTEROL 3 ML NEB INHALATION SCH ×2 (07:47→11:04)
[2022-07-03] MEDS: SYMBICORT 160-4.5 MCG INHALER INHALATION SCH (07:50)
[2022-07-03 08:12] VITALS: BP 102/58; RESP 18
[2022-07-03] MEDS: lisinopriL 5 MG TAB PO SCH (08:32)
[2022-07-03] MEDS: MONTELUKAST 10 MG TAB PO SCH (08:32)
[2022-07-03] MEDS: ASPIRIN 325 MG TAB PO SCH (08:32)
[2022-07-03] MEDS: CLOPIDOGREL 75 MG TAB PO SCH (08:32)
[2022-07-03] MEDS: ATORVASTATIN 80 MG TAB PO SCH (08:33)
[2022-07-03] MEDS: METOPROLOL TARTRATE 50 MG TAB PO SCH (08:33)
--- NOTE | 2022-07-03 08:42 | P.PN ---
Subjective PROGRESS NOTE The patient is a 61-year-old male who underwent CABG today. He has a known history of CAD, followed by Dr. Anne, history of PAD status post percutaneous revascularization and a history of cardiomyopathy. He underwent off-pump OBREGON t o the LAD and left radial to the ramus intermedius with closure of the left atrial appendage. He is intubated and sedated. Hemodynamically he is in sinus mechanism. He has a known history of severe cardiomyopathy with viability of the anterior wall by cardiac MRI. He has a history of diabetes, hypertension, hyperlipidemia and a history of chronic tobacco use. June 30: The patient complains of incisional chest discomfort and mild dyspnea. He denies any dizziness or palpitations. He denies any nausea. He continues to be in sinus mechanism. He continues to have a chest you. He has no evidence of atrial fibrillation. His blood pressure has been stable. He has been ambulating without much difficulty. 07/01 Patient seen and examined. He denies any chest pain or pressure. Denies any shortness breath. Air leak his slowly improve per nursing. Denies any lightheadedness or dizziness. 07/02 Patient seen and examined. Patient had chest tube removed and does have bilateral small pneumothoraxes. He states he feels very well and denies any chest pain or shortness breath. 07/03 Patient seen and examined. Patient sates he feels well. Repeat chest x-ray pending and small pneumothoraxes being managed by cardiothoracic surgery. Denies any chest pain or pressure. PHYSICAL EXAMINATION: Vitals reviewed LUNGS: Clear to auscultation with few crackles at base HEART: Regular rate and rhythm, S1, S2. No S3. systolic ejection murmur, no rub ABDOMEN: Soft, nontender, no organomegaly EXTREMETIES: No edema IMPRESSION: 1. Status post CABG, extubated, stable 2. Severe ischemic cardiomyopathy, no evidence of heart failure. 3. History of PAD 4. History of hypertension 5. History of diabetes 6. History of hyperlipidemia PLAN: Appears to be doing well from a cardiology standpoint. Defer further treatment of pneumothorax to cardiothoracic surgery. From a cardiology standpoint appears stable for discharge. Objective - Vital Signs Vital signs: Vital Signs Temp 97.6 F 07/03/22 08:00 Pulse 77 07/03/22 08:00 Resp 18 07/03/22 08:00 BP 102/58 07/03/22 08:00 Pulse Ox 97 07/03/22 08:00 FiO2 40 06/24/22 16:42 Intake & Output 07/02/22 07/03/22 07/03/22 18:59 06:59 18:59 Output Total 450 0 Balance -450 0 Output: Urine 450 0 Other: Voiding Method Toilet Toilet # Voids 2 ABP, PAP, CO, CI - Last Documented Arterial Blood Pressure 109/49 Pulmonary Artery Pressure 37/15 Cardiac Output 8 Cardiac Index 4.1 - Labs CBC & Chem 7: 07/03/22 06:22 07/03/22 06:22 Labs: Abnormal Lab Results - Last 24 Hours (Table) 07/02/22 07/02/22 07/02/22 Range/Units 11:10 16:34 20:09 WBC (3.8-10.6) k/uL Plt Count (150-450) k/uL Carbon Dioxide (22-30) mmol/L Glucose (74-99) mg/dL POC Glucose (mg/dL) 129 H 174 H 158 H (70-110) mg/dL 07/03/22 07/03/22 07/03/22 Range/Units 06:18 06:22 06:22 WBC 10.9 H (3.8-10.6) k/uL Plt Count 459 H (150-450) k/uL Carbon Dioxide 32 H (22-30) mmol/L Glucose 134 H (74-99) mg/dL POC Glucose (mg/dL) 131 H (70-110) mg/dL
--- NOTE | 2022-07-03 08:50 | XR ---
EXAMINATION TYPE: XR chest 1V portable DATE OF EXAM: 07/03/2022 COMPARISON: 07/02/2022 HISTORY: Postop TECHNIQUE: Single frontal view of the chest is obtained. FINDINGS: There is a small left apical pneumothorax measuring approximately 5%. Subcutaneous emphyse ma noted. There is a right-sided pneumothorax which is stable measuring approximately percent. Medias tinal drain been removed. Postsurgical changes with cardiomegaly, bilateral consolidation pleural eff usion. Atherosclerotic change aorta. Underlying COPD. IMPRESSION: Stable bilateral pneumothoraces greater on the right. Bilateral consolidation and small effusions
[2022-07-03] MEDS ORDERED: AMIODARONE 200 MG TAB PO SCH (09:00)
[2022-07-03] MEDS ORDERED: FUROSEMIDE 10 MG/ML 2 ML VIAL IV STA (09:23)
--- NOTE | 2022-07-03 10:13 | P.PN ---
Subjective Progress Note Date: 07/03/22 Humberto Taveras, is a 61-year-old male patient of Dr. Engel who was admitted to [facility] by Dr. Victor M Walters, and underwent two-vessel coronary artery bypass graft surgery on 06/24/2022, patient was admitted to intensive care unit post surgery, consultation was requested for medical man agement while hospitalized. Past medical history is significant for history of hypertension, history of hyperlipidemia, history of diabetes mellitus, history of chronic obstructive pulmonary disease, history of peripheral arterial disease , history of rheumatoid arthritis history of congestive heart failure and history of coronary artery disease. On review of systems patient is alert and oriented 3 in no apparent distress he is sitting up in a chair he is complaining of chest wall pain at the surgical site and stating he cannot get comfortable otherwise he denies any complaints there is no fever or chills no headache or dizziness no shortness of breath no cough no nausea or vomiting no abdominal pain no diarrhea no blood in the stools no burning with urination no frequency or urgency no hematuria. There is no weakness or numbness in any of the extremities there is no change in vision s peech or gait on 06/26/2022 patient is alert and oriented 3 currently sitting up in chair postop day 2. Chest tubes remain in place. Vital signs temp 98.2, heart rate 95, respiratory rate 17, blood pressure 109/66 with a pulse ox of 94% on 2 L. At this time patient denies chest pain or shortness breath. Denies nausea vomiting or diarrhea. Denies any urinary burning or frequency. On 06/27/2022 patient was seen and examined in the ICU he is alert and oriented 3 in no apparent distress, today is postoperative day #3 there is no fever or chills no headache or dizziness no chest pain no shortness of breath no cough no nausea or vomiting no abdominal pain no diarrhea and no urinary symptoms vital exam reveals a temperature of 98.1 pulse 94 respiration 18 and blood pressure 106/82 pulse ox 91% on room air patient is sitting up in a chair and is able to ambulate a few steps around the bed. Medication and labs were reviewed. On 06/28/2022 patient's alert and oriented 3. Patient remains in the intensive care. Patient is currently postop day 4. Patient currently using incentive spi rometer. Patient reports he has been up ambulating. Her vital signs temp 97.7, heart rate 89, respiratory rate 23, blood pressure 109/66 with a pulse ox of 91% on room air. This time patient denies chest pain or shortness of breath. Patient denies nausea vomiting or diarrhea. Patient denies any urinary burning or frequency On 06/29/2022 patient was seen and examined in the ICU he is alert and oriented 3 in no apparent distress, today is postoperative day #5 there is no fever or chills no headache or dizziness no chest pain no shortness of breath no cough no nausea or vomiting no abdominal pain no diarrhea and no urinary symptoms. Vital examination reveals a temperature of 97.6 pulse 85 respiration 20 blood pressure 120/69 pulse ox 95% on room air white blood count is 9.8 hemoglobin 13.0 platelet count 346 BUN 13 creatinine 0.85 n 07/01/2022 patient was seen and examined in the ICU he is alert and oriented 3 in no apparent distress, today is postoperative day #7 there is no fever or chills no headache or dizziness no chest pain no shortness of breath no cough no nausea or vomiting no abdominal pain no diarrhea and no urinary symptoms. Vital examination reveals a temperature of 97.6 pulse 80 respiration 20 blood pressure 120/70 pulse ox 95% on room air white blood count is 9.8 hemoglobin 13.0 platelet count 346 BUN 13 creatinine 0.85 On 07/02/2022 patient was seen and examined in the ICU he is alert and oriented 3 in no apparent distress, he is sitting in a chair he denies any chest pain or shortness of breath there is no fever or chills no headache or dizziness he has occasional cough no shortness of breath x-ray revealed small pneumothorax on the right side pulmonary are following closely On 07/03/2022 patient's alert and oriented 3. Patient is currently on stepdown cardiac unit. Per patient anticipate discharge today per cardiac thoracic surgery. X-ray was completed and reviewed per cardiac thoracic surgery. Patient reports he has been up ambulating. At this time patient denies chest pain or shortness of breath. Patient denies nausea vomiting or diarrhea. Patient denies any urinary burning or frequency Objective - Vital Signs Vital signs: Vital Signs Temp 97.6 F 07/03/22 08:00 Pulse 77 07/03/22 08:00 Resp 18 07/03/22 08:00 BP 102/58 07/03/22 08:00 Pulse Ox 97 07/03/22 08:00 FiO2 40 06/24/22 16:42 Intake & Output 07/02/22 07/03/22 07/03/22 18:59 06:59 18:59 Intake Total 540 Output Total 450 0 Balance -450 0 540 Intake: Oral 540 Output: Urine 450 0 Other: Voiding Method Toilet Toilet # Voids 2 ABP, PAP, CO, CI - Last Documented Arterial Blood Pressure 109/49 Pulmonary Artery Pressure 37/15 Cardiac Output 8 Cardiac Index 4.1 - Exam In general patient is alert and oriented x 3 in no distress HEENT head normocephalic and atraumatic Neck is supple no JVD no goiter no lymphadenopathy no carotid bruit Chest examination reveals a scattered coarse crackles bilaterally patient has chest tubes in Cardiac exam reveals regular heart sounds S1 and S2 no gallops no murmurs Abdomen is soft nontender no organomegaly with normal bowel sounds Extremity exam reveals no edema no cyanosis or clubbing Neurological examination reveals no gross focal deficits - Labs CBC & Chem 7: 07/03/22 06:22 07/03/22 06:22 Labs: Abnormal Lab Results - Last 24 Hours (Table) 07/02/22 07/02/22 07/02/22 Range/Units 11:10 16:34 20:09 WBC (3.8-10.6) k/uL Plt Count (150-450) k/uL Carbon Dioxide (22-30) mmol/L Glucose (74-99) mg/dL POC Glucose (mg/dL) 129 H 174 H 158 H (70-110) mg/dL 07/03/22 07/03/22 07/03/22 Range/Units 06:18 06:22 06:22 WBC 10.9 H (3.8-10.6) k/uL Plt Count 459 H (150-450) k/uL Carbon Dioxide 32 H (22-30) mmol/L Glucose 134 H (74-99) mg/dL POC Glucose (mg/dL) 131 H (70-110) mg/dL Assessment and Plan Plan: Coronary artery disease status post 2 vessel coronary artery bypass graft surgery Underlying history of congestive heart failure with cardiomyopathy with decreased ejection fraction to 3035 percent History of hypertension History of hyperlipidemia History of peripheral arterial disease History of COPD History of diabetes mellitus currently maintained on insulin drip History of rheumatoid arthritis History of cardiac thrombus maintained on Eliquis as outpatient prior to admission. At this time patient was seen and examined Medications and labs reviewed Will continue to follow closely anticipate d/c in the next 24-48 hours per cardiothoracic surgery
[2022-07-03] MEDS: amLODIPine 2.5 MG TAB PO SCH (10:52)
--- NOTE | 2022-07-03 11:06 | P.PN ---
Subjective Progress Note Date: 07/03/22 On 06/25/2022, the patient is postop day #1. The patient underwent two-vessel bypass surgery with OBREGON to LAD and radial artery to ramus intermedius. The patient was weaned off the mechanical ventilator and the patient was extubated initially to a BiPAP at a pressure of 10/5 cm of water and FiO2 of 40%. Subsequently, he was transitioned to nasal cannula which is running at 2 L/m and the pulse ox is currently 94%. Chest x-ray shows increased interstitial markings bilaterally, small effusion/atelectasis in the left lung base. [place]- [place] catheter is in a good location. There is no evidence of air leak. The patient has a right pleural left pleural chest tube and CHEST tubes is in order of 210 mL over the past 18 hours and the mediastinal chest tube is still present and operas in the order of 750 mL. Noted there is positive air leak within the mediastinal chest tube. Nevertheless, there is no evidence of any pneumomediastinum. There is no evidence of any pneumothorax. Hemodynamically, the patient is in normal sinus rhythm. He is on amiodarone drip at 0.5 mg/m. He was taken off the nitroglycerin drip. His cardiac output is at 4.7 with an index of 2.4. P artery pressures are 30/11. Urine output is in order of 50-100 mL an hour. WBC count is at 14.7 with a hemoglobin of 16.2. Renal function stable with a creatinine of 0.67 and a BUN of 9. Sodium is at 135. LFTs are normal. Blood sugars at 115 and the patient is currently on 2 units of insulin for blood sugar control. No other significant events otherwise for now. No focal neurological deficit. Pain is under adequate control. He is using the incentive spirometer falling approximately 750. On 06/26/2022, the patient is postoperative day #2. The patient remains on oxygen and he is currently on 2 L nasal cannula. He is using the incentive spirometer, falling to thousand. The mediastinal chest tube is in place and is showing air leak and output has been in the order of 340 mL over the past 24 hours. The pleural chest tubes are connected, no evidence of any active air leak and output has been 700 mL over the past 24 hours. Chest x-ray from today shows no evidence of any pneumothorax. Chest tubes are in good location. There is some mild interstitial edema. Hemodynamically, he is stable. His cardiac rhythm is sinus. He is off the amiodarone drip. He has been switched to oral amiodarone 400 mg by mouth twice a day.. He is also on aspirin, Plavix, and he was started also on metoprolol 25 mg by mouth 3 times a day. He is also on lisinopril 0.5 mg twice a day for blood pressure control. Adequate pain control for now. Blood work shows a WBC count 13.7, hemoglobin 12.6 and a platelet count of 213. BUN is at 9 with a creatinine of 0.7 and sodium levels of 134. No nausea. No emesis. No diarrhea. No other significant events overnight. Neurologically intact. 06/27/2022, the patient is postop day #3. Is currently on room air oxygen. His falling approximately 1500 on the incentive spirometer. He does have the pleural chest tubes and mediastinal chest tube. Ultrasound of the chest tube has been 80 mL over the past 24 hours and output from the mediastinal chest tube is in the order of 50 mL over the past 24 hours. There is air leak only in the mediastinal chest tube. Meanwhile, the chest x-ray from today shows some atelectatic changes and small effusion in the lung bases. Chest tubes are still in good location. No evidence of any pneumothorax. He was given a dose of Lasix yesterday. He is hemodynamically stable. His cardiac rhythm is sinus. His labs from today show a WBC count of 10.3 hemoglobin is 12.3 sodium is at 135, BUN is at 30 with a creatinine of 0.7. He is on aspirin. He is on Plavix. He is on metoprolol started at a dose of 25 mg 3 times a day. He is also on lisinopril 2.5 mg by mouth twice a day. He is on high-dose statins and he is taking Lipitor 80 mg by mouth daily. He is sitting up on a chair. Didn't limited amount of ambulation. No other complaints otherwise for now. We'll discuss with the surgical team the possibility of removing the pleural chest tubes. reevaluated today on 06/28/2022, patient is now postoperative day #4. Patient had a two-vessel bypass, OBREGON to LAD and radial artery to ramus intermedius. Patient is doing well, relatively asymptomatic, he is on room air, not receiving any infusions, doing well with incentive spirometry, his chest tube continues to have some air leak, he had 60 mL of output over the last 24 hours. Achieving about 1500 mL with incentive spirometer. CBC is relatively normal basic metabolic profile is normal blood sugar is 133 but chest x-ray showed minimal basilar atelectasis, Patient was reevaluated today on 06/29/2022 patient is now postoperative day #5. Had two-vessel bypass, OBREGON to LAD and radial artery to ramus intermedius. Patient is doing great, he is on room air, not in any distress, continues to have air leak in the chest tube. Chest x-ray is basically unremarkable except for postoperative changes and atelectasis. CBC is normal basic metabolic profile is normal renal profile is normal patient was reevaluated today on 06/30, agent is now postoperative day #6. He is off pump coronary artery bypass grafting 2, OBREGON to LAD and left radial artery from the aorta to the ramus intermedius. Overall the patient is continues to do well, however he continues to have a right-sided pneumothorax, and his chest tube was placed back on suctioning. Continues to have air leak in the mediastinal chest tube, intermittent leak is present. He had serosanguineous drainage 1 50 mL in the last 24 hours. And the chest x-ray showed a small right-sided pneumothorax.hemodynamically patient is doing well, he is actually on room air, afebrile, vital signs are stable.labs today including CBC and basic metabolic profile are normal Reevaluated today on 07/01/22, patient remains in the ICU, continues to have a bit of any air leak from his mediastinal chest tube, it remains in place, and it is to water seal. No evidence of pneumothorax noted today. Chest x-ray showed a small left pleural effusion and mild atelectasis, did not even see the pneumothorax on the chest x-ray today. Clinically the patient is doing well, remains relatively asymptomatic. Labs from today are unremarkable including normal CBC and normal basic metabolic profile Reevaluated today on 07/02/22, patient is sitting at a bedside chair, in no distress, his mediastinal chest tube has been removed, small pneumothorax is noted on the right side, negligible pneumothorax. Medically the patient is feeling great, asymptomatic, and I believe the plan is to discharge the patient home in the next 24 hours. Labs today are basically unremarkable including CBC and basic metabolic profile The patient is seen today 07/03/2022 in follow-up on the selective care unit. He is currently sitting up in chair at the bedside. Awake and alert in no acute distress. He denies any worsening shortness of breath, cough or congestion. White count 10.9. Hemoglobin 13.4. Sodium 138. Potassium 4.8. Bicarb 32. BUN 13. Creatinine 0.96. Glucose 134. He is continued on Symbicort and DuoNeb inhalations. Continues to work well with the incentive spirometer. He was given Lasix 20 mg IVP 1. Heparin for DVT prophylaxis. Chest x-ray reveals stable bilateral very small pneumothoraces greater on the right. Bilateral consolidation and small effusions. Subcutaneous emphysema noted. Objective - Vital Signs Vital signs: Vital Signs Temp 97.6 F 07/03/22 08:00 Pulse 77 07/03/22 08:00 Resp 18 07/03/22 08:00 BP 102/58 07/03/22 08:00 Pulse Ox 97 07/03/22 08:00 FiO2 40 06/24/22 16:42 Intake & Output 07/02/22 07/03/22 07/03/22 18:59 06:59 18:59 Intake Total 540 Output Total 450 0 Balance -450 0 540 Intake: Oral 540 Output: Urine 450 0 Other: Voiding Method Toilet Toilet # Voids 2 ABP, PAP, CO, CI - Last Documented Arterial Blood Pressure 109/49 Pulmonary Artery Pressure 37/15 Cardiac Output 8 Cardiac Index 4.1 - Exam GENERAL EXAM: Alert, active, very pleasant 61-year-old male, on room air, comfortable in no apparent distress. HEAD: Normocephalic. EYES: Normal reaction of pupils, equal size. NOSE: Clear with pink turbinates. THROAT: No erythema or exudates. NECK: No masses, no JVD. CHEST: Sternal dressing dry and intact. Heart hugger in place. LUNGS: Equal air entry with faint crackles in the posterior bases. CVS: S1 and S2 normal with no audible murmur, regular rhythm. ABDOMEN: No hepatosplenomegaly, normal bowel sounds, no guarding or rigidity. SPINE: No scoliosis or deformity SKIN: No rashes CENTRAL NERVOUS SYSTEM: No focal deficits, tone is normal in all 4 extremities. EXTREMITIES: There is no peripheral edema. No clubbing, no cyanosis. Peripheral pulses are intact. - Labs CBC & Chem 7: 07/03/22 06:22 07/03/22 06:22 Labs: Abnormal Lab Results - Last 24 Hours (Table) 07/02/22 07/02/22 07/02/22 Range/Units 11:10 16:34 20:09 WBC (3.8-10.6) k/uL Plt Count (150-450) k/uL Carbon Dioxide (22-30) mmol/L Glucose (74-99) mg/dL POC Glucose (mg/dL) 129 H 174 H 158 H (70-110) mg/dL 07/03/22 07/03/22 07/03/22 Range/Units 06:18 06:22 06:22 WBC 10.9 H (3.8-10.6) k/uL Plt Count 459 H (150-450) k/uL Carbon Dioxide 32 H (22-30) mmol/L Glucose 134 H (74-99) mg/dL POC Glucose (mg/dL) 131 H (70-110) mg/dL Assessment and Plan Assessment: Coronary artery disease status post two-vessel coronary artery bypass grafting with a OBREGON to the LAD and a radial to the ramus intermedius. History of cardiomyopathy and LV dysfunction with ejection fraction 3035% History of cardiac thrombus Peripheral vascular occlusive disease History of severe COPD with FEV1 35% of predicted Hypertension Hyperlipidemia Diabetes mellitus, type II Rheumatoid arthritis Plan: The patient was seen and evaluated Chest x-ray, medications and labs reviewed Received Lasix 20 mg IVP 1 Stable and on room air Plan is for discharge today Follow-up in our office in 1 week I have personally seen and examined the patient, performed the documentation and the assessment and plan as written. Number of minutes spent on the visit: 10.
[2022-07-03] MEDS ORDERED: ALBUTEROL HFA INHALER INHALATION PRN (11:15)
[2022-07-03 11:40] LABS: Glucose,Whole Blood 151 mg/dL (70-110)
[2022-07-03 11:45] VITALS: PULSE 67; TEMP 97.7
--- NOTE | 2022-07-03 12:34 | P.DS ---
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 Coronary artery disease, status post 2 vessel off pump CABG 2. History of hypertension 3. Hyperlipidemia, treated, cholesterol 194, LDL 113, triglycerides 159 4. Chronic systolic heart failure/ischemic cardiomyopathy, EF 25-30%, improved postoperative 40-45% 5. Chronic LV thrombus, on [facility] outpatient for anticoagulation 6. Type 2 diabetes, preoperative hemoglobin A1c 7.8% 7. Rheumatoid arthritis, recent flareup 8. Current tobacco dependence 9. Severe COPD, preoperative FEV1 35% of predicted 10. Marijuana use 11. Peripheral arterial disease, status post stenting of the proximal and mid left SFA, atherectomy of the left SFA, IVUS of the left SFA, balloon angioplasty of the left popliteal completed by Dr. Anne 05/01/2022 12. Recent Covid infection in May 2022, vaccinated not boosted PRINCIPAL PROCEDURE: 1. Off-pump coronary artery bypass grafting 2 with left internal thoracic artery to the left anterior descending coronary artery, left radial artery from the aorta to the ramus intermedius coronary artery 2. Left atrial appendage ligation with a 35 mm Atriclip 3. Endoscopic left radial artery harvest 4. Epi-aortic ultrasound 5. Intraoperative transesophageal echocardiogram performed by anesthesia 6. Graft flow measurements using the [employer] system HISTORY OF PRESENT ILLNESS: This is a 61-year-old gentleman who is followed on an outpatient basis by Dr. Cadny Engel, Dr. Anne for his cardiology care and Dr. JULIO Man for his pulmonary care. Recently, the patient has had complaints of intermittent claudication to his bilateral lower extremities and substernal chest pain which radiated to his back between his shoulder blades. He was subsequently seen by Dr. Anne from cardiology concerning for peripheral vascular disease and coronary artery disease. The patient underwent a peripheral angiogram which showed bilateral occluded SFA and his cardiac catheterization revealed triple-vessel equivalent coronary artery disease. In April 2022 the patient underwent a 2-D transthoracic echocardiogram which demonstrated a severely reduced left ventricular systolic function with an ejection fraction estimated at 25-30% anterior apical, apex and anterior septal wall akinesis, evidence of an apical thrombus, mild mitral valve regurgitation, mild tricuspid valve regurgitation and a normal size aortic root and proximal ascending aorta. On 05/01/2022 the patient underwent successful stenting of the proximal and mid left SFA, arthrectomy of the left SFA, and successful balloon angioplasty of the left popliteal by Dr. Anne. Due to the patient's findings on his heart catheterization a consult was placed to Dr. Victor M Walters from cardiothoracic surgery for further evaluation and treatment recommendations including myocardial revascularization surgery. Dr. Walters met with the patient, discussed the findings on the cardiac catheterization with the patient and his , treatment options discussed including myocardial revascularization surgery, risks and benefits of the surgery were discussed as well as his STS risk score, knowing and understanding these risks patient wishes to proceed with the surgical option. HOSPITAL COURSE: The patient was brought to the hospital on 06/24/2022, taken to the preoperative area, prepared in the usual fashion and subsequently taken to the operating room where Dr. Walters performed an off-pump coronary artery bypass grafting 2. Upon completion of the surgery the patient was transferred to the cardiovascular intensive care unit where he was recovered and monitored hemodynamically. He was extubated, all lines, tubes and supportive drips were discontinued when appropriate and transfer orders were placed to third floor cardiac stepdown unit for further rehabilitation and monitoring. The patient's oxygen was titrated down, he continued work with physical, occupational therapy and cardiac rehab, he was tolerating an oral diet, his pain was well-controlled and he was ready to be discharged home with a [facility] care on postoperative day #9. He is received written and verbal instructions regarding his medications, activity restrictions, signs and symptoms requiring physician notification and his follow-up appointments. Plan - Discharge Summary Discharge Rx Participant: Yes New Discharge Prescriptions: New Fluticasone Propion/Salmeterol [Advair 500-50 Diskus] 1 puff INHALATION BID #1 each Amiodarone [Cordarone] 400 mg PO DAILY 6 Days #12 tab amLODIPine [Norvasc] 2.5 mg PO DAILY@1200 #30 tab Pantoprazole [Protonix] 40 mg PO AC-BRKFST #30 tab Albuterol Inhaler [Ventolin Hfa Inhaler] 1 puff INHALATION RT-QID PRN #1 each PRN Reason: Shortness Of Breath Or Wheezing Furosemide [Lasix] 20 mg PO DAILY #5 tab Metoprolol Tartrate [Lopressor] 50 mg PO BID #60 tab Clopidogrel [Plavix] 75 mg PO DAILY #30 tab Acetaminophen Tab [Tylenol] 650 mg PO Q4HR PRN tab PRN Reason: Fever and/ or Mild Pain lisinopriL [Zestril] 5 mg PO BID #60 tab Continue Montelukast [Singulair] 10 mg PO DAILY Albuterol Nebulized [Ventolin Nebulized] 2.5 mg INHALATION Q8H PRN PRN Reason: Shortness Of Breath Apixaban [Eliquis] 2.5 mg PO BID #180 tab Atorvastatin Calcium [Lipitor] 80 mg PO DAILY sitaGLIPtin PHOS/metFORMIN HCL [Janumet 50-1,000 mg Tablet] 1 each PO DAILY Discontinued Enoxaparin [Lovenox] 80 mg SQ Q12H #4 each predniSONE 5 mg PO DIRECTED PRN PRN Reason: COPD flare lisinopriL [Zestril] 5 mg PO DAILY Metoprolol Succinate (ER) [Toprol XL] 25 mg PO DAILY Aspirin 81 mg PO DAILY Discharge Medication List Albuterol Nebulized [Ventolin Nebulized] 2.5 mg INHALATION Q8H PRN 03/20/22 [History] Atorvastatin Calcium [Lipitor] 80 mg PO DAILY 03/20/22 [History] Montelukast [Singulair] 10 mg PO DAILY 03/20/22 [History] sitaGLIPtin PHOS/metFORMIN HCL [Janumet 50-1,000 mg Tablet] 1 each PO DAILY 03/20/22 [History] Apixaban [Eliquis] 2.5 mg PO BID #180 tab 05/02/22 [Rx] Acetaminophen Tab [Tylenol] 650 mg PO Q4HR PRN tab 07/03/22 [Rx] Albuterol Inhaler [Ventolin Hfa Inhaler] 1 puff INHALATION RT-QID PRN #1 each 07/03/22 [Rx] Amiodarone [Cordarone] 400 mg PO DAILY 6 Days #12 tab 07/03/22 [Rx] Clopidogrel [Plavix] 75 mg PO DAILY #30 tab 07/03/22 [Rx] Fluticasone Propion/Salmeterol [Advair 500-50 Diskus] 1 puff INHALATION BID #1 each 07/03/22 [Rx] Furosemide [Lasix] 20 mg PO DAILY #5 tab 07/03/22 [Rx] Metoprolol Tartrate [Lopressor] 50 mg PO BID #60 tab 07/03/22 [Rx] Pantoprazole [Protonix] 40 mg PO AC-BRKFST #30 tab 07/03/22 [Rx] amLODIPine [Norvasc] 2.5 mg PO DAILY@1200 #30 tab 07/03/22 [Rx] lisinopriL [Zestril] 5 mg PO BID #60 tab 07/03/22 [Rx] Follow up Appointment(s)/Referral(s): Patricia Castro NPC [Nurse Practitioner] - 07/10/22 2:00 pm (Please follow-up with Patricia at [address] [facility] [address], [place], [place], office number is [phone] Please obtain chest x-ray prior to follow-up visit with Patricia.) [facility] [NON-STAFF] - 4 Weeks (You will receive a phone call in approximately 4-6 weeks for evaluation for cardiac rehab) Jil Engel MD [Primary Care Provider] - 07/04/22 9:15 am (You are scheduled to follow-up with the nurse practitioner Jayro.) Queta Roberto,Home Care [NON-STAFF] - 1 Week Juan Anne MD [STAFF PHYSICIAN] - 07/09/22 3:15 pm (Please follow-up at [address] [facility] Victor M Walters MD [STAFF PHYSICIAN] - 07/23/22 2:00 pm Oskar Man MD [STAFF PHYSICIAN] - 07/11/22 10:15 am Ambulatory/Diagnostic Orders: Complete Blood Count w/diff [LAB.AMB] Time Frame: 07/06/22, Facility: [facility], Location: [facility] Comprehensive Metabolic Panel [LAB.AMB] Time Frame: 07/06/22, Facility: [facility], Location: [facility] XR chest 2V [RAD.AMB] Time Frame: 07/10/22, Facility: [facility], Location: [facility] Activity/Diet/Wound Care/Special Instructions: DISCHARGE INSTRUCTIONS: 1. No driving for 4 weeks, or until physician gives their ok. 2. The patient should sleep in their own bed, no medical bed needed. 3. Stairs are not an issue. If the bedroom is upstairs, it is advised that the patient go up at night and down in the morning for the first week. Go slowly, using handrail and take 1 step at a time. 4. SONAL hose are to be worn for 30 days post surgery or until physician discontinues. 5. Heart hugger is to be worn 100% of the time until physician discontinues.(except when showering) 6. No lifting, pushing, or pulling more than 10 pounds for 12 weeks. The physician will advise of any restriction changes. 7. The patient is expected to continue the prescribed walking program. 8. Continue pain control per as needed orders. 9. Continue with incentive spirometry and splinting/heart hugger until otherwise directed by the physician. 10. Must shower daily using liquid antibacterial soap 11. Routine sternal incision care. No powders, lotions, ointments on incisions. No dressings are necessary on incisions unless they are draining. Dermabond tape is to remain on sternal incision until surgeon follow-up. 12. Please call surgeon/CHILD THERAPIST for temp greater than 101 F or purulent drainage from incisions. 13. You should weigh yourself daily, record and bring log with you to follow up appointments. 14. All prescriptions given by surgeon for 30 days. Refills need to be filled through engine assembly supervisor/primary care physician. 15. A Red armband has been placed on the patient. It should be worn for 30 days post discharge from surgery and will be removed by the cardiac surgeons. If an ER visit is necessary, please make sure the number on the Red armband is called before going to ER. 16. You have been referred to and are expected to begin Cardiac Rehab in approximately 4-6 weeks. HOME HEALTH SERVICES TO PROVIDE: RN SKILLED HOME CARE SERVICES FOR POST-OP SURGICAL PATIENTS WITH THE FOLLOWING: Coronary Artery Bypass Surgery (CABG), Mitral Valve Replac ement/Repair ( MVR), Aortic Valve Replacement/Repair (AVR) RN TO CONTINUE EDUCATION FROM ``ROAD TO A HEALTH HEART PATIENT EDUCATION MANUAL (GIVEN TO PATIENT IN THE HOSPITAL) MEDICATION RECONCILIATION WITH EDUCATION NEEDED ON FIRST HOME VISIT EMPHASIZE IMPORTANCE OF WEARING BREAST SUPPORT/HEART HUGGER ENCOURAGE USE OF INCENTIVE SPIROMETER 10 X EVERY HOUR WHILE AWAKE ENCOURAGE UTILIZATION OF LOWER EXTREMITY COMPRESSION STOCKINGS/SONAL HOSE and ELEVATE LEGS ABOVE LEVEL OF HEART WHILE AT REST. ENCOURAGE AMBULATION 3-5x/day INCREASING TOLERATES, WHILE AVOIDING EXTREMES IN TEMPERATURE FREQUENCY: RN TO OPEN THE PATIENT WITHIN 24 HOURS OF DISCHARGE FROM THE HOSPITAL WITH TELEHEALTH INSTALLED AT [facility], RN TO VISIT 2-3 X A WEEK FOR 4 WEEKS ESTABLISHED BY PATIENT NEEDS. LABORATORY: CBC, CMP TO BE DRAWN ON THE THIRD DAY HOME, (RAN STAT) FAX RESULTS TO [phone]. TELEHEALTH PARAMETERS: WEIGHT: NOTIFY MD OF WEIGHT GAIN OF 2 LBS IN 24 HOURS OR 5 LBS IN ONE WEEK HR: NOTIFY MD OF HR <55 BPM OR HR>100 BPM BP: NOTIFY MD IF BP <90/55 OR BP>140/100 O2 SAT: NOTIFY MD IF PO2<93% ON ROOM AIR SEND TELEHEALTH REPORT TO RIVER CAPTAIN AND CARDIOVASCULAR SURGEON THE FIRST WEEK OF CARE AND THEN BI-WEEKLY. PLEASE ADDITIONALLY COMMUNICATE ANY ABNORMALS AND NEW FINDINGS TO THE SURGEONS OFFICE. Discharge Disposition: HOME WITH HOME HEALTH SERVICES
[2022-07-04] MEDS ORDERED: FUROSEMIDE 20 MG TAB PO SCH (09:00)
== END 2022-07-03 13:30 | disposition home health service (06) | DRG 236 ==
LOC: 2ORMAIN 05:42 → 2SICU 12:42 → 3SCARD 07-02 21:10
PROVIDERS: ADMIT Thoracic Surgery (Cardiothoracic Vascular Surgery); ATTEND Thoracic Surgery (Cardiothoracic Vascular Surgery)
PROC: 02L70CK Occlusion of Left Atrial Appendage with Extraluminal Device, Open Approach (ICD-10-PCS; 2022-06-24)
PROC: B24BZZ4 Ultrasonography of Heart with Aorta, Transesophageal (ICD-10-PCS; 2022-06-24)
PROC: 4A0305C Measurement of Arterial Flow, Coronary, Open Approach (ICD-10-PCS; 2022-06-24)
PROC: 5A09357 Assistance with Respiratory Ventilation, Less than 24 Consecutive Hours, Continuous Positive Airway Pressure (ICD-10-PCS; 2022-06-24)
PROC: 02100ZC Bypass Coronary Artery, One Artery from Thoracic Artery, Open Approach (ICD-10-PCS; principal; 2022-06-24 08:00)
PROC: 03BB4ZZ Excision of Right Radial Artery, Percutaneous Endoscopic Approach (ICD-10-PCS; 2022-06-24 08:00)
PROC: 02100A3 Bypass Coronary Artery, One Artery from Coronary Artery with Autologous Arterial Tissue, Open Approach (ICD-10-PCS; 2022-06-24 08:00)
DX: I25.10 Atherosclerotic heart disease of native coronary artery without angina pectoris (principal); J93.83 Other pneumothorax; J93.82 Other air leak; I50.22 Chronic systolic (congestive) heart failure; I51.3 Intracardiac thrombosis, not elsewhere classified; I11.0 Hypertensive heart disease with heart failure; E11.51 Type 2 diabetes mellitus with diabetic peripheral angiopathy without gangrene; J44.9 Chronic obstructive pulmonary disease, unspecified; I70.203 Unspecified atherosclerosis of native arteries of extremities, bilateral legs; M06.9 Rheumatoid arthritis, unspecified; Z95.820 Peripheral vascular angioplasty status with implants and grafts; F17.210 Nicotine dependence, cigarettes, uncomplicated; E78.5 Hyperlipidemia, unspecified; I25.5 Ischemic cardiomyopathy; Z79.82 Long term (current) use of aspirin; Z79.899 Other long term (current) drug therapy; Z79.84 Long term (current) use of oral hypoglycemic drugs; Z86.16 Personal history of COVID-19
CPT/HCPCS: 71045; 76604; 80048; 80053; 82330; 82805; 83735; 85025; 85027; 85610; 85730; 86850; 86891; 86900; 86901; 86920; 87070; 87205; 94002; 94640; 94660; 94760

== ENCOUNTER 2022-11-11 10:09 | Day surgery (SDC) | payer MEDICARE ==
[~2022-11-11 10:09] MED LIST changes: -ALBUMIN HUMAN 25% 50 ML IV ONE; -ALBUMIN HUMAN 5% 500 ML IVPB ONE; +ALPRAZolam 0.25 MG TAB PO PRN; +ALPRAZolam 0.5 MG TAB PO PRN; -ASPIRIN 325 MG TAB PO ONE; +ASPIRIN 325 MG TAB PO STA; -ATORVASTATIN 10 MG TAB PO ONE; +ATORVASTATIN 80 MG TAB PO STA; -CALCIUM CHLORIDE 100 MG/ML 10 ML SYRINGE IV ONE; -CHLORHEXIDINE GLUCONATE 15 ML CUP MUCOUS MEM ONE; -CLEVIDIPINE BUTYRATE 25 MG in EMPTY BAG 1 BAG IV ONE; -DILTIAZEM 125 MG in SODIUM CHLORIDE 0.9% 100 ML IV ONE; -ELECTROLYTE-A SOLUTION 1,000 ML with POTASSIUM CHLORIDE 100 MEQ, MAGNESIUM SULFATE 16 M... IV ONE; -ELECTROLYTE-A SOLUTION 1,000 ML with POTASSIUM CHLORIDE 40 MEQ, MAGNESIUM SULFATE 16 ME... IV ONE; -HEPARIN SODIUM 1,000 UN/ML (10ML VL) IV ONE; +HEPARIN SODIUM,PORCINE 10,000 UNIT in SODIUM CHLORIDE 0.9% 1,000 ML IRRIGATION PRN; +HEPARIN SODIUM,PORCINE 2,500 UNIT in SODIUM CHLORIDE 0.9% 250 ML IRRIGATION PRN; -HEPARIN SODIUM,PORCINE 5,000 UNIT in SODIUM CHLORIDE 0.9% 500 ML 500 ML IV ONE; -INSULIN REGULAR 100 UNIT in SODIUM CHLORIDE 0.9% 100 ML IV ONE; -LACTATED RINGERS 1,000 ML IV ONE; -MAGNESIUM SULFATE 16.24 MEQ in EMPTY SYRINGE 1 SYR IV ONE; -MANNITOL 25% 12.5 GM/50 ML VIAL IV ONE; -METOPROLOL TARTRATE 12.5 MG TAB PO ONE; -MUPIROCIN 2% OINT 22 GM TUBE NASAL ONE; -NITROGLYCERIN SL TABS 0.4 MG TAB SUBLINGUAL ONE; +NITROGLYCERIN SL TABS 0.4 MG TAB SUBLINGUAL PRN; -NITROGLYCERIN-D5W PMX 25 MG/250 ML BTL IV ONE; -NITROGLYCERIN-D5W PMX 50 MG in DEXTROSE/WATER 1 250ML.BAG IV ONE; -NOREPINEPHRINE 4 MG in SODIUM CHLORIDE 0.9% 250 ML IV ONE; -PAPAVERINE 360 MG in SODIUM CHLORIDE 0.9% 90 ML IV ONE; -PHENYLEPHRINE 10 MG/ML VIAL IV ONE; -PHENYLEPHRINE 40 MG in SODIUM CHLORIDE 0.9% 250 ML IV ONE; -PROTAMINE SULFATE 10 MG/ML 25 ML VIAL IV ONE; -PROTAMINE SULFATE 250 MG in EMPTY BAG 1 BAG IV ONE; -SODIUM BICARB 8.4% 50 ML SYR (1 MEQ/ML) IV ONE; -SODIUM CHLORIDE 0.9% 1,000 ML IV ONE; +SODIUM CHLORIDE 0.9% 1,000 ML in EMPTY BAG 1 BAG IV SCH; -TRANEXAMIC ACID 2,000 MG in SODIUM CHLORIDE 0.9% 80 ML IV ONE; -ceFAZolin 1,000 MG in SODIUM CHLORIDE 0.9% IRRIGATIO 1,000 ML IRRIGATION ONE; -propofoL 1,000 MG/100 ML VIAL IV ONE
[2022-11-11] MEDS ORDERED: HYDROcodone/APAP 5-325MG 1 EACH TAB ONE (10:40)
[2022-11-11 10:51] LABS: Glucose,Whole Blood 149 mg/dL (70-110)
[2022-11-11] MEDS ORDERED: HEPARIN SODIUM 1,000 UN/ML (10ML VL) ONE (11:38)
[2022-11-11] MEDS ORDERED: VERAPAMIL 2.5 MG/ML 2 ML AMP ONE (11:40)
[2022-11-11] MEDS ORDERED: LIDOCAINE 1% INJ 10MG/ML (20 ML MDV) ONE (12:08)
[2022-11-11] MEDS ORDERED: LIDOCAINE 1% INJ 10MG/ML (5 ML VIAL-PF) SQ ONE (12:08)
[2022-11-11] MEDS ORDERED: niCARdipine 25 MG/10 ML VIAL ONE (12:08)
[2022-11-11] MEDS ORDERED: MIDAZOLAM 2 MG/2 ML VIAL IV ONE ×2 (12:08→12:51)
[2022-11-11] MEDS ORDERED: fentaNYL (PF) 50 MCG/ML 2 ML AMP ONE (12:13)
[2022-11-11] MEDS ORDERED: fentaNYL (PF) 50 MCG/ML 2 ML AMP IV ONE (12:15)
[2022-11-11] MEDS ORDERED: HEPARIN SODIUM 1,000 UN/ML (10ML VL) IV ONE (12:23)
[2022-11-11] MEDS ORDERED: CLOPIDOGREL 75 MG TAB ONE (12:58)
[2022-11-11] MEDS ORDERED: CLOPIDOGREL 75 MG TAB PO ONE (13:00)
[2022-11-11] MEDS ORDERED: IOPAMIDOL-370 100ML BTL INJ ONE (13:16)
[2022-11-11] MEDS ORDERED: ALBUTEROL NEBULIZED 2.5 MG/3 ML INHALATION PRN (13:18)
[2022-11-11] MEDS ORDERED: ATROPINE SULFATE 0.1 MG/ML 10ML SYRINGE IV PRN (13:20)
[2022-11-11] MEDS ORDERED: MAG HYDROX/AL HYDROX/SIMETH 30 ML CUP PO PRN (13:20)
[2022-11-11] MEDS ORDERED: RX INFO: IV CONTRAST WAS GIVEN 1 EACH MISC MISCELLANE PRN (13:20)
[2022-11-11] MEDS ORDERED: ZOLPIDEM 5 MG TAB PO PRN (13:20)
--- NOTE | 2022-11-11 13:22 | P.PCN ---
Date of Procedure: 11/11/22 Operative Findings: PERCUTANEOUS CORONARY INTERVENTION Performing physician Juan Anne M.D. Procedure Performed: 1. Successful stenting of the mid RCA using 3.5 x 38 mm Xience drug-eluting stent with an excellent angiographic results. 2. Successful stending of the proximal RCA using 4.0 x 23 mm Xience drug-eluting stent with an excellent angiographic result. 3. Adjunctive use of intravascular ultrasound on shockwave balloon/lithotripsy balloon 4. Placement of temporary pacemaker in the right ventricle from right femoral approach 5. Ultrasound-guided access of the right common femoral artery and the right common femoral vein and selective right common femoral artery angiogram Indication: This is a 62-year-old gentleman with a known severe triple-vessel CAD who underwent recently an open heart surgery and received OBREGON to LAD and vein graft to OM. The RCA is known to be critical and he continues to be symptomatic. He was brought today to undergo PCI of the RCA Approach: Right common femoral artery and right common femoral vein Complications: None Level of Sedation: Moderate with a sedation length of 54 minutes Procedure Discussion: After obtaining an informed consent the patient was brought to the cardiac calibration laboratory technician. The right common femoral vein was cannulated using micropuncture technique under ultrasound guidance, and the micropuncture wire passed easily then I placed a 6-Arabic sheath. Under fluoroscopy guidance a temporary pacemaker was balloon tip was advanced to the right ventricle. That was performed because we were going to perform atherectomy of the right coronary artery. Subsequently the right common femoral artery was cannulated using micropuncture technique under ultrasound guidance, the micropuncture wire passed easily then at least a 6-Arabic sheath in the right common femoral artery. At that point anticoagulation was initiated using heparin with continuous ACT monitoring. I did engage the RCA using an a.l. 0.75 guiding catheter. I did wire the right coronary artery using a whisper wire. Intravascular ultrasound was performed and showed that the RCA was calcified but not extremely calcified with an arch of calcium below to 70. At that point I decided to do balloon angioplasty initially using 1.5 mm balloon and subsequently 2.0 mm balloon. I did find that the RCA diameter in the midportion about 3.5 mm. I did shockwave balloon using 3.5 mm of the mid and proximal right coronary artery. After that I deployed 3.5 x 38 mm stent in the midportion and 4.0 x 23 mm in the proximal portion with about 20 mm overlap between the 2 stents. After that an angiogram was performed and showed that the stent in the midportion appears to be not completely expanded. It did have an oval-shaped. Also the distal edge of the stent in the mid RCA has a hazy lesion. Intravascular ultrasound was performed again and showed that the stent was not completely expanded in the midportion and the distal edge of the stent did not have any edge dissection which I decided to leave balloon. Postdilatation of the mid RCA using 3.5 x 23 mm noncompliant balloon was performed and that showed an excellent angiographic results and the procedure was completed was no complication. Postprocedure Management: 1. Dual antiplatelet therapy using aspirin and Plavix for at least 6 months 2. Aggressive cholesterol control and 3. Risk factors modification
[2022-11-11 17:01] LABS: Glucose,Whole Blood 121 mg/dL (70-110)
[2022-11-11 21:42] LABS: Glucose,Whole Blood 207 mg/dL (70-110)
[2022-11-11] MEDS: lisinopriL 5 MG TAB PO SCH (22:03)
[2022-11-11] MEDS: ACETAMINOPHEN TAB 325 MG TAB PO PRN (22:03)
[2022-11-12 06:04] LABS: Glucose,Whole Blood 164 mg/dL (70-110)
[2022-11-12] MEDS: ACETAMINOPHEN TAB 325 MG TAB PO PRN (06:28)
[2022-11-12 06:42] LABS: Basophils # (A) 0.1 k/uL (0-0.2); Basophils % (A) 1 %; Eosinophils # (A) 0.6 k/uL (0-0.7); Eosinophils % (A) 6 %; HCT 39.3 % (39.0-53.0); HGB 12.6 gm/dL (13.0-17.5); Lymphocytes # (A) 2.3 k/uL (1.0-4.8); Lymphocytes % (A) 27 %; MCV 81.2 fL (80.0-100.0); Mean Platelet Volume 6.7; Monocytes # (A) 0.6 k/uL (0-1.0); Monocytes % (A) 7 %; Neutrophils # (A) 4.9 k/uL (1.3-7.7); Neutrophils % (A) 56 %; Platelet Count 425 k/uL (150-450); RBC 4.84 m/uL (4.30-5.90); RDW 15.4 % (11.5-15.5); WBC 8.6 k/uL (3.8-10.6)
[2022-11-12 07:03] LABS: African American GFR (CKD) >90 (>60 ml/min/1.73 sqM); Anion Gap 7 mmol/L; Blood Urea Nitrogen 11 mg/dL (9-20); Calcium 9.6 mg/dL (8.4-10.2); Carbon Dioxide 28 mmol/L (22-30); Chloride 102 mmol/L (98-107); Glucose 153 mg/dL (74-99); Non-African American GFR(CKD) >90 (>60 ml/min/1.73 sqM); Potassium 4.4 mmol/L (3.5-5.1); Sodium 137 mmol/L (137-145)
[2022-11-12 07:13] VITALS: RESP 19; TEMP 97.9
[2022-11-12] MEDS ORDERED: PANTOPRAZOLE 40 MG TABLET PO SCH (07:30)
--- NOTE | 2022-11-12 08:04 | P.DS ---
Providers Attending physician: Juan Anne Consults: 11/11/22 13:20 Consult Physician Routine Consulting Provider: [facility] Consult Reason/Comments: Post Interventional patient Do you want consulting provider notified?: Already Contacted Primary care physician: Jil Engel [facility] Course: The patient is a pleasant 62-year-old gentleman who underwent yesterday successful angioplasty of the right coronary artery. He was seen this morning. He is asymptomatic and hemodynamically stable. The patient is going to be discharged home later on today and I'll follow-up with the patient next week in the office Plan - Discharge Summary Discharge Rx Participant: No New Discharge Prescriptions: Continue Montelukast [Singulair] 10 mg PO DAILY Albuterol Nebulized [Ventolin Nebulized] 2.5 mg INHALATION Q8H PRN PRN Reason: Shortness Of Breath Apixaban [Eliquis] 2.5 mg PO BID #180 tab amLODIPine [Norvasc] 2.5 mg PO DAILY@1200 #30 tab Pantoprazole [Protonix] 40 mg PO AC-BRKFST #30 tab Atorvastatin Calcium [Lipitor] 80 mg PO DAILY sitaGLIPtin PHOS/metFORMIN HCL [Janumet 50-1,000 mg Tablet] 1 each PO DAILY Clopidogrel [Plavix] 75 mg PO DAILY #30 tab Acetaminophen Tab [Tylenol] 650 mg PO Q4HR PRN tab PRN Reason: Fever and/ or Mild Pain lisinopriL [Zestril] 5 mg PO BID #60 tab Metoprolol Succinate (ER) [Toprol XL] 100 mg PO DAILY Discharge Medication List Albuterol Nebulized [Ventolin Nebulized] 2.5 mg INHALATION Q8H PRN 03/20/22 [History] Atorvastatin Calcium [Lipitor] 80 mg PO DAILY 03/20/22 [History] Montelukast [Singulair] 10 mg PO DAILY 03/20/22 [History] sitaGLIPtin PHOS/metFORMIN HCL [Janumet 50-1,000 mg Tablet] 1 each PO DAILY 03/20/22 [History] Apixaban [Eliquis] 2.5 mg PO BID #180 tab 05/02/22 [Rx] Acetaminophen Tab [Tylenol] 650 mg PO Q4HR PRN tab 07/03/22 [Rx] Clopidogrel [Plavix] 75 mg PO DAILY #30 tab 07/03/22 [Rx] Pantoprazole [Protonix] 40 mg PO AC-BRKFST #30 tab 07/03/22 [Rx] amLODIPine [Norvasc] 2.5 mg PO DAILY@1200 #30 tab 07/03/22 [Rx] lisinopriL [Zestril] 5 mg PO BID #60 tab 07/03/22 [Rx] Metoprolol Succinate (ER) [Toprol XL] 100 mg PO DAILY 11/08/22 [History] Follow up Appointment(s)/Referral(s): Juan Anne MD [STAFF PHYSICIAN] - 11/20/22 3:45 pm Patient Instructions/Handouts: Moderate Sedation (DC), After Radial Heart Catheterization (GEN) Activity/Diet/Wound Care/Special Instructions: *NO LIFTING, PUSHING, OR PULLING ANYTHING OVER 5 POUNDS FOR 5 DAYS *NO DRIVING FOR 3 DAYS *YOU CAN REMOVE YOUR DRESSING AND SHOWER TOMORROW BUT DO NOT SUBMERSE YOUR PUNCTURE SITE IN WATER FOR A FEW DAYS TO PREVENT INFECTION - SO NO TUB BATHS, POOLS, HOT TUBS, DISHES...ETC *ANY SIGNS OF BLEEDING (HARDNESS, SWELLING, OR EXCESSIVE BRUISING) HOLD DIRECT PRESSURE ON YOUR PUNCTURE SITE AND COME TO THE NEAREST EMERGENCY ROOM TO GET YOUR PUNCTURE SITE LOOKED AT - DO NOT DRIVE YOURSELF! EITHER CALL EMS OR HAVE SOMEONE DRIVE YOU!
[2022-11-12] MEDS: lisinopriL 5 MG TAB PO SCH (08:38)
[2022-11-12 08:42] VITALS: BP 116/76; PULSE 108
[2022-11-12] MEDS ORDERED: METOPROLOL SUCCINATE (ER) 100 MG TAB.ER.24H PO SCH (09:00)
[2022-11-12] MEDS ORDERED: ATORVASTATIN 80 MG TAB PO SCH (09:00)
[2022-11-12] MEDS ORDERED: MONTELUKAST 10 MG TAB PO SCH (09:00)
[2022-11-12] MEDS ORDERED: CLOPIDOGREL 75 MG TAB PO SCH (09:00)
[2022-11-12] MEDS ORDERED: amLODIPine 2.5 MG TAB PO SCH (12:00)
== END 2022-11-12 09:46 | disposition home or self-care (01) ==
LOC: CATHCVL 10:09 → 6NMEDSUR 15:11 → CATHCVL 11-12 09:46
PROVIDERS: ATTEND Internal Medicine Interventional Cardiology
DX: I25.10 Atherosclerotic heart disease of native coronary artery without angina pectoris (principal); Z95.1 Presence of aortocoronary bypass graft; I25.5 Ischemic cardiomyopathy; I70.213 Atherosclerosis of native arteries of extremities with intermittent claudication, bilateral legs; Z98.62 Peripheral vascular angioplasty status; I10 Essential (primary) hypertension; J44.9 Chronic obstructive pulmonary disease, unspecified; E78.5 Hyperlipidemia, unspecified; M06.9 Rheumatoid arthritis, unspecified; F17.210 Nicotine dependence, cigarettes, uncomplicated; E11.51 Type 2 diabetes mellitus with diabetic peripheral angiopathy without gangrene; Z79.01 Long term (current) use of anticoagulants; Z79.02 Long term (current) use of antithrombotics/antiplatelets; Z79.51 Long term (current) use of inhaled steroids; Z79.899 Other long term (current) drug therapy
CPT/HCPCS: 92928; 92978; 0715T; 80048; 85025; C1769 ×3; C1894 ×2; C1725 ×3; C1753; C1874 ×2; C1761; C1887; J2250; J2001; J3010; J1644; Q9967; 33210

== ENCOUNTER → 2023-08-25 | Outpatient (CLI) | payer MEDICARE ==
--- NOTE | 2023-08-25 12:57 | CT ---
EXAMINATION TYPE: CT chest wo con DATE OF EXAM: 08/25/2023 COMPARISON: 04/16/2022 HISTORY: SOB, COPD, recent open heart CT DLP: 484.6 mGycm. Automated Exposure Control for Dose Reduction was Utilized. TECHNIQUE: CT scan of the thorax is performed without IV contrast. FINDINGS: There are persistent mild to moderate emphysematous changes. There are a few fine reticular densities in the left lung base, increased mildly in the interval but most likely reflecting chronic interstitial changes. There is no suspicious lung mass or nodule. No airspace consolidation to suggest acute edema or pneumonia. There is no pleural effusion or pneumothorax. The great vessels chest are normal no mediastinal, hilar or axillary adenopathy. Limited scanning the upper abdomen reveals no gross abnormality. No focal osseous lesions are seen. IMPRESSION: 1. Mild to moderate emphysematous changes. 2. No acute cardiopulmonary disease. 3. No suspicious lung mass or nodule.
== END | disposition home or self-care (01) ==
LOC: RADCTMAIN 12:10
PROVIDERS: ATTEND Internal Medicine Interventional Cardiology
DX: I25.10 Atherosclerotic heart disease of native coronary artery without angina pectoris (principal); I50.9 Heart failure, unspecified; J43.9 Emphysema, unspecified; J44.9 Chronic obstructive pulmonary disease, unspecified; Z95.1 Presence of aortocoronary bypass graft
CPT/HCPCS: 71250